=== PATIENT | female | born 1935 | race Caucasian/White ===

== ENCOUNTER 2017-06-19 15:32 | Inpatient (IN) | payer OTHER ==
[~2017-06-19] VITALS: Ht 162.6 cm; Wt 61.5 kg
[~2017-06-19 15:32] MED LIST: ASPEC325 PO; CRANPOW PO; HYDR-1838 PO
--- NOTE | 2017-06-19 15:50 | EMERGENCY ROOM VISIT NOTE ---
History Report prepared by [place]: Bernard Cintron Under the Supervision of: Dr. Ziggy Card D.O. First contact with patient: 15:44 Stated Complaint: AB PAIN, URINARY RETENSION History of Present Illness The patient is an 82 year old female who presents to the Emergency Room with complaints of persistent abdominal pain since this morning. She currently rates her pain a 5/10 in severity. Per friend, the patient has also been complaining of burning with urination. She states the patient was checked on at home and seemed mentally changed. She notes the patient is able to take care of herself 90% of the time without issue. She was seen at [facility] and was advised to come to the ED for further evaluation. They reported her blood pressure was 78/ 51. She has a history of prolapsed uterus. Per friend, the patient seems more improved, though still not as normal. She denies any smoking or drinking. NKDA. Source of History: patient, friend Onset: since this morning Position: abdomen Symptom Intensity: 5/10 Timing: other (persistent) Associated Symptoms: + urinary symptoms (burning with urination) Note: Notes altered mental status. Review of Systems See HPI for pertinent positives & negatives. A total of 10 systems reviewed and were otherwise negative. Past Medical & Surgical Medical Problems: (1) Complicated UTI (urinary tract infection) (2) Prolapsed bladder (3) Prolapsed uterus (4) UTI (urinary tract infection) Family History No pertinent family history Social History Smoking Status: Never Smoker Smokeless Tobacco Use: No Alcohol Use: none Drug Use: none Marital Status: single Housing Status: lives alone Occupation Status: unemployed Current/Historical Medications Scheduled Powders (Vagisil Deodorant), 1 APPLN TOP UD Scheduled PRN Aspirin-Caffeine (Anacin 400-32 mg), 1 TAB PO UD PRN for Pain Benzocaine-Resorcinol Vaginal (Vagisil), 1 APPLN TOP UD PRN for Itching Allergies Coded Allergies: No Known Allergies (Unverified , 06/19/17) Physical Exam Vital Signs Date Time Temp Pulse Resp B/P (MAP) Pulse Ox O2 Delivery O2 Flow Rate FiO2 06/19/17 23:00 36.7 105 18 155/91 96 Room Air 06/19/17 20:35 99 06/19/17 16:30 92 06/19/17 15:48 36.9 95 18 147/106 97 Room Air Physical Exam GENERAL: Patient is awake, alert, and in no acute distress. Patient is resting comfortably and showing no signs of anxiety. EYES: The conjunctivae are clear. The pupils are round and reactive. EARS, NOSE, MOUTH AND THROAT: The nose is without any evidence of any deformity. Mucous membranes are dry tongue is midline NECK: The neck is nontender and supple. RESPIRATORY: Normal respiratory effort is noted there is no evidence of wheezing rhonchi or rales CARDIOVASCULAR: Regular rate and rhythm noted there no murmurs rubs or gallops normal S1 normal S2 GASTROINTESTINAL: The abdomen is soft. Bowel sounds are present in all quadrants. Abdomen is nontender MUSCULOSKELETAL/EXTREMITIES: There is no evidence of gross deformity full range of motion is noted in the hips and shoulders SKIN: There is no obvious evidence of any rash. There are no petechiae, pallor or cyanosis noted. NEUROLOGIC: Patient is awake alert and oriented x3. Appears to be near baseline according to friend, but answers questions appropriately. Medical Decision & Procedures ER Provider Diagnostic Interpretation: Radiology results as stated below per my review and radiologist interpretation: CHEST ONE VIEW PORTABLE CLINICAL HISTORY: ABDOMINAL PAIN/GI pain. Nausea. COMPARISON STUDY: 08/08/2011 FINDINGS: The bones soft tissues and hemidiaphragms are normal. The cardiomediastinal silhouette is normal. The lungs are clear. The pulmonary vasculature is normal. IMPRESSION: Negative chest. The above report was generated using voice recognition software. It may contain grammatical, syntax or spelling errors. Electronically signed by: Glenroy Gamez M.D. 06/19/2017 4:18 PM Dictated Date/Time: 06/19/2017 4:18 PM Laboratory Results Test 06/19/17 16:04 06/19/17 16:07 06/19/17 17:12 Urine Color YELLOW Urine Appearance CLOUDY (CLEAR) Urine pH 5.5 (4.5-7.5) Urine Specific [place] 1.025 (1.000-1.030) Urine Protein 2+ (NEG) Urine Glucose (UA) NEG (NEG) Urine Ketones TRACE (NEG) Urine Occult Blood 3+ (NEG) Urine Nitrite POS (NEG) Urine Bilirubin NEG (NEG) Urine Urobilinogen NEG (NEG) Urine Leukocyte Esterase LARGE (NEG) Urine RBC >30 /hpf (0-4) Urine WBC >30 /hpf (0-5) Urine Epithelial Cells 5-10 /lpf (0-5) Urine Bacteria 4+ (NEG) Prothrombin Time 10.7 SECONDS (9.0-12.0) Prothromb Time International Ratio 1.0 (0.9-1.1) Activated Partial Thromboplast Time 25.9 SECONDS (21.0-31.0) Partial Thromboplastin Ratio 1.0 Magnesium Level 2.1 mg/dl (1.8-2.4) Total Bilirubin 0.4 mg/dl (0.2-1) Direct Bilirubin 0.1 mg/dl (0-0.2) Aspartate Amino Transf (AST/SGOT) 13 U/L (15-37) Alanine Aminotransferase (ALT/SGPT) 11 U/L (12-78) Alkaline Phosphatase 61 U/L (45-117) Total Creatine Kinase 46 U/L (26-192) Creatine Kinase MB 1.4 ng/ml (0.5-3.6) Creatine Kinase MB Ratio 3.0 (0-3.0) Troponin I < 0.015 ng/ml (0-0.045) Total Protein 7.7 gm/dl (6.4-8.2) Albumin 4.0 gm/dl (3.4-5.0) Lipase 187 U/L (73-393) Thyroid Stimulating Hormone (TSH) 1.900 uIu/ml (0.300-4.500) Bedside Lactic Acid Venous 3.08 mmol/L (0.90-1.70) Laboratory results per my review. Medications Administered Medications (Trade) Dose Ordered Sig/Duke Route Start Time Stop Time Status Last Admin Dose Admin Sodium Chloride 1,000 ml @ 999 mls/hr Q1H1M STAT IV 06/19/17 15:51 06/19/17 16:51 DC 06/19/17 15:51 999 MLS/HR Fentanyl Citrate (Fentanyl Inj) 50 mcg Q20M PRN IV 06/19/17 17:00 06/19/17 23:44 DC 06/19/17 17:24 50 MCG Ondansetron HCl (Zofran Inj) 4 mg NOW STAT IV 06/19/17 16:54 06/19/17 16:55 DC 06/19/17 17:11 4 MG Ondansetron HCl (Zofran Inj) 4 mg STK-MED ONCE .ROUTE 06/19/17 17:07 06/19/17 17:11 DC 06/19/17 17:25 4 MG Procedure Radiology results as stated below per my review and radiologist interpretation: CHEST ONE VIEW PORTABLE CLINICAL HISTORY: ABDOMINAL PAIN/GI pain. Nausea. COMPARISON STUDY: 08/08/2011 FINDINGS: The bones soft tissues and hemidiaphragms are normal. The cardiomediastinal silhouette is normal. The lungs are clear. The pulmonary vasculature is normal. IMPRESSION: Negative chest. The above report was generated using voice recognition software. It may contain grammatical, syntax or spelling errors. Electronically signed by: Glenroy Gamez M.D. 06/19/2017 4:18 PM Dictated Date/Time: 06/19/2017 4:18 PM ECG Per My Interpretation Indication: abdominal pain Rate (beats per minute): 102 Rhythm: sinus tachycardia Findings: no acute ischemic change, no ectopy (No PVC) Change: no significant change (rate increased otherwise no change when compared to 08/08/2011) ED Course 1546: The patient was evaluated in room A2. A complete history and physical examination were performed. 1551: Ordered NSS 1,000 ml @ 999 mls/hr IV 1654: Ordered Zofran 4 mg IV 1700: Ordered Fentanyl Citrate 50 mcg IV 1815: I reassessed the patient at this time. She is resting. 1824: I spoke with Yen Shafer PA-C. We discussed the patient's case. The patient will be evaluated by the [facility] Hospitalist Group for further management. Medical Decision Prior records/ancillary studies reviewed. Triage Nursing notes reviewed. Additional history obtained from friend. The patient's history was concerning for abdominal pain. Differential diagnosis: Etiologies such as appendicitis, diverticulitis, PUD, biliary pathology, UTI, pancreatitis, obstruction, mesenteric ischemia, aortic pathology, infections, inflammatory bowel disease, renal colic, as well as others were entertained. The patient is an 82-year-old female who presented to the emergency department with a family friend. The patient normally lives alone. She was complaining of difficulty urinating and dysuria. The patient was felt to have an altered mental status by her family friend. She was complaining of significant urinary symptoms. On physical exam she appears to have very significant erythema and signs of possible fungal infection. She has a bladder prolapse by history and this likely is the reason why the patient's having urinary symptoms as well as these current findings on physical exam. She was treated with IV antibiotics as well as topical antifungals. I am very concerned because this patient does not have any primary care follow-up. For this reason I discussed her condition with the on-call [facility] hospitalist group. They have agreed to evaluate the patient in the emergency department for further management and disposition. Medication Reconcilliation Current Medication List: was personally reviewed by me Blood Pressure Screening Blood pressure disposition: Elevated BP felt to be situational Consults Time Called: 1819 Consulting Physician: Yen Shafer PA-C Returned Call: 1823 I spoke with Yen Shafer PA-C. We discussed the patient's case. The patient will be evaluated by the [facility] Hospitalist Group for further management. Impression Primary Impression: Altered mental status Additional Impressions: UTI (urinary tract infection) Intertrigo Scribe Attestation The scribe's documentation has been prepared under my direction and personally reviewed by me in its entirety. I confirm that the note above accurately reflects all work, treatment, procedures, and medical decision making performed by me. Departure Information Dispostion Being Evaluated By Hospitalist Referrals Herbie Castañeda (PCP) Problem Qualifiers Primary Impression: Altered mental status Altered mental status type: unspecified Qualified Codes: R41.82 - Altered mental status, unspecified Additional Impressions: UTI (urinary tract infection) Urinary tract infection type: acute cystitis Hematuria presence: with hematuria Qualified Codes: N30.01 - Acute cystitis with hematuria
[2017-06-19] MEDS ORDERED: SODIUM CHLORIDE 0.9% 1000ML 1,000 ML IV STA (15:51)
[2017-06-19] MEDS ORDERED: [UNRECOGNIZED DRUG - CODE] TOP (15:55)
[2017-06-19] MEDS ORDERED: [UNRECOGNIZED DRUG - CODE] TOP (15:55)
[2017-06-19] MEDS ORDERED: ASPI400T11 PO (15:55)
--- NOTE | 2017-06-19 16:20 | DIAGNOSTIC IMAGING REPORT ---
CHEST ONE VIEW PORTABLE CLINICAL HISTORY: ABDOMINAL PAIN/GI pain. Nausea. COMPARISON STUDY: 08/08/2011 FINDINGS: The bones soft tissues and hemidiaphragms are normal. The cardiomediastinal silhouette is normal. The lungs are clear. The pulmonary vasculature is normal. IMPRESSION: Negative chest. The above report was generated using voice recognition software. It may contain grammatical, syntax or spelling errors. Electronically signed by: Glenroy Gamez M.D. 06/19/2017 4:18 PM Dictated Date/Time: 06/19/2017 4:18 PM
[2017-06-19 16:27] LABS: BASO % 0.5 %; BASO ABS # 0.04 K/uL (0-0.2); EOS % 3.5 %; EOS ABS # 0.29 K/uL (0-0.5); HEMATOCRIT 40.8 % (37-47); HEMOGLOBIN 13.6 g/dL (12.0-16.0); IG# 0.02 K/uL (0.00-0.02); LYMPH % 16.6 %; LYMPH ABS # 1.36 K/uL (1.2-3.4); MEAN CELL VOLUME 95.8 fL (80-100); MEAN CORPUSCULAR HEMOGLOBIN 31.9 pg (25-34); MEAN CORPUSCULAR HGB CONC 33.3 g/dl (32-36); MEAN PLATELET VOLUME 9.4 fL (7.4-10.4); MONO % 8.5 %; NEUT % 70.7 %; PLATELET COUNT 219 K/uL (130-400); RED CELL DISTRIBUTION WIDTH CV 13.8 % (11.5-14.5); RED CELL DISTRIBUTION WIDTH SD 48.9 fL (36.4-46.3); WHITE BLOOD COUNT 8.21 K/uL (4.8-10.8)
[2017-06-19 16:40] LABS: PTT PATIENT 25.9 SECONDS (21.0-31.0)
[2017-06-19 16:41] LABS: ALT/SGPT 11 U/L (12-78); AST/SGOT 13 U/L (15-37); BLOOD UREA NITROGEN 25 mg/dl (7-18); CALCIUM 9.4 mg/dl (8.5-10.1); CARBON DIOXIDE 21 mmol/L (21-32); CREATININE 1.48 mg/dl (0.60-1.20); GLUCOSE 93 mg/dl (70-99); LIPASE 187 U/L (73-393); POTASSIUM 3.7 mmol/L (3.5-5.1); SODIUM 139 mmol/L (136-145)
[2017-06-19 16:47] LABS: ALKALINE PHOSPHATASE 61 U/L (45-117); CKMB 1.4 ng/ml (0.5-3.6); TOTAL PROTEIN 7.7 gm/dl (6.4-8.2)
[2017-06-19] MEDS ORDERED: ONDANSETRON INJ 2 MG/ML 2 ML VIAL IV STA (16:54)
[2017-06-19] MEDS ORDERED: FENTANYL CITRATE INJ 50 MCG/1 ML 2 ML VIAL IV PRN (17:00)
[2017-06-19] MEDS ORDERED: ONDANSETRON INJ 2 MG/ML 2 ML VIAL ONE (17:07)
[2017-06-19] MEDS ORDERED: FENTANYL CITRATE INJ 50 MCG/1 ML 2 ML VIAL ONE (17:07)
[2017-06-19] MEDS ORDERED: SODIUM CHLORIDE 0.9% 1000ML 1,000 ML IV SCH (18:15)
[2017-06-19] MEDS ORDERED: CEFTRIAXONE SOD INJ 1 GM ADDVIAL ONE (18:46)
[2017-06-19] MEDS ORDERED: KETOCONAZOLE 2% CR 15 GM TUBE EXT ONE (19:15)
[2017-06-19] MEDS ORDERED: PIPERACILLIN/TAZOBACTAM 4.5 GM/100ML D5W ONE (20:46)
--- NOTE | 2017-06-19 22:20 | HISTORY & PHYSICAL EXAMINATION ---
DATE OF ADMISSION: 06/19/2017 PRIMARY CARE PHYSICIAN: She has no primary care doctor. CHIEF COMPLAINT: UTI. HISTORY OF PRESENT ILLNESS: History obtained from patient and urgent care center records. Liimited history obtained secondary to EMR downtime. No significant medical history. As per records, last few days, patient having bladder discomfort, achy back pain, some nausea, no vomiting. Good bowel movement. No chest pain, no shortness of breath, no fever, no chills. Episodic confusion as per family. Seen at [facility]. Initial BP 78/51, pulse rate 122, temperature 98.2. Subsequent SBP later 120s. Patient sent to the ER for possible UTI. Received IV ceftriaxone in the ER. Vaginal prolapse noted at ER during straight catheterization for UA specimen. MEDICAL HISTORY: As above. SURGERIES: Ankle surgery, hysterectomy. HOME MEDICATIONS: Anacin, Vagisil. ALLERGIES: No known drug allergies. FAMILY HISTORY: Hypertension. PERSONAL AND SOCIAL HISTORY: Nonsmoker, no chronic intake of alcoholic beverages. 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 REVIEW OF SYSTEMS: As per HPI. All 10 systems reviewed, all other ROS negative. PHYSICAL EXAMINATION: VITAL SIGNS: Blood pressure was noted to be 100/70, pulse rate 100, RR 18, temperature to be obtained, sats 90 on room air. GENERAL: Noted to be pleasant, no respiratory distress. SKIN: Normal color, warm. HEENT: [place] palpebral conjunctivae. No ptosis. Dry mucosa. NECK: Supple, nontender. CHEST: Decreased effort. No tenderness. HEART: Regular rate and rhythm, no murmur. ABDOMEN: hypogastric tenderness, some distention. EXTREMITIES: LE edema, no tenderness. No other gross deformities. NEUROLOGIC: Coherent. No gross focality. LABORATORY DATA: Hemoglobin was noted to be 13, hematocrit 42, white cell count 8.2, platelets 219. Sodium 139, potassium 3.7, chloride 109, CO2 of 21, BUN 20, creatinine 1.3, glucose 93. UA, nitrite positive, trace ketones. ASSESSMENT: 1. Complicated urinary tract infection, possible sepsis. ro obstructive uropathy 2. Acute renal failure secondary to illness, dehydration. Unknown baseline 3. Bilateral LE swelling ro DVT PLAN: F CS, check lactic acid if not yet done monitor creatinine to IV fluids, Zosyn for now. CT abdomen pelvis RE back pain Lower extremity venous Dopplers rule out DVT PT/OT evaluation. DVT prophylaxis, Heparin subQ. Full code. MTDD
[2017-06-19 23:00] VITALS: BP 155/91; PULSE 105; TEMP 36.7; O2SAT 96; Ht 162.6 cm; Wt 61.5 kg
[2017-06-19] MEDS ORDERED: NSS + 20MEQ KCL 1000ML 1,000 ML IV ONE (23:45)
[2017-06-19] MEDS ORDERED: PROCHLORPERAZINE INJ 5 MG in SYRINGE 4 ML IV PRN (23:45)
[2017-06-20] MEDS: PIPERACILL/TAZOBAC IV 3.375 GM in DEXTROSE 5% 100ML IV SCH ×4 (00:29→23:51)
[2017-06-20] MEDS: HEPARIN SOD 5000 UNIT/0.5 ML CARP SQ SCH ×4 (00:34→23:53)
[2017-06-20] MEDS ORDERED: INFLUENZA VIRUS QUAD VACCINE 0.5 ML SYR IM. ONE (01:15)
[2017-06-20] MEDS ORDERED: INFLUENZA ADMINISTRATION CHARGE ONE (01:15)
--- NOTE | 2017-06-20 06:40 | DIAGNOSTIC IMAGING REPORT ---
ULTRASOUND VENOUS DOPPLER LWR EXT BILA CLINICAL HISTORY: Bilateral leg swelling COMPARISON STUDY: No previous studies for comparison. FINDINGS: Real-time and color flow Doppler imaging were performed. Flow was seen within the femoral, popliteal and calf veins with no intraluminal thrombus demonstrated. The saphenous vein is patent. IMPRESSION: No evidence of lower extremity DVT. Electronically signed by: Master Lopez M.D. 06/20/2017 6:39 AM Dictated Date/Time: 06/20/2017 6:39 AM
[2017-06-20 07:34] VITALS: BP 110/67; PULSE 67; TEMP 36.7; O2SAT 95
[2017-06-20 07:46] LABS: BASO % 0.4 %; BASO ABS # 0.03 K/uL (0-0.2); EOS % 4.3 %; EOS ABS # 0.33 K/uL (0-0.5); HEMATOCRIT 35.1 % (37-47); HEMOGLOBIN 11.6 g/dL (12.0-16.0); IG# 0.02 K/uL (0.00-0.02); LYMPH % 15.9 %; LYMPH ABS # 1.21 K/uL (1.2-3.4); MEAN CELL VOLUME 96.4 fL (80-100); MEAN CORPUSCULAR HEMOGLOBIN 31.9 pg (25-34); MEAN PLATELET VOLUME 9.2 fL (7.4-10.4); MONO % 12.9 %; MONO ABS # 0.98 K/uL (0.11-0.59); NEUT % 66.2 %; NEUT ABS # 5.05 K/uL (1.4-6.5); PLATELET COUNT 181 K/uL (130-400); RED CELL DISTRIBUTION WIDTH SD 49.8 fL (36.4-46.3); WHITE BLOOD COUNT 7.62 K/uL (4.8-10.8)
[2017-06-20] MEDS ORDERED: PIPERACILL/TAZOBAC CONSULT ACTIVE PRN (08:00)
[2017-06-20 08:14] LABS: CALCIUM 8.3 mg/dl (8.5-10.1); CREATININE 1.37 mg/dl (0.60-1.20); POTASSIUM 4.1 mmol/L (3.5-5.1)
[2017-06-20] MEDS: ACETAMINOPHEN 325 MG TAB PO PRN (08:20)
--- NOTE | 2017-06-20 10:17 | DIAGNOSTIC IMAGING REPORT ---
CT SCAN OF THE ABDOMEN AND PELVIS WITHOUT IV CONTRAST CLINICAL HISTORY: Lower abdominal pain. COMPARISON STUDY: No priors. TECHNIQUE: CT scan of the abdomen and pelvis is performed from the lung bases to the proximal femora. Images are reviewed in the axial, sagittal, and coronal planes. IV contrast was not administered for this examination as per the referring clinician. Note that the examination was performed in suboptimal fashion without oral and IV contrast. A dose lowering technique was utilized adhering to the principles of ALARA. FINDINGS: Lung bases: The heart is top normal in size and without pericardial effusion. There is calcification of the mitral annulus. There are fat-containing Bochdalek hernias present at both lung bases, right larger than left. Mild patchy groundglass change is suggested in the left lower lobe. No pleural effusion is identified. Liver: The unenhanced liver is normal in size, contour, and attenuation. There is no intrahepatic biliary ductal dilatation. A 2.8 cm cyst is noted in the right lobe. Additional subcentimeter hepatic densities also likely represent cysts but are too small for definitive characterization. Gallbladder: Unremarkable. Spleen: Normal in size and attenuation. Pancreas: The unenhanced pancreas is moderately atrophic and grossly unremarkable. Adrenal glands: Unremarkable. Kidneys: The unenhanced kidneys are atrophic. There is a large extrarenal pelvis identified on the right. No hydronephrosis is seen. Punctate nonobstructing calculi are present in both kidneys. Scattered subcentimeter cortical hypodensities likely represent cysts but are too small for definitive characterization. Abdominal vasculature: There is advanced atherosclerotic calcification and ectasia of the abdominal aorta. 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 Bowel: There is moderate to advanced sigmoid diverticulosis without CT evidence of acute diverticulitis. No bowel obstruction is seen. The appendix is well-visualized and normal. Peritoneum: There is no intraperitoneal free air or abdominal ascites. Lymphadenopathy: None. Pelvic viscera: There is asymmetric thickening of the bladder wall, greatest posteriorly on the right. There is mild pericystic inflammatory stranding. The uterus is surgically absent. No adnexal lesion is seen. Skeletal structures: The skeletal structures are osteopenic. No lytic or blastic lesions are seen. There is moderate lumbosacral spondylosis. Advanced arthritic change is seen in the hips. IMPRESSION: 1. There is asymmetric bladder wall thickening with associated pericystic inflammatory stranding. This likely represents cystitis. Underlying mass lesion would be impossible to exclude. Correlation with urinalysis will be required and follow-up with urology is suggested. 2. Mild groundglass change is suggested in the left lower lobe. Correlate clinically for evidence of a mild infectious/inflammatory pneumonitis. 3. There is advanced atherosclerotic calcification of the abdominal aorta with a 3 cm infrarenal abdominal aortic aneurysm. 4. Moderate to advanced sigmoid diverticulosis without CT evidence of acute diverticulitis. 5. Punctate nonobstructing renal calculi. 6. Additional findings as above. Electronically signed by: Dillon Perez M.D. 06/20/2017 7:59 AM Dictated Date/Time: 06/20/2017 7:51 AM
[2017-06-20] MEDS: HYDROmorphone INJ 0.5 MG/0.5 ML SYR IV PRN ×2 (10:56→14:01)
[2017-06-20] MEDS: TRAMADOL HCL 50 MG TAB PO PRN (13:15)
[2017-06-20 16:30] VITALS: BP 133/78; PULSE 72; TEMP 36.6; O2SAT 95
--- NOTE | 2017-06-20 19:48 | Progress Note ---
Medicine Progress Note Date & Time of Visit: Jun 20, 2017 at 16:20 . Subjective Presented to ED yesterday with confusion. Found to have urinary tract infection. Feels better today. No fever. Having dysuria. No flank pain. Experienced some bladder discomfort that was relieved by voiding. No chest pain. No cough or shortness of breath. No nausea, vomiting, diarrhea. . Objective Last 8 Hrs Date Time Temp Pulse Resp B/P (MAP) Pulse Ox O2 Delivery O2 Flow Rate FiO2 06/20/17 16:30 36.6 72 16 133/78 (96) 95 Room Air 06/20/17 16:00 Room Air Physical Exam: General-lying in bed, no distress Lungs- clear to auscultation; no respiratory distress Cardiovascular- RRR; no gallop; no JVD; no pretibial edema Abdomen- + bowel sounds, soft, nontender Extremities- no cyanosis; no calf tenderness Neuro- alert, mild confusion (missed exact date by a few days) Skin- warm & dry . Laboratory Results: Last 24 Hours Test 06/20/17 00:50 06/20/17 06:55 Lactic Acid Level 1.1 mmol/L White Blood Count 7.62 K/uL Red Blood Count 3.64 M/uL Hemoglobin 11.6 g/dL Hematocrit 35.1 % Mean Corpuscular Volume 96.4 fL Mean Corpuscular Hemoglobin 31.9 pg Mean Corpuscular Hemoglobin Concent 33.0 g/dl Platelet Count 181 K/uL Mean Platelet Volume 9.2 fL Neutrophils (%) (Auto) 66.2 % Lymphocytes (%) (Auto) 15.9 % Monocytes (%) (Auto) 12.9 % Eosinophils (%) (Auto) 4.3 % Basophils (%) (Auto) 0.4 % Neutrophils # (Auto) 5.05 K/uL Lymphocytes # (Auto) 1.21 K/uL Monocytes # (Auto) 0.98 K/uL Eosinophils # (Auto) 0.33 K/uL Basophils # (Auto) 0.03 K/uL RDW Standard Deviation 49.8 fL RDW Coefficient of Variation 14.0 % Immature Granulocyte % (Auto) 0.3 % Immature Granulocyte # (Auto) 0.02 K/uL Sodium Level 144 mmol/L Potassium Level 4.1 mmol/L Chloride Level 114 mmol/L Carbon Dioxide Level 24 mmol/L Anion Gap 6.0 mmol/L Blood Urea Nitrogen 18 mg/dl Creatinine 1.37 mg/dl Est Creatinine Clear Calc Drug Dose 26.9 ml/min Estimated GFR () 41.2 Estimated GFR (Non- 35.6 BUN/Creatinine Ratio 13.4 Random Glucose 82 mg/dl Calcium Level 8.3 mg/dl Assessment & Plan PROBABLE SEVERE SEPSIS / URINARY TRACT INFECTION Patient presented with confusion and urinary symptoms. Reportedly hypertensive at urgent care center, but hemodynamically stable in ED. Tachycardic. No fever or leukocytosis. Serum lactate 3.08, repeat 1.1. Probable severe sepsis. Does not be sepsis 1 definition criteria, but does meet sepsis 2 definition ( infection, encephalopathy, tachycardia, elevated lactate), and sepsis 3 definition (SOFA = 2). Blood cultures obtained-results pending. Urine culture growing E. coli. Receiving broad-spectrum antibiotic coverage with piperacillin/tazobactam which will be continued pending final sensitivities. ALTERED MENTAL STATUS Probable encephalopathy / delirium secondary to urinary tract infection. Improved. ACUTE KIDNEY INJURY Serum creatinine 1.48 at time of admission. Receiving IV fluids with improvement. Serum creatinine this morning = 1.37. UTI / ABNORMAL CT / [employer]AK[employer] CLERK CONCERNS Patient has been having bladder difficulty for some time with difficulty voiding and urinary incontinence She is status post hysterectomy. Per nursing assessment, patient may have a cystocele; also has superior labial irritation/discomfort. Patient indicates that she has seen either a urologist or window/distribution clerk with [facility] in the past. Will consult urology and gynecology. VTE PROPHYLAXIS SQ heparin. Ambulate. DISPOSITION Patient lives at home by herself. Discharge disposition to be determined. Outpatient follow-up to be determined. Son Umang in [place] and kristian Pickard in [place] given updates by phone. . Current Inpatient Medications: Current Inpatient Medications Medications (Trade) Dose Ordered Sig/Duke Route Start Time Stop Time Status Last Admin Dose Admin Heparin Sodium (Porcine) (Heparin Sq 5000 Unit/0.5ml) 5,000 unit Q8H SQ 06/20/17 00:00 07/20/17 00:00 06/20/17 16:28 5,000 UNIT Acetaminophen (Tylenol Tab) 650 mg Q4H PRN PO 06/19/17 23:45 07/19/17 23:44 06/20/17 08:20 650 MG Miscellaneous Information (Consult) 1 ea UD PRN N/A 06/20/17 08:00 07/20/17 07:59 Hydromorphone HCl (Dilaudid Inj) 0.5 mg Q3H PRN IV 06/19/17 23:45 07/03/17 23:44 06/20/17 14:01 0.5 MG Prochlorperazine Edisylate 5 mg/ Syringe 5 ml @ 5 mls/min Q6H PRN IV 06/19/17 23:45 07/19/17 23:44 Tramadol HCl (Ultram Tab) not relieved by tylenol @ Q6H PRN PO 06/19/17 23:45 07/19/17 23:44 06/20/17 13:15 50 MG Piperacillin Sod/ Tazobactam Sod 3.375 gm/Dextrose 115 ml @ 28.75 mls/ hr Q8H IV 06/20/17 00:00 06/30/17 00:00 06/20/17 16:22 28.75 MLS/HR
[2017-06-20 23:30] VITALS: BP 110/69; PULSE 68; TEMP 36.7; O2SAT 96
[2017-06-21 07:34] VITALS: BP_SYST 153; BP_SYST 167; BP_SYST 174; BP_DIAS 103; BP_DIAS 104; BP_DIAS 90; PULSE 77; PULSE 95; PULSE 97; TEMP 36.8; O2SAT 95
[2017-06-21] MEDS: PIPERACILL/TAZOBAC IV 3.375 GM in DEXTROSE 5% 100ML IV SCH (08:20)
[2017-06-21] MEDS: ACETAMINOPHEN 325 MG TAB PO PRN (08:21)
[2017-06-21] MEDS: HEPARIN SOD 5000 UNIT/0.5 ML CARP SQ SCH ×2 (08:24→21:06)
[2017-06-21 09:08] LABS: CALCIUM 8.8 mg/dl (8.5-10.1); CREATININE 1.49 mg/dl (0.60-1.20); POTASSIUM 3.8 mmol/L (3.5-5.1)
--- NOTE | 2017-06-21 09:47 | Urology Consultation ---
History General Date of Service: Jun 21, 2017. Chief Complaint: UTI, incontinence Primary Care Physician: No Doctor, Assigned History of Present Illness 82 yo female admitted for UTI, possible sepsis. consulted for UTI and incontinence. Appears the pt last saw our practice in 1971 for a cysto and urethral dilation. She does not recall much of these visits. She c/o baseline leaking for which she wears pads during the day. Several days prior to admission she reports worsening of incontinence and dysuria. Denies f/c or gross hematuria at home. CT on admission showing bladder wall thickening or likely cystitis. No evidence for ureteral stone or obstruction. UC&S growing martinez sensitive e coli. 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 for possible cystocele Imaging Imaging: CT Laboratory Last 24 Hours Test 06/21/17 08:09 Sodium Level 141 mmol/L Potassium Level 3.8 mmol/L Chloride Level 111 mmol/L Carbon Dioxide Level 24 mmol/L Anion Gap 7.0 mmol/L Blood Urea Nitrogen 14 mg/dl Creatinine 1.49 mg/dl Est Creatinine Clear Calc Drug Dose 24.7 ml/min Estimated GFR () 37.3 Estimated GFR (Non- 32.1 BUN/Creatinine Ratio 9.3 Random Glucose 88 mg/dl Calcium Level 8.8 mg/dl Problem List Medical Problems: (1) Altered mental status Status: Acute (2) Intertrigo Status: Acute Past History no pertinent history, other (incontinence ) Past Surgical History: hysterectomy, orthopedic surgery (ankle surgery ) Family History hypertension Social History Hx Tobacco Use In Past Year?: No Smoking: non-smoker Alcohol: never Marital status: single Housing status: lives alone 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) Immunizations History of Influenza Vaccine: N/A History of Tetanus Vaccine?: Yes Tetanus Immunization Date: August 12, 2011 History of Pneumococcal: No History of Hepatitis B Vaccine: No Allergies Coded Allergies: No Known Allergies (Unverified , 06/19/17) Medications Home Medications: Home Meds and Scripts Medications Dose Route/Sig Max Daily Dose Days Date Category Dose Instructions Vagisil Deodorant (Powders) 1 Pow Pow 1 Appln TOP UD 06/19/17 Reported APPLY PER PACKAGE DIRECTIONS Vagisil (Benzocaine-Resorcinol Vaginal) 1 Cre Cre 1 Appln TOP UD PRN 06/19/17 Reported APPLY PER PACKAGE DIRECTIONS Anacin 400-32 mg (Aspirin-Caffeine) 1 Tab Tab 1 Tab PO UD PRN 06/19/17 Reported TAKE PER PACKAGE DIRECTIONS Inpatient Medications: Current Inpatient Medications Medications (Trade) Dose Ordered Sig/Duke Route Start Time Stop Time Status Last Admin Dose Admin Heparin Sodium (Porcine) (Heparin Sq 5000 Unit/0.5ml) 5,000 unit Q8H SQ 06/20/17 00:00 07/20/17 00:00 06/21/17 08:24 5,000 UNIT Acetaminophen (Tylenol Tab) 650 mg Q4H PRN PO 06/19/17 23:45 07/19/17 23:44 06/21/17 08:21 650 MG Hydromorphone HCl (Dilaudid Inj) 0.5 mg Q3H PRN IV 06/19/17 23:45 07/03/17 23:44 06/20/17 14:01 0.5 MG Tramadol HCl (Ultram Tab) not relieved by tylenol @ Q6H PRN PO 06/19/17 23:45 07/19/17 23:44 06/20/17 13:15 50 MG Ceftriaxone Sodium 2000 mg/ Dextrose 70 ml @ 100 mls/hr Q24H IV 06/21/17 10:00 06/26/17 09:59 Review of Systems Review of Systems Constitutional: No fever, No chills Eyes: No double vision Neurological: No dizzy Endocrine: No excessive thirst Gastrointestinal: No abdominal pain, No nausea, No vomiting Cardiovascular: No chest pain Respiratory: No shortness of breath Skin: No rash Musculoskeletal: + arthritis Female : + painful urination, + leaking urine, No blood in urine Physical Exam Vital Signs: Vital Signs Past 12 Hours Date Time Temp Pulse Resp B/P (MAP) Pulse Ox O2 Delivery O2 Flow Rate FiO2 06/21/17 07:34 36.8 77 20 153/90 (111) 95 Room Air 95 174/104 (127) 97 167/103 (124) 06/21/17 01:00 Room Air 06/20/17 23:30 36.7 68 16 110/69 (83) 96 Room Air Physical Exam: General Appearance: no apparent distress Eyes: bilateral eyes normal inspection ENT: hearing grossly normal Neck: no JVD Respiratory/Chest: no respiratory distress, no accessory muscle use Cardiovascular: no JVD Genitourinary - Female: External Genitalia: pertinent finding (Swelling and excoriation of the labia noted on exam today) Extremities: normal inspection Neurologic/Psychiatric: alert, normal mood/affect, oriented x 3 Skin: normal color Assessment & Plan Assessment & Plan A/P: UTI, incontinence Recommend transitioning the pt to 10 days of oral abx such as Cipro or Bactrim prior to d/c home. Will plan for outpatient cysto to further evaluate bladder findings on CT. As for her incontinence, her labia appear rather swollen and excoriated on exam today. Suspect from severe incontinence. Also noted that she has Vagisil listed under home medications which is likely not helping. Will allow RET[employer] MANAGER [employer] to evaluate, but would consider applying a barrier cream such a Calmoseptine to help with this discomfort. Will check bladder scans qshift. If acceptable, would consider starting an anticholinergic such as tolterodine to see if this improves her leaking. Thanks for the consult. Will continue to follow along with primary service.
[2017-06-21] MEDS: CEFTRIAXONE SOD INJ 2,000 MG in DEXTROSE 5% 50ML 50 ML IV SCH (11:45)
[2017-06-21 14:54] VITALS: BP 145/91; PULSE 90; TEMP 36.9; O2SAT 96
--- NOTE | 2017-06-21 15:04 | GYNECOLOGICAL CONSULTATION ---
DATE OF CONSULTATION: 06/21/2017 INDICATION: 1. Chronic vulvar irritation. 2. Urinary incontinence. REQUESTING PHYSICIAN: Barrington Castro MD HISTORY OF PRESENT ILLNESS: The patient is an 82-year-old 2, para 2 postmenopausal female status post a vaginal hysterectomy 20-30 years ago, who was admitted on to the hospitalist service 2 days ago for presumed UTI with possible early sepsis. The patient was noted to have some vaginal vault prolapse with marked vulvar irritation and Dr. Castro has asked me to see patient in consultation. The patient states that she had a vaginal hysterectomy, although she cannot remember the indication for this. She said this was done here in [place]. The patient states that she is aware of some pelvic prolapse but complains mostly of exterior vulvar irritation. She feels like it is worse when she is sitting and she is able to up and ambulate. The patient states that she wears constant Krissy-Pad protection for urinary incontinence. She states that she will just leak urine spontaneously and not with activity. The patient states it has been many years since she has seen a claims specialist. The patient states that she is not putting any medication on the vulvar area. She does not have any history of irritation down there that she can remember, but patient appears to be somewhat of a poor historian. PHYSICAL EXAMINATION: GENERAL: Shows a pleasant elderly female in no acute distress. VITAL SIGNS: Show blood pressure of 153/90. ABDOMEN: Soft, nontender, no palpable masses, no rebound, no guarding, no organomegaly. Positive bowel sounds. PELVIC: Shows erythematous excoriated vulva with several ulcerative lesions. Ulcerative lesions are not tender to palpation. With Valsalva, there appears to be some prolapse but suboptimal examination secondary to facilities available to examine patient. IMPRESSION: An 82-year-old 2, para 2 with apparent chronic vulvitis. PLAN: I suspect that patient just has a significant vulvar candidiasis from the chronic incontinence and moisture against her vulva. She states that she wears constant Krissy-Pad protection for this problem. The patient does also admit to it itching. I do not believe these are herpetic lesions as they are not tender. I highly doubt that these are set syphilitic lesions, but an RPR has been ordered. I believe the best thing to do is to try to keep the area as dry as possible. I have discussed this with the nurses and wound care. I have prescribed Mycolog 2 ointment to be applied t.i.d. I have also ordered oral Diflucan 100 mg twice weekly. Hopefully, this will try to get the vulvitis under control. At this point, I do not think Gynecology has anything else to add. The patient can follow up with me as an outpatient for better evaluation of pelvic prolapse and possible pessary placement. However, at this point that cannot be accomplished in the hospital. I have discussed the case with Dr. Castro who can contact me if further gynecological in-point is needed.
[2017-06-21] MEDS: NYSTATIN/TRIAMCINOLONE OINT 15 GM TUBE EXT SCH ×2 (15:47→20:46)
[2017-06-21 16:38] VITALS: O2SAT 96
--- NOTE | 2017-06-21 23:15 | Progress Note ---
Medicine Progress Note Date & Time of Visit: Jun 21, 2017 at 11:10 . Subjective Much better. Confusion improved. No fever. Dysuria improved. No flank pain. No chest pain. No cough or shortness of breath. No nausea or vomiting. . Objective Last 8 Hrs Date Time Temp Pulse Resp B/P (MAP) Pulse Ox O2 Delivery O2 Flow Rate FiO2 06/21/17 16:38 96 Room Air Physical Exam: General- lying in bed, no distress Lungs- clear to auscultation; no respiratory distress Cardiovascular- RRR; no gallop; no JVD; no pretibial edema Abdomen- + bowel sounds, soft, nontender Extremities- no cyanosis; no calf tenderness Neuro- alert, oriented Skin- warm & dry . Laboratory Results: Last 24 Hours Test 06/21/17 08:09 Sodium Level 141 mmol/L Potassium Level 3.8 mmol/L Chloride Level 111 mmol/L Carbon Dioxide Level 24 mmol/L Anion Gap 7.0 mmol/L Blood Urea Nitrogen 14 mg/dl Creatinine 1.49 mg/dl Est Creatinine Clear Calc Drug Dose 24.7 ml/min Estimated GFR () 37.3 Estimated GFR (Non- 32.1 BUN/Creatinine Ratio 9.3 Random Glucose 88 mg/dl Calcium Level 8.8 mg/dl Assessment & Plan PROBABLE SEVERE SEPSIS / URINARY TRACT INFECTION Patient presented with confusion and urinary symptoms. Reportedly hypertensive at urgent care center, but hemodynamically stable in ED. Tachycardic. No fever or leukocytosis. Serum lactate 3.08, repeat 1.1. Probable severe sepsis. Does not be sepsis 1 definition criteria, but does meet sepsis 2 definition ( infection, encephalopathy, tachycardia, elevated lactate), and sepsis 3 definition (SOFA = 2). Blood cultures obtained-results negative so far. Received broad-spectrum antibiotic coverage with piperacillin/tazobactam. Urine culture grew E. coli, pansensitive. Antibiotic therapy changed to ceftriaxone. ALTERED MENTAL STATUS Probable encephalopathy / delirium secondary to urinary tract infection. Improved. ACUTE KIDNEY INJURY Serum creatinine 1.48 at time of admission. Receiving IV fluids. Serum creatinine this morning = 1.49. Follow. 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 Urology and Gynecology consulted. VTE PROPHYLAXIS SQ heparin. Ambulate. DISPOSITION Patient lives at home by herself. Discharge disposition to be determined. Outpatient follow-up to be determined. . Current Inpatient Medications: Current Inpatient Medications Medications (Trade) Dose Ordered Sig/Duke Route Start Time Stop Time Status Last Admin Dose Admin Heparin Sodium (Porcine) (Heparin Sq 5000 Unit/0.5ml) 5,000 unit Q8H SQ 06/20/17 00:00 07/20/17 00:00 06/21/17 21:06 5,000 UNIT Acetaminophen (Tylenol Tab) 650 mg Q4H PRN PO 06/19/17 23:45 07/19/17 23:44 06/21/17 08:21 650 MG Hydromorphone HCl (Dilaudid Inj) 0.5 mg Q3H PRN IV 06/19/17 23:45 07/03/17 23:44 06/20/17 14:01 0.5 MG Tramadol HCl (Ultram Tab) not relieved by tylenol @ Q6H PRN PO 06/19/17 23:45 07/19/17 23:44 06/20/17 13:15 50 MG Ceftriaxone Sodium 2000 mg/ Dextrose 70 ml @ 100 mls/hr Q24H IV 06/21/17 10:00 06/26/17 09:59 06/21/17 11:45 100 MLS/HR Nystatin/ Triamcinolone Acetonide (Mycogen II Oint) 1 appln TID EXT 06/21/17 16:00 07/21/17 15:59 06/21/17 20:46 1 APPLN Fluconazole (Diflucan Tab) 100 mg TuSa@0800 PO 06/22/17 08:00 07/02/17 07:59
[2017-06-21] MEDS ORDERED: NURSING VERBAL MED ORDER ONE (23:45)
[2017-06-22 00:28] VITALS: BP 131/83; PULSE 77; TEMP 36.7; O2SAT 94
[2017-06-22] MEDS: HEPARIN SOD 5000 UNIT/0.5 ML CARP SQ SCH ×3 (04:58→21:36)
[2017-06-22 07:13] LABS: CALCIUM 8.7 mg/dl (8.5-10.1); CREATININE 1.07 mg/dl (0.60-1.20); POTASSIUM 3.5 mmol/L (3.5-5.1)
[2017-06-22 07:20] VITALS: BP_SYST 164; BP_SYST 175; BP_SYST 179; BP_DIAS 101; BP_DIAS 119; BP_DIAS 99; PULSE 77; PULSE 78; TEMP 36.9; O2SAT 97
[2017-06-22] MEDS: FLUCONAZOLE 100 MG TAB PO SCH (07:39)
[2017-06-22] MEDS: NYSTATIN/TRIAMCINOLONE OINT 15 GM TUBE EXT SCH ×3 (07:39→21:35)
[2017-06-22] MEDS: ACETAMINOPHEN 325 MG TAB PO PRN (07:44)
[2017-06-22 08:00] VITALS: O2SAT 97
--- NOTE | 2017-06-22 08:51 | Progress Note ---
Medicine Progress Note Date & Time of Visit: Jun 22, 2017 at 07:50 . Subjective CC: Follow-up visit for urinary tract infection, confusion. HPI: Feels much better. No fever, chills, sweats. Dysuria improved. Ongoing urinary incontinence. No flank pain. No nausea or vomiting. One episode of loose stools this morning. ROS: General- as noted above in HPI Resp- no cough; no shortness of breath Cardiac- no chest pain, no edema GI- as noted above in HPI - as noted above in HPI . Objective Last 8 Hrs Date Time Temp Pulse Resp B/P (MAP) Pulse Ox O2 Delivery O2 Flow Rate FiO2 06/22/17 07:20 36.9 78 18 164/101 (122) 97 Room Air 77 175/99 (124) 77 179/119 (139) Physical Exam: General- lying in bed, no distress Lungs- clear to auscultation; no respiratory distress Cardiovascular- RRR; no gallop; no JVD; no pretibial edema Abdomen- + bowel sounds, soft, nontender Extremities- no cyanosis; no calf tenderness Neuro- alert, oriented Skin- warm & dry . Laboratory Results: Last 24 Hours Test 06/22/17 05:50 Sodium Level 144 mmol/L Potassium Level 3.5 mmol/L Chloride Level 113 mmol/L Carbon Dioxide Level 23 mmol/L Anion Gap 9.0 mmol/L Blood Urea Nitrogen 16 mg/dl Creatinine 1.07 mg/dl Est Creatinine Clear Calc Drug Dose 34.4 ml/min Estimated GFR () 55.6 Estimated GFR (Non- 48.0 BUN/Creatinine Ratio 14.5 Random Glucose 88 mg/dl Calcium Level 8.7 mg/dl Assessment & Plan PROBABLE SEVERE SEPSIS / URINARY TRACT INFECTION Patient presented with confusion and urinary symptoms. Reportedly hypertensive at urgent care center, but hemodynamically stable in ED. Tachycardic. No fever or leukocytosis. Serum lactate 3.08, repeat 1.1. Probable severe sepsis. Does not be sepsis 1 definition criteria, but does meet sepsis 2 definition ( infection, encephalopathy, tachycardia, elevated lactate), and sepsis 3 definition (SOFA = 2). Blood cultures obtained-results negative so far. Received broad-spectrum antibiotic coverage with piperacillin/tazobactam. Urine culture grew E. coli, pansensitive. Antibiotic therapy changed to ceftriaxone. ALTERED MENTAL STATUS Probable encephalopathy / delirium secondary to urinary tract infection. Improved. ACUTE KIDNEY INJURY Serum creatinine 1.48 at time of admission. Received IV fluids. Serum creatinine this morning = 1.07. Follow. 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 Urology and Gynecology consulted. Anticholinergic meds being considered for urinary incontinence; if utilized, will need to monitor closely for delirium. VTE PROPHYLAXIS SQ heparin. Ambulate. DISPOSITION Patient lives at home by herself and plans to be discharged to home. Sons Umang and Baljinder live out of state. Friends (Alyssa Doan and her ) offer support. Outpatient primary care follow-up to be determined. Urology follow-up with [facility]. 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 Walker). . Current Inpatient Medications: Current Inpatient Medications Medications (Trade) Dose Ordered Sig/Duke Route Start Time Stop Time Status Last Admin Dose Admin Heparin Sodium (Porcine) (Heparin Sq 5000 Unit/0.5ml) 5,000 unit Q8H SQ 06/20/17 00:00 07/20/17 00:00 06/22/17 04:58 5,000 UNIT Acetaminophen (Tylenol Tab) 650 mg Q4H PRN PO 06/19/17 23:45 07/19/17 23:44 06/22/17 07:44 650 MG Hydromorphone HCl (Dilaudid Inj) 0.5 mg Q3H PRN IV 06/19/17 23:45 07/03/17 23:44 06/20/17 14:01 0.5 MG Tramadol HCl (Ultram Tab) not relieved by tylenol @ Q6H PRN PO 06/19/17 23:45 07/19/17 23:44 06/20/17 13:15 50 MG Ceftriaxone Sodium 2000 mg/ Dextrose 70 ml @ 100 mls/hr Q24H IV 06/21/17 10:00 06/26/17 09:59 06/21/17 11:45 100 MLS/HR Nystatin/ Triamcinolone Acetonide (Mycogen II Oint) 1 appln TID EXT 06/21/17 16:00 07/21/17 15:59 06/22/17 07:39 1 APPLN Fluconazole (Diflucan Tab) 100 mg TuSa@0800 PO 06/22/17 08:00 07/02/17 07:59 06/22/17 07:39 100 MG
[2017-06-22] MEDS: CEFTRIAXONE SOD INJ 2,000 MG in DEXTROSE 5% 50ML 50 ML IV SCH (10:54)
--- NOTE | 2017-06-22 11:03 | Progress Note ---
Progress Note Date of Service Jun 22, 2017. Progress Note Patient is afebrile vital signs are stable Has some suprapubic tenderness on and off she says Incontinence persists Urine culture grew out an E. coli pansensitive Assessment urinary tract infections/incontinence Would treat patient with 10 days of antibiotic the organism is sensitive to Continue moisture barrier cream as needed
[2017-06-22] MEDS: HYDROmorphone INJ 0.5 MG/0.5 ML SYR IV PRN (13:33)
[2017-06-22 15:17] VITALS: BP_SYST 150; BP_SYST 158; BP_SYST 160; BP_DIAS 105; BP_DIAS 83; BP_DIAS 95; PULSE 84; PULSE 85; PULSE 87; TEMP 36.9; O2SAT 97
[2017-06-22 15:25] VITALS: BP 167/88; PULSE 88; O2SAT 98
[2017-06-22] MEDS: TRAMADOL HCL 50 MG TAB PO PRN (18:36)
[2017-06-23] MEDS: HEPARIN SOD 5000 UNIT/0.5 ML CARP SQ SCH ×3 (05:41→21:39)
[2017-06-23 06:59] LABS: HEMATOCRIT 37.7 % (37-47); HEMOGLOBIN 12.1 g/dL (12.0-16.0); MEAN CELL VOLUME 96.7 fL (80-100); MEAN CORPUSCULAR HGB CONC 32.1 g/dl (32-36); MEAN PLATELET VOLUME 9.4 fL (7.4-10.4); PLATELET COUNT 186 K/uL (130-400); RED CELL DISTRIBUTION WIDTH CV 14.1 % (11.5-14.5); WHITE BLOOD COUNT 6.18 K/uL (4.8-10.8)
[2017-06-23 07:09] VITALS: BP 154/91; PULSE 72; TEMP 36.5; O2SAT 97
[2017-06-23 07:47] LABS: CALCIUM 8.8 mg/dl (8.5-10.1); CREATININE 1.08 mg/dl (0.60-1.20); POTASSIUM 3.6 mmol/L (3.5-5.1)
[2017-06-23] MEDS: NYSTATIN/TRIAMCINOLONE OINT 15 GM TUBE EXT SCH ×3 (10:14→21:29)
[2017-06-23] MEDS: CEFTRIAXONE SOD INJ 2,000 MG in DEXTROSE 5% 50ML 50 ML IV SCH (10:14)
[2017-06-23] MEDS: ACETAMINOPHEN 325 MG TAB PO PRN (10:17)
[2017-06-23] MEDS: HYDROmorphone INJ 0.5 MG/0.5 ML SYR IV PRN (13:49)
[2017-06-23 15:12] VITALS: BP_SYST 129; BP_SYST 157; BP_SYST 160; BP_DIAS 77; BP_DIAS 95; PULSE 79; PULSE 80; TEMP 36.9; O2SAT 92
--- NOTE | 2017-06-23 21:32 | Progress Note ---
Medicine Progress Note Date & Time of Visit: Jun 23, 2017 at 44:20 . Subjective No fever. Dysuria improved. Ongoing incontinence. No chest pain. No cough or shortness of breath. No nausea or vomiting. Had one loose stool this morning. Ambulating without difficulty, but still having trouble with transferring in and out of bed. . Objective Last 8 Hrs Date Time Temp Pulse Resp B/P (MAP) Pulse Ox O2 Delivery O2 Flow Rate FiO2 06/23/17 16:00 Room Air 06/23/17 15:12 36.9 79 18 129/77 (94) 92 Room Air 79 157/95 (115) 80 160/95 (116) Physical Exam: General- lying in bed, no distress Lungs- clear to auscultation; no respiratory distress Cardiovascular- RRR; no gallop; no JVD; no pretibial edema Abdomen- + bowel sounds, soft, nontender Extremities- no cyanosis; no calf tenderness Neuro- alert, oriented x 3 with direction and cues, mild confusion Skin- warm & dry . Laboratory Results: Last 24 Hours Test 06/23/17 06:32 White Blood Count 6.18 K/uL Red Blood Count 3.90 M/uL Hemoglobin 12.1 g/dL Hematocrit 37.7 % Mean Corpuscular Volume 96.7 fL Mean Corpuscular Hemoglobin 31.0 pg Mean Corpuscular Hemoglobin Concent 32.1 g/dl RDW Standard Deviation 50.0 fL RDW Coefficient of Variation 14.1 % Platelet Count 186 K/uL Mean Platelet Volume 9.4 fL Sodium Level 143 mmol/L Potassium Level 3.6 mmol/L Chloride Level 113 mmol/L Carbon Dioxide Level 24 mmol/L Anion Gap 6.0 mmol/L Blood Urea Nitrogen 18 mg/dl Creatinine 1.08 mg/dl Est Creatinine Clear Calc Drug Dose 34.1 ml/min Estimated GFR () 55.0 Estimated GFR (Non- 47.4 BUN/Creatinine Ratio 16.6 Random Glucose 91 mg/dl Calcium Level 8.8 mg/dl Triglycerides Level 132 mg/dl Cholesterol Level 182 mg/dl HDL Cholesterol 52 mg/dl LDL Cholesterol, Calculated 104 mg/dl VLDL Cholesterol, Calculated 26 mg/dl Cholesterol/HDL Ratio 3.5 Chemistry Specimen Hemolysis Assessment & Plan PROBABLE SEVERE SEPSIS / URINARY TRACT INFECTION Patient presented with confusion and urinary symptoms. Reportedly hypertensive at urgent care center, but hemodynamically stable in ED. Tachycardic. No fever or leukocytosis. Serum lactate 3.08, repeat 1.1. Probable severe sepsis. Does not be sepsis 1 definition criteria, but does meet sepsis 2 definition ( infection, encephalopathy, tachycardia, elevated lactate), and sepsis 3 definition (SOFA = 2). Blood cultures obtained-results negative so far. Received broad-spectrum antibiotic coverage with piperacillin/tazobactam. Urine culture grew E. coli, pansensitive. Antibiotic therapy changed to ceftriaxone. ALTERED MENTAL STATUS Probable encephalopathy / delirium secondary to urinary tract infection. Improved. ACUTE KIDNEY INJURY Serum creatinine 1.48 at time of admission. Received IV fluids. Serum creatinine this morning = 1.08. Follow. 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 Urology and Gynecology consulted. Anticholinergic meds being considered for urinary incontinence; if utilized, will need to monitor closely for delirium. VTE PROPHYLAXIS SQ heparin. Ambulate. DISPOSITION Patient lives at home by herself and plans to be discharged to home. Bossman Pappas live out of state. Friends (Alyssa Doan and her ) offer support. Outpatient primary care follow-up discussed; patient would like to establish with [facility] [place]. Urology follow-up with [facility] [place] Urology. 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 Walker). Dov Gale visiting and given update. . Current Inpatient Medications: Current Inpatient Medications Medications (Trade) Dose Ordered Sig/Duke Route Start Time Stop Time Status Last Admin Dose Admin Heparin Sodium (Porcine) (Heparin Sq 5000 Unit/0.5ml) 5,000 unit Q8H SQ 06/20/17 00:00 07/20/17 00:00 06/23/17 13:54 5,000 UNIT Acetaminophen (Tylenol Tab) 650 mg Q4H PRN PO 06/19/17 23:45 07/19/17 23:44 06/23/17 10:17 650 MG Hydromorphone HCl (Dilaudid Inj) 0.5 mg Q3H PRN IV 06/19/17 23:45 07/03/17 23:44 06/23/17 13:49 0.5 MG Tramadol HCl (Ultram Tab) not relieved by tylenol @ Q6H PRN PO 06/19/17 23:45 07/19/17 23:44 06/22/17 18:36 50 MG Ceftriaxone Sodium 2000 mg/ Dextrose 70 ml @ 100 mls/hr Q24H IV 06/21/17 10:00 06/26/17 09:59 06/23/17 10:14 100 MLS/HR Nystatin/ Triamcinolone Acetonide (Mycogen II Oint) 1 appln TID EXT 06/21/17 16:00 07/21/17 15:59 06/23/17 13:49 1 APPLN Fluconazole (Diflucan Tab) 100 mg TuSa@0800 PO 06/22/17 08:00 07/02/17 07:59 06/22/17 07:39 100 MG
[2017-06-23 23:43] VITALS: BP_SYST 148; BP_SYST 150; BP_SYST 156; BP_DIAS 76; BP_DIAS 80; BP_DIAS 84; PULSE 76; PULSE 80; TEMP 36.6; O2SAT 96
[2017-06-23 23:49] VITALS: PULSE 76; PULSE 78
[2017-06-24] MEDS: TRAMADOL HCL 50 MG TAB PO PRN (05:39)
[2017-06-24] MEDS: HEPARIN SOD 5000 UNIT/0.5 ML CARP SQ SCH ×3 (05:45→21:37)
[2017-06-24 07:23] VITALS: BP 156/84; PULSE 68; TEMP 36.6; O2SAT 94
[2017-06-24 07:27] LABS: CALCIUM 8.8 mg/dl (8.5-10.1); CREATININE 1.1 mg/dl (0.60-1.20); POTASSIUM 3.6 mmol/L (3.5-5.1)
--- NOTE | 2017-06-24 08:39 | Progress Note ---
Subjective Date of Service: Jun 24, 2017. Subjective Pt evaluation today including: conversation w/ patient, chart review, lab review Voiding: incontinence 82 yo female with UTI and incontinence. Pt continues to c/o severe leaking. States sometimes she has the urge to void, but often leaks. Denies dysuria or hematuria. Receiving Mycolog cream and Diflucan for suspected yeast infection per [facility]. She is also to f/u as an outpatient for pessary placement. She remains on IV ceftriaxone for UTI. Problem List Medical Problems: (1) Altered mental status Status: Acute (2) Intertrigo Status: Acute Review of Systems Constitutional: No fever, No chills Respiratory: No shortness of breath Cardiac: No chest pain Abdomen: No pain, No nausea, No vomiting Female : + incontinence, No dysuria, No hematuria Heme: No abnormal bleeding/bruising Objective Vital Signs Date Time Temp Pulse Resp B/P (MAP) Pulse Ox O2 Delivery O2 Flow Rate FiO2 06/24/17 07:23 36.6 68 18 156/84 (108) 94 Room Air 06/24/17 00:40 Room Air 06/23/17 23:49 76 78 06/23/17 23:43 36.6 80 16 156/84 (108) 96 Room Air 76 148/80 (102) 150/76 (100) 06/23/17 16:00 Room Air 06/23/17 15:12 36.9 79 18 129/77 (94) 92 Room Air 79 157/95 (115) 80 160/95 (116) Physical Exam General Appearance: no apparent distress Eyes: normal inspection ENT: hearing grossly normal Neck: no JVD Respiratory/Chest: no respiratory distress, no accessory muscle use Cardiovascular: no JVD Extremities: normal inspection Neurologic/Psychiatric: alert, normal mood/affect, oriented x 3 Skin: normal color Laboratory Results Last 24 Hours Test 06/24/17 06:17 Sodium Level 143 mmol/L Potassium Level 3.6 mmol/L Chloride Level 108 mmol/L Carbon Dioxide Level 24 mmol/L Anion Gap 11.0 mmol/L Blood Urea Nitrogen 20 mg/dl Creatinine 1.10 mg/dl Est Creatinine Clear Calc Drug Dose 33.5 ml/min Estimated GFR () 53.8 Estimated GFR (Non- 46.4 BUN/Creatinine Ratio 17.8 Random Glucose 87 mg/dl Calcium Level 8.8 mg/dl Assessment and Plan A/P: UTI, incontinence Pt will need treated with 10 days of abx for UTI. Continue Mycolog and Diflucan per [facility]. Pessary as an outpatient. Will start tolterodine for her incontinence. Monitor for dry mouth, dry eyes, constipation, or confusion. Will continue to follow along with primary service.
--- NOTE | 2017-06-24 08:41 | Medical Student: [facility] ---
Med Student Progress Note Date of Service Jun 24, 2017. Subjective Pt evaluation today including: conversation w/ patient Voiding: incontinence Su is continuing to experience urinary incontinence with severe nocturia, requiring depends and waking up "soaked". States she rarely feels urge to void , often leaks. Has not been getting up to void because she states she doesn't have anything left. Review of Systems Constitutional: No fever, No chills, No sweats Eyes: No worsening of vision Respiratory: No shortness of breath Cardiac: No chest pain Female : + incontinence, No dysuria, No urinary frequency, No hematuria Endo: + excessive thirst (states "I already have dry mouth" ), No excessive urination Objective Vital Signs Date Time Temp Pulse Resp B/P (MAP) Pulse Ox O2 Delivery O2 Flow Rate FiO2 06/24/17 07:23 36.6 68 18 156/84 (108) 94 Room Air 06/24/17 00:40 Room Air 06/23/17 23:49 76 78 06/23/17 23:43 36.6 80 16 156/84 (108) 96 Room Air 76 148/80 (102) 150/76 (100) 06/23/17 16:00 Room Air 06/23/17 15:12 36.9 79 18 129/77 (94) 92 Room Air 79 157/95 (115) 80 160/95 (116) Physical Exam General Appearance: WD/WN, no apparent distress, + thin ENT: normal ENT inspection, hearing grossly normal Neck: no JVD Respiratory/Chest: no respiratory distress Extremities: normal range of motion Neurologic/Psychiatric: alert, normal mood/affect, oriented x 3 Laboratory Results Last 24 Hours Test 06/24/17 06:17 Sodium Level 143 mmol/L Potassium Level 3.6 mmol/L Chloride Level 108 mmol/L Carbon Dioxide Level 24 mmol/L Anion Gap 11.0 mmol/L Blood Urea Nitrogen 20 mg/dl Creatinine 1.10 mg/dl Est Creatinine Clear Calc Drug Dose 33.5 ml/min Estimated GFR () 53.8 Estimated GFR (Non- 46.4 BUN/Creatinine Ratio 17.8 Random Glucose 87 mg/dl Calcium Level 8.8 mg/dl Assessment and Plan Assessment and Plan: UTI, Urinary incontinence. Continue current plan for antibiotic therapy. Begin anticholinergic medicine to help with urinary incontinence. Patient understands may take a few days to notice improvement, communicate to RN if feels worsening dry eyes, mouth, or constipation. Continue mycolog and diflucan per [employer]ILLER service Will monitor for confusion, dry mouth, dry eyes, constipation and other side effects. Will continue to monitor along with primary service. Continued [facility] stay due to: voiding difficulties
[2017-06-24] MEDS: NYSTATIN/TRIAMCINOLONE OINT 15 GM TUBE EXT SCH ×3 (08:57→21:35)
[2017-06-24] MEDS: TOLTERODINE TARTRATE 2 MG TAB PO SCH ×2 (10:59→21:35)
[2017-06-24] MEDS: CEFTRIAXONE SOD INJ 2,000 MG in DEXTROSE 5% 50ML 50 ML IV SCH (10:59)
[2017-06-24 16:12] VITALS: BP 148/91; PULSE 84; TEMP 36.7; O2SAT 96
[2017-06-24 19:15] VITALS: BP_SYST 133; BP_SYST 135; BP_SYST 175; BP_DIAS 102; BP_DIAS 83; BP_DIAS 88; PULSE 72; PULSE 84; PULSE 99; TEMP 36.7; O2SAT 93
[2017-06-24] MEDS ORDERED: TOLTERODINE TARTRATE 2 MG TAB PO SCH (20:00)
[2017-06-25 00:44] VITALS: BP 127/75; PULSE 79; TEMP 36.4; O2SAT 94
--- NOTE | 2017-06-25 04:08 | Progress Note ---
Medicine Progress Note Date & Time of Visit: Jun 24, 2017 . Subjective Overall, doing better. No fever. No flank pain or dysuria. Ongoing problems with urinary incontinence. No nausea or vomiting. Intermittent loose stools, but no more than 2 episodes per day. Ambulating without difficulty, but still needs assistance with transfers in and out of bed. . Objective Vital signs at 07:2 3: temperature 36.6, pulse 68, respirations 18, blood pressure 156/84 . Physical Exam: General- lying in bed, no distress Lungs- clear to auscultation; no respiratory distress Cardiovascular- RRR; no gallop; no JVD; no pretibial edema Abdomen- + bowel sounds, soft, nontender Facility Maintenance Technician- mild to moderate erythema of vulva Extremities- no cyanosis; no calf tenderness Neuro- alert, oriented x 3 with direction and cues, mild confusion Skin- warm & dry . Laboratory Results: Last 24 Hours Test 06/24/17 06:17 Sodium Level 143 mmol/L Potassium Level 3.6 mmol/L Chloride Level 108 mmol/L Carbon Dioxide Level 24 mmol/L Anion Gap 11.0 mmol/L Blood Urea Nitrogen 20 mg/dl Creatinine 1.10 mg/dl Est Creatinine Clear Calc Drug Dose 33.5 ml/min Estimated GFR () 53.8 Estimated GFR (Non- 46.4 BUN/Creatinine Ratio 17.8 Random Glucose 87 mg/dl Calcium Level 8.8 mg/dl Assessment & Plan PROBABLE SEVERE SEPSIS / URINARY TRACT INFECTION Patient presented with confusion and urinary symptoms. Reportedly hypertensive at urgent care center, but hemodynamically stable in ED. Tachycardic. No fever or leukocytosis. Serum lactate 3.08, repeat 1.1. Probable severe sepsis. Does not be sepsis 1 definition criteria, but does meet sepsis 2 definition ( infection, encephalopathy, tachycardia, elevated lactate), and sepsis 3 definition (SOFA = 2). Blood cultures obtained-results negative so far. Received broad-spectrum antibiotic coverage with piperacillin/tazobactam. Urine culture grew E. coli, pansensitive. Antibiotic therapy changed to ceftriaxone. Transition to oral therapy with amoxicillin to complete course of antibiotics. ALTERED MENTAL STATUS Probable encephalopathy / delirium secondary to urinary tract infection. Improved. ACUTE KIDNEY INJURY Serum creatinine 1.48 at time of admission. Received IV fluids. Serum creatinine this morning = 1.10. Follow. UTI / ABNORMAL CT / [employer]NS Patient has been having bladder difficulty for some time with difficulty voiding and urinary incontinence She is status post hysterectomy. Urology and Gynecology consulted. Nystatin / triamcinolone ordered for vulvar rash with improvement. Tolterodine started for urinary incontinence; will need to monitor closely for delirium. Outpt cystoscopy recommended for evaluation of bladder abnormalities noted on CT scan. AORTIC ATHEROSCLEROSIS / AAA Marked atherosclerosis of aorta with 3 cm AAA incidentally noted on CT of abdomen and pelvis. Discussed with patient and her family. Daily aspirin and initiation of statin therapy recommended. Will need follow-up for AAA per guidelines. LOOSE STOOLS Having 1-2 loose stools/day. Check for C. difficile if frequency increases to 3 or more episodes per day. VTE PROPHYLAXIS SQ heparin. Ambulate. DISPOSITION Patient lives at home by herself and plans to be discharged to home. She declines consideration of skilled care or rehab. Still needs assistance with transfers in and out of bed; continue PT/OT. Sons Umang and Baljinder live out of state. Friends (Alyssa Doan and her ) offer support. Outpatient primary care follow-up discussed; patient [place] [facility] [place] [facility]. Urology follow-up with [facility] [place]. Facility Maintenance Technician follow-up with [facility] [place] (Dr. Walker). Please call Umang with any updates and with discharge plans. His phone number is [phone]. . Continued [facility] stay due to: voiding difficulties Current Inpatient Medications: Current Inpatient Medications Medications (Trade) Dose Ordered Sig/Duke Route Start Time Stop Time Status Last Admin Dose Admin Heparin Sodium (Porcine) (Heparin Sq 5000 Unit/0.5ml) 5,000 unit Q8H SQ 06/20/17 00:00 07/20/17 00:00 06/24/17 21:37 5,000 UNIT Acetaminophen (Tylenol Tab) 650 mg Q4H PRN PO 06/19/17 23:45 07/19/17 23:44 06/23/17 10:17 650 MG Hydromorphone HCl (Dilaudid Inj) 0.5 mg Q3H PRN IV 06/19/17 23:45 07/03/17 23:44 06/23/17 13:49 0.5 MG Tramadol HCl (Ultram Tab) not relieved by tylenol @ Q6H PRN PO 06/19/17 23:45 07/19/17 23:44 06/24/17 05:39 50 MG Ceftriaxone Sodium 2000 mg/ Dextrose 70 ml @ 100 mls/hr Q24H IV 06/21/17 10:00 06/26/17 09:59 06/24/17 10:59 100 MLS/HR Nystatin/ Triamcinolone Acetonide (Mycogen II Oint) 1 appln TID EXT 06/21/17 16:00 07/21/17 15:59 06/24/17 21:35 1 APPLN Fluconazole (Diflucan Tab) 100 mg TuSa@0800 PO 06/22/17 08:00 07/02/17 07:59 06/22/17 07:39 100 MG Tolterodine Tartrate (Detrol Tab) 2 mg BID PO 06/24/17 09:00 07/24/17 19:59 06/24/17 21:35 2 MG
[2017-06-25] MEDS: HEPARIN SOD 5000 UNIT/0.5 ML CARP SQ SCH ×3 (06:27→21:09)
[2017-06-25 07:27] VITALS: BP 125/78; PULSE 77; TEMP 36.6; O2SAT 95
--- NOTE | 2017-06-25 07:55 | Progress Note ---
Subjective Date of Service: Jun 25, 2017. Subjective Pt evaluation today including: conversation w/ patient, chart review Voiding: incontinence Pt reports stool and urinary incontinence this morning. Started on tolterodine yesterday. Switched to amoxicillin for UTI. Problem List Medical Problems: (1) Altered mental status Status: Acute (2) Intertrigo Status: Acute Review of Systems Constitutional: No fever, No chills Respiratory: No shortness of breath Cardiac: No chest pain Abdomen: + pain (lower abdominal ), + diarrhea, No nausea, No vomiting Female : + incontinence, No dysuria, No hematuria Heme: No abnormal bleeding/bruising Objective Vital Signs Date Time Temp Pulse Resp B/P (MAP) Pulse Ox O2 Delivery O2 Flow Rate FiO2 06/25/17 07:27 36.6 77 18 125/78 (94) 95 Room Air 06/25/17 00:44 36.4 79 18 127/75 (92) 94 Room Air 06/25/17 00:00 Room Air 06/24/17 19:15 36.7 72 133/83 (100) 93 Room Air 84 135/88 (104) 99 175/102 (126) 06/24/17 16:12 36.7 84 18 148/91 (110) 96 Room Air 06/24/17 16:00 Room Air 06/24/17 10:51 Room Air Physical Exam General Appearance: no apparent distress Eyes: normal inspection ENT: hearing grossly normal Neck: no JVD Respiratory/Chest: no respiratory distress, no accessory muscle use Cardiovascular: no JVD Extremities: normal inspection Neurologic/Psychiatric: alert, normal mood/affect, oriented x 3 Skin: normal color Assessment and Plan A/P: UTI, incontinence Pt will need treated with 10 days of abx for UTI. Continue Mycolog and Diflucan per [employer]. Pessary as an outpatient. Continue tolterodine for her incontinence. No confusion or constipation noted thus far. Expect it may take 2-4 week for the medication to take full effect. Will continue to follow along intermittently with primary service. Continued [facility] stay due to: voiding difficulties
[2017-06-25] MEDS: FLUCONAZOLE 100 MG TAB PO SCH (08:29)
[2017-06-25] MEDS: NYSTATIN/TRIAMCINOLONE OINT 15 GM TUBE EXT SCH ×3 (08:29→21:01)
[2017-06-25] MEDS: TOLTERODINE TARTRATE 2 MG TAB PO SCH ×2 (08:30→21:00)
[2017-06-25] MEDS: ATORVASTATIN 20 MG TAB PO SCH (08:31)
[2017-06-25] MEDS: ASPIRIN 81 MG ECTAB PO SCH (08:31)
[2017-06-25] MEDS: AMOXICILLIN 500 MG CAP PO SCH ×3 (08:31→21:01)
[2017-06-25] MEDS: ACETAMINOPHEN 325 MG TAB PO PRN (09:51)
[2017-06-25 14:47] VITALS: BP 118/82; PULSE 81; TEMP 36.9; O2SAT 95
--- NOTE | 2017-06-25 14:53 | Progress Note ---
Medicine Progress Note Date & Time of Visit: Jun 25, 2017 at 14:45. Subjective 82-year-old female admitted to the hospital for severe sepsis secondary to E. coli UTI. Patient still admits to some abdominal pain after urination and when getting back in bed plan is for outpatient pessary per gynecology, continued Mycolog and Diflucan, as well as Detrol per urology. She is currently on amoxicillin for UTI. Tolerating p.o. Currently ambulating with assistance only. Reports ambulating without assistive device at home at baseline. Objective Last 8 Hrs Date Time Temp Pulse Resp B/P (MAP) Pulse Ox O2 Delivery O2 Flow Rate FiO2 06/25/17 10:42 Room Air 06/25/17 07:27 36.6 77 18 125/78 (94) 95 Room Air Physical Exam: GEN: WNWD, in no acute distress, alert and appropriate HEENT: NC/AT, normal sclerae, MMM CARDIO: reg rate, S1/2 heard without m/g/r LUNGS: CTA bilaterally, no crackles, rales or wheezes, good diaphragmatic excursion ABD: soft, non-tender, non-distended, no rebound or guarding, +BS EXTREMITY: RP and DP palpable 2+ bilat, no LE swelling or edema, extremities are warm and well-perfused NEURO: CN 2-12 grossly intact, no gross focal deficits. MUSC: moves all extremities equally, no gross focal deficits. SKIN: warm and dry Laboratory Results: 06/23/17 06:32 06/24/17 06:17 Test 06/19/17 16:04 06/19/17 16:07 06/19/17 17:12 06/20/17 00:50 Urine Color YELLOW Urine Appearance CLOUDY (CLEAR) Urine pH 5.5 (4.5-7.5) Urine Specific [place] 1.025 (1.000-1.030) Urine Protein 2+ (NEG) Urine Glucose (UA) NEG (NEG) Urine Ketones TRACE (NEG) Urine Occult Blood 3+ (NEG) Urine Nitrite POS (NEG) Urine Bilirubin NEG (NEG) Urine Urobilinogen NEG (NEG) Urine Leukocyte Esterase LARGE (NEG) Urine RBC >30 /hpf (0-4) Urine WBC >30 /hpf (0-5) Urine Epithelial Cells 5-10 /lpf (0-5) Urine Bacteria 4+ (NEG) Prothrombin Time 10.7 SECONDS (9.0-12.0) Prothromb Time International Ratio 1.0 (0.9-1.1) Activated Partial Thromboplast Time 25.9 SECONDS (21.0-31.0) Partial Thromboplastin Ratio 1.0 Magnesium Level 2.1 mg/dl (1.8-2.4) Total Bilirubin 0.4 mg/dl (0.2-1) Direct Bilirubin 0.1 mg/dl (0-0.2) Aspartate Amino Transf (AST/SGOT) 13 U/L (15-37) Alanine Aminotransferase (ALT/SGPT) 11 U/L (12-78) Alkaline Phosphatase 61 U/L (45-117) Total Creatine Kinase 46 U/L (26-192) Creatine Kinase MB 1.4 ng/ml (0.5-3.6) Creatine Kinase MB Ratio 3.0 (0-3.0) Troponin I < 0.015 ng/ml (0-0.045) Total Protein 7.7 gm/dl (6.4-8.2) Albumin 4.0 gm/dl (3.4-5.0) Lipase 187 U/L (73-393) Thyroid Stimulating Hormone (TSH) 1.900 uIu/ml (0.300-4.500) Bedside Lactic Acid Venous 3.08 mmol/L (0.90-1.70) Lactic Acid Level 1.1 mmol/L (0.4-2.0) Test 06/20/17 06:55 06/22/17 05:50 06/23/17 06:32 06/24/17 06:17 Immature Granulocyte % (Auto) 0.3 % White Blood Count 7.62 K/uL (4.8-10.8) Red Blood Count 3.64 M/uL (4.2-5.4) 3.90 M/uL (4.2-5.4) Hemoglobin 11.6 g/dL (12.0-16.0) Hematocrit 35.1 % (37-47) Mean Corpuscular Volume 96.4 fL (80-100) 96.7 fL (80-100) Mean Corpuscular Hemoglobin 31.9 pg (25-34) 31.0 pg (25-34) Mean Corpuscular Hemoglobin Concent 33.0 g/dl (32-36) 32.1 g/dl (32-36) Platelet Count 181 K/uL (130-400) Mean Platelet Volume 9.2 fL (7.4-10.4) 9.4 fL (7.4-10.4) Neutrophils (%) (Auto) 66.2 % Lymphocytes (%) (Auto) 15.9 % Monocytes (%) (Auto) 12.9 % Eosinophils (%) (Auto) 4.3 % Basophils (%) (Auto) 0.4 % Neutrophils # (Auto) 5.05 K/uL (1.4-6.5) Lymphocytes # (Auto) 1.21 K/uL (1.2-3.4) Monocytes # (Auto) 0.98 K/uL (0.11-0.59) Eosinophils # (Auto) 0.33 K/uL (0-0.5) Basophils # (Auto) 0.03 K/uL (0-0.2) Immature Granulocyte # (Auto) 0.02 K/uL (0.00-0.02) Rapid Plasma Reagin NONREACTIVE (NONREACT) RDW Standard Deviation 50.0 fL (36.4-46.3) RDW Coefficient of Variation 14.1 % (11.5-14.5) Triglycerides Level 132 mg/dl (0-150) Cholesterol Level 182 mg/dl (0-200) HDL Cholesterol 52 mg/dl LDL Cholesterol, Calculated 104 mg/dl VLDL Cholesterol, Calculated 26 mg/dl Cholesterol/HDL Ratio 3.5 Chemistry Specimen Hemolysis Anion Gap 11.0 mmol/L (3-11) Est Creatinine Clear Calc Drug Dose 33.5 ml/min Estimated GFR () 53.8 Estimated GFR (Non- 46.4 BUN/Creatinine Ratio 17.8 (10-20) Calcium Level 8.8 mg/dl (8.5-10.1) Date/Time Source Procedure Growth Status 06/19/17 16:04 Urine,Catheterized Urine Culture - Final Escherichia Coli Complete Assessment & Plan 82-year-old female admitted to the hospital for severe sepsis secondary to E. coli UTI. Patient still admits to some abdominal pain after urination and when getting back in bed plan is for outpatient pessary per gynecology, continued Mycolog and Diflucan, as well as Detrol per urology. She is currently on amoxicillin for UTI. 1. E. coli secondary to urinary tract infection-sepsis resuscitated. Continue amoxicillin-patient requires total 10 days antibiotics 2. Metabolic encephalopathy secondary to UTI-resolved 3. Acute kidney injury-resolved 4. Vulvar candidiasis-continue Mycolog and Diflucan per gynecology recommendations. Plan for outpatient pessary 5. Abnormal CT findings-specifically thickened asymmetric bladder. Likely consistent with cystitis. Outpatient urology follow-up for outpatient cystoscopy. Continue tolterodine for urinary incontinence. DVT prophylaxis-heparin Full code Disposition-patient adamantly wants to avoid [facility] facility, rehab or home health. Plans to have friends offer support on discharge. Currently patient cannot ambulate on her own. May be hospitalized another few days for safety. Yola Schneider DO [facility] hospitalist Continued [facility] stay due to: voiding difficulties Consultants: [facility] UrologyMargarita Current Inpatient Medications: Current Inpatient Medications Medications (Trade) Dose Ordered Sig/Duke Route Start Time Stop Time Status Last Admin Dose Admin Heparin Sodium (Porcine) (Heparin Sq 5000 Unit/0.5ml) 5,000 unit Q8H SQ 06/20/17 00:00 07/20/17 00:00 06/25/17 14:00 5,000 UNIT Acetaminophen (Tylenol Tab) 650 mg Q4H PRN PO 06/19/17 23:45 07/19/17 23:44 06/25/17 09:51 650 MG Hydromorphone HCl (Dilaudid Inj) 0.5 mg Q3H PRN IV 06/19/17 23:45 07/03/17 23:44 06/23/17 13:49 0.5 MG Tramadol HCl (Ultram Tab) not relieved by tylenol @ Q6H PRN PO 06/19/17 23:45 07/19/17 23:44 06/24/17 05:39 50 MG Nystatin/ Triamcinolone Acetonide (Mycogen II Oint) 1 appln TID EXT 06/21/17 16:00 07/21/17 15:59 06/25/17 13:59 1 APPLN Fluconazole (Diflucan Tab) 100 mg TuSa@0800 PO 06/22/17 08:00 07/02/17 07:59 06/25/17 08:29 100 MG Tolterodine Tartrate (Detrol Tab) 2 mg BID PO 06/24/17 09:00 07/24/17 19:59 06/25/17 08:30 2 MG Amoxicillin (Amoxil Cap) 500 mg TID PO 06/25/17 08:00 06/30/17 07:59 06/25/17 13:59 500 MG Aspirin (Ecotrin Tab) 81 mg QAM PO 06/25/17 08:00 07/25/17 07:59 06/25/17 08:31 81 MG Atorvastatin Calcium (Lipitor Tab) 20 mg QAM PO 06/25/17 08:00 07/25/17 07:59 06/25/17 08:31 20 MG
[2017-06-25 16:03] VITALS: O2SAT 95
[2017-06-25 23:59] VITALS: O2SAT 95
[2017-06-26 00:01] VITALS: BP 139/84; PULSE 89; TEMP 36.8; O2SAT 95
[2017-06-26] MEDS: HEPARIN SOD 5000 UNIT/0.5 ML CARP SQ SCH ×3 (06:06→21:02)
[2017-06-26 06:56] LABS: BASO % 0.3 %; BASO ABS # 0.02 K/uL (0-0.2); EOS % 6.5 %; HEMATOCRIT 38.4 % (37-47); HEMOGLOBIN 12.7 g/dL (12.0-16.0); IG# 0.01 K/uL (0.00-0.02); LYMPH % 11.3 %; MEAN CELL VOLUME 96.5 fL (80-100); MEAN CORPUSCULAR HEMOGLOBIN 31.9 pg (25-34); MEAN CORPUSCULAR HGB CONC 33.1 g/dl (32-36); MEAN PLATELET VOLUME 9.2 fL (7.4-10.4); MONO ABS # 0.74 K/uL (0.11-0.59); NEUT % 69.7 %; PLATELET COUNT 210 K/uL (130-400); RED CELL DISTRIBUTION WIDTH SD 49.6 fL (36.4-46.3); WHITE BLOOD COUNT 6.17 K/uL (4.8-10.8)
[2017-06-26 07:10] VITALS: BP 142/85; PULSE 87; TEMP 36.6; O2SAT 90
[2017-06-26 07:25] LABS: CREATININE 1.05 mg/dl (0.60-1.20); POTASSIUM 3.9 mmol/L (3.5-5.1)
[2017-06-26] MEDS: TOLTERODINE TARTRATE 2 MG TAB PO SCH ×2 (08:13→20:57)
[2017-06-26] MEDS: AMOXICILLIN 500 MG CAP PO SCH ×3 (08:13→20:57)
[2017-06-26] MEDS: NYSTATIN/TRIAMCINOLONE OINT 15 GM TUBE EXT SCH ×3 (08:13→20:57)
[2017-06-26] MEDS: ASPIRIN 81 MG ECTAB PO SCH (08:13)
[2017-06-26] MEDS: ATORVASTATIN 20 MG TAB PO SCH (08:13)
[2017-06-26] MEDS: ACETAMINOPHEN 325 MG TAB PO PRN (11:31)
[2017-06-26 15:08] VITALS: BP 99/65; PULSE 82; TEMP 36.8; O2SAT 94
[2017-06-26 16:02] VITALS: O2SAT 95
--- NOTE | 2017-06-26 18:22 | Progress Note ---
Medicine Progress Note Date & Time of Visit: Jun 26, 2017 at 18:17. Subjective 82-year-old female admitted to the hospital for severe sepsis secondary to E. coli UTI. Patient still admits to some abdominal pain after urination and when getting back in bed. Current plan is for outpatient pessary per gynecology, continued Mycolog and Diflucan, as well as Detrol per urology. She is currently on amoxicillin for UTI. Patient states that pain was so great she could not sit in a chair to eat lunch today. She is having incontinence as she is not able to get up fast enough to the bathroom and is requiring significant assistance to do so. Patient denies nausea vomiting and is tolerating p.o. without difficulty. She states the vaginal itching has resolved. She reports that prolapsed pain at home prior to this hospitalization was never so bad to require Tylenol or other medication. She reports physically pushing bladder back into the vaginal canal without issue prior to this hospitalization. Objective Last 8 Hrs Date Time Temp Pulse Resp B/P (MAP) Pulse Ox O2 Delivery O2 Flow Rate FiO2 06/26/17 15:08 36.8 82 20 99/65 (76) 94 Room Air Physical Exam: GEN: WNWD, in no acute distress, alert and appropriate HEENT: NC/AT, normal sclerae, MMM CARDIO: reg rate, S1/2 heard without m/g/r LUNGS: CTA bilaterally, no crackles, rales or wheezes, good diaphragmatic excursion ABD: soft, non-tender, non-distended, no rebound or guarding, +BS EXTREMITY: RP and DP palpable 2+ bilat, no LE swelling or edema, extremities are warm and well-perfused NEURO: CN 2-12 grossly intact, no gross focal deficits. MUSC: moves all extremities equally, no gross focal deficits. SKIN: warm and dry Laboratory Results: 06/26/17 06:34 Red Blood Count 3.98, Mean Corpuscular Volume 96.5, Mean Corpuscular Hemoglobin 31.9, Mean Corpuscular Hemoglobin Concent 33.1, Mean Platelet Volume 9.2, Neutrophils (%) (Auto) 69.7, Lymphocytes (%) (Auto) 11.3, Monocytes (%) (Auto) 12.0, Eosinophils (%) (Auto) 6.5, Basophils (%) (Auto) 0.3, Neutrophils # (Auto ) 4.30, Lymphocytes # (Auto) 0.70, Monocytes # (Auto) 0.74, Eosinophils # (Auto ) 0.40, Basophils # (Auto) 0.02 06/26/17 06:34 Test 06/19/17 16:04 06/19/17 16:07 06/19/17 17:12 06/20/17 00:50 Urine Color YELLOW Urine Appearance CLOUDY (CLEAR) Urine pH 5.5 (4.5-7.5) Urine Specific [place] 1.025 (1.000-1.030) Urine Protein 2+ (NEG) Urine Glucose (UA) NEG (NEG) Urine Ketones TRACE (NEG) Urine Occult Blood 3+ (NEG) Urine Nitrite POS (NEG) Urine Bilirubin NEG (NEG) Urine Urobilinogen NEG (NEG) Urine Leukocyte Esterase LARGE (NEG) Urine RBC >30 /hpf (0-4) Urine WBC >30 /hpf (0-5) Urine Epithelial Cells 5-10 /lpf (0-5) Urine Bacteria 4+ (NEG) Prothrombin Time 10.7 SECONDS (9.0-12.0) Prothromb Time International Ratio 1.0 (0.9-1.1) Activated Partial Thromboplast Time 25.9 SECONDS (21.0-31.0) Partial Thromboplastin Ratio 1.0 Magnesium Level 2.1 mg/dl (1.8-2.4) Total Bilirubin 0.4 mg/dl (0.2-1) Direct Bilirubin 0.1 mg/dl (0-0.2) Aspartate Amino Transf (AST/SGOT) 13 U/L (15-37) Alanine Aminotransferase (ALT/SGPT) 11 U/L (12-78) Alkaline Phosphatase 61 U/L (45-117) Total Creatine Kinase 46 U/L (26-192) Creatine Kinase MB 1.4 ng/ml (0.5-3.6) Creatine Kinase MB Ratio 3.0 (0-3.0) Troponin I < 0.015 ng/ml (0-0.045) Total Protein 7.7 gm/dl (6.4-8.2) Albumin 4.0 gm/dl (3.4-5.0) Lipase 187 U/L (73-393) Thyroid Stimulating Hormone (TSH) 1.900 uIu/ml (0.300-4.500) Bedside Lactic Acid Venous 3.08 mmol/L (0.90-1.70) Lactic Acid Level 1.1 mmol/L (0.4-2.0) Test 06/22/17 05:50 06/23/17 06:32 06/26/17 06:34 Rapid Plasma Reagin NONREACTIVE (NONREACT) Triglycerides Level 132 mg/dl (0-150) Cholesterol Level 182 mg/dl (0-200) HDL Cholesterol 52 mg/dl LDL Cholesterol, Calculated 104 mg/dl VLDL Cholesterol, Calculated 26 mg/dl Cholesterol/HDL Ratio 3.5 Chemistry Specimen Hemolysis White Blood Count 6.17 K/uL (4.8-10.8) Red Blood Count 3.98 M/uL (4.2-5.4) Hemoglobin 12.7 g/dL (12.0-16.0) Hematocrit 38.4 % (37-47) Mean Corpuscular Volume 96.5 fL (80-100) Mean Corpuscular Hemoglobin 31.9 pg (25-34) Mean Corpuscular Hemoglobin Concent 33.1 g/dl (32-36) Platelet Count 210 K/uL (130-400) Mean Platelet Volume 9.2 fL (7.4-10.4) Neutrophils (%) (Auto) 69.7 % Lymphocytes (%) (Auto) 11.3 % Monocytes (%) (Auto) 12.0 % Eosinophils (%) (Auto) 6.5 % Basophils (%) (Auto) 0.3 % Neutrophils # (Auto) 4.30 K/uL (1.4-6.5) Lymphocytes # (Auto) 0.70 K/uL (1.2-3.4) Monocytes # (Auto) 0.74 K/uL (0.11-0.59) Eosinophils # (Auto) 0.40 K/uL (0-0.5) Basophils # (Auto) 0.02 K/uL (0-0.2) RDW Standard Deviation 49.6 fL (36.4-46.3) RDW Coefficient of Variation 14.0 % (11.5-14.5) Immature Granulocyte % (Auto) 0.2 % Immature Granulocyte # (Auto) 0.01 K/uL (0.00-0.02) Anion Gap 7.0 mmol/L (3-11) Est Creatinine Clear Calc Drug Dose 35.1 ml/min Estimated GFR () 56.9 Estimated GFR (Non- 49.1 BUN/Creatinine Ratio 18.6 (10-20) Calcium Level 9.0 mg/dl (8.5-10.1) Date/Time Source Procedure Growth Status 06/19/17 16:04 Urine,Catheterized Urine Culture - Final Escherichia Coli Complete Last 24 Hours Test 06/26/17 06:34 White Blood Count 6.17 K/uL Red Blood Count 3.98 M/uL Hemoglobin 12.7 g/dL Hematocrit 38.4 % Mean Corpuscular Volume 96.5 fL Mean Corpuscular Hemoglobin 31.9 pg Mean Corpuscular Hemoglobin Concent 33.1 g/dl Platelet Count 210 K/uL Mean Platelet Volume 9.2 fL Neutrophils (%) (Auto) 69.7 % Lymphocytes (%) (Auto) 11.3 % Monocytes (%) (Auto) 12.0 % Eosinophils (%) (Auto) 6.5 % Basophils (%) (Auto) 0.3 % Neutrophils # (Auto) 4.30 K/uL Lymphocytes # (Auto) 0.70 K/uL Monocytes # (Auto) 0.74 K/uL Eosinophils # (Auto) 0.40 K/uL Basophils # (Auto) 0.02 K/uL RDW Standard Deviation 49.6 fL RDW Coefficient of Variation 14.0 % Immature Granulocyte % (Auto) 0.2 % Immature Granulocyte # (Auto) 0.01 K/uL Sodium Level 140 mmol/L Potassium Level 3.9 mmol/L Chloride Level 109 mmol/L Carbon Dioxide Level 24 mmol/L Anion Gap 7.0 mmol/L Blood Urea Nitrogen 20 mg/dl Creatinine 1.05 mg/dl Est Creatinine Clear Calc Drug Dose 35.1 ml/min Estimated GFR () 56.9 Estimated GFR (Non- 49.1 BUN/Creatinine Ratio 18.6 Random Glucose 90 mg/dl Calcium Level 9.0 mg/dl Assessment & Plan 82-year-old female admitted to the hospital for severe sepsis secondary to E. coli UTI. Patient still admits to some abdominal pain after urination and when getting back in bed. Current plan is for outpatient pessary per gynecology, continued Mycolog and Diflucan, as well as Detrol per urology. She is currently on amoxicillin for UTI. Patient states that pain was so great she could not sit in a chair to eat lunch today. She is having incontinence as she is not able to get up fast enough to the bathroom and is requiring significant assistance to do so. Patient denies nausea vomiting and is tolerating p.o. without difficulty. She states the vaginal itching has resolved. She reports that prolapsed pain at home prior to this hospitalization was never so bad to require Tylenol or other medication. She reports physically pushing bladder back into the vaginal canal without issue prior to this hospitalization. 1. E. coli secondary to urinary tract infection-sepsis resuscitated. Continue amoxicillin-patient requires total 10 days antibiotics 2. Abdominal pain-secondary to bladder prolapse and pressure from this. Will give trial of Pyridium in setting of recent UTI and will schedule acetaminophen 1000 mg every 8 hours. Will try to reengage with gynecology again tomorrow if these efforts fail. 3. Ambulatory dysfunction-multiple people on staff have explained to the patient that she is unsafe to go home however she continues to state that she is fine to do so. She is given me permission to discuss this with her son who is her desired medical power of headlight adjuster. Continue PT OT. 4. Vulvar candidiasis-continue Mycolog and Diflucan per gynecology recommendations. Plan for outpatient pessary 5. Abnormal CT findings-specifically thickened asymmetric bladder. Likely consistent with cystitis. Outpatient urology follow-up for outpatient cystoscopy. Continue tolterodine for urinary incontinence. DVT prophylaxis-heparin Full code Disposition-patient adamantly wants to avoid residential facility, rehab or home health. Plans to have friends offer support on discharge. Currently patient cannot ambulate on her own. [facility] stay due to: voiding difficulties Consultants: [employer] [facility] Current Inpatient Medications: Current Inpatient Medications Medications (Trade) Dose Ordered Sig/Duke Route Start Time Stop Time Status Last Admin Dose Admin Heparin Sodium (Porcine) (Heparin Sq 5000 Unit/0.5ml) 5,000 unit Q8H SQ 06/20/17 00:00 07/20/17 00:00 06/26/17 14:35 5,000 UNIT Acetaminophen (Tylenol Tab) 650 mg Q4H PRN PO 06/19/17 23:45 07/19/17 23:44 06/26/17 11:31 650 MG Hydromorphone HCl (Dilaudid Inj) 0.5 mg Q3H PRN IV 06/19/17 23:45 07/03/17 23:44 06/23/17 13:49 0.5 MG Tramadol HCl (Ultram Tab) not relieved by tylenol @ Q6H PRN PO 06/19/17 23:45 07/19/17 23:44 06/24/17 05:39 50 MG Nystatin/ Triamcinolone Acetonide (Mycogen II Oint) 1 appln TID EXT 06/21/17 16:00 07/21/17 15:59 06/26/17 14:33 1 APPLN Fluconazole (Diflucan Tab) 100 mg TuSa@0800 PO 06/22/17 08:00 07/02/17 07:59 06/25/17 08:29 100 MG Tolterodine Tartrate (Detrol Tab) 2 mg BID PO 06/24/17 09:00 07/24/17 19:59 06/26/17 08:13 2 MG Amoxicillin (Amoxil Cap) 500 mg TID PO 06/25/17 08:00 06/30/17 07:59 06/26/17 14:34 500 MG Aspirin (Ecotrin Tab) 81 mg QAM PO 06/25/17 08:00 07/25/17 07:59 06/26/17 08:13 81 MG Atorvastatin Calcium (Lipitor Tab) 20 mg QAM PO 06/25/17 08:00 07/25/17 07:59 06/26/17 08:13 20 MG
[2017-06-26] MEDS: ACETAMINOPHEN 500 MG TAB PO SCH (20:56)
[2017-06-26] MEDS: PHENAZOPYRIDINE HCL 200 MG TAB PO SCH (20:57)
[2017-06-27 00:22] VITALS: BP 125/77; PULSE 84; TEMP 36.8; O2SAT 95
[2017-06-27] MEDS: ACETAMINOPHEN 500 MG TAB PO SCH ×3 (05:29→21:16)
[2017-06-27] MEDS: HEPARIN SOD 5000 UNIT/0.5 ML CARP SQ SCH ×3 (05:30→21:22)
[2017-06-27 07:13] VITALS: BP 145/79; PULSE 72; TEMP 36.4; O2SAT 95
[2017-06-27] MEDS: NYSTATIN/TRIAMCINOLONE OINT 15 GM TUBE EXT SCH ×3 (07:49→21:17)
[2017-06-27] MEDS: PHENAZOPYRIDINE HCL 200 MG TAB PO SCH ×3 (07:49→21:17)
[2017-06-27] MEDS: ATORVASTATIN 20 MG TAB PO SCH (07:49)
[2017-06-27] MEDS: AMOXICILLIN 500 MG CAP PO SCH ×3 (07:49→21:16)
[2017-06-27] MEDS: ASPIRIN 81 MG ECTAB PO SCH (07:50)
[2017-06-27] MEDS: TOLTERODINE TARTRATE 2 MG TAB PO SCH ×2 (07:50→21:15)
[2017-06-27 15:56] VITALS: BP 144/77; PULSE 83; TEMP 36.7; O2SAT 94
[2017-06-27 16:03] VITALS: O2SAT 95
--- NOTE | 2017-06-27 18:02 | Progress Note ---
Medicine Progress Note Date & Time of Visit: Jun 27, 2017 at 14:10. Subjective 82-year-old female admitted to the hospital for severe sepsis secondary to E. coli UTI. Patient still admits to some abdominal pain after urination and when getting back in bed. Se was able to sit in the chair today and have breakfast. Feeling somewhat better on the pyridium. Patient denies nausea vomiting and is tolerating p.o. without difficulty. She states the vaginal itching has resolved. Discussed options w [employer] operations support representative who will re-evaluate patient. Objective Last 8 Hrs Date Time Temp Pulse Resp B/P (MAP) Pulse Ox O2 Delivery O2 Flow Rate FiO2 06/27/17 12:06 Room Air 06/27/17 07:13 36.4 72 16 145/79 (101) 95 Room Air Physical Exam: GEN: WNWD, in no acute distress, alert and appropriate HEENT: NC/AT, normal sclerae, MMM CARDIO: reg rate, S1/2 heard without m/g/r LUNGS: CTA bilaterally, no crackles, rales or wheezes, good diaphragmatic excursion ABD: soft, non-tender, non-distended, no rebound or guarding, +BS EXTREMITY: RP and DP palpable 2+ bilat, no LE swelling or edema, extremities are warm and well-perfused NEURO: CN 2-12 grossly intact, no gross focal deficits. MUSC: moves all extremities equally, no gross focal deficits. SKIN: warm and dry Laboratory Results: 06/26/17 06:34 Red Blood Count 3.98, Mean Corpuscular Volume 96.5, Mean Corpuscular Hemoglobin 31.9, Mean Corpuscular Hemoglobin Concent 33.1, Mean Platelet Volume 9.2, Neutrophils (%) (Auto) 69.7, Lymphocytes (%) (Auto) 11.3, Monocytes (%) (Auto) 12.0, Eosinophils (%) (Auto) 6.5, Basophils (%) (Auto) 0.3, Neutrophils # (Auto ) 4.30, Lymphocytes # (Auto) 0.70, Monocytes # (Auto) 0.74, Eosinophils # (Auto ) 0.40, Basophils # (Auto) 0.02 06/26/17 06:34 Test 06/19/17 16:04 06/19/17 16:07 06/19/17 17:12 06/20/17 00:50 Urine Color YELLOW Urine Appearance CLOUDY (CLEAR) Urine pH 5.5 (4.5-7.5) Urine Specific [place] 1.025 (1.000-1.030) Urine Protein 2+ (NEG) Urine Glucose (UA) NEG (NEG) Urine Ketones TRACE (NEG) Urine Occult Blood 3+ (NEG) Urine Nitrite POS (NEG) Urine Bilirubin NEG (NEG) Urine Urobilinogen NEG (NEG) Urine Leukocyte Esterase LARGE (NEG) Urine RBC >30 /hpf (0-4) Urine WBC >30 /hpf (0-5) Urine Epithelial Cells 5-10 /lpf (0-5) Urine Bacteria 4+ (NEG) Prothrombin Time 10.7 SECONDS (9.0-12.0) Prothromb Time International Ratio 1.0 (0.9-1.1) Activated Partial Thromboplast Time 25.9 SECONDS (21.0-31.0) Partial Thromboplastin Ratio 1.0 Magnesium Level 2.1 mg/dl (1.8-2.4) Total Bilirubin 0.4 mg/dl (0.2-1) Direct Bilirubin 0.1 mg/dl (0-0.2) Aspartate Amino Transf (AST/SGOT) 13 U/L (15-37) Alanine Aminotransferase (ALT/SGPT) 11 U/L (12-78) Alkaline Phosphatase 61 U/L (45-117) Total Creatine Kinase 46 U/L (26-192) Creatine Kinase MB 1.4 ng/ml (0.5-3.6) Creatine Kinase MB Ratio 3.0 (0-3.0) Troponin I < 0.015 ng/ml (0-0.045) Total Protein 7.7 gm/dl (6.4-8.2) Albumin 4.0 gm/dl (3.4-5.0) Lipase 187 U/L (73-393) Thyroid Stimulating Hormone (TSH) 1.900 uIu/ml (0.300-4.500) Bedside Lactic Acid Venous 3.08 mmol/L (0.90-1.70) Lactic Acid Level 1.1 mmol/L (0.4-2.0) Test 06/22/17 05:50 06/23/17 06:32 06/26/17 06:34 Rapid Plasma Reagin NONREACTIVE (NONREACT) Triglycerides Level 132 mg/dl (0-150) Cholesterol Level 182 mg/dl (0-200) HDL Cholesterol 52 mg/dl LDL Cholesterol, Calculated 104 mg/dl VLDL Cholesterol, Calculated 26 mg/dl Cholesterol/HDL Ratio 3.5 Chemistry Specimen Hemolysis White Blood Count 6.17 K/uL (4.8-10.8) Red Blood Count 3.98 M/uL (4.2-5.4) Hemoglobin 12.7 g/dL (12.0-16.0) Hematocrit 38.4 % (37-47) Mean Corpuscular Volume 96.5 fL (80-100) Mean Corpuscular Hemoglobin 31.9 pg (25-34) Mean Corpuscular Hemoglobin Concent 33.1 g/dl (32-36) Platelet Count 210 K/uL (130-400) Mean Platelet Volume 9.2 fL (7.4-10.4) Neutrophils (%) (Auto) 69.7 % Lymphocytes (%) (Auto) 11.3 % Monocytes (%) (Auto) 12.0 % Eosinophils (%) (Auto) 6.5 % Basophils (%) (Auto) 0.3 % Neutrophils # (Auto) 4.30 K/uL (1.4-6.5) Lymphocytes # (Auto) 0.70 K/uL (1.2-3.4) Monocytes # (Auto) 0.74 K/uL (0.11-0.59) Eosinophils # (Auto) 0.40 K/uL (0-0.5) Basophils # (Auto) 0.02 K/uL (0-0.2) RDW Standard Deviation 49.6 fL (36.4-46.3) RDW Coefficient of Variation 14.0 % (11.5-14.5) Immature Granulocyte % (Auto) 0.2 % Immature Granulocyte # (Auto) 0.01 K/uL (0.00-0.02) Anion Gap 7.0 mmol/L (3-11) Est Creatinine Clear Calc Drug Dose 35.1 ml/min Estimated GFR () 56.9 Estimated GFR (Non- 49.1 BUN/Creatinine Ratio 18.6 (10-20) Calcium Level 9.0 mg/dl (8.5-10.1) Date/Time Source Procedure Growth Status 06/19/17 16:04 Urine,Catheterized Urine Culture - Final Escherichia Coli Complete Assessment & Plan 82-year-old female admitted to the hospital for severe sepsis secondary to E. coli UTI. Patient still admits to some abdominal pain after urination and when getting back in bed. Se was able to sit in the chair today and have breakfast. Feeling somewhat better on the pyridium. Patient denies nausea vomiting and is tolerating p.o. without difficulty. She states the vaginal itching has resolved. Discussed options w [employer] operations support representative who will re-evaluate patient. 1. E. coli secondary to urinary tract infection-sepsis resuscitated. Continue amoxicillin-patient requires total 10 days antibiotics. No evidence of acute urinary retention. 2. Abdominal pain-secondary to bladder prolapse and pressure from this. Cont pyridium and scheduled APAP. field observer plans for pessary fitting tomorrow inpatient. 3. Ambulatory dysfunction-multiple people on staff have explained to the patient that she is unsafe to go home however she continues to state that she is fine to do so. She is given me permission to discuss this with her son who is her desired medical power of attorney lawyer. Continue PT OT. 4. Vulvar candidiasis-continue Mycolog and Diflucan per gynecology recommendations. Symptoms appear to have resolved. 5. Abnormal CT findings-specifically thickened asymmetric bladder. Likely consistent with cystitis. Outpatient urology follow-up for outpatient cystoscopy. Continue tolterodine for urinary incontinence. DVT prophylaxis-heparin Full code Disposition-patient adamantly wants to avoid [facility] facility, rehab or home health. Plans to have friends offer support on discharge. Currently patient cannot ambulate on her own. Yola Schneider DO [facility] hospitalist Continued [facility] stay due to: voiding difficulties Consultants: [employer] L[employer] OUT WORKER-[facility] Current Inpatient Medications: Current Inpatient Medications Medications (Trade) Dose Ordered Sig/Duke Route Start Time Stop Time Status Last Admin Dose Admin Heparin Sodium (Porcine) (Heparin Sq 5000 Unit/0.5ml) 5,000 unit Q8H SQ 06/20/17 00:00 07/20/17 00:00 06/27/17 05:30 5,000 UNIT Hydromorphone HCl (Dilaudid Inj) 0.5 mg Q3H PRN IV 06/19/17 23:45 07/03/17 23:44 06/23/17 13:49 0.5 MG Tramadol HCl (Ultram Tab) not relieved by tylenol @ Q6H PRN PO 06/19/17 23:45 07/19/17 23:44 06/24/17 05:39 50 MG Nystatin/ Triamcinolone Acetonide (Mycogen II Oint) 1 appln TID EXT 06/21/17 16:00 07/21/17 15:59 06/27/17 07:49 1 APPLN Fluconazole (Diflucan Tab) 100 mg TuSa@0800 PO 06/22/17 08:00 07/02/17 07:59 06/25/17 08:29 100 MG Tolterodine Tartrate (Detrol Tab) 2 mg BID PO 06/24/17 09:00 07/24/17 19:59 06/27/17 07:50 2 MG Amoxicillin (Amoxil Cap) 500 mg TID PO 06/25/17 08:00 06/30/17 07:59 06/27/17 07:49 500 MG Aspirin (Ecotrin Tab) 81 mg QAM PO 06/25/17 08:00 07/25/17 07:59 06/27/17 07:50 81 MG Atorvastatin Calcium (Lipitor Tab) 20 mg QAM PO 06/25/17 08:00 07/25/17 07:59 06/27/17 07:49 20 MG Phenazopyridine HCl (Pyridium Tab) 200 mg TID PO 06/26/17 20:00 07/26/17 19:59 06/27/17 07:49 200 MG Acetaminophen (Tylenol Tab) 1,000 mg Q8 PO 06/26/17 19:00 07/26/17 18:59 06/27/17 05:29 1,000 MG
--- NOTE | 2017-06-27 18:04 | GYNECOLOGICAL CONSULTATION ---
DATE OF CONSULTATION: 06/27/2017 REASON FOR CONSULT: Assessment for pessary placement. Dr. Schneider contacted me early this morning to reassess the patient for possible pessary placement as the patient is too uncomfortable to sit for any period of time because of the vaginal prolapse. She feels more comfortable lying in bed, at which time the prolapse resolved somewhat. She has been having difficulty with incontinence. The concern was for urinary retention; however, a bladder scan done after a documented void was only 49 mL. The patient is willing to be fitted for a vaginal pessary. She is noted to have a very atrophic vaginal wall that is protruding from the vagina. 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 A #4 ring pessary with support was placed without difficulty. The patient notes that this is comfortable and is not causing any pain. She is aware that there is something in the vagina, but it is not unpleasant or uncomfortable. She was then ambulated around the room. The patient sat for a period of time and again voiced no complaints that this was uncomfortable or painful. I did have her stoop to touch the floor and she noted that the pessary did not move out of place. After having her ambulate and bend at the waist I then re-examined her in the supine position and the pessary was still in the correct position. We will assess tomorrow morning to see if the pessary is still staying in place. I do have another option for a pessary if this one is not successful after ambulating and voiding . If this pessary is working well , she will need to be seen in our office in 3 months to have the pessary removed, cleaned & replaced. She will continue with pessary checks every 3-4 months .Thank you very much for this consult. NICOLE
[2017-06-27 23:47] VITALS: BP 147/77; PULSE 88; TEMP 36.5; O2SAT 93
[2017-06-28] MEDS: ACETAMINOPHEN 500 MG TAB PO SCH ×3 (04:54→21:12)
[2017-06-28] MEDS: HEPARIN SOD 5000 UNIT/0.5 ML CARP SQ SCH ×3 (05:03→21:11)
[2017-06-28 07:40] VITALS: BP 141/86; PULSE 78; TEMP 36.6; O2SAT 94
--- NOTE | 2017-06-28 08:38 | Medical Consult ---
Consultation Note Date of Service Jun 28, 2017. Consultation Note During the late evening hours the ring pessary with support I placed earlier fell out when she used the bathroom. I have now placed a 2 3/4" SHAATZ pessary. The patient says it is comfortable, and is having no pain with it in. She will try to reproduce her usual activities to see if the pessary will stay in place. If this one falls out, then she will need to be evaluated at the office for additional pessary trials. Dr. Daniela Muñoz is forward air controller/air officer today & can be reached if this pessary falls out. If the pessary seems to be staying in palce & is comfortable, then she will need to be seen in our office for a pessary cleaning in 3 months.
[2017-06-28] MEDS: ATORVASTATIN 20 MG TAB PO SCH (08:52)
[2017-06-28] MEDS: ASPIRIN 81 MG ECTAB PO SCH (08:52)
[2017-06-28] MEDS: PHENAZOPYRIDINE HCL 200 MG TAB PO SCH ×2 (08:52→14:24)
[2017-06-28] MEDS: AMOXICILLIN 500 MG CAP PO SCH ×3 (08:52→21:11)
[2017-06-28] MEDS: TOLTERODINE TARTRATE 2 MG TAB PO SCH ×2 (08:52→21:12)
[2017-06-28] MEDS: NYSTATIN/TRIAMCINOLONE OINT 15 GM TUBE EXT SCH ×3 (08:53→21:11)
--- NOTE | 2017-06-28 09:22 | Progress Note ---
Subjective Date of Service: Jun 28, 2017. Subjective Pt evaluation today including: conversation w/ patient, chart review Voiding: incontinence 82 yo female with incontinence and UTI. Pt had a pessary placed yesterday by [employer]. Pessary fell out, and replaced with a new one by Dr. Taylor this morning. Pt continues to c/o incontinence. Started tolterodine earlier this week. No improvement thus far. Problem List Medical Problems: (1) Altered mental status Status: Acute (2) Intertrigo Status: Acute Review of Systems Constitutional: No fever, No chills Respiratory: No shortness of breath Cardiac: No chest pain Abdomen: No pain, No nausea, No vomiting Female : + dysuria, + incontinence, No hematuria Heme: No abnormal bleeding/bruising Objective Vital Signs Date Time Temp Pulse Resp B/P (MAP) Pulse Ox O2 Delivery O2 Flow Rate FiO2 06/28/17 07:40 36.6 78 16 141/86 (104) 94 Room Air 06/28/17 00:00 Room Air 06/27/17 23:47 36.5 88 18 147/77 (100) 93 Room Air 06/27/17 16:03 95 Room Air 06/27/17 15:56 36.7 83 20 144/77 (99) 94 Room Air 06/27/17 12:06 Room Air Physical Exam General Appearance: no apparent distress Eyes: normal inspection ENT: hearing grossly normal Neck: no JVD Respiratory/Chest: no respiratory distress, no accessory muscle use Cardiovascular: no JVD Extremities: normal inspection Neurologic/Psychiatric: alert, normal mood/affect, oriented x 3 Skin: normal color Assessment and Plan A/P: UTI, incontinence Pt will need treated with 10 days of abx for UTI. Continue Mycolog and Diflucan per [employer]. Pessary per [employer]. Continue tolterodine for her incontinence. No confusion or constipation noted thus far. Expect it may take 2-4 week for the medication to take full effect. Will plan to follow up with the pt for her incontinence as an outpatient. Would not expect full resolution this admission. May need to consider trying other meds if she fails the tolterodine. Other options include cystocele repair, sling placement, PTNS, or Botox if she fails first line therapies. The pt can be evaluated for all of these as an outpatient. Will arrange for outpatient f/u in 3-4 weeks. Continued [facility] stay due to: voiding difficulties
[2017-06-28 16:03] VITALS: O2SAT 95
[2017-06-28 16:44] VITALS: BP 135/86; PULSE 84; TEMP 36.8; O2SAT 94
--- NOTE | 2017-06-28 18:13 | Progress Note ---
Medicine Progress Note Date & Time of Visit: Jun 28, 2017 at 17:15. Subjective 82-year-old female admitted to the hospital for severe sepsis secondary to E. coli UTI. Appreciate BALLOON DESIGN PRINTER involvement, yesterday they placed a pessary which fell out and then replaced a different one overnight. Unfortunately this pessary also fell out this evening. The patient was still having some painful sensations with position changes and was not feeling back to baseline with the second pessary. She still reports incontinence and although feels the sense of urgency to go to the bathroom cannot make it to the bathroom and ends up having urinary incontinence. She is tolerating p.o. she is trying to ambulate but reports the staff will not let her do things on her own. Objective Last 8 Hrs Date Time Temp Pulse Resp B/P (MAP) Pulse Ox O2 Delivery O2 Flow Rate FiO2 06/28/17 16:44 36.8 84 20 135/86 (102) 94 Physical Exam: GEN: WNWD, in no acute distress, alert and appropriate HEENT: NC/AT, normal sclerae, MMM CARDIO: reg rate, S1/2 heard without m/g/r LUNGS: CTA bilaterally, no crackles, rales or wheezes, good diaphragmatic excursion ABD: soft, non-tender, non-distended, no rebound or guarding, +BS EXTREMITY: RP and DP palpable 2+ bilat, no LE swelling or edema, extremities are warm and well-perfused NEURO: CN 2-12 grossly intact, no gross focal deficits. MUSC: moves all extremities equally, no gross focal deficits. SKIN: warm and dry Laboratory Results: 06/26/17 06:34 Red Blood Count 3.98, Mean Corpuscular Volume 96.5, Mean Corpuscular Hemoglobin 31.9, Mean Corpuscular Hemoglobin Concent 33.1, Mean Platelet Volume 9.2, Neutrophils (%) (Auto) 69.7, Lymphocytes (%) (Auto) 11.3, Monocytes (%) (Auto) 12.0, Eosinophils (%) (Auto) 6.5, Basophils (%) (Auto) 0.3, Neutrophils # (Auto ) 4.30, Lymphocytes # (Auto) 0.70, Monocytes # (Auto) 0.74, Eosinophils # (Auto ) 0.40, Basophils # (Auto) 0.02 06/26/17 06:34 Test 06/19/17 16:04 06/19/17 16:07 06/19/17 17:12 06/20/17 00:50 Urine Color YELLOW Urine Appearance CLOUDY (CLEAR) Urine pH 5.5 (4.5-7.5) Urine Specific [place] 1.025 (1.000-1.030) Urine Protein 2+ (NEG) Urine Glucose (UA) NEG (NEG) Urine Ketones TRACE (NEG) Urine Occult Blood 3+ (NEG) Urine Nitrite POS (NEG) Urine Bilirubin NEG (NEG) Urine Urobilinogen NEG (NEG) Urine Leukocyte Esterase LARGE (NEG) Urine RBC >30 /hpf (0-4) Urine WBC >30 /hpf (0-5) Urine Epithelial Cells 5-10 /lpf (0-5) Urine Bacteria 4+ (NEG) Prothrombin Time 10.7 SECONDS (9.0-12.0) Prothromb Time International Ratio 1.0 (0.9-1.1) Activated Partial Thromboplast Time 25.9 SECONDS (21.0-31.0) Partial Thromboplastin Ratio 1.0 Magnesium Level 2.1 mg/dl (1.8-2.4) Total Bilirubin 0.4 mg/dl (0.2-1) Direct Bilirubin 0.1 mg/dl (0-0.2) Aspartate Amino Transf (AST/SGOT) 13 U/L (15-37) Alanine Aminotransferase (ALT/SGPT) 11 U/L (12-78) Alkaline Phosphatase 61 U/L (45-117) Total Creatine Kinase 46 U/L (26-192) Creatine Kinase MB 1.4 ng/ml (0.5-3.6) Creatine Kinase MB Ratio 3.0 (0-3.0) Troponin I < 0.015 ng/ml (0-0.045) Total Protein 7.7 gm/dl (6.4-8.2) Albumin 4.0 gm/dl (3.4-5.0) Lipase 187 U/L (73-393) Thyroid Stimulating Hormone (TSH) 1.900 uIu/ml (0.300-4.500) Bedside Lactic Acid Venous 3.08 mmol/L (0.90-1.70) Lactic Acid Level 1.1 mmol/L (0.4-2.0) Test 06/22/17 05:50 06/23/17 06:32 4/4/18 06:34 Rapid Plasma Reagin NONREACTIVE (NONREACT) Triglycerides Level 132 mg/dl (0-150) Cholesterol Level 182 mg/dl (0-200) HDL Cholesterol 52 mg/dl LDL Cholesterol, Calculated 104 mg/dl VLDL Cholesterol, Calculated 26 mg/dl Cholesterol/HDL Ratio 3.5 Chemistry Specimen Hemolysis White Blood Count 6.17 K/uL (4.8-10.8) Red Blood Count 3.98 M/uL (4.2-5.4) Hemoglobin 12.7 g/dL (12.0-16.0) Hematocrit 38.4 % (37-47) Mean Corpuscular Volume 96.5 fL (80-100) Mean Corpuscular Hemoglobin 31.9 pg (25-34) Mean Corpuscular Hemoglobin Concent 33.1 g/dl (32-36) Platelet Count 210 K/uL (130-400) Mean Platelet Volume 9.2 fL (7.4-10.4) Neutrophils (%) (Auto) 69.7 % Lymphocytes (%) (Auto) 11.3 % Monocytes (%) (Auto) 12.0 % Eosinophils (%) (Auto) 6.5 % Basophils (%) (Auto) 0.3 % Neutrophils # (Auto) 4.30 K/uL (1.4-6.5) Lymphocytes # (Auto) 0.70 K/uL (1.2-3.4) Monocytes # (Auto) 0.74 K/uL (0.11-0.59) Eosinophils # (Auto) 0.40 K/uL (0-0.5) Basophils # (Auto) 0.02 K/uL (0-0.2) RDW Standard Deviation 49.6 fL (36.4-46.3) RDW Coefficient of Variation 14.0 % (11.5-14.5) Immature Granulocyte % (Auto) 0.2 % Immature Granulocyte # (Auto) 0.01 K/uL (0.00-0.02) Anion Gap 7.0 mmol/L (3-11) Est Creatinine Clear Calc Drug Dose 35.1 ml/min Estimated GFR () 56.9 Estimated GFR (Non- 49.1 BUN/Creatinine Ratio 18.6 (10-20) Calcium Level 9.0 mg/dl (8.5-10.1) Date/Time Source Procedure Growth Status 06/19/17 16:04 Urine,Catheterized Urine Culture - Final Escherichia Coli Complete Assessment & Plan 82-year-old female admitted to the hospital for severe sepsis secondary to E. coli UTI. Appreciate BALLOON DESIGN PRINTER involvement, yesterday they placed a pessary which fell out and then replaced a different one overnight. Unfortunately this pessary also fell out this evening. The patient was still having some painful sensations with position changes and was not feeling back to baseline with the second pessary. She still reports incontinence and although feels the sense of urgency to go to the bathroom cannot make it to the bathroom and ends up having urinary incontinence. She is tolerating p.o. she is trying to ambulate but reports the staff will not let her do things on her own. 1. E. coli secondary to urinary tract infection-sepsis resuscitated. Continue amoxicillin-patient requires total 10 days antibiotics. No evidence of acute urinary retention. 2. Abdominal pain-secondary to bladder prolapse and pressure from this. Stopping Pyridium but continued scheduled APAP. Will plan to recontact BALLOON DESIGN PRINTER about pessary issue. 3. Ambulatory dysfunction-multiple people on staff have explained to the patient that she is unsafe to go home however she continues to state that she is fine to do so. Her neighbors are present with her at the bedside and report they are employed by her to stay with her during the day. They also report to me that her son will be there for the next few days starting tomorrow. He is in from [place]. The patient is adamant that she is going home when she leaves here. 4. Vulvar candidiasis-continue Mycolog and Diflucan per gynecology recommendations. Symptoms appear to have resolved. 5. Abnormal CT findings-specifically thickened asymmetric bladder. Likely consistent with cystitis. Outpatient urology follow-up for outpatient cystoscopy. Continue tolterodine for urinary incontinence. DVT prophylaxis-heparin Full code Disposition-patient adamantly wants to avoid penitentiary facility, rehab or home health. Plans to have friends offer support on discharge. Currently patient cannot ambulate on her own. Yola Schneider DO [facility] hospitalist Continued [facility] stay due to: voiding difficulties Consultants: BALLOON DESIGN PRINTER-[facility] Current Inpatient Medications: Current Inpatient Medications Medications (Trade) Dose Ordered Sig/Duke Route Start Time Stop Time Status Last Admin Dose Admin Heparin Sodium (Porcine) (Heparin Sq 5000 Unit/0.5ml) 5,000 unit Q8H SQ 06/20/17 00:00 07/20/17 00:00 06/28/17 14:28 5,000 UNIT Hydromorphone HCl (Dilaudid Inj) 0.5 mg Q3H PRN IV 06/19/17 23:45 07/03/17 23:44 06/23/17 13:49 0.5 MG Tramadol HCl (Ultram Tab) not relieved by tylenol @ Q6H PRN PO 06/19/17 23:45 07/19/17 23:44 06/24/17 05:39 50 MG Nystatin/ Triamcinolone Acetonide (Mycogen II Oint) 1 appln TID EXT 06/21/17 16:00 07/21/17 15:59 06/28/17 14:24 1 APPLN Fluconazole (Diflucan Tab) 100 mg TuSa@0800 PO 06/22/17 08:00 07/02/17 07:59 06/25/17 08:29 100 MG Tolterodine Tartrate (Detrol Tab) 2 mg BID PO 06/24/17 09:00 07/24/17 19:59 06/28/17 08:52 2 MG Amoxicillin (Amoxil Cap) 500 mg TID PO 06/25/17 08:00 06/30/17 07:59 06/28/17 14:24 500 MG Aspirin (Ecotrin Tab) 81 mg QAM PO 06/25/17 08:00 07/25/17 07:59 06/28/17 08:52 81 MG Atorvastatin Calcium (Lipitor Tab) 20 mg QAM PO 06/25/17 08:00 07/25/17 07:59 06/28/17 08:52 20 MG Phenazopyridine HCl (Pyridium Tab) 200 mg TID PO 06/26/17 20:00 07/26/17 19:59 06/28/17 14:24 200 MG Acetaminophen (Tylenol Tab) 1,000 mg Q8 PO 06/26/17 19:00 07/26/17 18:59 06/28/17 14:24 1,000 MG
[2017-06-29] VITALS: O2SAT 95
[2017-06-29 00:02] VITALS: BP 121/76; PULSE 89; TEMP 36.7; O2SAT 95
[2017-06-29] MEDS: ACETAMINOPHEN 500 MG TAB PO SCH ×3 (05:22→21:41)
[2017-06-29] MEDS: HEPARIN SOD 5000 UNIT/0.5 ML CARP SQ SCH ×3 (05:23→21:43)
[2017-06-29 06:29] LABS: BASO % 0.7 %; BASO ABS # 0.04 K/uL (0-0.2); EOS % 7.2 %; EOS ABS # 0.41 K/uL (0-0.5); HEMATOCRIT 38.5 % (37-47); HEMOGLOBIN 12.4 g/dL (12.0-16.0); IG# 0.01 K/uL (0.00-0.02); LYMPH % 22.8 %; LYMPH ABS # 1.29 K/uL (1.2-3.4); MEAN CELL VOLUME 97.7 fL (80-100); MEAN CORPUSCULAR HEMOGLOBIN 31.5 pg (25-34); MEAN CORPUSCULAR HGB CONC 32.2 g/dl (32-36); MEAN PLATELET VOLUME 9.3 fL (7.4-10.4); MONO % 11.1 %; MONO ABS # 0.63 K/uL (0.11-0.59); NEUT ABS # 3.28 K/uL (1.4-6.5); PLATELET COUNT 233 K/uL (130-400); RED CELL DISTRIBUTION WIDTH CV 14.3 % (11.5-14.5); RED CELL DISTRIBUTION WIDTH SD 51.5 fL (36.4-46.3); WHITE BLOOD COUNT 5.66 K/uL (4.8-10.8)
[2017-06-29 07:06] VITALS: BP 138/92; PULSE 68; TEMP 36.6; O2SAT 94
[2017-06-29] MEDS: AMOXICILLIN 500 MG CAP PO SCH ×3 (08:04→19:37)
[2017-06-29] MEDS: NYSTATIN/TRIAMCINOLONE OINT 15 GM TUBE EXT SCH ×3 (08:04→19:38)
[2017-06-29] MEDS: TOLTERODINE TARTRATE 2 MG TAB PO SCH ×2 (08:04→19:38)
[2017-06-29] MEDS: TRAMADOL HCL 50 MG TAB PO PRN (08:04)
[2017-06-29] MEDS: ASPIRIN 81 MG ECTAB PO SCH (08:05)
[2017-06-29] MEDS: ATORVASTATIN 20 MG TAB PO SCH (08:05)
[2017-06-29] MEDS: FLUCONAZOLE 100 MG TAB PO SCH (08:06)
--- NOTE | 2017-06-29 09:40 | OB/GYN Progress Note ---
RU[employer] Progress Note Date of Service Jun 29, 2017. Subjective conversation w/ patient, physical exam Ambulation: limited ambulation Objective Vital Signs Date Time Temp Pulse Resp B/P (MAP) Pulse Ox O2 Delivery O2 Flow Rate FiO2 06/29/17 07:06 36.6 68 18 138/92 (107) 94 06/29/17 00:02 36.7 89 18 121/76 (91) 95 Room Air 06/29/17 00:00 95 Room Air 06/28/17 16:44 36.8 84 20 135/86 (102) 94 06/28/17 16:03 95 Room Air Physical Exam General Appearance: WELL-APPEARING, NO APPARENT DISTRESS : Complete vaginal vault prolapse, atrophy, erythema of the vulva much improved. Procedure Note: Pt placed in dorsal lithotomy position, pt fit with a 3" flex Gellhorn pessary, pt tolerated procedure well Laboratory Results Last 24 Hours Test 06/29/17 06:00 White Blood Count 5.66 K/uL Red Blood Count 3.94 M/uL Hemoglobin 12.4 g/dL Hematocrit 38.5 % Mean Corpuscular Volume 97.7 fL Mean Corpuscular Hemoglobin 31.5 pg Mean Corpuscular Hemoglobin Concent 32.2 g/dl Platelet Count 233 K/uL Mean Platelet Volume 9.3 fL Neutrophils (%) (Auto) 58.0 % Lymphocytes (%) (Auto) 22.8 % Monocytes (%) (Auto) 11.1 % Eosinophils (%) (Auto) 7.2 % Basophils (%) (Auto) 0.7 % Neutrophils # (Auto) 3.28 K/uL Lymphocytes # (Auto) 1.29 K/uL Monocytes # (Auto) 0.63 K/uL Eosinophils # (Auto) 0.41 K/uL Basophils # (Auto) 0.04 K/uL RDW Standard Deviation 51.5 fL RDW Coefficient of Variation 14.3 % Immature Granulocyte % (Auto) 0.2 % Immature Granulocyte # (Auto) 0.01 K/uL Assessment and Plan Continue Routine Care: - previous pessaries have dislodged - the Flex Gellhorn will stay in, but requires consistent outpatient clinical follow-up. - the patient needs to be seen in the office 4-6 weeks after discharge for pessary maintenance
--- NOTE | 2017-06-29 11:21 | Progress Note ---
Subjective Date of Service: Jun 29, 2017. Subjective Pt evaluation today including: conversation w/ patient, physical exam, chart review, lab review, review of inpatient medication list Voiding: incontinence 82 yo female with a history of UTI, incontinence, POP managed by Follow Up Specialist with pessary. Past notes reviewed. The initiation of therapy with Detrol as noted. She denies fevers and reports her new pessary is comfortable. She does know she continues to have leakage when ambulating in her room with little sense of pressure. Problem List Medical Problems: (1) Altered mental status Status: Acute (2) Intertrigo Status: Acute Review of Systems Constitutional: No fever, No chills Eyes: No worsening of vision ENT: No hearing loss Respiratory: No wheezing, No shortness of breath Cardiac: No chest pain Abdomen: No nausea, No vomiting Female : + see HPI, + incontinence Neurologic: No memory loss, No paralysis Endo: No excessive urination Skin: No new/changing skin lesions Objective Vital Signs Date Time Temp Pulse Resp B/P (MAP) Pulse Ox O2 Delivery O2 Flow Rate FiO2 06/29/17 08:00 Room Air 06/29/17 07:06 36.6 68 18 138/92 (107) 94 06/29/17 00:02 36.7 89 18 121/76 (91) 95 Room Air 06/29/17 00:00 95 Room Air 06/28/17 16:44 36.8 84 20 135/86 (102) 94 06/28/17 16:03 95 Room Air Physical Exam General Appearance: WD/WN, no apparent distress ENT: normal ENT inspection Neck: supple, no adenopathy Respiratory/Chest: no respiratory distress, no accessory muscle use Cardiovascular: no JVD Abdomen: non tender, soft Extremities: non-tender Neurologic/Psychiatric: alert Skin: normal color Laboratory Results Last 24 Hours Test 06/29/17 06:00 White Blood Count 5.66 K/uL Red Blood Count 3.94 M/uL Hemoglobin 12.4 g/dL Hematocrit 38.5 % Mean Corpuscular Volume 97.7 fL Mean Corpuscular Hemoglobin 31.5 pg Mean Corpuscular Hemoglobin Concent 32.2 g/dl Platelet Count 233 K/uL Mean Platelet Volume 9.3 fL Neutrophils (%) (Auto) 58.0 % Lymphocytes (%) (Auto) 22.8 % Monocytes (%) (Auto) 11.1 % Eosinophils (%) (Auto) 7.2 % Basophils (%) (Auto) 0.7 % Neutrophils # (Auto) 3.28 K/uL Lymphocytes # (Auto) 1.29 K/uL Monocytes # (Auto) 0.63 K/uL Eosinophils # (Auto) 0.41 K/uL Basophils # (Auto) 0.04 K/uL RDW Standard Deviation 51.5 fL RDW Coefficient of Variation 14.3 % Immature Granulocyte % (Auto) 0.2 % Immature Granulocyte # (Auto) 0.01 K/uL Assessment and Plan A/P 82-year-old female with resolving pansensitive E. coli urinary tract action and persistent urinary incontinence. As discussed with the patient it may take some weeks for her anticholinergic medication to have its full effect. In addition alterations of her pessary may influence her voiding as well. Would complete a 7-10 day course of antibiotics for her current urinary tract infection. Continue Detrol on discharge from the hospital. Patient will be pending outpatient cystoscopy in our office which we will arrange. She can contact us on discharge with any acute decompensation of her care. Thank you for allowing us to participate in this patient's acute inpatient care. Please contact our service with any new questions or concerns. Will sign off. Continued [facility] stay due to: voiding difficulties
[2017-06-29 16:13] VITALS: BP 149/97; PULSE 75; TEMP 36.6; O2SAT 98
--- NOTE | 2017-06-29 18:25 | Progress Note ---
Medicine Progress Note Date & Time of Visit: Jun 29, 2017 at 12:43. Subjective 82-year-old female admitted to the hospital for severe sepsis secondary to E. coli UTI. Appreciate BUSINESS SEGMENT MANAGER involvement, who repeated pessary placement this morning after second pessary fell out overnight. The patient reports feeling improved already. Still reports urinary incontinence. Improvement in pain. She is tolerating p.o. Objective Last 8 Hrs Date Time Temp Pulse Resp B/P (MAP) Pulse Ox O2 Delivery O2 Flow Rate FiO2 06/29/17 08:00 Room Air 06/29/17 07:06 36.6 68 18 138/92 (107) 94 Physical Exam: GEN: WNWD, in no acute distress, alert and appropriate HEENT: NC/AT, normal sclerae, MMM CARDIO: reg rate, S1/2 heard without m/g/r LUNGS: CTA bilaterally, no crackles, rales or wheezes, good diaphragmatic excursion ABD: soft, non-tender, non-distended, no rebound or guarding, +BS EXTREMITY: RP and DP palpable 2+ bilat, no LE swelling or edema, extremities are warm and well-perfused NEURO: CN 2-12 grossly intact, no gross focal deficits. MUSC: moves all extremities equally, no gross focal deficits. SKIN: warm and dry Laboratory Results: 06/29/17 06:00 Red Blood Count 3.94, Mean Corpuscular Volume 97.7, Mean Corpuscular Hemoglobin 31.5, Mean Corpuscular Hemoglobin Concent 32.2, Mean Platelet Volume 9.3, Neutrophils (%) (Auto) 58.0, Lymphocytes (%) (Auto) 22.8, Monocytes (%) (Auto) 11.1, Eosinophils (%) (Auto) 7.2, Basophils (%) (Auto) 0.7, Neutrophils # (Auto ) 3.28, Lymphocytes # (Auto) 1.29, Monocytes # (Auto) 0.63, Eosinophils # (Auto ) 0.41, Basophils # (Auto) 0.04 06/26/17 06:34 Test 06/19/17 16:04 06/19/17 16:07 06/19/17 17:12 06/20/17 00:50 Urine Color YELLOW Urine Appearance CLOUDY (CLEAR) Urine pH 5.5 (4.5-7.5) Urine Specific [place] 1.025 (1.000-1.030) Urine Protein 2+ (NEG) Urine Glucose (UA) NEG (NEG) Urine Ketones TRACE (NEG) Urine Occult Blood 3+ (NEG) Urine Nitrite POS (NEG) Urine Bilirubin NEG (NEG) Urine Urobilinogen NEG (NEG) Urine Leukocyte Esterase LARGE (NEG) Urine RBC >30 /hpf (0-4) Urine WBC >30 /hpf (0-5) Urine Epithelial Cells 5-10 /lpf (0-5) Urine Bacteria 4+ (NEG) Prothrombin Time 10.7 SECONDS (9.0-12.0) Prothromb Time International Ratio 1.0 (0.9-1.1) Activated Partial Thromboplast Time 25.9 SECONDS (21.0-31.0) Partial Thromboplastin Ratio 1.0 Magnesium Level 2.1 mg/dl (1.8-2.4) Total Bilirubin 0.4 mg/dl (0.2-1) Direct Bilirubin 0.1 mg/dl (0-0.2) Aspartate Amino Transf (AST/SGOT) 13 U/L (15-37) Alanine Aminotransferase (ALT/SGPT) 11 U/L (12-78) Alkaline Phosphatase 61 U/L (45-117) Total Creatine Kinase 46 U/L (26-192) Creatine Kinase MB 1.4 ng/ml (0.5-3.6) Creatine Kinase MB Ratio 3.0 (0-3.0) Troponin I < 0.015 ng/ml (0-0.045) Total Protein 7.7 gm/dl (6.4-8.2) Albumin 4.0 gm/dl (3.4-5.0) Lipase 187 U/L (73-393) Thyroid Stimulating Hormone (TSH) 1.900 uIu/ml (0.300-4.500) Bedside Lactic Acid Venous 3.08 mmol/L (0.90-1.70) Lactic Acid Level 1.1 mmol/L (0.4-2.0) Test 06/22/17 05:50 06/23/17 06:32 06/26/17 06:34 06/29/17 06:00 Rapid Plasma Reagin NONREACTIVE (NONREACT) Triglycerides Level 132 mg/dl (0-150) Cholesterol Level 182 mg/dl (0-200) HDL Cholesterol 52 mg/dl LDL Cholesterol, Calculated 104 mg/dl VLDL Cholesterol, Calculated 26 mg/dl Cholesterol/HDL Ratio 3.5 Chemistry Specimen Hemolysis Anion Gap 7.0 mmol/L (3-11) Est Creatinine Clear Calc Drug Dose 35.1 ml/min Estimated GFR () 56.9 Estimated GFR (Non- 49.1 BUN/Creatinine Ratio 18.6 (10-20) Calcium Level 9.0 mg/dl (8.5-10.1) White Blood Count 5.66 K/uL (4.8-10.8) Red Blood Count 3.94 M/uL (4.2-5.4) Hemoglobin 12.4 g/dL (12.0-16.0) Hematocrit 38.5 % (37-47) Mean Corpuscular Volume 97.7 fL (80-100) Mean Corpuscular Hemoglobin 31.5 pg (25-34) Mean Corpuscular Hemoglobin Concent 32.2 g/dl (32-36) Platelet Count 233 K/uL (130-400) Mean Platelet Volume 9.3 fL (7.4-10.4) Neutrophils (%) (Auto) 58.0 % Lymphocytes (%) (Auto) 22.8 % Monocytes (%) (Auto) 11.1 % Eosinophils (%) (Auto) 7.2 % Basophils (%) (Auto) 0.7 % Neutrophils # (Auto) 3.28 K/uL (1.4-6.5) Lymphocytes # (Auto) 1.29 K/uL (1.2-3.4) Monocytes # (Auto) 0.63 K/uL (0.11-0.59) Eosinophils # (Auto) 0.41 K/uL (0-0.5) Basophils # (Auto) 0.04 K/uL (0-0.2) RDW Standard Deviation 51.5 fL (36.4-46.3) RDW Coefficient of Variation 14.3 % (11.5-14.5) Immature Granulocyte % (Auto) 0.2 % Immature Granulocyte # (Auto) 0.01 K/uL (0.00-0.02) Date/Time Source Procedure Growth Status 06/19/17 16:04 Urine,Catheterized Urine Culture - Final Escherichia Coli Complete Last 24 Hours Test 06/29/17 06:00 White Blood Count 5.66 K/uL Red Blood Count 3.94 M/uL Hemoglobin 12.4 g/dL Hematocrit 38.5 % Mean Corpuscular Volume 97.7 fL Mean Corpuscular Hemoglobin 31.5 pg Mean Corpuscular Hemoglobin Concent 32.2 g/dl Platelet Count 233 K/uL Mean Platelet Volume 9.3 fL Neutrophils (%) (Auto) 58.0 % Lymphocytes (%) (Auto) 22.8 % Monocytes (%) (Auto) 11.1 % Eosinophils (%) (Auto) 7.2 % Basophils (%) (Auto) 0.7 % Neutrophils # (Auto) 3.28 K/uL Lymphocytes # (Auto) 1.29 K/uL Monocytes # (Auto) 0.63 K/uL Eosinophils # (Auto) 0.41 K/uL Basophils # (Auto) 0.04 K/uL RDW Standard Deviation 51.5 fL RDW Coefficient of Variation 14.3 % Immature Granulocyte % (Auto) 0.2 % Immature Granulocyte # (Auto) 0.01 K/uL Assessment & Plan 82-year-old female admitted to the hospital for severe sepsis secondary to E. coli UTI. Appreciate BUSINESS SEGMENT MANAGER involvement, who repeated pessary placement this morning after second pessary fell out overnight. The patient reports feeling improved already. Still reports urinary incontinence. Improvement in pain. She is tolerating p.o. 1. E. coli secondary to urinary tract infection-sepsis resuscitated. Continue amoxicillin-patient requires total 10 days antibiotics. No evidence of acute urinary retention. 2. Abdominal pain-secondary to bladder prolapse and pressure from this. Pyridium stopped, continue scheduled APAP. Pessary placed third time this morning. 3. Ambulatory dysfunction-will request repeat PT evaluation as patient's pain and ambulatory capabilities have improved with third pessary placement. Patient wishes to go home in lieu of rehab. 4. Vulvar candidiasis-continue Mycolog and Diflucan per gynecology recommendations. Symptoms appear to have resolved. 5. Abnormal CT findings-specifically thickened asymmetric bladder. Likely consistent with cystitis. Outpatient urology follow-up for outpatient cystoscopy. Continue tolterodine for urinary incontinence. DVT prophylaxis-heparin Full code Disposition-patient adamantly wants to avoid intermediate facility, rehab or home health. Plans to have friends offer support on discharge. Currently patient cannot ambulate on her own. I did have a conversation with son and son' s from [place] today. A complete update was given and all questions were answered. Son and will be here through the next week and have offered to care for her at home. The patient also has neighbors who are employed to be elder care providers for her. The patient continues to decline home health. DO Yen Martinez hospitalist Continued [facility] stay due to: voiding difficulties Consultants: BUSINESS SEGMENT MANAGER-[facility] Current Inpatient Medications: Current Inpatient Medications Medications (Trade) Dose Ordered Sig/Duke Route Start Time Stop Time Status Last Admin Dose Admin Heparin Sodium (Porcine) (Heparin Sq 5000 Unit/0.5ml) 5,000 unit Q8H SQ 06/20/17 00:00 07/20/17 00:00 06/29/17 05:23 5,000 UNIT Hydromorphone HCl (Dilaudid Inj) 0.5 mg Q3H PRN IV 06/19/17 23:45 07/03/17 23:44 06/23/17 13:49 0.5 MG Tramadol HCl (Ultram Tab) not relieved by tylenol @ Q6H PRN PO 06/19/17 23:45 07/19/17 23:44 06/29/17 08:04 50 MG Nystatin/ Triamcinolone Acetonide (Mycogen II Oint) 1 appln TID EXT 06/21/17 16:00 07/21/17 15:59 06/29/17 08:04 1 APPLN Fluconazole (Diflucan Tab) 100 mg TuSa@0800 PO 06/22/17 08:00 07/02/17 07:59 06/29/17 08:06 100 MG Tolterodine Tartrate (Detrol Tab) 2 mg BID PO 06/24/17 09:00 07/24/17 19:59 06/29/17 08:04 2 MG Amoxicillin (Amoxil Cap) 500 mg TID PO 06/25/17 08:00 06/30/17 07:59 06/29/17 08:04 500 MG Aspirin (Ecotrin Tab) 81 mg QAM PO 06/25/17 08:00 07/25/17 07:59 06/29/17 08:05 81 MG Atorvastatin Calcium (Lipitor Tab) 20 mg QAM PO 06/25/17 08:00 07/25/17 07:59 06/29/17 08:05 20 MG Acetaminophen (Tylenol Tab) 1,000 mg Q8 PO 06/26/17 19:00 07/26/17 18:59 06/29/17 05:22 1,000 MG
[2017-06-29 23:38] VITALS: BP 135/83; PULSE 78; TEMP 36.7; O2SAT 96
[2017-06-30] MEDS: ACETAMINOPHEN 500 MG TAB PO SCH (05:40)
[2017-06-30] MEDS: HEPARIN SOD 5000 UNIT/0.5 ML CARP SQ SCH (05:42)
[2017-06-30 07:26] VITALS: BP 122/83; PULSE 97; TEMP 36.9; O2SAT 96
[2017-06-30] MEDS: ATORVASTATIN 20 MG TAB PO SCH (07:28)
[2017-06-30] MEDS: TOLTERODINE TARTRATE 2 MG TAB PO SCH ×2 (07:28→20:13)
[2017-06-30] MEDS: ASPIRIN 81 MG ECTAB PO SCH (07:29)
[2017-06-30] MEDS: NYSTATIN/TRIAMCINOLONE OINT 15 GM TUBE EXT SCH ×3 (09:53→20:13)
--- NOTE | 2017-06-30 10:49 | Progress Note ---
Medicine Progress Note Date & Time of Visit: Jun 30, 2017 at 10:45. Subjective 82-year-old female admitted to the hospital for severe sepsis secondary to E. coli UTI. Appreciate SOUND ENGINEERING TECHNICIAN involvement, who repeated third pessary placement yesterday morning after second pessary fell out overnight. The patient reports feeling improved including an improvement in urinary incontinence. She denies pelvic pressure at this time and is ambulating independently. She is tolerating p.o. New development this morning is the evolution of some diarrhea. She reports 2 episodes just this morning. Patient has finished 10 day antibiotic course at this time. She is afebrile without abdominal distention. Objective Last 8 Hrs Date Time Temp Pulse Resp B/P (MAP) Pulse Ox O2 Delivery O2 Flow Rate FiO2 06/30/17 08:00 Room Air 06/30/17 07:26 36.9 97 16 122/83 (96) 96 Room Air Physical Exam: GEN: WNWD, in no acute distress, alert and appropriate HEENT: NC/AT, normal sclerae, MMM CARDIO: reg rate, S1/2 heard without m/g/r LUNGS: CTA bilaterally, no crackles, rales or wheezes, good diaphragmatic excursion ABD: soft, non-tender, non-distended, no rebound or guarding, +BS EXTREMITY: RP and DP palpable 2+ bilat, no LE swelling or edema, extremities are warm and well-perfused NEURO: CN 2-12 grossly intact, no gross focal deficits. MUSC: moves all extremities equally, no gross focal deficits. SKIN: warm and dry Laboratory Results: 06/29/17 06:00 Red Blood Count 3.94, Mean Corpuscular Volume 97.7, Mean Corpuscular Hemoglobin 31.5, Mean Corpuscular Hemoglobin Concent 32.2, Mean Platelet Volume 9.3, Neutrophils (%) (Auto) 58.0, Lymphocytes (%) (Auto) 22.8, Monocytes (%) (Auto) 11.1, Eosinophils (%) (Auto) 7.2, Basophils (%) (Auto) 0.7, Neutrophils # (Auto ) 3.28, Lymphocytes # (Auto) 1.29, Monocytes # (Auto) 0.63, Eosinophils # (Auto ) 0.41, Basophils # (Auto) 0.04 06/26/17 06:34 Test 3/28/18 16:04 06/19/17 16:07 06/19/17 17:12 06/20/17 00:50 Urine Color YELLOW Urine Appearance CLOUDY (CLEAR) Urine pH 5.5 (4.5-7.5) Urine Specific [place] 1.025 (1.000-1.030) Urine Protein 2+ (NEG) Urine Glucose (UA) NEG (NEG) Urine Ketones TRACE (NEG) Urine Occult Blood 3+ (NEG) Urine Nitrite POS (NEG) Urine Bilirubin NEG (NEG) Urine Urobilinogen NEG (NEG) Urine Leukocyte Esterase LARGE (NEG) Urine RBC >30 /hpf (0-4) Urine WBC >30 /hpf (0-5) Urine Epithelial Cells 5-10 /lpf (0-5) Urine Bacteria 4+ (NEG) Prothrombin Time 10.7 SECONDS (9.0-12.0) Prothromb Time International Ratio 1.0 (0.9-1.1) Activated Partial Thromboplast Time 25.9 SECONDS (21.0-31.0) Partial Thromboplastin Ratio 1.0 Magnesium Level 2.1 mg/dl (1.8-2.4) Total Bilirubin 0.4 mg/dl (0.2-1) Direct Bilirubin 0.1 mg/dl (0-0.2) Aspartate Amino Transf (AST/SGOT) 13 U/L (15-37) Alanine Aminotransferase (ALT/SGPT) 11 U/L (12-78) Alkaline Phosphatase 61 U/L (45-117) Total Creatine Kinase 46 U/L (26-192) Creatine Kinase MB 1.4 ng/ml (0.5-3.6) Creatine Kinase MB Ratio 3.0 (0-3.0) Troponin I < 0.015 ng/ml (0-0.045) Total Protein 7.7 gm/dl (6.4-8.2) Albumin 4.0 gm/dl (3.4-5.0) Lipase 187 U/L (73-393) Thyroid Stimulating Hormone (TSH) 1.900 uIu/ml (0.300-4.500) Bedside Lactic Acid Venous 3.08 mmol/L (0.90-1.70) Lactic Acid Level 1.1 mmol/L (0.4-2.0) Test 06/22/17 05:50 06/23/17 06:32 06/26/17 06:34 06/29/17 06:00 Rapid Plasma Reagin NONREACTIVE (NONREACT) Triglycerides Level 132 mg/dl (0-150) Cholesterol Level 182 mg/dl (0-200) HDL Cholesterol 52 mg/dl LDL Cholesterol, Calculated 104 mg/dl VLDL Cholesterol, Calculated 26 mg/dl Cholesterol/HDL Ratio 3.5 Chemistry Specimen Hemolysis Anion Gap 7.0 mmol/L (3-11) Est Creatinine Clear Calc Drug Dose 35.1 ml/min Estimated GFR () 56.9 Estimated GFR (Non- 49.1 BUN/Creatinine Ratio 18.6 (10-20) Calcium Level 9.0 mg/dl (8.5-10.1) White Blood Count 5.66 K/uL (4.8-10.8) Red Blood Count 3.94 M/uL (4.2-5.4) Hemoglobin 12.4 g/dL (12.0-16.0) Hematocrit 38.5 % (37-47) Mean Corpuscular Volume 97.7 fL (80-100) Mean Corpuscular Hemoglobin 31.5 pg (25-34) Mean Corpuscular Hemoglobin Concent 32.2 g/dl (32-36) Platelet Count 233 K/uL (130-400) Mean Platelet Volume 9.3 fL (7.4-10.4) Neutrophils (%) (Auto) 58.0 % Lymphocytes (%) (Auto) 22.8 % Monocytes (%) (Auto) 11.1 % Eosinophils (%) (Auto) 7.2 % Basophils (%) (Auto) 0.7 % Neutrophils # (Auto) 3.28 K/uL (1.4-6.5) Lymphocytes # (Auto) 1.29 K/uL (1.2-3.4) Monocytes # (Auto) 0.63 K/uL (0.11-0.59) Eosinophils # (Auto) 0.41 K/uL (0-0.5) Basophils # (Auto) 0.04 K/uL (0-0.2) RDW Standard Deviation 51.5 fL (36.4-46.3) RDW Coefficient of Variation 14.3 % (11.5-14.5) Immature Granulocyte % (Auto) 0.2 % Immature Granulocyte # (Auto) 0.01 K/uL (0.00-0.02) Date/Time Source Procedure Growth Status 06/19/17 16:04 Urine,Catheterized Urine Culture - Final Escherichia Coli Complete Assessment & Plan 82-year-old female admitted to the hospital for severe sepsis secondary to E. coli UTI. Appreciate SOUND ENGINEERING TECHNICIAN involvement, who repeated third pessary placement yesterday morning after second pessary fell out overnight. The patient reports feeling improved including an improvement in urinary incontinence. She denies pelvic pressure at this time and is ambulating independently. She is tolerating p.o. New development this morning is the evolution of some diarrhea. She reports 2 episodes just this morning. Patient has finished 10 day antibiotic course at this time. She is afebrile without abdominal distention. 1. Diarrhea-likely secondary to recent antibiotic use versus diet. C. difficile needs to be ruled out. Stool studies ordered. Supportive care as needed. 2. E. coli secondary to urinary tract infection-sepsis resuscitated. She has completed antibiotic course at this time. 3. Abdominal pain-secondary to bladder prolapse and pressure from this. Pyridium stopped, scheduled Tylenol was stopped and replaced with as needed. Third pessary was placed over the weekend and she is feeling much improved as a result. 4. Ambulatory dysfunction-will request repeat PT evaluation as patient's pain and ambulatory capabilities have improved with third pessary placement. Patient wishes to go home in lieu of rehab. She is ambulate independently per her report. 5. Vulvar candidiasis-continue Mycolog and Diflucan per gynecology recommendations. Symptoms appear to have resolved. 6. Abnormal CT findings-specifically thickened asymmetric bladder. Likely consistent with cystitis. Outpatient urology follow-up for outpatient cystoscopy. Continue tolterodine for urinary incontinence. DVT prophylaxis Lovenox Full code Disposition-patient adamantly wants to avoid custodial facility, rehab or home health. Currently patient cannot ambulate on her own. I contacted the son by phone and left a message on the updated disposition and discharge plans. Yola Schneider DO [facility] hospitalist Continued [facility] stay due to: voiding difficulties Consultants: SOUND ENGINEERING TECHNICIAN-[facility] Urology[facility] Current Inpatient Medications: Current Inpatient Medications Medications (Trade) Dose Ordered Sig/Duke Route Start Time Stop Time Status Last Admin Dose Admin Hydromorphone HCl (Dilaudid Inj) 0.5 mg Q3H PRN IV 06/19/17 23:45 07/03/17 23:44 06/23/17 13:49 0.5 MG Tramadol HCl (Ultram Tab) not relieved by tylenol @ Q6H PRN PO 06/19/17 23:45 07/19/17 23:44 06/29/17 08:04 50 MG Nystatin/ Triamcinolone Acetonide (Mycogen II Oint) 1 appln TID EXT 06/21/17 16:00 07/21/17 15:59 06/30/17 09:53 1 APPLN Fluconazole (Diflucan Tab) 100 mg TuSa@0800 PO 06/22/17 08:00 07/02/17 07:59 06/29/17 08:06 100 MG Tolterodine Tartrate (Detrol Tab) 2 mg BID PO 06/24/17 09:00 07/24/17 19:59 06/30/17 07:28 2 MG Aspirin (Ecotrin Tab) 81 mg QAM PO 06/25/17 08:00 07/25/17 07:59 06/30/17 07:29 81 MG Atorvastatin Calcium (Lipitor Tab) 20 mg QAM PO 06/25/17 08:00 07/25/17 07:59 06/30/17 07:28 20 MG Enoxaparin Sodium (Lovenox Inj) 40 mg QAM SQ 07/01/17 08:00 07/31/17 07:59 Acetaminophen (Tylenol Tab) 650 mg Q6H PRN PO 06/30/17 10:45 07/30/17 10:44 UNV
[2017-06-30 15:06] VITALS: BP 116/75; PULSE 85; TEMP 36.5; O2SAT 95
[2017-06-30] MEDS: ACETAMINOPHEN 325 MG TAB PO PRN (19:07)
[2017-06-30 22:40] VITALS: BP 124/80; PULSE 74; TEMP 36.6; O2SAT 95
[2017-07-01 07:01] VITALS: BP 131/72; PULSE 89; TEMP 36.9; O2SAT 94
[2017-07-01] MEDS: NYSTATIN/TRIAMCINOLONE OINT 15 GM TUBE EXT SCH ×3 (07:21→21:10)
[2017-07-01] MEDS: TOLTERODINE TARTRATE 2 MG TAB PO SCH ×2 (07:22→21:08)
[2017-07-01] MEDS: ATORVASTATIN 20 MG TAB PO SCH (07:22)
[2017-07-01] MEDS: ASPIRIN 81 MG ECTAB PO SCH (07:23)
[2017-07-01] MEDS: ENOXAPARIN 40 MG/0.4 ML SYR SQ SCH (08:52)
[2017-07-01] MEDS: ACETAMINOPHEN 325 MG TAB PO PRN (13:42)
[2017-07-01 15:18] VITALS: BP 126/76; PULSE 107; TEMP 36.7; O2SAT 93
[2017-07-01] MEDS ORDERED: ACETAMINOPHEN/CODEINE 300/30MG TAB PO ONE (16:45)
[2017-07-01] MEDS: TRAMADOL HCL 50 MG TAB PO PRN (21:09)
--- NOTE | 2017-07-01 23:16 | Progress Note ---
Medicine Progress Note Date & Time of Visit: Jul 01, 2017 at 16:35. Subjective 82-year-old female admitted to the hospital for severe sepsis secondary to E. coli UTI. Appreciate TECHNOLOGY ADMINISTRATOR involvement, who repeated third pessary after second pessary fell out overnight. She was improved but now has developed some pelvic irritation. She did have some diarrhea yesterday but reports this is. She has been ambulating to and from the bathroom with minimal assistance. Of note I spoke at length to her son and [id number] from [place] who are interested in options regarding taking her home to [place] versus getting more help in the home. They would like to discuss these options with case management in the morning Objective Last 8 Hrs Date Time Temp Pulse Resp B/P (MAP) Pulse Ox O2 Delivery O2 Flow Rate FiO2 07/01/17 15:18 36.7 107 18 126/76 (93) 93 Room Air Physical Exam: GEN: WNWD, in no acute distress, alert and appropriate HEENT: NC/AT, normal sclerae, MMM CARDIO: reg rate, S1/2 heard without m/g/r LUNGS: CTA bilaterally, no crackles, rales or wheezes, good diaphragmatic excursion ABD: soft, minimal tenderness to palpation in suprapubic area, non-distended, no rebound or guarding, +BS EXTREMITY: RP and DP palpable 2+ bilat, no LE swelling or edema, extremities are warm and well-perfused NEURO: CN 2-12 grossly intact, no gross focal deficits. MUSC: moves all extremities equally, no gross focal deficits. SKIN: warm and dry Laboratory Results: 06/29/17 06:00 Red Blood Count 3.94, Mean Corpuscular Volume 97.7, Mean Corpuscular Hemoglobin 31.5, Mean Corpuscular Hemoglobin Concent 32.2, Mean Platelet Volume 9.3, Neutrophils (%) (Auto) 58.0, Lymphocytes (%) (Auto) 22.8, Monocytes (%) (Auto) 11.1, Eosinophils (%) (Auto) 7.2, Basophils (%) (Auto) 0.7, Neutrophils # (Auto ) 3.28, Lymphocytes # (Auto) 1.29, Monocytes # (Auto) 0.63, Eosinophils # (Auto ) 0.41, Basophils # (Auto) 0.04 06/26/17 06:34 Test 06/19/17 16:04 3/28/18 16:07 06/19/17 17:12 06/20/17 00:50 Urine Color YELLOW Urine Appearance CLOUDY (CLEAR) Urine pH 5.5 (4.5-7.5) Urine Specific [place] 1.025 (1.000-1.030) Urine Protein 2+ (NEG) Urine Glucose (UA) NEG (NEG) Urine Ketones TRACE (NEG) Urine Occult Blood 3+ (NEG) Urine Nitrite POS (NEG) Urine Bilirubin NEG (NEG) Urine Urobilinogen NEG (NEG) Urine Leukocyte Esterase LARGE (NEG) Urine RBC >30 /hpf (0-4) Urine WBC >30 /hpf (0-5) Urine Epithelial Cells 5-10 /lpf (0-5) Urine Bacteria 4+ (NEG) Prothrombin Time 10.7 SECONDS (9.0-12.0) Prothromb Time International Ratio 1.0 (0.9-1.1) Activated Partial Thromboplast Time 25.9 SECONDS (21.0-31.0) Partial Thromboplastin Ratio 1.0 Magnesium Level 2.1 mg/dl (1.8-2.4) Total Bilirubin 0.4 mg/dl (0.2-1) Direct Bilirubin 0.1 mg/dl (0-0.2) Aspartate Amino Transf (AST/SGOT) 13 U/L (15-37) Alanine Aminotransferase (ALT/SGPT) 11 U/L (12-78) Alkaline Phosphatase 61 U/L (45-117) Total Creatine Kinase 46 U/L (26-192) Creatine Kinase MB 1.4 ng/ml (0.5-3.6) Creatine Kinase MB Ratio 3.0 (0-3.0) Troponin I < 0.015 ng/ml (0-0.045) Total Protein 7.7 gm/dl (6.4-8.2) Albumin 4.0 gm/dl (3.4-5.0) Lipase 187 U/L (73-393) Thyroid Stimulating Hormone (TSH) 1.900 uIu/ml (0.300-4.500) Bedside Lactic Acid Venous 3.08 mmol/L (0.90-1.70) Lactic Acid Level 1.1 mmol/L (0.4-2.0) Test 06/22/17 05:50 06/23/17 06:32 06/26/17 06:34 06/29/17 06:00 Rapid Plasma Reagin NONREACTIVE (NONREACT) Triglycerides Level 132 mg/dl (0-150) Cholesterol Level 182 mg/dl (0-200) HDL Cholesterol 52 mg/dl LDL Cholesterol, Calculated 104 mg/dl VLDL Cholesterol, Calculated 26 mg/dl Cholesterol/HDL Ratio 3.5 Chemistry Specimen Hemolysis Anion Gap 7.0 mmol/L (3-11) Est Creatinine Clear Calc Drug Dose 35.1 ml/min Estimated GFR () 56.9 Estimated GFR (Non- 49.1 BUN/Creatinine Ratio 18.6 (10-20) Calcium Level 9.0 mg/dl (8.5-10.1) White Blood Count 5.66 K/uL (4.8-10.8) Red Blood Count 3.94 M/uL (4.2-5.4) Hemoglobin 12.4 g/dL (12.0-16.0) Hematocrit 38.5 % (37-47) Mean Corpuscular Volume 97.7 fL (80-100) Mean Corpuscular Hemoglobin 31.5 pg (25-34) Mean Corpuscular Hemoglobin Concent 32.2 g/dl (32-36) Platelet Count 233 K/uL (130-400) Mean Platelet Volume 9.3 fL (7.4-10.4) Neutrophils (%) (Auto) 58.0 % Lymphocytes (%) (Auto) 22.8 % Monocytes (%) (Auto) 11.1 % Eosinophils (%) (Auto) 7.2 % Basophils (%) (Auto) 0.7 % Neutrophils # (Auto) 3.28 K/uL (1.4-6.5) Lymphocytes # (Auto) 1.29 K/uL (1.2-3.4) Monocytes # (Auto) 0.63 K/uL (0.11-0.59) Eosinophils # (Auto) 0.41 K/uL (0-0.5) Basophils # (Auto) 0.04 K/uL (0-0.2) RDW Standard Deviation 51.5 fL (36.4-46.3) RDW Coefficient of Variation 14.3 % (11.5-14.5) Immature Granulocyte % (Auto) 0.2 % Immature Granulocyte # (Auto) 0.01 K/uL (0.00-0.02) Date/Time Source Procedure Growth Status 07/01/17 07:17 Stool C.difficile Toxin B Gene (PCR) - Final No C. difficile toxin B gene detected Complete 06/19/17 16:04 Urine,Catheterized Urine Culture - Final Escherichia Coli Complete Date/Time Source Procedure Growth Status 07/01/17 07:17 Stool C.difficile Toxin B Gene (PCR) - Final No C. difficile toxin B gene detected Complete 07/01/17 07:17 Stool WBC Smear Pending Received 07/01/17 07:17 Stool Shiga Toxin Test Pending Received 07/01/17 07:17 Stool Stool Culture Pending Received Assessment & Plan 82-year-old female admitted to the hospital for severe sepsis secondary to E. coli UTI. Appreciate TECHNOLOGY ADMINISTRATOR involvement, who repeated third pessary after second pessary fell out overnight. She was improved but now has developed some pelvic irritation. She did have some diarrhea yesterday but reports this is. She has been ambulating to and from the bathroom with minimal assistance. Of note I spoke at length to her son and [id number] from [place] who are interested in options regarding taking her home to [place] versus getting more help in the home. They would like to discuss these options with case management in the morning 1. Diarrhea-resolved, C. difficile ruled out. Supportive care as needed 2. E. coli secondary to urinary tract infection-sepsis resuscitated. She has completed antibiotic course at this time. 3. Abdominal pain-secondary to bladder prolapse and pressure from this. Pyridium stopped, scheduled Tylenol was stopped and replaced with as needed. Third pessary was placed over the weekend. Tylenol with codeine for pain tonight 4. Ambulatory dysfunction-repeat PT/OT recommends rehab continuously, and patient declines this. 5. Vulvar candidiasis-continue Mycolog and Diflucan per gynecology recommendations. Symptoms appear to have resolved. 6. Abnormal CT findings-specifically thickened asymmetric bladder. Likely consistent with cystitis. Outpatient urology follow-up for outpatient cystoscopy. Continue tolterodine for urinary incontinence. DVT prophylaxis Lovenox Full code Disposition-patient adamantly wants to avoid longterm facility, rehab or home health. Currently patient cannot ambulate on her own. I contacted the son by phone and left a message on the updated disposition and discharge plans. Yola Schneider DO [facility] hospitalist Continued [facility] stay due to: voiding difficulties Consultants: TECHNOLOGY ADMINISTRATOR-[facility] Current Inpatient Medications: Current Inpatient Medications Medications (Trade) Dose Ordered Sig/Duke Route Start Time Stop Time Status Last Admin Dose Admin Hydromorphone HCl (Dilaudid Inj) 0.5 mg Q3H PRN IV 06/19/17 23:45 07/03/17 23:44 06/23/17 13:49 0.5 MG Tramadol HCl (Ultram Tab) not relieved by tylenol @ Q6H PRN PO 06/19/17 23:45 07/19/17 23:44 06/29/17 08:04 50 MG Nystatin/ Triamcinolone Acetonide (Mycogen II Oint) 1 appln TID EXT 06/21/17 16:00 07/21/17 15:59 07/01/17 13:42 1 APPLN Fluconazole (Diflucan Tab) 100 mg TuSa@0800 PO 06/22/17 08:00 07/02/17 07:59 06/29/17 08:06 100 MG Tolterodine Tartrate (Detrol Tab) 2 mg BID PO 06/24/17 09:00 07/24/17 19:59 07/01/17 07:22 2 MG Aspirin (Ecotrin Tab) 81 mg QAM PO 06/25/17 08:00 07/25/17 07:59 07/01/17 07:23 81 MG Atorvastatin Calcium (Lipitor Tab) 20 mg QAM PO 06/25/17 08:00 07/25/17 07:59 07/01/17 07:22 20 MG Enoxaparin Sodium (Lovenox Inj) 40 mg QAM SQ 07/01/17 08:00 07/31/17 07:59 07/01/17 08:52 40 MG Acetaminophen (Tylenol Tab) 650 mg Q6H PRN PO 06/30/17 10:45 07/30/17 10:44 07/01/17 13:42 650 MG
[2017-07-01 23:32] VITALS: BP 124/78; PULSE 85; TEMP 37; O2SAT 95
[2017-07-02 07:49] VITALS: BP 114/72; PULSE 68; TEMP 36.6; O2SAT 94
[2017-07-02] MEDS: TOLTERODINE TARTRATE 2 MG TAB PO SCH ×2 (09:22→20:08)
[2017-07-02] MEDS: TRAMADOL HCL 50 MG TAB PO PRN (09:22)
[2017-07-02] MEDS: ENOXAPARIN 40 MG/0.4 ML SYR SQ SCH (09:22)
[2017-07-02] MEDS: ASPIRIN 81 MG ECTAB PO SCH (09:22)
[2017-07-02] MEDS: ATORVASTATIN 20 MG TAB PO SCH (09:22)
[2017-07-02] MEDS: NYSTATIN/TRIAMCINOLONE OINT 15 GM TUBE EXT SCH ×3 (09:23→20:08)
[2017-07-02] MEDS: OXYCODONE/ACETAMINOPHEN 5-325 TAB PO PRN ×2 (15:46→22:17)
[2017-07-02 15:54] VITALS: BP 140/85; PULSE 78; TEMP 36.6; O2SAT 90
[2017-07-02 16:19] LABS: BASO % 0.6 %; BASO ABS # 0.05 K/uL (0-0.2); EOS % 4.8 %; EOS ABS # 0.38 K/uL (0-0.5); HEMATOCRIT 41.2 % (37-47); HEMOGLOBIN 13.7 g/dL (12.0-16.0); IG# 0.01 K/uL (0.00-0.02); LYMPH % 27.6 %; LYMPH ABS # 2.19 K/uL (1.2-3.4); MEAN CELL VOLUME 97.6 fL (80-100); MEAN CORPUSCULAR HEMOGLOBIN 32.5 pg (25-34); MEAN CORPUSCULAR HGB CONC 33.3 g/dl (32-36); MONO % 8.2 %; MONO ABS # 0.65 K/uL (0.11-0.59); NEUT % 58.7 %; NEUT ABS # 4.65 K/uL (1.4-6.5); PLATELET COUNT 266 K/uL (130-400); RED CELL DISTRIBUTION WIDTH CV 14.1 % (11.5-14.5); RED CELL DISTRIBUTION WIDTH SD 50.3 fL (36.4-46.3); WHITE BLOOD COUNT 7.93 K/uL (4.8-10.8)
[2017-07-02 16:58] LABS: ALBUMIN 3.7 gm/dl (3.4-5.0); CALCIUM 9.2 mg/dl (8.5-10.1); CREATININE 1.28 mg/dl (0.60-1.20); POTASSIUM 4.2 mmol/L (3.5-5.1)
[2017-07-02 17:00] LABS: TOTAL PROTEIN 7.4 gm/dl (6.4-8.2)
[2017-07-02] MEDS: SODIUM CHLORIDE 0.9% 1000ML 1,000 ML IV SCH (18:09)
--- NOTE | 2017-07-02 18:12 | Progress Note ---
Internal Med Progress Note Date of Service: Jul 02, 2017. Provider Documentation: SUBJECTIVE: says her lower abdominal pain is was better yesterday but again getting worse today thinks her pessary might have fallen again denies chest pain or sob no headaches eating ok afebrile family worried about thickening of arteries in her abdomen. OBJECTIVE: Vital Signs-as noted below Exam: General-alert and oriented. Not in distress ENT-normal hearing. Neck-No neck masses Lungs-CTA b/l no wheezing or crackles Heart-S1 and S2 heard regular rate and rhythm no murmurs Abdomen-soft Bowels sounds present tender in hypogastric region no distension Extremities-no edema no erythema Neuro-alert and oriented moves extremities Lab data as noted below. ASSESSMENT & PLAN: 82-year-old female admitted to the hospital for severe sepsis secondary to E. coli UTI.Completed abx course. s/p third pessary after second pessary fell out overnight by [employer]. Seen by urology for urinary incontinence for ct scan findings and was started on Tolterodine and plan for out patient cystoscopy. Son and daughter in law in room and had d/w with [facility] management regarding disposition. Currently plan for [facility] and close out patient followup. 1. Diarrhea-resolved, C. difficile ruled out. will monitor. 2. E. coli secondary to urinary tract infection-sepsis resuscitated. completed abx course. 3. Abdominal pain-secondary to bladder prolapse and pressure from this. currently Tylenol prn, Percocet prn. s/p 3rd pessary as previous fell down. patient thinks third might have also fallen down as she is having more pain today. Will d/w [employer]. Family also considered about artery blockages. will plan cta abd/pelvis in am. 4. Ambulatory dysfunction-repeat PT/OT recommends rehab continuously, and patient declined this but now agreeable for [facility] 5. Vulvar candidiasis-continue Mycolog and Diflucan per gynecology recommendations. Symptoms appear to have resolved. 6. Abnormal CT findings-specifically thickened asymmetric bladder. Likely consistent with cystitis. Outpatient urology follow-up for outpatient cystoscopy. Continue tolterodine for urinary incontinence. Family likes to have cystoscopy in hospital if possible as patient has hx of poor followups. 7. 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 gentle fluids f/u labs DVT PROPHYLAXIS Lovenox DISPOSITION possible d/c in 1-2 days Vital Signs: Date Time Temp Pulse Resp B/P (MAP) Pulse Ox O2 Delivery O2 Flow Rate FiO2 07/02/17 15:54 36.6 78 18 140/85 (103) 90 Room Air 07/02/17 08:00 Room Air 07/02/17 07:49 36.6 68 94 114/72 (86) 94 Room Air 07/02/17 00:32 Room Air 07/01/17 23:32 37.0 85 20 124/78 (93) 95 Room Air 07/01/17 19:15 Room Air Lab Results: Results Past 24 Hours Test 07/02/17 16:05 Range/Units White Blood Count 7.93 4.8-10.8 K/uL Red Blood Count 4.22 4.2-5.4 M/uL Hemoglobin 13.7 12.0-16.0 g/dL Hematocrit 41.2 37-47 % Mean Corpuscular Volume 97.6 80-100 fL Mean Corpuscular Hemoglobin 32.5 25-34 pg Mean Corpuscular Hemoglobin Concent 33.3 32-36 g/dl Platelet Count 266 130-400 K/uL Mean Platelet Volume 9.0 7.4-10.4 fL Neutrophils (%) (Auto) 58.7 % Lymphocytes (%) (Auto) 27.6 % Monocytes (%) (Auto) 8.2 % Eosinophils (%) (Auto) 4.8 % Basophils (%) (Auto) 0.6 % Neutrophils # (Auto) 4.65 1.4-6.5 K/uL Lymphocytes # (Auto) 2.19 1.2-3.4 K/uL Monocytes # (Auto) 0.65 0.11-0.59 K/uL Eosinophils # (Auto) 0.38 0-0.5 K/uL Basophils # (Auto) 0.05 0-0.2 K/uL RDW Standard Deviation 50.3 36.4-46.3 fL RDW Coefficient of Variation 14.1 11.5-14.5 % Immature Granulocyte % (Auto) 0.1 % Immature Granulocyte # (Auto) 0.01 0.00-0.02 K/uL Sodium Level 140 136-145 mmol/L Potassium Level 4.2 3.5-5.1 mmol/L Chloride Level 108 98-107 mmol/L Carbon Dioxide Level 25 21-32 mmol/L Anion Gap 7.0 3-11 mmol/L Blood Urea Nitrogen 28 7-18 mg/dl Creatinine 1.28 0.60-1.20 mg/dl Est Creatinine Clear Calc Drug Dose 28.8 ml/min Estimated GFR () 44.8 Estimated GFR (Non- 38.6 BUN/Creatinine Ratio 21.5 10-20 Random Glucose 100 70-99 mg/dl Calcium Level 9.2 8.5-10.1 mg/dl Total Bilirubin 0.3 0.2-1 mg/dl Aspartate Amino Transf (AST/SGOT) 82 15-37 U/L Alanine Aminotransferase (ALT/SGPT) 114 12-78 U/L Alkaline Phosphatase 78 45-117 U/L Total Protein 7.4 6.4-8.2 gm/dl Albumin 3.7 3.4-5.0 gm/dl Globulin 3.7 2.5-4.0 gm/dl Albumin/Globulin Ratio 1.0 0.9-2
[2017-07-02 23:22] VITALS: BP 105/65; PULSE 69; TEMP 36.7; O2SAT 91
[2017-07-03 07:24] VITALS: BP 125/73; PULSE 73; TEMP 36.7; O2SAT 93
[2017-07-03] MEDS: TOLTERODINE TARTRATE 2 MG TAB PO SCH ×2 (08:06→21:47)
[2017-07-03] MEDS: ACETAMINOPHEN 325 MG TAB PO PRN (08:06)
[2017-07-03] MEDS: ASPIRIN 81 MG ECTAB PO SCH (08:06)
[2017-07-03] MEDS: ATORVASTATIN 20 MG TAB PO SCH (08:06)
[2017-07-03] MEDS: ENOXAPARIN 40 MG/0.4 ML SYR SQ SCH (08:06)
[2017-07-03] MEDS: NYSTATIN/TRIAMCINOLONE OINT 15 GM TUBE EXT SCH ×3 (08:07→20:16)
[2017-07-03 08:28] LABS: CALCIUM 8.8 mg/dl (8.5-10.1); CREATININE 1.22 mg/dl (0.60-1.20); POTASSIUM 4.4 mmol/L (3.5-5.1)
[2017-07-03] MEDS ORDERED: OPTIRAY 320 IV PRN (09:45)
[2017-07-03] MEDS ORDERED: POLYETHYLENE (MIRALAX) 17 GM PACK PO PRN (10:00)
[2017-07-03] MEDS ORDERED: BISACODYL 5 MG TABEC PO ONE (10:00)
[2017-07-03] MEDS: SODIUM CHLORIDE 0.9% 1000ML 1,000 ML IV SCH (12:29)
[2017-07-03] MEDS: OXYCODONE/ACETAMINOPHEN 5-325 TAB PO PRN (12:29)
--- NOTE | 2017-07-03 14:40 | Psychiatric Consultation ---
Consultation Date of Consultation Jul 03, 2017. Identifying Data 82-year-old white female with no psychiatric history who is admitted for sepsis. Psychiatry is consulted for depression. Chief Complaint "Kind of scared about the kidney thing ". History of Present Illness Records reviewed; patient admitted 06/19/2017 for UTI, since diagnosed with sepsis secondary to E. coli UTI. 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 Psychiatry was consulted for depression. On my assessment, the patient states that she was upset to hear that there may be something wrong with her kidneys, and that she was worried what this might mean for her overall health. She understands that the details are not yet known, and that she will need further testing. She adamantly denies all symptoms of depression, stating that she has "always been an up person," appetite and sleep are good, denies anxiety, and says that she was simply disappointed to get this news about her health. She states she does not fully understand all of the testing that needs to be done, but trusts her physician to do the workup and then let her know the findings. She reports good support from family, who have been involved in her treatment. Past Psychiatric History Current OP Treatment: no current treatment Prior OP Treatment: no prior treatment Prior Psych Hospitalizations: none Suicide Attempts: No Past Medication Trials None. Past Medical/Surgical History (1) Complicated UTI (urinary tract infection) (2) Prolapsed uterus Allergies Allergies: Coded Allergies: No Known Allergies (Unverified , 06/19/17) Home Medications Scheduled Powders (Vagisil Deodorant), 1 APPLN TOP UD Scheduled PRN Aspirin-Caffeine (Anacin 400-32 mg), 1 TAB PO UD PRN for Pain Benzocaine-Resorcinol Vaginal (Vagisil), 1 APPLN TOP UD PRN for Itching Family History No pertinent family history Smoking Use Smoking Status: Never Smoker Personal History Lives in: [place] Childhood: From [place], [place]. Came to [place] many years ago with her ex- , and likes it here. 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 Relationship History: Children: 2 sons and "lots of grand kids." Review of Systems Denies SI, HI, hallucinations, paranoia, fatigue, pain Examination Vital Signs Vital Signs Past 12 Hours Date Time Temp Pulse Resp B/P (MAP) Pulse Ox O2 Delivery O2 Flow Rate FiO2 07/03/17 08:00 Room Air 07/03/17 07:24 36.7 73 18 125/73 (90) 93 Room Air Laboratory Results Last 24 Hours Test 07/02/17 16:05 07/03/17 07:51 White Blood Count 7.93 K/uL Red Blood Count 4.22 M/uL Hemoglobin 13.7 g/dL Hematocrit 41.2 % Mean Corpuscular Volume 97.6 fL Mean Corpuscular Hemoglobin 32.5 pg Mean Corpuscular Hemoglobin Concent 33.3 g/dl Platelet Count 266 K/uL Mean Platelet Volume 9.0 fL Neutrophils (%) (Auto) 58.7 % Lymphocytes (%) (Auto) 27.6 % Monocytes (%) (Auto) 8.2 % Eosinophils (%) (Auto) 4.8 % Basophils (%) (Auto) 0.6 % Neutrophils # (Auto) 4.65 K/uL Lymphocytes # (Auto) 2.19 K/uL Monocytes # (Auto) 0.65 K/uL Eosinophils # (Auto) 0.38 K/uL Basophils # (Auto) 0.05 K/uL RDW Standard Deviation 50.3 fL RDW Coefficient of Variation 14.1 % Immature Granulocyte % (Auto) 0.1 % Immature Granulocyte # (Auto) 0.01 K/uL Sodium Level 140 mmol/L 140 mmol/L Potassium Level 4.2 mmol/L 4.4 mmol/L Chloride Level 108 mmol/L 108 mmol/L Carbon Dioxide Level 25 mmol/L 25 mmol/L Anion Gap 7.0 mmol/L 7.0 mmol/L Blood Urea Nitrogen 28 mg/dl 25 mg/dl Creatinine 1.28 mg/dl 1.22 mg/dl Est Creatinine Clear Calc Drug Dose 28.8 ml/min 30.2 ml/min Estimated GFR () 44.8 47.4 Estimated GFR (Non- 38.6 40.9 BUN/Creatinine Ratio 21.5 20.6 Random Glucose 100 mg/dl 92 mg/dl Calcium Level 9.2 mg/dl 8.8 mg/dl Total Bilirubin 0.3 mg/dl Aspartate Amino Transf (AST/SGOT) 82 U/L Alanine Aminotransferase (ALT/SGPT) 114 U/L Alkaline Phosphatase 78 U/L Total Protein 7.4 gm/dl Albumin 3.7 gm/dl Globulin 3.7 gm/dl Albumin/Globulin Ratio 1.0 Mental Examination During interview pt is: alert and oriented, cooperative Appearance: appropriately dressed (Hospital gown) Eye contact is: fair Motor behavior is: no abnormal motor movements Speech: normal in rate, rhythm & volume Affect: mood congruent, euthymic Mood is: other ("Pretty good") Thought content: reality based without delusions Suicidal thought are: denied Homicidal thoughts are: denied Hallucinations: denies auditory, denies visual Cognition: attention grossly intact, language grossly intact Intelligence estimated to be: average Insight: good Judgement: good Impression / Recommendations Impression 82-year-old white female who lives alone in [place], has no psychiatric history, and has had an extended medical admission for complicated UTI. She was upset upon receiving some bad news about her health today, stating she was worried that she might , and psychiatry was consulted for depression. She denies all symptoms consistent with depression, and has no outward signs of mood, anxiety, or thought disorders. Her reaction appears to be a normal one, and she may benefit from repeated explanations of her medical diagnoses and the proposed treatment, which may need to be explained multiple times if she is overwhelmed by the information. May help to employee teach back method to ensure that she understands, and to involve family members. She declines the need for any further assistance from the psychiatric service, so we will sign off. Please contact us if we can be of further assistance.
[2017-07-03 15:21] VITALS: BP 110/75; PULSE 82; TEMP 36.7; O2SAT 94
--- NOTE | 2017-07-03 16:15 | Progress Note ---
Internal Med Progress Note Date of Service: Jul 03, 2017. Provider Documentation: SUBJECTIVE: denies abdomen pain today Eating ok constipated when said she has CKD patient got scared and thought she might and felt depressed and may not want CTA abd/pelvis for now unless she develops severe pain again but later feeling ok no chest pain or sob OBJECTIVE: Vital Signs-as noted below Exam: General-alert and oriented. Not in distress ENT-normal hearing. Neck-No neck masses Lungs-CTA b/l no wheezing or crackles Heart-S1 and S2 heard regular rate and rhythm no murmurs Abdomen-soft Bowels sounds present mild tender in hypogastric region no distension Extremities-no edema no erythema Neuro-alert and oriented moves extremities Lab data as noted below. ASSESSMENT & PLAN: 82-year-old female admitted to the hospital for severe sepsis secondary to E. coli UTI.Completed abx course. s/p third pessary after second pessary fell out overnight by GOLD BEATER. Seen by urology for urinary incontinence for ct scan findings and was started on Tolterodine and plan for out patient cystoscopy. Son and daughter in law in room and had d/w with case management regarding disposition. Currently plan for [facility] and close out patient followup. 1. Diarrhea-resolved, C. difficile ruled out. will monitor. 2. E. coli secondary to urinary tract infection-sepsis resuscitated. completed abx course. 3. Abdominal pain-secondary to bladder prolapse and pressure from this. currently Tylenol prn, Percocet prn. s/p 3rd pessary as previous fell down. patient thinks third might have also fallen down as she is having more pain yesterday. Patient says it was checked last night and its in place.. Family also considered about artery blockages.planned for cta abd/pelvis but patinet currently not having abd pain and also patient got scared that contrast can effect her kidney function. 4. Ambulatory dysfunction-repeat PT/OT recommends rehab continuously, and patient declined this but now agreeable for [facility] 5. Vulvar candidiasis-continue Mycolog and Diflucan per gynecology recommendations. Symptoms appear to have resolved. 6. Abnormal CT findings-specifically thickened asymmetric bladder. Likely consistent with cystitis. Outpatient urology follow-up for outpatient cystoscopy. Continue tolterodine for urinary incontinence. Family likes to have cystoscopy in hospital if possible as patient has hx of poor followups.D/W Urology and recommends out patient cystoscopy as patinet still has incontinence 7. 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 gentle fluids f/u labs DVT PROPHYLAXIS Lovenox DISPOSITION possible d/c in 1-2 days social service for d/c planning Vital Signs: Date Time Temp Pulse Resp B/P (MAP) Pulse Ox O2 Delivery O2 Flow Rate FiO2 07/03/17 15:21 36.7 82 18 110/75 (87) 94 Room Air 07/03/17 08:00 Room Air 07/03/17 07:24 36.7 73 18 125/73 (90) 93 Room Air 07/03/17 01:17 Room Air 07/02/17 23:22 36.7 69 16 105/65 (78) 91 Room Air Lab Results: Results Past 24 Hours Test 07/03/17 07:51 Range/Units Sodium Level 140 136-145 mmol/L Potassium Level 4.4 3.5-5.1 mmol/L Chloride Level 108 98-107 mmol/L Carbon Dioxide Level 25 21-32 mmol/L Anion Gap 7.0 3-11 mmol/L Blood Urea Nitrogen 25 7-18 mg/dl Creatinine 1.22 0.60-1.20 mg/dl Est Creatinine Clear Calc Drug Dose 30.2 ml/min Estimated GFR () 47.4 Estimated GFR (Non- 40.9 BUN/Creatinine Ratio 20.6 10-20 Random Glucose 92 70-99 mg/dl Calcium Level 8.8 8.5-10.1 mg/dl
[2017-07-03 23:09] VITALS: BP 137/86; PULSE 78; TEMP 36.6; O2SAT 96
[2017-07-04] MEDS: OXYCODONE/ACETAMINOPHEN 5-325 TAB PO PRN ×2 (02:01→16:01)
[2017-07-04 07:02] VITALS: BP 134/73; PULSE 66; TEMP 36.7; O2SAT 96
[2017-07-04] MEDS: ASPIRIN 81 MG ECTAB PO SCH (07:43)
[2017-07-04] MEDS: ENOXAPARIN 40 MG/0.4 ML SYR SQ SCH (07:43)
[2017-07-04] MEDS: NYSTATIN/TRIAMCINOLONE OINT 15 GM TUBE EXT SCH ×3 (07:43→20:32)
[2017-07-04] MEDS: TOLTERODINE TARTRATE 2 MG TAB PO SCH ×2 (08:16→20:32)
[2017-07-04] MEDS: ATORVASTATIN 20 MG TAB PO SCH (08:16)
[2017-07-04 08:36] LABS: CALCIUM 8.8 mg/dl (8.5-10.1); CREATININE 1.26 mg/dl (0.60-1.20); POTASSIUM 4.2 mmol/L (3.5-5.1)
[2017-07-04 15:25] VITALS: BP 115/73; PULSE 89; TEMP 36.9; O2SAT 95
--- NOTE | 2017-07-04 15:28 | Progress Note ---
Internal Med Progress Note Date of Service: Jul 04, 2017. Provider Documentation: SUBJECTIVE: had several episodes of bowel movements last night. Had stool softner in the morning feeling drain out after several bowel movements eating ok denies any abdominal pain no nausea afebrile no chest pain or sob OBJECTIVE: Vital Signs-as noted below Exam: General-alert and oriented. Not in distress ENT-normal hearing. Neck-No neck masses Lungs-CTA b/l no wheezing or crackles Heart-S1 and S2 heard regular rate and rhythm no murmurs Abdomen-soft Bowels sounds present non tender no distension Extremities-no edema no erythema Neuro-alert and oriented moves extremities Lab data as noted below. ASSESSMENT & PLAN: 82-year-old female admitted to the hospital for severe sepsis secondary to E. coli UTI.Completed abx course. 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 Seen by urology for urinary incontinence for ct scan findings and was started on Tolterodine and plan for out patient cystoscopy. Son and daughter in law in room the other day and had d/w with case management regarding disposition. Currently plan for [facility] and close out patient followup. 1. Diarrhea-resolved, C. difficile ruled out. will monitor. 2. E. coli secondary to urinary tract infection-sepsis resuscitated. completed abx course. 3. Abdominal pain-secondary to bladder prolapse and pressure from this. currently Tylenol prn, Percocet prn. s/p 3rd pessary as previous fell down. patient thinks third might have also fallen down as she is having more pain but was checked and its in place.. Family also concerned about artery blockages.planned for cta abd/pelvis but patient currently not having abd pain and also patient got scared that contrast can effect her kidney function. 4. Ambulatory dysfunction-repeat PT/OT recommends rehab continuously, and patient declined this but now agreeable for [facility] 5. Vulvar candidiasis-continue Mycolog and Diflucan per gynecology recommendations. Symptoms appear to have resolved. 6. Abnormal CT findings-specifically thickened asymmetric bladder. Likely consistent with cystitis. Outpatient urology follow-up for outpatient cystoscopy. Continue tolterodine for urinary incontinence. Family likes to have cystoscopy in hospital if possible as patient has hx of poor followups.D/W Urology and recommends out patient cystoscopy as patient still has incontinence 7. 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 gentle fluids f/u labs DVT PROPHYLAXIS Lovenox DISPOSITION possible d/c in am for [facility] for d/c planning Vital Signs: Date Time Temp Pulse Resp B/P (MAP) Pulse Ox O2 Delivery O2 Flow Rate FiO2 07/04/17 08:15 Room Air 07/04/17 07:02 36.7 66 20 134/73 (93) 96 Room Air 07/04/17 00:39 Room Air 07/03/17 23:09 36.6 78 18 137/86 (103) 96 Room Air 07/03/17 16:47 Room Air Lab Results: Results Past 24 Hours Test 07/04/17 07:31 Range/Units Sodium Level 140 136-145 mmol/L Potassium Level 4.2 3.5-5.1 mmol/L Chloride Level 108 98-107 mmol/L Carbon Dioxide Level 25 21-32 mmol/L Anion Gap 6.0 3-11 mmol/L Blood Urea Nitrogen 25 7-18 mg/dl Creatinine 1.26 0.60-1.20 mg/dl Est Creatinine Clear Calc Drug Dose 29.2 ml/min Estimated GFR () 45.6 Estimated GFR (Non- 39.4 BUN/Creatinine Ratio 19.4 10-20 Random Glucose 91 70-99 mg/dl Calcium Level 8.8 8.5-10.1 mg/dl Magnesium Level 2.3 1.8-2.4 mg/dl
[2017-07-04 23:20] VITALS: BP 137/83; PULSE 78; TEMP 36.9; O2SAT 92
[2017-07-05] MEDS: NYSTATIN/TRIAMCINOLONE OINT 15 GM TUBE EXT SCH (07:12)
[2017-07-05] MEDS: ATORVASTATIN 20 MG TAB PO SCH (07:12)
[2017-07-05] MEDS: TOLTERODINE TARTRATE 2 MG TAB PO SCH (07:12)
[2017-07-05] MEDS: ASPIRIN 81 MG ECTAB PO SCH (07:13)
[2017-07-05 07:27] VITALS: BP 141/82; PULSE 79; TEMP 36.5; O2SAT 94
[2017-07-05] MEDS ORDERED: ENOXAPARIN 30 MG/0.3 ML SYR SQ SCH ×2 (08:00)
[2017-07-05 08:27] LABS: BASO % 0.7 %; BASO ABS # 0.04 K/uL (0-0.2); EOS % 6.2 %; EOS ABS # 0.37 K/uL (0-0.5); HEMATOCRIT 38.8 % (37-47); HEMOGLOBIN 12.6 g/dL (12.0-16.0); IG# 0.02 K/uL (0.00-0.02); LYMPH % 23.1 %; LYMPH ABS # 1.37 K/uL (1.2-3.4); MEAN CELL VOLUME 97.2 fL (80-100); MEAN CORPUSCULAR HEMOGLOBIN 31.6 pg (25-34); MEAN CORPUSCULAR HGB CONC 32.5 g/dl (32-36); MEAN PLATELET VOLUME 9.1 fL (7.4-10.4); MONO % 9.1 %; MONO ABS # 0.54 K/uL (0.11-0.59); NEUT % 60.6 %; NEUT ABS # 3.59 K/uL (1.4-6.5); PLATELET COUNT 267 K/uL (130-400); RED CELL DISTRIBUTION WIDTH CV 13.7 % (11.5-14.5); RED CELL DISTRIBUTION WIDTH SD 48.7 fL (36.4-46.3); WHITE BLOOD COUNT 5.93 K/uL (4.8-10.8)
[2017-07-05 08:55] LABS: CALCIUM 8.9 mg/dl (8.5-10.1); CREATININE 1.08 mg/dl (0.60-1.20); POTASSIUM 4.1 mmol/L (3.5-5.1)
--- NOTE | 2017-07-05 09:34 | Progress Note ---
Internal Med Progress Note Date of Service: Jul 05, 2017. Provider Documentation: SUBJECTIVE: had a big bowel movement today complains of pain in rectal/anal area and request for pain med afebrile abdominal pain minimal no chest pain or sob appetite ok ok for [facility] today OBJECTIVE: Vital Signs-as noted below Exam: General-alert and oriented. Not in distress ENT-normal hearing. Neck-No neck masses Lungs-CTA b/l no wheezing or crackles Heart-S1 and S2 heard regular rate and rhythm no murmurs Abdomen-soft Bowels sounds present non tender no distension rectal/anal area - normal on inspection and no swelling seen Extremities-no edema no erythema Neuro-alert and oriented moves extremities Lab data as noted below. ASSESSMENT & PLAN: 82-year-old female admitted to the hospital for severe sepsis secondary to E. coli UTI.Completed abx course. 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 Seen by urology for urinary incontinence for ct scan findings and was started on Tolterodine and plan for out patient cystoscopy. Son and daughter in law in room the other day and had d/w with case management regarding disposition. Currently plan for [facility] today and close out patient followup. 1. Diarrhea-resolved, C. difficile ruled out. will monitor. 2. E. coli secondary to urinary tract infection-sepsis resuscitated. completed abx course. 3. Abdominal pain-secondary to bladder prolapse and pressure from this. currently Tylenol prn, Percocet prn. s/p 3rd pessary as previous fell down. patient thinks third might have also fallen down as she is having more pain but was checked and its in place.. Family also concerned about artery blockages.planned for cta abd/pelvis but patient currently not having abd pain and also patient got scared that contrast can effect her kidney function.Lower Abdominal pain is minimal now. But complains of pain in rectal area.Had several bowel movements yesterday.Needs close followup with CYLINDER DIE MACHINE OPERATOR for pessary check and Urology . 4. ABDOMINAL ANEURYSM 3CM INFRA RENAL. NEEDS FOLLOWUP 5. Ambulatory dysfunction-repeat PT/OT recommends rehab continuously, and patient declined this but now agreeable for [facility] 6. Vulvar candidiasis-continue Mycolog and Diflucan per gynecology recommendations. Symptoms appear to have resolved. 7. Abnormal CT findings-specifically thickened asymmetric bladder. Likely consistent with cystitis. Outpatient urology follow-up for outpatient cystoscopy. Continue tolterodine for urinary incontinence. Family likes to have cystoscopy in hospital if possible as patient has hx of poor followups.D/W Urology and recommends out patient cystoscopy as patient still has incontinence 8. 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 gentle fluids f/u labs cr 1.08 on discharge Discharge to [facility] today. Vital Signs: Date Time Temp Pulse Resp B/P (MAP) Pulse Ox O2 Delivery O2 Flow Rate FiO2 07/05/17 07:27 36.5 79 17 141/82 (101) 94 Room Air 07/05/17 07:17 Room Air 07/04/17 23:30 Room Air 07/04/17 23:20 36.9 78 18 137/83 (101) 92 Room Air 07/04/17 16:00 Room Air 07/04/17 15:25 36.9 89 16 115/73 (87) 95 Room Air Lab Results: Results Past 24 Hours Test 07/05/17 07:59 Range/Units White Blood Count 5.93 4.8-10.8 K/uL Red Blood Count 3.99 4.2-5.4 M/uL Hemoglobin 12.6 12.0-16.0 g/dL Hematocrit 38.8 37-47 % Mean Corpuscular Volume 97.2 80-100 fL Mean Corpuscular Hemoglobin 31.6 25-34 pg Mean Corpuscular Hemoglobin Concent 32.5 32-36 g/dl Platelet Count 267 130-400 K/uL Mean Platelet Volume 9.1 7.4-10.4 fL Neutrophils (%) (Auto) 60.6 % Lymphocytes (%) (Auto) 23.1 % Monocytes (%) (Auto) 9.1 % Eosinophils (%) (Auto) 6.2 % Basophils (%) (Auto) 0.7 % Neutrophils # (Auto) 3.59 1.4-6.5 K/uL Lymphocytes # (Auto) 1.37 1.2-3.4 K/uL Monocytes # (Auto) 0.54 0.11-0.59 K/uL Eosinophils # (Auto) 0.37 0-0.5 K/uL Basophils # (Auto) 0.04 0-0.2 K/uL RDW Standard Deviation 48.7 36.4-46.3 fL RDW Coefficient of Variation 13.7 11.5-14.5 % Immature Granulocyte % (Auto) 0.3 % Immature Granulocyte # (Auto) 0.02 0.00-0.02 K/uL Sodium Level 140 136-145 mmol/L Potassium Level 4.1 3.5-5.1 mmol/L Chloride Level 112 98-107 mmol/L Carbon Dioxide Level 23 21-32 mmol/L Anion Gap 6.0 3-11 mmol/L Blood Urea Nitrogen 24 7-18 mg/dl Creatinine 1.08 0.60-1.20 mg/dl Est Creatinine Clear Calc Drug Dose 34.1 ml/min Estimated GFR () 55.0 Estimated GFR (Non- 47.4 BUN/Creatinine Ratio 22.2 10-20 Random Glucose 96 70-99 mg/dl Calcium Level 8.9 8.5-10.1 mg/dl Magnesium Level 2.3 1.8-2.4 mg/dl
[2017-07-05] MEDS: TRAMADOL HCL 50 MG TAB PO PRN (09:36)
[2017-07-05] MEDS ORDERED: LPT20 PO (09:39)
[2017-07-05] MEDS ORDERED: MYCO15 EXT (09:39)
[2017-07-05] MEDS ORDERED: DTR2 PO (09:39)
[2017-07-05] MEDS ORDERED: ASPI-320 PO (09:39)
[2017-07-05] MEDS ORDERED: ULT50X PO (09:39)
--- NOTE | 2017-07-05 09:44 | Discharge Instructions ---
Discharge Instructions Date of Service Jul 05, 2017. Admission Reason for Admission: Ab Pain, Urinary Retension Discharge Discharge Diagnosis / Problem: abdominal pain, urinary incontinence, bladder prolapse Discharge Goals Goal(s): Decrease discomfort, Improve function Activity Recommendations Activity Level: Up Ad Cira Therapies: Physical Therapy, Occupational Therapy . Additional Information Patient informed of condition: Yes Advance Directives: Yes DNR: No Level of Care: Skilled Communicable Disease: No Prognosis: Stable Sierra Catheter: No Instructions / Follow-Up Instructions / Follow-Up FOLLOWUP WITH FAMILY DOCTOR IN ONE WEEK. FOLLOWUP WITH UROLOGY DR.HOWARD BERNABE OR LILY SOTO IN 1-2 WEEKS.( FOR URINARY INCONTINENCE AND FOR PLANNED CYSTOSCOPY) FOLLOWUP WITH CONTACT LENS INSPECTOR DR.Theodore Emilie Walker M.D.IN 1-2 WEEKS. Current Hospital Diet Patient's current hospital diet: Regular Diet Discharge Diet Recommended Diet: Regular Diet Pending Studies Studies pending at discharge: no Physician Orders On Transfer Special Precautions: FALL AND ASPIRATION PRECAUTIONS Vital Signs: EVERY 8HRS Laboratory Results Lipid Panel Test 06/23/17 06:32 Range/Units Triglycerides Level 132 0-150 mg/dl Cholesterol Level 182 0-200 mg/dl HDL Cholesterol 52 mg/dl Cholesterol/HDL Ratio 3.5 LDL Cholesterol, Calculated 104 mg/dl Medical Emergencies . Who to Call and When: Medical Emergencies: If at any time you feel your situation is an emergency, please call 911 immediately. . Non-Emergent Contact Non-Emergency issues call your: Primary Care Provider . . "Provider Documentation" section prepared by Carlos Nguyen. . Core Measure Problem Core Measures: None
--- NOTE | 2017-07-05 09:51 | Discharge Summary ---
Discharge Summary Date of Service Jul 05, 2017. Discharge Summary Admission Date: Jun 19, 2017 at 23:00 Discharge Date: Jul 05, 2017 Discharge Disposition: nursing home facility Principal Diagnosis: ABDOMINAL PAIN URINARY INCONTINENCE UTI BLADDER PROLAPSE Procedures: CT ABD/PELVIS: 1. There is asymmetric bladder wall thickening with associated pericystic inflammatory stranding. This likely represents cystitis. Underlying mass lesion would be impossible to exclude. Correlation with urinalysis will be required and follow-up with urology is suggested. 2. Mild groundglass change is suggested in the left lower lobe. Correlate clinically for evidence of a mild infectious/inflammatory pneumonitis. 3. There is advanced atherosclerotic calcification of the abdominal aorta with a 3 cm infrarenal abdominal aortic aneurysm. 4. Moderate to advanced sigmoid diverticulosis without CT evidence of acute diverticulitis. 5. Punctate nonobstructing renal calculi. VENOUS DOPPLER: No evidence of lower extremity DVT. CXR: Negative chest. CTA ABD/PELVIS; 1. Extensive atherosclerotic plaquing of the abdominal aorta with aneurysmal dilation of the distal descending thoracic aorta, suprarenal and infrarenal abdominal aorta as above. Dilation of the left common iliac artery is also noted. No evidence of dissection or aneurysm rupture. 2. No definite high-grade stenosis or proximal branch occlusion identified. 3. Persistent marked asymmetric wall thickening of the bladder suggesting cystitis. Findings could be correlated with cystoscopy to exclude underlying mucosal mass. 4. Colonic diverticulosis without diverticulitis. 5. Nonobstructing bilateral nephrolithiasis. Consultations: HARD [employer] ENGRAVER [facility] Medication Reconciliation New Medications: Aspirin (Aspirin EC Low Dose) 81 Mg Ectab 81 MG PO QAM, #30 1 Refill Atorvastatin (Lipitor) 20 Mg Tab 20 MG PO QAM, #30 TAB 1 Refill Nystatin/Triamcinolone (Nystatin/Triamcinolone 710394-6.1 Unit/gm-%) 45 Appln/ 15 Gm Oint 1 APPLN EXT TID, #14 Tolterodine Tartrate (Detrol) 2 Mg Tab 2 MG PO BID, #60 TAB 1 Refill Tramadol HCl (Tramadol HCl) 50 Mg Tab 25-50 MG PO Q6H PRN for Pain, #14 TAB Continued Medications: Benzocaine-Resorcinol Vaginal (Vagisil) 1 Cre Cre 1 APPLN TOP UD PRN for Itching APPLY PER PACKAGE DIRECTIONS Powders (Vagisil Deodorant) 1 Pow Pow 1 APPLN TOP UD APPLY PER PACKAGE DIRECTIONS Discontinued Medications: Aspirin-Caffeine (Anacin 400-32 mg) 1 Tab Tab 1 TAB PO UD PRN for Pain TAKE PER PACKAGE DIRECTIONS Admission Information HPI (per Admitting provider): History obtained from patient and urgent care center records. Liimited history obtained secondary to EMR downtime. No significant medical history. As per records, last few days, patient having bladder discomfort, achy back pain, some nausea, no vomiting. Good bowel movement. No chest pain, no shortness of breath, no fever, no chills. Episodic confusion as per family. Seen at [facility]. Initial BP 78/51, pulse rate 122, temperature 98.2. Subsequent SBP later 120s. Patient sent to the ER for possible UTI. Received IV ceftriaxone in the ER. Vaginal prolapse noted at ER during straight catheterization for UA specimen. Physical Exam (per Admitting): VITAL SIGNS: Blood pressure was noted to be 100/70, pulse rate 100, RR 18, temperature to be obtained, sats 90 on room air. GENERAL: Noted to be pleasant, no respiratory distress. SKIN: Normal color, warm. HEENT: [place] palpebral conjunctivae. No ptosis. Dry mucosa. NECK: Supple, nontender. CHEST: Decreased effort. No tenderness. HEART: Regular rate and rhythm, no murmur. ABDOMEN: hypogastric tenderness, some distention. EXTREMITIES: LE edema, no tenderness. No other gross deformities. NEUROLOGIC: Coherent. No gross focality Hospital Course 82-year-old female admitted to the hospital for severe sepsis secondary to E. coli UTI.Completed abx course. s/p third pessary after second pessary fell out overnight by FACILITY MAINTENANCE WORKER. Seen by urology for urinary incontinence for ct scan findings and was started on Tolterodine and plan for out patient cystoscopy. Son and daughter in law in room the other day and had d/w with case management regarding disposition. Currently plan for [facility] today and close out patient followup. 1. Diarrhea-resolved, C. difficile ruled out. will monitor. 2. E. coli secondary to urinary tract infection-sepsis resuscitated. completed abx course. 3. Abdominal pain-secondary to bladder prolapse and pressure from this. currently Tylenol prn, Percocet prn. s/p 3rd pessary as previous fell down. patient thinks third might have also fallen down as she is having more pain but was checked and its in place.. Family also concerned about artery blockages..Lower Abdominal pain is minimal now. But complains of pain in rectal area.Had several bowel movements yesterday.Needs close followup with FACILITY MAINTENANCE WORKER for pessary check and Urology . 4. ABDOMINAL ANEURYSM 3CM INFRA RENAL. NEEDS FOLLOWUP . CTA abd/pelvis done today shows 3.3 x 3 cm abdominal aneurysm. No high grade stenosis seen 5. Ambulatory dysfunction-repeat PT/OT recommends rehab continuously, and patient declined this but now agreeable for [facility] 6. Vulvar candidiasis-continue Mycolog and Diflucan per gynecology recommendations. Symptoms appear to have resolved. 7. Abnormal CT findings-specifically thickened asymmetric bladder. Likely consistent with cystitis. Outpatient urology follow-up for outpatient cystoscopy. Continue tolterodine for urinary incontinence. Family likes to have cystoscopy in hospital if possible as patient has hx of poor followups.D/W Urology and recommends out patient cystoscopy as patient still has incontinence 8. 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 gentle fluids f/u labs cr 1.08 on discharge Discharge to [facility] today. Total time spent on discharge = 40MINUTES This includes examination of the patient, discharge planning, medication reconciliation, and communication with other providers. Discharge Instructions Discharge Instructions Date of Service Jul 05, 2017. Admission Reason for Admission: Ab Pain, Urinary Retension Discharge Discharge Diagnosis / Problem: abdominal pain, urinary incontinence, bladder prolapse Discharge Goals Goal(s): Decrease discomfort, Improve function Activity Recommendations Activity Level: Up Ad Cira Therapies: Physical Therapy, Occupational Therapy . Additional Information Patient informed of condition: Yes Advance Directives: Yes DNR: No Level of Care: Skilled Communicable Disease: No Prognosis: Stable Sierra Catheter: No Instructions / Follow-Up Instructions / Follow-Up FOLLOWUP WITH FAMILY DOCTOR IN ONE WEEK. FOLLOWUP WITH UROLOGY DR.HOWARD BERNABE OR LILY SOTO IN 1-2 WEEKS.( FOR URINARY INCONTINENCE AND FOR PLANNED CYSTOSCOPY) FOLLOWUP WITH FACILITY MAINTENANCE WORKER DR.Theodore Emilie Walker M.D.IN 1-2 WEEKS. Current Hospital Diet Patient's current hospital diet: Regular Diet Discharge Diet Recommended Diet: Regular Diet Pending Studies Studies pending at discharge: no Physician Orders On Transfer Special Precautions: FALL AND ASPIRATION PRECAUTIONS Vital Signs: EVERY 8HRS Laboratory Results Lipid Panel Test 06/23/17 06:32 Range/Units Triglycerides Level 132 0-150 mg/dl Cholesterol Level 182 0-200 mg/dl HDL Cholesterol 52 mg/dl Cholesterol/HDL Ratio 3.5 LDL Cholesterol, Calculated 104 mg/dl Medical Emergencies . Who to Call and When: Medical Emergencies: If at any time you feel your situation is an emergency, please call 911 immediately. . Non-Emergent Contact Non-Emergency issues call your: Primary Care Provider . . "Provider Documentation" section prepared by Carlos Nguyen. . Core Measure Problem Core Measures: None <Electronically signed by Carlos Nguyen MD>
[2017-07-05] MEDS ORDERED: OPTIRAY 300 IV PRN (10:00)
[2017-07-05 10:08] VITALS: BP 141/82; PULSE 79; TEMP 36.5; O2SAT 94
--- NOTE | 2017-07-05 11:00 | DIAGNOSTIC IMAGING REPORT ---
ANGIO ABD/PELVIS WITH CONTRAST CLINICAL HISTORY: 82 years-old Female presents with chronic generalized abdominal pain with history of vascular disease. COMPARISON STUDY: CT abdomen and pelvis 06/19/2017 TECHNIQUE: Following the IV administration of 100 cc of Optiray 320, CT angiogram of the abdomen and pelvis was performed from the lung bases the proximal femora. Images are reviewed in the axial, sagittal, and coronal planes. 3-D MIPS images are created and assessed. IV contrast was administered without complication. Additional 3-D rendering images were generated from a separate workstation A dose lowering technique was utilized adhering to the principles of ALARA. CT DOSE: 369.13 mGy.cm FINDINGS: CTA: Multichamber cardiac enlargement is partially imaged. No pericardial effusion. Mitral annular calcifications. Extensive mixed plaquing of the thoracic aorta. Saccular aneurysmal dilation of the distal descending thoracic aorta is noted anteriorly nicely seen on image 42 series 300 and image 47 series 301 measuring up to 3.7 x 3.8 x 3.3 cm in transverse, AP and craniocaudal dimensions respectively. There is fusiform dilation of the proximal abdominal aorta at the level of the diaphragmatic hiatus measures 3.6 x 3.2 cm. Additional area of fusiform aneurysm dilation of all of the infrarenal abdominal aorta measuring 3.3 x 3.0 cm. There is fusiform dilation of the left common iliac artery, 1.9 cm. The bilateral common, internal and external iliac arteries are widely patent. The bilateral common femoral and visualized superficial and profunda femoris arteries are also patent. Mostly calcified plaque at the origins of the celiac trunk and superior mesenteric artery causes less than 50% luminal narrowing. The inferior mesenteric artery also appears widely patent. Mixed plaquing at the origin of the bilateral renal arteries also causes less than 50% luminal narrowing. No dissection, proximal branch occlusion or high-grade narrowing identified. Decreased luminal caliber of the IVC may be related to hydration status. CT ABDOMEN/PELVIS: Mild bibasilar atelectasis. Small right Bochdalek hernia. Mildly motion degraded exam. All attenuating lesion of the posterior right hepatic lobe measuring 2.4 cm suggests hepatic cyst. Mild shunt vascularity is noted within the right hepatic lobe. Enhancing wall thickening of the mid gallbladder lumen suggests adenomyomatosis. No CT evidence of acute cholecystitis. Spleen, pancreas and right adrenal gland are unremarkable. Mild thickening of the left adrenal gland. 2 mm nonobstructing calculus of the inferior pole left kidney. Punctate nonobstructing calculus of the interpolar right kidney. Renal thinning and cortical scarring is noted within the kidneys bilaterally. No hydronephrosis. Asymmetric moderate to extensive wall thickening of the right with perivesicular inflammatory stranding. Findings appear unchanged from comparison. Pelvic floor stabilizing device noted within the vagina. No adnexal mass lesions. No bowel obstruction or focal bowel wall thickening. Extensive colonic diverticulosis without CT evidence of acute diverticulitis. Small fat filled table cardiac, 8 mm. Degenerative changes are seen about the hips and spine. IMPRESSION: 1. Extensive atherosclerotic plaquing of the abdominal aorta with aneurysmal dilation of the distal descending thoracic aorta, suprarenal and infrarenal abdominal aorta as above. Dilation of the left common iliac artery is also noted. No evidence of dissection or aneurysm rupture. 2. No definite high-grade stenosis or proximal branch occlusion identified. 3. Persistent marked asymmetric wall thickening of the bladder suggesting cystitis. Findings could be correlated with cystoscopy to exclude underlying mucosal mass. 4. Colonic diverticulosis without diverticulitis. 5. Nonobstructing bilateral nephrolithiasis. The above report was generated using voice recognition software. It may contain grammatical, syntax or spelling errors. Electronically signed by: Jun Carmichael M.D. 07/05/2017 10:58 AM Dictated Date/Time: 07/05/2017 10:39 AM
== END 2017-07-05 13:35 | DRG 871 ==
LOC: EDBD 15:32 → C.EDA 15:37 → C.MS4W 23:00
PROVIDERS: ADMIT Hospitalist; ATTEND Internal Medicine
DX: A41.51 Sepsis due to Escherichia coli [E. coli] (principal); G93.41 Metabolic encephalopathy; N17.9 Acute kidney failure, unspecified; N39.0 Urinary tract infection, site not specified; N18.4 Chronic kidney disease, stage 4 (severe); Z87.440 Personal history of urinary (tract) infections; L30.4 Erythema intertrigo; R65.20 Severe sepsis without septic shock; T36.95XA Adverse effect of unspecified systemic antibiotic, initial encounter; E86.0 Dehydration; B37.3 Candidiasis of vulva and vagina; N39.41 Urge incontinence; N81.10 Cystocele, unspecified; R19.7 Diarrhea, unspecified; I71.4 Abdominal aortic aneurysm, without rupture; Y92.019 Unspecified place in single-family (private) house as the place of occurrence of the external cause

== ENCOUNTER 2019-02-10 09:04 | Inpatient (IN) ==
[2019-02-10] MEDS ORDERED: SODIUM CHLORIDE 0.9% 500 ML IV ONE (09:51)
[2019-02-10] MEDS ORDERED: ACETAMINOPHEN 1,000 MG/100 ML VIAL IV STA (09:53)
[2019-02-10 10:24] LABS: Basophils # (auto) 0.03 K/uL (0-0.2); Basophils % (auto) 0.3 %; Eosinophils # (auto) 0.12 K/uL (0-0.5); Hematocrit (blood only) 46.8 % (37-47); Hemoglobin 15.5 g/dL (12.0-16.0); Immature Granulocytes # (auto) 0.03 K/uL (0.00-0.02); Immature Granulocytes % (auto) 0.3 %; Lymphocytes # (auto) 0.85 K/uL (1.2-3.4); Lymphocytes % (auto) 7.2 %; Mean Corpuscular Hemoglobin 32.3 pg (25-34); Mean Corpuscular Hgb Conc 33.1 g/dL (32-36); Mean Corpuscular Volume 97.5 fL (80-100); Mean Platelet Volume 9.5 fL (7.4-10.4); Monocytes # (auto) 0.94 K/uL (0.11-0.59); Monocytes % (auto) 7.9 %; Neutrophils # (auto) 9.89 K/uL (1.4-6.5); Neutrophils % (auto) 83.3 %; Platelet Count 262 K/uL (130-400); RDW Coefficient of Variation 13.5 % (11.5-14.5); RDW Standard Deviation 48.2 fL (36.4-46.3); White Blood Count 11.86 K/uL (4.8-10.8)
[2019-02-10 10:29] LABS: iSTAT Creatinine 1.3 mg/dl (0.6-1.3); iSTAT Hemoglobin 15.3 g/dl (12.0-16.0); iSTAT Ionized Calcium 1.16 mmol/l (1.12-1.32)
--- NOTE | 2019-02-10 10:31 | XRay Report ---
XR chest 1V portable CLINICAL HISTORY: Chest Pain pain COMPARISON STUDY: 06/19/2017 FINDINGS: Mild cardiomegaly. Minimal left basilar atelectasis. Lungs otherwise appear clear. Mild sta ble tortuosity of the thoracic aorta. IMPRESSION: Chronic change. No acute process. The above report was generated using voice recognition software. It may contain grammatical, syntax or spelling errors. Electronically signed by: Glenroy Gamez M.D. 02/10/2019 10:30 AM
[2019-02-10 10:46] LABS: Alanine Aminotransferase 25 U/L (12-78); Albumin Level 3.5 gm/dl (3.4-5.0); Aspartate Aminotransferase 48 U/L (15-37); BUN Creatinine Ratio 19.3 (10-20); Blood Urea Nitrogen 24 mg/dl (7-18); Calcium 9.6 mg/dl (8.5-10.1); Carbon Dioxide 22 mmol/L (21-32); Chloride 108 mmol/L (98-107); Creatinine Clr Calc Pharmacy 33.4 ml/min; Est GFR (African American) 45.3; Est GFR (Non-African American) 39.1; Glucose 90 mg/dl (70-99); Lipase 62 U/L (73-393); Magnesium 2.3 mg/dl (1.8-2.4); Potassium 3.9 mmol/L (3.5-5.1); Sodium 141 mmol/L (136-145)
--- NOTE | 2019-02-10 10:54 | CT Scan Report ---
CT head/brain wo con CLINICAL HISTORY: 83 years-old Female with pain fall. Acute head and neck injury status post fall TECHNIQUE: Multiple axial CT images of the head were obtained without contrast. A dose lowering tech nique was utilized adhering to the principles of ALARA. COMPARISON: CT cervical spine of same day. FINDINGS: No acute intracranial hemorrhage, midline shift, intracranial mass, hydrocephalus, territorial ischem ia or abnormal extra-axial collection. Age-related involutional changes. Patchy white matter hypodens ities suggest chronic microvascular ischemic disease. Cerebral vascular calcifications are noted. The calvarium is intact. The paranasal sinuses, mastoid air cells, and middle ear cavities are clear . IMPRESSION: No acute intracranial abnormality or calvarial fracture. The above report was generated using voice recognition software. It may contain grammatical, syntax o r spelling errors. Electronically signed by: Jun Carmichael M.D. 02/10/2019 10:53 AM
--- NOTE | 2019-02-10 10:59 | CT Scan Report ---
CT cervical spine wo con CT DOSE: 2382.94 mGy.cm HISTORY: Trauma pain fall TECHNIQUE: Multiaxial CT images of the cervical spine were performed and reformatted in the sagittal and coronal plane without the use of contrast. A dose lowering technique was utilized adhering to th e principles of ALARA. COMPARISON: None. FINDINGS: No fractures. No subluxation. Prevertebral soft tissues and the C1-C2 interval are intact. No pneumothorax. Considerable degenerative change C4-T1. IMPRESSION: No fractures within the cervical spine. Considerable degenerative change. The above report was generated using voice recognition software. It may contain grammatical, syntax or spelling errors. Electronically signed by: Glenroy Gamez M.D. 02/10/2019 10:58 AM
[2019-02-10 11:00] LABS: Albumin Globulin Ratio 0.8 (0.9-2); Alkaline Phosphatase 79 U/L (45-117); Bilirubin,Total 0.7 mg/dl (0.2-1); Creatine Kinase 1124 U/L (26-192); Globulin 4.2 gm/dl (2.5-4.0); Phosphorus 3.8 mg/dl (2.5-4.9); Total Protein 7.7 gm/dl (6.4-8.2); Troponin I < 0.015 ng/ml (0-0.045)
--- NOTE | 2019-02-10 11:12 | CT Scan Report ---
CT SCAN OF THE ABDOMEN AND PELVIS WITH IV CONTRAST CLINICAL HISTORY: Trauma. Fall. COMPARISON STUDY: Abdominal CT dated 07/05/2017. TECHNIQUE: Following the IV administration of 93 cc of Optiray 320, CT scan of the abdomen and pelvi s is performed from the lung bases to the proximal femora. Images are reviewed in the axial, sagittal , and coronal planes. IV contrast was administered without complication. A dose lowering technique wa s utilized adhering to the principles of ALARA. The examination is degraded by streak artifact from t he right arm which could not be elevated above the abdomen. FINDINGS: Lung bases: The heart is mildly enlarged and without pericardial effusion. The mitral annulus is dens jazmín calcified. There are also coronary artery calcifications. There is a fat-containing Bochdalek her erin at the right lung base. No airspace consolidation, pleural effusion, or pneumothorax is seen at e ither lung base. There is bibasilar scarring/atelectasis. There is mild aneurysmal dilatation of the distal descending thoracic aorta. This measures up to 4.2 cm in diameter. A small hiatal hernia is no bella. Liver: The contrast-enhanced liver is normal in size, contour, and attenuation. There is no intrahepa tic biliary ductal dilatation. The hepatic veins and portal veins are patent. There are 2 cysts in th e right lobe which measure up to 3 cm. Gallbladder: Unremarkable. Spleen: Normal in size and attenuation. Pancreas: Unremarkable. Adrenal glands: Unremarkable. Kidneys: The contrast enhanced kidneys demonstrate cortical atrophy and are without hydronephrosis. T he kidneys enhance symmetrically. There are small bilateral nonobstructing renal calculi which measur e up to 4 mm. Abdominal vasculature: There is advanced atherosclerotic calcification of the abdominal aorta and stephani ac arteries. An infrarenal abdominal aneurysm measures up to 3.1 cm. There is mild aneurysmal dilatat ion of the left common iliac artery which measures up to 2.2 cm.1 Bowel: There is moderate colonic diverticulosis. There is wall thickening with pericolonic inflammati on involving the proximal sigmoid colon consistent with acute diverticulitis. There is no evidence of abscess. No bowel obstruction is seen. The appendix is well-visualized and normal. Peritoneum: There is no intraperitoneal free air or abdominal ascites. There is a fat-containing umbi lical hernia. Lymphadenopathy: None. Pelvic viscera: The bladder wall appears thickened and hyperemic. There is pericystic inflammation. T he uterus is surgically absent. No adnexal lesion is seen. Skeletal structures: The skeletal structures are osteopenic. No acute fracture is identified. No lyti c or blastic lesions are seen. There is moderate to advanced lumbosacral spondylosis. Sclerotic degen erative change is noted in the sacroiliac joints. Advanced arthritic change is seen in the hips. IMPRESSION: 1. There is no evidence of solid organ injury in the abdomen or pelvis. 2. There is moderate colonic diverticulosis with evidence of mild acute sigmoid diverticulitis. No in traperitoneal free air or abscess is seen. 3. Findings suggest cystitis. Correlation with clinical findings and urinalysis would be required. 4. There is aneurysmal dilatation of the descending thoracic aorta, the infrarenal abdominal aortic, and the left common iliac artery. This is similar to previous. 5. Bilateral nephrolithiasis. 6. Additional findings as above. Electronically signed by: Dillon Perez M.D. 02/10/2019 11:11 AM
--- NOTE | 2019-02-10 11:13 | CT Scan Report ---
CHEST CT WITH CONTRAST HISTORY: Acute chest and abdominal trauma status post fall pain fall TECHNIQUE: Multiaxial CT images of the chest were performed following the IV administration of 93 cc of Optiray 320. A dose lowering technique was utilized adhering to the principles of ALARA. COMPARISON: CT abdomen and pelvis of same day, CTA 07/05/2017 FINDINGS: Mildly heterogeneous thyroid. Cardiomegaly with coronary arterial calcifications. Mixed plaque of the thoracic aorta and proximal great vessels. Saccular aneurysmal dilation of the descending thoracic a najma redemonstrated measuring up to 3.8 cm in AP dimension as measured on the sagittal images. This a ppears unchanged from comparison. The opacified pulmonary arteries unremarkable. No mediastinal adeno alicia or hematoma. No pneumothorax, pleural effusion or overt pulmonary edema. There is minimal bibas ilar subsegmental atelectasis. There are no suspicious pulmonary nodules or masses identified. Small right Bochdalek hernia. No pulmonary contusion. Central airways appear patent. Mild wall thickening of the distal esophagus with small hiatal hernia. There are a few cystic foci of the right hepatic lobe redemonstrated measuring up to 3.2 cm. Mild right hemidiaphragmatic elevation . Soft tissues are within normal limits. Degenerative changes of the shoulders and spine. No acute fr acture identified. IMPRESSION: 1. No acute intrathoracic abnormality. 2. No acute fracture or pneumothorax. 3. 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 4. Additional findings as above. Electronically signed by: Jun Carmichael M.D. 02/10/2019 11:12 AM
[2019-02-10] MEDS ORDERED: AMPICILLIN/SULBACTAM SOD 3,000 MG in 0.9 % SODIUM CHLORIDE 100 ML IV STA (11:32)
--- NOTE | 2019-02-10 13:05 | History & Physical Report ---
Date of Service February 10, 2019 Assessment & Plan (1) Ambulatory dysfunction: Has been complaining of problem with the moving around secondary to weak legs complicated by back pain No acute arthritis noted on examination and no significant radiculopathy noted as well Has had for fall last week and also last night We will get PT and OT evaluation for discharge (2) Fall: She was found on the floor this morning Country member falling Denies any loss of consciousness No significant injury from the fall Relevant scans remain unremarkable (3) Rhabdomyolysis: Was on the floor for a long time CK was more than 1000 Will give intravenous fluid and repeat CK level in the evening and tomorrow (4) Acute diverticulitis: Complaints to have some lower abdominal discomfort or any diarrhea and/or constipation Examination was benign with minimal tenderness CT of the abdomen and pelvis did show mild acute sigmoid diverticulitis and cystitis Has been started 1 intravenous Unasyn and will continue for now (5) JOSE ALEJANDRO (acute kidney injury): Creatinine has been up likely secondary to dehydration Not sure how much she has been eating or drinking Again intravenous fluid and monitor PRP (6) UTI (urinary tract infection): Complains of frequency but no dysuria No fever and/or chills UA suggestive of infection We will send urine for culture Has been started with intravenous Unasyn for acute diverticulitis and will continue with that for now DVT prophylaxis Subcu heparin CODE STATUS Full History of Present Illness Chief Complaint: Status post fallfound on the floor this morning Primary Care Provider: Ria Jaimes MD, FACOG She is an 83-year-old female with significant past medical history as mentioned in the chart of prolapsed uterus and history of urinary incontinence has not been taking any medications and has not been seen by a physician for a long time apparently was found on the floor this morning. She complains to have problem with walking, she feels she has back pain and bilateral leg weakness she has had a fall last week and she cannot remember falling this time. She denies any loss of consciousness though and she denies any significant injury from the fall. She denies any fever and/or chills, any chest pain and/or shortness of breath or palpitation, does have some abdominal discomfort in the lower abdomen but does not have any diarrhea and constipation. She has been passing urine more frequently but denies any dysuria. Denies any weakness involving any side in particular and no loss of consciousness following the fall. Allergies Allergy/AdvReac Type Severity Reaction Status Date / Time No Known Allergies Allergy Unverified 02/10/19 11:38 Home Medications Home Medications Medication Instructions Recorded Confirmed Type No Known Home Medications 02/10/19 02/10/19 History Past Med/Surg History Medical History Hx of renal calculi Prolapsed uterus (Chronic) UTI (urinary tract infection) (Resolved) Family History Other Family history non-contributory Social History marital status: Current Living Situation: Alone current occupational status: retired Feels Safe at Home: Yes Smoking Status: Never smoker Review of Systems Review of Systems: All systems reviewed & are unremarkable except as noted in HPI & below Physical Exam Physical Exam: Lying in bed comfortably Constitutional: well developed and well nourished; no acute distress and not ill appearing Eyes: PERRL, conjunctivae normal, anicteric sclerae ENMT: external ear and nose normal, oropharynx normal Neck: trachea midline, no thyromegaly Respiratory: normal respiratory effort; no respiratory distress Auscultation: lungs clear to auscultation bilaterally Cardiovascular: Rate/Rhythm: regular rate and regular rhythm Heart Sounds: no murmur Gastrointestinal (Abdomen): Inspection/Auscultation: abdomen normal to inspection and normal bowel sounds Percussion/Palpation: + abdomen tender (Minimally tender lower quadrants but no guarding and/or rigidity) Musculoskeletal: No acute arthritis in any joints Neurologic: moves all extremities; no focal motor deficits Alert, awake and oriented x3, Psychiatric: A+Ox3, euthymic affect Lymphatic: no cervical or axillary lymphadenopathy Results & Data Vital Signs (Past 12 Hours) Vital Signs Temp Pulse Pulse Resp BP BP Pulse Ox 02/10/19 12:01 98 H 22 135/120 H 02/10/19 11:30 91 H 15 143/92 H 02/10/19 11:01 92 H 20 149/81 H 02/10/19 11:00 100 H 23 02/10/19 10:31 137/88 02/10/19 10:30 96 H 19 88 L 02/10/19 10:18 108 H 24 126/86 77 L 02/10/19 10:17 113 H 22 126/86 95 02/10/19 10:00 107 H 17 141/107 H 02/10/19 09:30 105 H 13 141/93 H 94 02/10/19 09:18 95 02/10/19 09:14 36.4 C L 108 H 20 136/98 96 02/10/19 09:10 132 H 22 146/105 H 90 Laboratory Results Short CBC 02/10/19 Range/Units 10:05 WBC 11.86 H (4.8-10.8) K/uL Hgb 15.5 (12.0-16.0) g/dL Hct 46.8 (37-47) % Plt Count 262 (130-400) K/uL BMP 02/10/19 10:05 Sodium 141 Potassium 3.9 Chloride 108 H Carbon Dioxide 22 BUN 24 H Creatinine 1.26 H Glucose 90 Calcium 9.6 Cardiac Enzymes 02/10/19 Range/Units 10:05 Total Creatine Kinase 1124 H (26-192) U/L Troponin I < 0.015 (0-0.045) ng/ml Liver Function 02/10/19 Range/Units 10:05 Total Bilirubin 0.7 (0.2-1) mg/dl AST 48 H (15-37) U/L ALT 25 (12-78) U/L Alkaline Phosphatase 79 (45-117) U/L Albumin 3.5 (3.4-5.0) gm/dl Diagnostic Findings CT of the abdomen and pelvis-cystitis and suspected acute sigmoid diverticulitis Medications Administered Current Inpatient Medications Heparin Sodium (Porcine) (Heparin Sodium (Porcine)) 5,000 units SQ Q12 DAYRON Stop: 03/12/19 20:59 Sodium Chloride (Nss 1000ml) 1,000 mls @ 125 mls/hr IV .Q8H DAYRON Stop: 02/11/19 12:59 Code Status & VTE Plan VTE Prophylaxis Plan VTE Prophylaxis will be ordered: Yes
[2019-02-10] MEDS: SODIUM CHLORIDE 0.9% 1000ML 1,000 ML IV SCH ×2 (15:33→21:04)
[2019-02-10] MEDS: ACETAMINOPHEN SOLN 500 MG/15.62 ML UDP PO PRN (18:03)
--- NOTE | 2019-02-10 18:59 | Emergency Department Note ---
Entered by Radha Pinto acting as a scribe for History of Present Illness General Chief complaint: Fall Stated complaint: fall/ eval Time Seen by Provider: 02/10/19 09:41 Source: patient History of Present Illness Onset (ago): day(s) (a few days ago) Location: abdomen and lower extremity Pain Consistency: + other (episode) Quality: + other (fall) Associated symptoms: + denies other symptoms (congestion, neck pain, feeling like she has to urinate) and + other (abdominal pain, leg pain, trouble with legs collapsing, diarrhea); no cough and no fever/chills The patient is an 83 year old female who presents to the Emergency Room with complaints of an episode of a fall occurring at an unknown time. Per nursing staff, the patients neighbors became concerned as she had not gotten her mail in a few days and that was unlike her. She states that the patients neighbors called 911 and they found her on the floor with a broken coffee table. The patient states that she has no idea she even fell. She states that she thought she was just lying on the carpeted floor watching TV and fell asleep. She states that she then woke up and was just watching TV again until someone came pounding on her doors and windows. The patient complains of lower abdominal pain that started 30 minutes ago, new leg pain, and having trouble with her legs collapsing frequently. She notes that she has diarrhea chronically. The patient denies fever, chills, cough, congestion, neck pain, feeling like she has to urinate, and drinking alcohol. Home Medications Home Medications Medication Instructions Recorded Confirmed Type No Known Home Medications 02/10/19 02/10/19 History Allergies Allergy/AdvReac Type Severity Reaction Status Date / Time No Known Allergies Allergy Unverified 02/10/19 11:38 Past Med/Surg History Medical History Ambulatory dysfunction Fall Hx of renal calculi Prolapsed uterus (Chronic) UTI (urinary tract infection) (Resolved) Family History Other Family history non-contributory Social History Preferred Language: [place] Communication Ability: Effective Manual Plate Filler Required: No Beliefs That Will Affect Care: None marital status: Current Living Situation: Alone current occupational status: retired Other Information That Helps Us Care for You: No Feels Safe at Home: Yes Safety Concerns: Feels Safe At This Time Smoking Status: Never smoker Hx Alcohol Use: No Hx Substance Use: No Review of Systems See HPI for pertinent positives & negatives. and A total of 10 systems reviewed and were otherwise negative Physical Exam Vital Signs Vital Signs - 24 hr 02/10/19 09:10 02/10/19 09:14 02/10/19 09:18 Temperature 36.4 C L Temperature Source Rectal Pulse Rate 132 H 108 H Pulse Rate [Apical] Pulse Rate from SpO2 Sensor 116 H 111 H Respiratory Rate 22 20 Respiratory Effort / Characteristics Non-Labored Spontaneous Respiratory Depth Normal Blood Pressure 146/105 H 136/98 Blood Pressure [Right Arm] Blood Pressure Mean 118 111 Blood Pressure Mean [Right Arm] Pulse Oximetry 90 96 95 Oxygen Delivery Method Room Air Room Air Sepsis Recent Fever Within 48 Hours No Sepsis New/Unexplained Change in Mental Status No Sepsis Action Taken by Nursing No Action Required 02/10/19 09:30 02/10/19 10:00 02/10/19 10:17 Temperature Temperature Source Pulse Rate 105 H 107 H Pulse Rate [Apical] 113 H Pulse Rate from SpO2 Sensor 99 H Respiratory Rate 13 17 22 Respiratory Effort / Characteristics Non-Labored Spontaneous Respiratory Depth Normal Blood Pressure 141/93 H 141/107 H Blood Pressure [Right Arm] 126/86 Blood Pressure Mean 111 113 Blood Pressure Mean [Right Arm] 99 Pulse Oximetry 94 95 Oxygen Delivery Method Room Air Sepsis Recent Fever Within 48 Hours Sepsis New/Unexplained Change in Mental Status Sepsis Action Taken by Nursing 02/10/19 10:18 02/10/19 10:30 02/10/19 10:31 Temperature Temperature Source Pulse Rate 108 H 96 H Pulse Rate [Apical] Pulse Rate from SpO2 Sensor 113 H 97 H Respiratory Rate 24 19 Respiratory Effort / Characteristics Respiratory Depth Blood Pressure 126/86 137/88 Blood Pressure [Right Arm] Blood Pressure Mean 108 115 Blood Pressure Mean [Right Arm] Pulse Oximetry 77 L 88 L Oxygen Delivery Method Sepsis Recent Fever Within 48 Hours Sepsis New/Unexplained Change in Mental Status Sepsis Action Taken by Nursing 02/10/19 11:00 02/10/19 11:01 02/10/19 11:30 Temperature Temperature Source Pulse Rate 100 H 92 H 91 H Pulse Rate [Apical] Pulse Rate from SpO2 Sensor Respiratory Rate 23 20 15 Respiratory Effort / Characteristics Respiratory Depth Blood Pressure 149/81 H 143/92 H Blood Pressure [Right Arm] Blood Pressure Mean 100 105 Blood Pressure Mean [Right Arm] Pulse Oximetry Oxygen Delivery Method Sepsis Recent Fever Within 48 Hours Sepsis New/Unexplained Change in Mental Status Sepsis Action Taken by Nursing 02/10/19 12:01 02/10/19 12:32 Temperature Temperature Source Pulse Rate 98 H 92 H Pulse Rate [Apical] Pulse Rate from SpO2 Sensor Respiratory Rate 22 23 Respiratory Effort / Characteristics Respiratory Depth Blood Pressure 135/120 H 117/59 L Blood Pressure [Right Arm] Blood Pressure Mean 125 73 Blood Pressure Mean [Right Arm] Pulse Oximetry Oxygen Delivery Method Sepsis Recent Fever Within 48 Hours Sepsis New/Unexplained Change in Mental Status Sepsis Action Taken by Nursing GENERAL: Awake, mildly confused, alert to self and place, in no distress HENT: Normocephalic, atraumatic. Oropharynx with dry mucous membranes and otherwise unremarkable. EYES: Normal conjunctiva. Sclera non-icteric. NECK: Supple. No nuchal rigidity. FROM. No JVD. RESPIRATORY: Clear to auscultation bilaterally. CARDIAC: Regular rate, normal rhythm. Extremities warm and well perfused. Pulses equal. ABDOMEN: Soft, non-distended. Mild tenderness of the left lower quadrant. No rebound or guarding. No masses. RECTAL: Deferred. MUSCULOSKELETAL: Chest examination reveals no tenderness. The back is symmetrical on inspection without obvious abnormality. There is no CVA tenderness to palpation. No joint edema. Scant erythema of the left lower leg, hip and arm, with compartments soft. LOWER EXTREMITIES: Calves are equal size bilaterally and non-tender. No edema. NEURO: Mildly confused. Alert to self and place. No sensory or motor deficits noted. Moving all extremities equally. 5/5 strength and SILT x 4 extremities. SKIN: No rash or jaundice noted. Course Course 0948: The patient was evaluated in room A12B. A complete history and physical exam was performed. 1146: I discussed the patient's case with Dr. Montes- [facility] Hospitalist. He will evaluate the patient for further management. 1214: I reevaluated the patient and Dr. Montes is at bedside. Administered Medications Acetaminophen (Tylenol) 1,000 mg PO Q8H PRN PRN Reason: Headache Stop: 03/12/19 16:59 Last Admin: 02/10/19 18:03 Dose: 1,000 mg Documented by: [id number] Heparin Sodium (Porcine) (Heparin Sodium (Porcine)) 5,000 units SQ Q12 DAYRON Stop: 03/12/19 20:59 Last Admin: 02/10/19 21:06 Dose: 5,000 units Documented by: [id number] Cosigned by: [id number] Sodium Chloride (Nss 1000ml) 1,000 mls @ 125 mls/hr IV .Q8H DAYRON Stop: 02/11/19 12:59 Last Admin: 02/10/19 21:04 Dose: 125 mls/hr Documented by: [id number] Admin: 02/10/19 15:33 Dose: Not Given Documented by: [id number] Discontinued Medications Sodium Chloride (Nss) 500 mls @ 999 mls/hr IV .Q31M ONE Stop: 02/10/19 10:21 Last Infusion: 02/10/19 11:01 Dose: 0 mls/hr Documented by: [id number] Admin: 02/10/19 10:17 Dose: 999 mls/hr Documented by: [id number] Acetaminophen (Ofirmev) 1,000 mg in 100 mls @ 400 mls/hr IV NOW STA Stop: 02/10/19 10:07 Last Infusion: 02/10/19 10:34 Dose: 0 mls/hr Documented by: [id number] Admin: 02/10/19 10:17 Dose: 400 mls/hr Documented by: [id number] Ampicillin Sodium/Sulbactam Sodium 3,000 mg/ Sodium Chloride 108 mls @ 200 mls/hr IV NOW STA; Protocol Stop: 02/10/19 12:04 Last Infusion: 02/10/19 13:04 Dose: 0 mls/hr Documented by: [id number] Admin: 02/10/19 12:05 Dose: 200 mls/hr Documented by: [id number] Medical Decision Making Differential Diagnosis Differential Diagnosis includes but is not limited to dehydration, stroke, anemia, hypoglycemia, hyponatremia, hypernatremia, urinary tract infection, pneumonia, bronchitis, sepsis, gastroenteritis, additional abdominal pathology, metabolic abnormalities and infections. Medical Records Attestation: I reviewed the patient's medical records. Home Medications Current Medication List: was personally reviewed by me Laboratory Data Attestation: I reviewed the patient's lab results. Result diagrams: 02/10/19 10:05 02/10/19 10:05 Lab Results 02/10/19 02/10/19 02/10/19 Range/Units 10:05 10:05 10:16 WBC 11.86 H (4.8-10.8) K/uL RBC 4.80 (4.2-5.4) M/uL Hgb 15.5 (12.0-16.0) g/dL POC Hgb 15.3 (12.0-16.0) g/dl Hct 46.8 (37-47) % POC Hct 45 (37-47) % MCV 97.5 (80-100) fL MCH 32.3 (25-34) pg MCHC 33.1 (32-36) g/dL RDW Std Deviation 48.2 H (36.4-46.3) fL RDW Coeff of Jessica 13.5 (11.5-14.5) % Plt Count 262 (130-400) K/uL MPV 9.5 (7.4-10.4) fL Immature Gran % (Auto) 0.3 % Neut % (Auto) 83.3 % Lymph % (Auto) 7.2 % [place] % (Auto) 7.9 % Eos % (Auto) 1.0 % Baso % (Auto) 0.3 % Immature Gran # (Auto) 0.03 H (0.00-0.02) K/uL Neut # (Auto) 9.89 H (1.4-6.5) K/uL Lymph # (Auto) 0.85 L (1.2-3.4) K/uL [place] # (Auto) 0.94 H (0.11-0.59) K/uL Eos # (Auto) 0.12 (0-0.5) K/uL Baso # (Auto) 0.03 (0-0.2) K/uL POC Sodium 143 (135-144) mEq/L Sodium 141 (136-145) mmol/L POC Potassium 4.0 (3.3-5.0) mEq/L Potassium 3.9 (3.5-5.1) mmol/L POC Chloride 108 (101-112) mEq/L Chloride 108 H (98-107) mmol/L Carbon Dioxide 22 (21-32) mmol/L POC Total CO2 25 (24-31) mEq/l Anion Gap 11.0 (3-11) POC Anion Gap 15.0 L (16-25) mmol/L POC BUN 25 H (7-18) mg/dl BUN 24 H (7-18) mg/dl Creatinine 1.26 H (0.6-1.2) mg/dl POC Creatinine 1.3 (0.6-1.3) mg/dl Est Cr Clr Drug Dosing 33.4 ml/min Est GFR ( Amer) 45.3 Est GFR (Non-Af Amer) 39.1 BUN/Creatinine Ratio 19.3 (10-20) Glucose 90 (70-99) mg/dl POC Glucose (other) 92 (70-99) mg/dl Calcium 9.6 (8.5-10.1) mg/dl POC Ioniz Calcium Law 1.16 (1.12-1.32) mmol/l Phosphorus 3.8 (2.5-4.9) mg/dl Magnesium 2.3 (1.8-2.4) mg/dl Total Bilirubin 0.7 (0.2-1) mg/dl AST 48 H (15-37) U/L ALT 25 (12-78) U/L Alkaline Phosphatase 79 (45-117) U/L Total Creatine Kinase 1124 H (26-192) U/L Troponin I < 0.015 (0-0.045) ng/ml Total Protein 7.7 (6.4-8.2) gm/dl Albumin 3.5 (3.4-5.0) gm/dl Globulin 4.2 H (2.5-4.0) gm/dl Albumin/Globulin Ratio 0.8 L (0.9-2) Lipase 62 L (73-393) U/L TSH 2.070 (0.300-4.500) uIu/ml Imaging Data Radiologist's Impression: Radiology results as stated below per my review and the radiologist's interpretation: XR chest 1V portable CLINICAL HISTORY: Chest Pain pain COMPARISON STUDY: 06/19/2017 FINDINGS: Mild cardiomegaly. Minimal left basilar atelectasis. Lungs otherwise appear clear. Mild stable tortuosity of the thoracic aorta. IMPRESSION: Chronic change. No acute process. The above report was generated using voice recognition software. It may contain grammatical, syntax or spelling errors. Electronically signed by: Glenroy Gamez M.D. 02/10/2019 10:[address] head/brain wo con CLINICAL HISTORY: 83 years-old Female with pain fall. Acute head and neck injury status post fall TECHNIQUE: Multiple axial CT images of the head were obtained without contrast. A dose lowering technique was utilized adhering to the principles of ALARA. COMPARISON: CT cervical spine of same day. FINDINGS: No acute intracranial hemorrhage, midline shift, intracranial mass, hydrocephalus, territorial ischemia or abnormal extra-axial collection. Age- related involutional changes. Patchy white matter hypodensities suggest chronic microvascular ischemic disease. Cerebral vascular calcifications are noted. The calvarium is intact. The paranasal sinuses, mastoid air cells, and middle ear cavities are clear. IMPRESSION: No acute intracranial abnormality or calvarial fracture. The above report was generated using voice recognition software. It may contain grammatical, syntax or spelling errors. Electronically signed by: Jun Carmichael M.D. 02/10/2019 10:[address] cervical spine wo con CT DOSE: 2382.94 mGy.cm HISTORY: Trauma pain fall TECHNIQUE: Multiaxial CT images of the cervical spine were performed and reformatted in the sagittal and coronal plane without the use of contrast. A dose lowering technique was utilized adhering to the principles of ALARA. COMPARISON: None. FINDINGS: No fractures. No subluxation. Prevertebral soft tissues and the C1-C2 interval are intact. No pneumothorax. Considerable degenerative change C4-T1. IMPRESSION: No fractures within the cervical spine. Considerable degenerative change. The above report was generated using voice recognition software. It may contain grammatical, syntax or spelling errors. Electronically signed by: Glenroy Gamez M.D. 02/10/2019 10:[address] WITH CONTRAST HISTORY: Acute chest and abdominal trauma status post fall pain fall TECHNIQUE: Multiaxial CT images of the chest were performed following the IV administration of 93 cc of Optiray 320. A dose lowering technique was utilized adhering to the principles of ALARA. COMPARISON: CT abdomen and pelvis of same day, CTA 07/05/2017 FINDINGS: Mildly heterogeneous thyroid. Cardiomegaly with coronary arterial calcifications. Mixed plaque of the thoracic aorta and proximal great vessels. 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 This appears unchanged from comparison. The opacified pulmonary arteries unremarkable. No mediastinal adenopathy or hematoma. No pneumothorax, pleural effusion or overt pulmonary edema. There is minimal bibasilar subsegmental atelectasis. There are no suspicious pulmonary nodules or masses identified. Small right Bochdalek hernia. No pulmonary contusion. Central airways appear patent. Mild wall thickening of the distal esophagus with small hiatal hernia. There are a few cystic foci of the right hepatic lobe redemonstrated measuring up to 3.2 cm. Mild right hemidiaphragmatic elevation. Soft tissues are within normal limits. Degenerative changes of the shoulders and spine. No acute fracture identified. IMPRESSION: 1. No acute intrathoracic abnormality. 2. No acute fracture or pneumothorax. 3. 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 4. Additional findings as above. Electronically signed by: Jun Carmichael M.D. 02/10/2019 11:[address] SCAN OF THE ABDOMEN AND PELVIS WITH IV CONTRAST CLINICAL HISTORY: Trauma. Fall. COMPARISON STUDY: Abdominal CT dated 07/05/2017. TECHNIQUE: Following the IV administration of 93 cc of Optiray 320, CT scan of the abdomen and pelvis is performed from the lung bases to the proximal femora. Images are reviewed in the axial, sagittal, and coronal planes. IV contrast was administered without complication. A dose lowering technique was utilized adhering to the principles of ALARA. The examination is degraded by streak artifact from the right arm which could not be elevated above the abdomen. FINDINGS: Lung bases: The heart is mildly enlarged and without pericardial effusion. The mitral annulus is densely calcified. There are also coronary artery calcifications. There is a fat-containing Bochdalek hernia at the right lung base. No airspace consolidation, pleural effusion, or pneumothorax is seen at either lung base. There is bibasilar scarring/atelectasis. There is mild aneurysmal dilatation of the distal descending thoracic aorta. This measures up to 4.2 cm in diameter. A small hiatal hernia is noted. Liver: The contrast-enhanced liver is normal in size, contour, and attenuation. There is no intrahepatic biliary ductal dilatation. The hepatic veins and portal veins are patent. There are 2 cysts in the right lobe which measure up to 3 cm. Gallbladder: Unremarkable. Spleen: Normal in size and attenuation. Pancreas: Unremarkable. Adrenal glands: Unremarkable. Kidneys: The contrast enhanced kidneys demonstrate cortical atrophy and are without hydronephrosis. The kidneys enhance symmetrically. There are small bilateral nonobstructing renal calculi which measure up to 4 mm. Abdominal vasculature: There is advanced atherosclerotic calcification of the abdominal aorta and iliac arteries. An infrarenal abdominal aneurysm measures up to 3.1 cm. There is mild aneurysmal dilatation of the left common iliac artery which measures up to 2.2 cm.1 Bowel: There is moderate colonic diverticulosis. There is wall thickening with pericolonic inflammation involving the proximal sigmoid colon consistent with acute diverticulitis. There is no evidence of abscess. No bowel obstruction is seen. The appendix is well-visualized and normal. Peritoneum: There is no intraperitoneal free air or abdominal ascites. There is a fat-containing umbilical hernia. Lymphadenopathy: None. Pelvic viscera: The bladder wall appears thickened and hyperemic. There is peric ystic inflammation. The uterus is surgically absent. No adnexal lesion is seen. Skeletal structures: The skeletal structures are osteopenic. No acute fracture is identified. No lytic or blastic lesions are seen. There is moderate to advanced lumbosacral spondylosis. Sclerotic degenerative change is noted in the sacroiliac joints. Advanced arthritic change is seen in the hips. IMPRESSION: 1. There is no evidence of solid organ injury in the abdomen or pelvis. 2. There is moderate colonic diverticulosis with evidence of mild acute sigmoid diverticulitis. No intraperitoneal free air or abscess is seen. 3. Findings suggest cystitis. Correlation with clinical findings and urinalysis would be required. 4. There is aneurysmal dilatation of the descending thoracic aorta, the infrarenal abdominal aortic, and the left common iliac artery. This is similar to previous. 5. Bilateral nephrolithiasis. 6. Additional findings as above. Electronically signed by: Dillon Perez M.D. 02/10/2019 11:11 AM ECG Data Attestation: I personally reviewed and interpreted this ECG as follows: Indication: + altered mental status and + weakness Rate (beats per minute): 106 Rhythm: + sinus tachycardia ECG ST segments: no ST depression and no ST elevation ECG Findings: + PVCs and + Other (QT-c 488, QRS 80) Blood Pressure Blood Pressure Findings: Elevated blood pressure Blood Pressure Disposition: further management by hospitalist CHELLE Narrative The patient is a pleasant 83-year-old woman who presents emergency department after having a fall of unknown downtime and unknown cause after she was noticed by her neighbors to not have gotten her mail for the past several days and was found on the ground with a broken coffee table sent to emergency department for evaluation per hpi. On arrival the patient is pleasantly confused but no acute distress, afebrile stable vital signs. The patient is moving all extremities equally. She does exhibit some mild lower abdominal discomfort without discrete tenderness. Pelvis is stable. She has mild erythema to the left lower leg thigh and hip but compartments are soft. EKG without overt acute ischemia. Chest x-ray negative for acute process. CT the head, C-spine, chest, abdomen pelvis were negative for traumatic findings. There was evidence of diverticulitis. WBC 11.8, nonspecific. H/H and platelets wnl. Creatinine 1.26 similar to prior values. Chemistry without acidosis. CPK of 1100. Troponin negative. UA pending. Patient was ordered for IV Unasyn for her diverticulitis. Given the patient's generalized weakness with mild rhabdomyolysis reasonable to admit this elderly patient for further management. Case was discussed with Dr. Montes, [facility] hospitalist, who evaluate the patient for admission. Impression & Plan Diverticulitis, Rhabdomyolysis, Syncope, CKD (chronic kidney disease) Discharge Plan Visit Data *Final* Discharge Date/Time: 02/10/19 14:30 Chief Complaint: Fall Stated Complaint: fall/ eval ED Provider: Basim Talbert Discharge Problem: Diverticulitis, Rhabdomyolysis, Syncope, CKD (chronic kidney disease) Patient Disposition: Admitted As Inpatient Discharge Instructions Interventions: ED Discharge Assessment Last Done: 02/10/19 14:30 Discharge Problem: Rhabdomyolysis Qualifiers: Rhabdomyolysis type: traumatic Encounter type: initial encounter Qualified Cod e(s): T79.6XXA - Traumatic ischemia of muscle, initial encounter Syncope Qualifiers: Syncope type: unspecified Qualified Code(s): R55 - Syncope and collapse The scribe's documentation has been prepared under my direction and personally reviewed by me in its entirety. I confirm that the note above accurately reflects all work, treatment, procedures, and medical decision making performed by me.
[2019-02-10] MEDS: HEPARIN SOD 5,000 UNIT/0.5 ML VIAL SQ SCH (21:06)
[2019-02-10] MEDS: NYSTATIN POWDER 15GM BTL EXT SCH (23:37)
[2019-02-11] MEDS: SODIUM CHLORIDE 0.9% 1000ML 1,000 ML IV SCH ×2 (05:01→12:21)
[2019-02-11 05:50] LABS: Basophils # (auto) 0.04 K/uL (0-0.2); Basophils % (auto) 0.5 %; Eosinophils # (auto) 0.37 K/uL (0-0.5); Eosinophils % (auto) 4.3 %; Hematocrit (blood only) 38.1 % (37-47); Hemoglobin 12.1 g/dL (12.0-16.0); Immature Granulocytes # (auto) 0.02 K/uL (0.00-0.02); Immature Granulocytes % (auto) 0.2 %; Lymphocytes # (auto) 1.26 K/uL (1.2-3.4); Lymphocytes % (auto) 14.7 %; Mean Corpuscular Hemoglobin 31.2 pg (25-34); Mean Corpuscular Hgb Conc 31.8 g/dL (32-36); Mean Corpuscular Volume 98.2 fL (80-100); Mean Platelet Volume 9.3 fL (7.4-10.4); Monocytes # (auto) 0.79 K/uL (0.11-0.59); Monocytes % (auto) 9.2 %; Neutrophils # (auto) 6.11 K/uL (1.4-6.5); Neutrophils % (auto) 71.1 %; Platelet Count 214 K/uL (130-400); RDW Coefficient of Variation 13.7 % (11.5-14.5); RDW Standard Deviation 49.1 fL (36.4-46.3); Red Blood Count 3.88 M/uL (4.2-5.4); White Blood Count 8.59 K/uL (4.8-10.8)
[2019-02-11 06:20] LABS: Calcium 8.1 mg/dl (8.5-10.1); Creatinine Clr Calc Pharmacy 37.4 ml/min; Est GFR (African American) 50.6; Est GFR (Non-African American) 43.7; Potassium 3.5 mmol/L (3.5-5.1)
[2019-02-11] MEDS: ACETAMINOPHEN SOLN 500 MG/15.62 ML UDP PO PRN ×2 (07:58→17:09)
[2019-02-11] MEDS: HEPARIN SOD 5,000 UNIT/0.5 ML VIAL SQ SCH ×2 (07:58→21:16)
[2019-02-11] MEDS: NYSTATIN POWDER 15GM BTL EXT SCH ×2 (07:59→21:16)
[2019-02-11] MEDS ORDERED: INFLUENZA ADMINISTRATION CHARGE ONE (08:00)
[2019-02-11] MEDS ORDERED: INFLUENZA VACCINE HIGH DOSE 65+ 0.5 ML SYR IM ONE (08:00)
[2019-02-11] MEDS ORDERED: AMPICILLIN/SULBACTAM CONSULT ACTIVE PRN (08:31)
[2019-02-11] MEDS: AMPICILLIN/SULBACTAM SOD 3,000 MG in 0.9 % SODIUM CHLORIDE 100 ML IV SCH ×3 (09:23→21:16)
--- NOTE | 2019-02-11 16:48 | Hospitalist Progress Note ---
Date of Service February 11, 2019 Assessment & Plan (1) Ambulatory dysfunction: Reports difficulty with ambulation secondary to leg weakness, back pain History of falls PT/OT (2) Fall: Denies any loss of consciousness No significant injury from the fall Imaging studies:No acute fractures Descending thoracic aortic aneurysm Infrarenal abdominal aortic aneurysm Left common iliac artery aneurysm No change when compared to prior imaging studies (3) Rhabdomyolysis: Traumatic rhabdomyolysis Secondary to fall and also due to prolonged immobilization CK: 1124>>[id number] Continue IV fluids Recheck CK levels in a.m. Hold Statin for now (4) Acute diverticulitis: CT of the abdomen and pelvis did show mild acute sigmoid diverticulitis and cystitis Continue Unasyn Day #2 Continue IV fluids Denies abdominal pain today Tolerating diet (5) JOSE ALEJANDRO (acute kidney injury): Creatinine has been up likely secondary to dehydration/Rhando Cr: 1.15 Continue IV fluids Monitor renal function (6) UTI (urinary tract infection): Possible urinary tract infection CT suggestive of possible cystitis Urine analysis/culture: Pending On Unasyn for acute diverticulitis Continue antibiotics for now H/O Overactive bladder On Tolterodine DVT Px: SQ Heparin CODE STATUS Full Code Disposition PT/OT prior to discharge Subjective Patient is seen and examined at bedside Reports chronic sinus pressure Admits to having increased urinary frequency No diarrhea today Denies any chest pain, shortness of breath, dizziness, nausea, abdominal pain, dysuria Offers no other complaints Review of Systems Review of Systems: All systems reviewed & are unremarkable except as noted in HPI & below Physical Exam Physical Exam: Physical Exam: Vitals signs as noted above General Appearance:Moderately built and nourished, no apparent distress Head: normocephalic, Atraumatic Eyes: normal inspection, EOMI Neck: supple, Trachea midline Respiratory/Chest: Normal breath sounds, CTA Cardiovascular: S1, S2, No murmur Abdomen/GI:Soft, Non tender, Bowel sounds present Extremities/Musculoskelatal:normal inspection, no edema Neurologic/Psych:AAOX3, grossly no focal neurological deficits Skin: normal color, warm Results & Data Vital Signs (Past 12 Hours) Vital Signs Temp Pulse Pulse Resp BP BP Pulse Ox 02/11/19 16:39 91 H 02/11/19 15:00 36.5 C 98 H 18 142/84 H 96 02/11/19 11:20 37.1 C 94 H 20 120/62 95 02/11/19 10:00 88 02/11/19 07:52 37.1 C 83 20 141/91 H 93 Laboratory Results Short CBC 02/11/19 Range/Units 05:37 WBC 8.59 (4.8-10.8) K/uL Hgb 12.1 D (12.0-16.0) g/dL Hct 38.1 (37-47) % Plt Count 214 (130-400) K/uL BMP 02/11/19 05:37 Sodium 142 Potassium 3.5 Chloride 114 H Carbon Dioxide 21 BUN 22 H Creatinine 1.15 Glucose 85 Calcium 8.1 L D Cardiac Enzymes 02/10/19 02/11/19 Range/Units 18:27 05:37 Total Creatine Kinase 854 H 565 H (26-192) U/L
[2019-02-11] MEDS: TRAMADOL HCL 50 MG TABLET PO PRN ×2 (18:43→23:48)
[2019-02-11] MEDS: TOLTERODINE TARTRATE 2 MG TAB PO SCH (21:21)
[2019-02-12] MEDS: AMPICILLIN/SULBACTAM SOD 3,000 MG in 0.9 % SODIUM CHLORIDE 100 ML IV SCH ×2 (03:31→08:22)
[2019-02-12 06:46] LABS: Hematocrit (blood only) 37.7 % (37-47); Mean Corpuscular Hemoglobin 31.4 pg (25-34); Mean Corpuscular Hgb Conc 31.8 g/dL (32-36); Mean Corpuscular Volume 98.7 fL (80-100); Mean Platelet Volume 9.3 fL (7.4-10.4); Platelet Count 205 K/uL (130-400); RDW Coefficient of Variation 13.8 % (11.5-14.5); RDW Standard Deviation 49.8 fL (36.4-46.3); Red Blood Count 3.82 M/uL (4.2-5.4); White Blood Count 6.01 K/uL (4.8-10.8)
[2019-02-12 07:17] LABS: BUN Creatinine Ratio 15.5 (10-20); Calcium 8.6 mg/dl (8.5-10.1); Creatinine Clr Calc Pharmacy 35.5 ml/min; Est GFR (African American) 47.6; Est GFR (Non-African American) 41.1; Magnesium 2.2 mg/dl (1.8-2.4); Potassium 3.7 mmol/L (3.5-5.1)
[2019-02-12] MEDS: TOLTERODINE TARTRATE 2 MG TAB PO SCH ×2 (08:11→20:25)
[2019-02-12] MEDS: ASPIRIN 81 MG CHEW PO SCH (08:11)
[2019-02-12] MEDS: HEPARIN SOD 5,000 UNIT/0.5 ML VIAL SQ SCH ×2 (08:11→20:25)
[2019-02-12] MEDS: NYSTATIN POWDER 15GM BTL EXT SCH ×2 (08:11→20:25)
[2019-02-12 10:22] LABS: Appearance Urine Clear (Clear); Bilirubin Urine Negative (Negative); Blood Urine Negative (Negative); Color Urine Yellow; Glucose Urine UA Negative (Negative); Ketones Urine Negative (Negative); Leukocyte Esterase Urine Negative (Negative); Nitrite Urine Negative (Negative); Protein Urine Negative (Negative); Urobilinogen Urine Negative (Negative)
[2019-02-12] MEDS: AMOXICILLIN/CLAVULANATE 875 MG TAB PO SCH (16:51)
--- NOTE | 2019-02-12 17:24 | Hospitalist Progress Note ---
Date of Service February 12, 2019 Assessment & Plan (1) Ambulatory dysfunction: Reports difficulty with ambulation secondary to leg weakness, back pain History of falls PT/OT Patient refuses rehab placement (2) Fall: Denies any loss of consciousness No significant injury from the fall Imaging studies:No acute fractures Descending thoracic aortic aneurysm Infrarenal abdominal aortic aneurysm Left common iliac artery aneurysm No change when compared to prior imaging studies (3) Rhabdomyolysis: Traumatic rhabdomyolysis Secondary to fall and also due to prolonged immobilization CK: 1124>>[id number]>>[id number] Received IV fluids Hold Statin for now (4) Acute diverticulitis: CT of the abdomen and pelvis did show mild acute sigmoid diverticulitis and cystitis Continue Unasyn Day #2>> transition to Augmentin Day #1 IV fluids discontinued Tolerating diet (5) JOSE ALEJANDRO (acute kidney injury): Creatinine has been up likely secondary to dehydration/Rhando Cr levels improved with IV fluids Monitor renal function (6) UTI (urinary tract infection): Urinary tract infection ruled out CT suggestive of possible cystitis Urine analysis: Not suggestive of UTI On Unasyn for acute diverticulitis H/O Overactive bladder On Tolterodine DVT Px: SQ Heparin CODE STATUS Full Code Disposition PT/OT: Patient refuses Rehab placement Case management on board Subjective Patient is seen and examined at bedside States feeling better today Continues to refuse rehab placement CK levels improved Denies any chest pain, shortness of breath, dizziness, nausea, abdominal pain, dysuria New new complaints Review of Systems Review of Systems: All systems reviewed & are unremarkable except as noted in HPI & below Physical Exam Physical Exam: Physical Exam: Vitals signs as noted above General Appearance:Moderately built and nourished, no apparent distress Head: normocephalic, Atraumatic Eyes: normal inspection, EOMI Neck: supple, Trachea midline Respiratory/Chest: Normal breath sounds, CTA Cardiovascular: S1, S2, No murmur Abdomen/GI:Soft, Non tender, Bowel sounds present Extremities/Musculoskelatal:normal inspection, no edema Neurologic/Psych:AAOX3, grossly no focal neurological deficits Skin: normal color, warm Results & Data Vital Signs (Past 12 Hours) Vital Signs Temp Pulse Pulse Resp BP BP Pulse Ox 02/12/19 15:54 37.0 C 100 H 18 147/93 H 97 02/12/19 15:37 95 H 02/12/19 15:08 37.1 C 96 H 18 147/88 H 94 02/12/19 11:58 37.2 C 89 18 147/94 H 96 02/12/19 08:20 89 02/12/19 07:51 37.0 C 72 18 149/90 H 95 Laboratory Results Short CBC 02/12/19 Range/Units 06:19 WBC 6.01 (4.8-10.8) K/uL Hgb 12.0 (12.0-16.0) g/dL Hct 37.7 (37-47) % Plt Count 205 (130-400) K/uL BMP 02/12/19 06:19 Sodium 145 Potassium 3.7 Chloride 116 H Carbon Dioxide 23 BUN 19 H Creatinine 1.21 H Glucose 85 Calcium 8.6 Cardiac Enzymes 02/12/19 Range/Units 06:19 Total Creatine Kinase 286 H (26-192) U/L Urine 02/12/19 Range/Units 09:00 Urine Color Yellow Urine Appearance Clear (Clear) Urine pH 5.0 (4.5-7.5) Ur Specific [place] 1.020 (1.000-1.030) Urine Protein Negative (Negative) Urine Glucose (UA) Negative (Negative)
[2019-02-12] MEDS: TRAMADOL HCL 50 MG TABLET PO PRN (19:23)
[2019-02-13 07:15] LABS: BUN Creatinine Ratio 14.3 (10-20); Calcium 8.8 mg/dl (8.5-10.1); Creatinine Clr Calc Pharmacy 42.6 ml/min; Est GFR (African American) 59.2; Est GFR (Non-African American) 51.1; Potassium 3.9 mmol/L (3.5-5.1)
[2019-02-13] MEDS: TOLTERODINE TARTRATE 2 MG TAB PO SCH ×2 (07:53→20:34)
[2019-02-13] MEDS: ASPIRIN 81 MG CHEW PO SCH (07:53)
[2019-02-13] MEDS: AMOXICILLIN/CLAVULANATE 875 MG TAB PO SCH ×2 (07:54→17:12)
[2019-02-13] MEDS: HEPARIN SOD 5,000 UNIT/0.5 ML VIAL SQ SCH ×2 (07:54→20:34)
[2019-02-13] MEDS: NYSTATIN POWDER 15GM BTL EXT SCH ×2 (07:54→20:35)
--- NOTE | 2019-02-13 16:44 | Hospitalist Progress Note ---
Date of Service February 13, 2019 Assessment & Plan (1) Ambulatory dysfunction: Reports difficulty with ambulation secondary to leg weakness, back pain History of falls Continue PT/OT Patient continues to refuse rehab placement (2) Fall: Denies any loss of consciousness No significant injury from the fall Imaging studies:No acute fractures Descending thoracic aortic aneurysm Infrarenal abdominal aortic aneurysm Left common iliac artery aneurysm No change when compared to prior imaging studies (3) Rhabdomyolysis: Traumatic rhabdomyolysis Secondary to fall and also due to prolonged immobilization CK: 1124>>[id number]>>[id number] Received IV fluids Hold Statin for now (4) Acute diverticulitis: CT of the abdomen and pelvis did show mild acute sigmoid diverticulitis and cystitis Continue Unasyn Day #2>> transition to Augmentin Day #2 IV fluids discontinued Tolerating diet (5) JOSE ALEJANDRO (acute kidney injury): Creatinine has been up likely secondary to dehydration/Rhando Cr levels improved with IV fluids Monitor renal function (6) UTI (urinary tract infection): Urinary tract infection ruled out CT suggestive of possible cystitis Urine analysis: Not suggestive of UTI On Unasyn for acute diverticulitis H/O Overactive bladder On Tolterodine DVT Px: SQ Heparin CODE STATUS Full Code Disposition PT/OT: Patient refuses Rehab placement Case management on board Subjective Patient is seen and examined at bedside No new complaints Continues to refuse rehab placement adamantly Denies any chest pain, shortness of breath, dizziness, nausea, abdominal pain, dysuria Tolerates diet Review of Systems Review of Systems: All systems reviewed & are unremarkable except as noted in HPI & below Physical Exam Physical Exam: Physical Exam: Vitals signs as noted above General Appearance:Moderately built and nourished, no apparent distress Head: normocephalic, Atraumatic Eyes: normal inspection, EOMI Neck: supple, Trachea midline Respiratory/Chest: Normal breath sounds, CTA Cardiovascular: S1, S2, No murmur Abdomen/GI:Soft, Non tender, Bowel sounds present Extremities/Musculoskelatal:normal inspection, no edema Neurologic/Psych:AAOX3, grossly no focal neurological deficits Skin: normal color, warm Results & Data Vital Signs (Past 12 Hours) Vital Signs Temp Pulse Pulse Resp BP BP Pulse Ox 02/13/19 15:17 36.8 C 88 18 144/89 H 96 02/13/19 13:54 106 H 02/13/19 11:29 36.8 C 101 H 16 120/73 94 02/13/19 07:25 37.0 C 88 16 138/85 94 Laboratory Results [facility] 02/13/19 06:18 Sodium 141 Potassium 3.9 Chloride 112 H Carbon Dioxide 24 BUN 14 Creatinine 1.01 Glucose 90 Calcium 8.8
[2019-02-14] MEDS: TRAMADOL HCL 50 MG TABLET PO PRN ×3 (01:16→17:11)
[2019-02-14] MEDS: HEPARIN SOD 5,000 UNIT/0.5 ML VIAL SQ SCH ×2 (07:45→20:21)
[2019-02-14] MEDS: TOLTERODINE TARTRATE 2 MG TAB PO SCH ×2 (07:45→20:21)
[2019-02-14] MEDS: AMOXICILLIN/CLAVULANATE 875 MG TAB PO SCH ×2 (07:45→17:11)
[2019-02-14] MEDS: NYSTATIN POWDER 15GM BTL EXT SCH ×2 (07:46→20:21)
[2019-02-14] MEDS: ASPIRIN 81 MG CHEW PO SCH (07:47)
--- NOTE | 2019-02-14 17:16 | Hospitalist Progress Note ---
Date of Service February 14, 2019 Assessment & Plan (1) Ambulatory dysfunction: Reports difficulty with ambulation secondary to leg weakness, back pain History of falls Continue PT/OT: Patient is not safe to return home at this time. Needs acute rehab placement Patient continues to refuse rehab placement (2) Fall: Denies any loss of consciousness No significant injury from the fall Imaging studies:No acute fractures Descending thoracic aortic aneurysm Infrarenal abdominal aortic aneurysm Left common iliac artery aneurysm No change when compared to prior imaging studies (3) Rhabdomyolysis: Traumatic rhabdomyolysis Secondary to fall and also due to prolonged immobilization CK: 1124>>[id number]>>[id number] Received IV fluids Hold Statin for now (4) Acute diverticulitis: CT of the abdomen and pelvis did show mild acute sigmoid diverticulitis and cystitis Continue Unasyn Day #2>> transition to Augmentin Day #3 IV fluids discontinued Tolerating regular diet (5) JOSE ALEJANDRO (acute kidney injury): Creatinine has been up likely secondary to dehydration/Rhando Cr levels improved with IV fluids Monitor renal function (6) UTI (urinary tract infection): Urinary tract infection ruled out CT suggestive of possible cystitis Urine analysis: Not suggestive of UTI H/O Overactive bladder On Tolterodine DVT Px: SQ Heparin CODE STATUS Full Code Disposition PT/OT: Patient refuses Rehab placement and is unsafe to be discharged home Continue inpatient rehab Case management on board Subjective Patient is seen and examined at bedside Clinically no significant change from yesterday Unsafe to be discharged home, needs rehab placement Patient continues to refuse rehab placement Denies any chest pain, shortness of breath, dizziness, nausea, abdominal pain, dysuria Review of Systems Review of Systems: All systems reviewed & are unremarkable except as noted in HPI & below Physical Exam 2 Physical Exam: Physical Exam: Vitals signs as noted above General Appearance:Moderately built and nourished, no apparent distress Head: normocephalic, Atraumatic Eyes: normal inspection, EOMI Neck: supple, Trachea midline Respiratory/Chest: Normal breath sounds, CTA Cardiovascular: S1, S2, No murmur Abdomen/GI:Soft, Non tender, Bowel sounds present Extremities/Musculoskelatal:normal inspection, no edema Neurologic/Psych:AAOX3, grossly no focal neurological deficits Skin: normal color, warm Results & Data Vital Signs (Past 12 Hours) Vital Signs Temp Pulse Pulse Resp BP BP Pulse Ox 11/23/19 16:17 37.2 C 88 18 118/71 93 02/14/19 15:00 93 H 02/14/19 11:32 37.0 C 93 H 18 137/76 92 02/14/19 08:29 37.4 C 77 18 134/77 93 02/14/19 08:00 77 02/14/19 07:44 86 148/93 H
[2019-02-15] MEDS: TOLTERODINE TARTRATE 2 MG TAB PO SCH ×2 (07:49→20:19)
[2019-02-15] MEDS: TRAMADOL HCL 50 MG TABLET PO PRN ×2 (07:49→17:04)
[2019-02-15] MEDS: NYSTATIN POWDER 15GM BTL EXT SCH ×2 (07:49→20:20)
[2019-02-15] MEDS: HEPARIN SOD 5,000 UNIT/0.5 ML VIAL SQ SCH ×2 (07:49→20:20)
[2019-02-15] MEDS: AMOXICILLIN/CLAVULANATE 875 MG TAB PO SCH ×2 (07:49→16:56)
[2019-02-15] MEDS: ASPIRIN 81 MG CHEW PO SCH (07:50)
--- NOTE | 2019-02-15 18:15 | Hospitalist Progress Note ---
Date of Service February 15, 2019 Assessment & Plan (1) Ambulatory dysfunction: Reports difficulty with ambulation secondary to leg weakness, back pain History of falls Continue PT/OT while inpatient Not safe to be discharged home--lives alone Continues to refuse rehab placement (2) Fall: Denies any loss of consciousness No significant injury from the fall Imaging studies:No acute fractures Descending thoracic aortic aneurysm Infrarenal abdominal aortic aneurysm Left common iliac artery aneurysm No change when compared to prior imaging studies (3) Rhabdomyolysis: Traumatic rhabdomyolysis Secondary to fall and also due to prolonged immobilization CK: 1124>>[id number]>>[id number] Received IV fluids Resume Statin (4) Acute diverticulitis: CT of the abdomen and pelvis did show mild acute sigmoid diverticulitis and cystitis Continue Unasyn Day #2>> transition to Augmentin Day #4/5 IV fluids discontinued Tolerating regular diet (5) JOSE ALEJANDRO (acute kidney injury): Creatinine has been up likely secondary to dehydration/Rhando Resolved Monitor renal function (6) UTI (urinary tract infection): Urinary tract infection ruled out CT suggestive of possible cystitis Urine analysis: Not suggestive of UTI H/O Overactive bladder On Tolterodine DVT Px: SQ Heparin CODE STATUS Full Code Disposition PT/OT: Patient refuses Rehab placement and is unsafe to be discharged home Continue inpatient rehab Case management on board Subjective Patient is seen and examined at bedside States having mild back discomfort secondary to fall Subjectively feels getting stronger each day Continues to refuse rehab placement Denies any chest pain, shortness of breath, dizziness, nausea, abdominal pain, dysuria Offers no other complaints Review of Systems Review of Systems: All systems reviewed & are unremarkable except as noted in HPI & below Physical Exam Physical Exam: Physical Exam: Vitals signs as noted above General Appearance:Moderately built and nourished, no apparent distress Head: normocephalic, Atraumatic Eyes: normal inspection, EOMI Neck: supple, Trachea midline Respiratory/Chest: Normal breath sounds, CTA Cardiovascular: S1, S2, No murmur Abdomen/GI:Soft, Non tender, Bowel sounds present Extremities/Musculoskelatal:normal inspection, no edema Neurologic/Psych:AAOX3, grossly no focal neurological deficits Skin: normal color, warm Results & Data Vital Signs (Past 12 Hours) Vital Signs Temp Pulse Pulse Resp BP BP Pulse Ox 02/15/19 15:33 37.1 C 92 H 18 124/84 94 02/15/19 11:34 36.8 C 94 H 18 109/72 93 02/15/19 08:00 84 02/15/19 07:35 36.9 C 71 20 138/84 93
[2019-02-16] MEDS: ATORVASTATIN 20 MG TAB PO SCH (07:57)
[2019-02-16] MEDS: TOLTERODINE TARTRATE 2 MG TAB PO SCH ×2 (07:57→20:03)
[2019-02-16] MEDS: AMOXICILLIN/CLAVULANATE 875 MG TAB PO SCH ×2 (07:57→16:30)
[2019-02-16] MEDS: ASPIRIN 81 MG CHEW PO SCH (09:18)
[2019-02-16] MEDS: HEPARIN SOD 5,000 UNIT/0.5 ML VIAL SQ SCH ×2 (09:18→20:03)
[2019-02-16] MEDS: NYSTATIN POWDER 15GM BTL EXT SCH ×2 (09:18→20:09)
--- NOTE | 2019-02-16 17:31 | Hospitalist Progress Note ---
Date of Service February 16, 2019 Assessment & Plan (1) Ambulatory dysfunction: Reports difficulty with ambulation secondary to leg weakness, back pain History of falls Not safe to be discharged home--lives alone Continues to refuse rehab placement Continue PT/OT (2) Fall: Denies any loss of consciousness No significant injury from the fall Imaging studies:No acute fractures Descending thoracic aortic aneurysm Infrarenal abdominal aortic aneurysm Left common iliac artery aneurysm No change when compared to prior imaging studies (3) Rhabdomyolysis: Traumatic rhabdomyolysis Secondary to fall and also due to prolonged immobilization CK: 1124>>[id number]>>286 Received IV fluids Resumed Statin (4) Acute diverticulitis: CT of the abdomen and pelvis did show mild acute sigmoid diverticulitis and cystitis Continue Unasyn Day #2>> transition to Augmentin Day #5/5 IV fluids discontinued Tolerating regular diet (5) JOSE ALEJANDRO (acute kidney injury): Creatinine has been up likely secondary to dehydration/Rhando Resolved Monitor renal function (6) UTI (urinary tract infection): Urinary tract infection ruled out CT suggestive of possible cystitis Urine analysis: Not suggestive of UTI H/O Overactive bladder On Tolterodine DVT Px: SQ Heparin CODE STATUS Full Code Disposition Refuses Rehab placement and is unsafe to be discharged home Case management following Subjective Patient is seen and examined at bedside Had PT earlier today No new complaints Subjectively feels that she is getting stronger Continues to refuse rehab placement Denies any chest pain, SOB, dizziness, nausea, abdominal pain, dysuria Review of Systems Review of Systems: All systems reviewed & are unremarkable except as noted in HPI & below Physical Exam Physical Exam: Physical Exam: Vitals signs as noted above General Appearance:Moderately built and nourished, no apparent distress Head: normocephalic, Atraumatic Eyes: normal inspection, EOMI Neck: supple, Trachea midline Respiratory/Chest: Normal breath sounds, CTA Cardiovascular: S1, S2, No murmur Abdomen/GI:Soft, Non tender, Bowel sounds present Extremities/Musculoskelatal:normal inspection, no edema Neurologic/Psych:AAOX3, grossly no focal neurological deficits Skin: normal color, warm Results & Data Vital Signs (Past 12 Hours) Vital Signs Temp Pulse Pulse Resp BP Pulse Ox 02/16/19 15:54 87 02/16/19 15:31 36.8 C 107 H 20 138/82 96 02/16/19 11:46 37.2 C 88 18 120/77 94 02/16/19 08:00 91 H 02/16/19 07:13 36.9 C 87 20 123/75 91
[2019-02-17] MEDS: HEPARIN SOD 5,000 UNIT/0.5 ML VIAL SQ SCH ×2 (07:47→20:14)
[2019-02-17] MEDS: TOLTERODINE TARTRATE 2 MG TAB PO SCH ×2 (07:47→20:14)
[2019-02-17] MEDS: NYSTATIN POWDER 15GM BTL EXT SCH ×2 (07:47→20:14)
[2019-02-17] MEDS: ASPIRIN 81 MG CHEW PO SCH (07:47)
[2019-02-17] MEDS: ATORVASTATIN 20 MG TAB PO SCH (07:47)
[2019-02-17] MEDS: ACETAMINOPHEN 500 MG TAB PO PRN (07:52)
[2019-02-17] MEDS: TRAMADOL HCL 50 MG TABLET PO PRN (10:50)
--- NOTE | 2019-02-17 18:24 | Hospitalist Progress Note ---
Date of Service February 17, 2019 Assessment & Plan (1) Ambulatory dysfunction: Reports difficulty with ambulation secondary to leg weakness, back pain History of falls Not safe to be discharged home--lives alone Continues to refuse rehab placement adamantly Continue PT/OT while hospitalized (2) Fall: Denies any loss of consciousness No significant injury from the fall Imaging studies:No acute fractures Descending thoracic aortic aneurysm Infrarenal abdominal aortic aneurysm Left common iliac artery aneurysm No change when compared to prior imaging studies (3) Rhabdomyolysis: Traumatic rhabdomyolysis Secondary to fall and also due to prolonged immobilization CK: 1124>>[id number]>>[id number] Received IV fluids Resumed Statin (4) Acute diverticulitis: CT of the abdomen and pelvis did show mild acute sigmoid diverticulitis and cystitis Continue Unasyn Day #2>> transition to Augmentin Day #5/5 IV fluids discontinued Tolerating regular diet No acute issues (5) JOSE ALEJANDRO (acute kidney injury): Creatinine has been up likely secondary to dehydration/Rhando Resolved Monitor renal function (6) UTI (urinary tract infection): Urinary tract infection ruled out CT suggestive of possible cystitis Urine analysis: Not suggestive of UTI H/O Overactive bladder On Tolterodine DVT Px: SQ Heparin CODE STATUS Full Code Disposition Refuses Rehab placement and is unsafe to be discharged home Case management following Subjective Patient is seen and examined at bedside Had mild headache earlier today Offers no other complaints Refuses to be sent to rehab facility adamantly Unsafe to be discharged home Denies any chest pain, SOB, dizziness, nausea, abdominal pain, dysuria Review of Systems Review of Systems: All systems reviewed & are unremarkable except as noted in HPI & below Physical Exam Physical Exam: Physical Exam: Vitals signs as noted above General Appearance:Moderately built and nourished, no apparent distress Head: normocephalic, Atraumatic Eyes: normal inspection, EOMI Neck: supple, Trachea midline Respiratory/Chest: Normal breath sounds, CTA Cardiovascular: S1, S2, No murmur Abdomen/GI:Soft, Non tender, Bowel sounds present Extremities/Musculoskelatal:normal inspection, no edema Neurologic/Psych:AAOX3, grossly no focal neurological deficits Skin: normal color, warm Results & Data Vital Signs (Past 12 Hours) Vital Signs Temp Pulse Pulse Resp BP BP Pulse Ox 02/17/19 18:18 88 02/17/19 15:00 36.9 C 85 18 133/78 96 02/17/19 07:38 36.9 C 86 18 151/89 H 94 02/17/19 07:17 83
[2019-02-18] MEDS: ATORVASTATIN 20 MG TAB PO SCH (07:28)
[2019-02-18] MEDS: ACETAMINOPHEN 500 MG TAB PO PRN (07:28)
[2019-02-18] MEDS: ASPIRIN 81 MG CHEW PO SCH (07:28)
[2019-02-18] MEDS: NYSTATIN POWDER 15GM BTL EXT SCH ×2 (07:28→20:57)
[2019-02-18] MEDS: TOLTERODINE TARTRATE 2 MG TAB PO SCH ×2 (07:29→20:57)
[2019-02-18] MEDS: HEPARIN SOD 5,000 UNIT/0.5 ML VIAL SQ SCH ×2 (07:29→20:57)
[2019-02-18 08:32] LABS: Basophils # (auto) 0.04 K/uL (0-0.2); Basophils % (auto) 0.5 %; Eosinophils # (auto) 0.43 K/uL (0-0.5); Eosinophils % (auto) 5.2 %; Hematocrit (blood only) 41.3 % (37-47); Hemoglobin 13.4 g/dL (12.0-16.0); Immature Granulocytes # (auto) 0.03 K/uL (0.00-0.02); Immature Granulocytes % (auto) 0.4 %; Lymphocytes # (auto) 1.61 K/uL (1.2-3.4); Lymphocytes % (auto) 19.5 %; Mean Corpuscular Hemoglobin 32.1 pg (25-34); Mean Platelet Volume 9.1 fL (7.4-10.4); Monocytes # (auto) 0.74 K/uL (0.11-0.59); Monocytes % (auto) 8.9 %; Neutrophils # (auto) 5.42 K/uL (1.4-6.5); Neutrophils % (auto) 65.5 %; Platelet Count 264 K/uL (130-400); RDW Coefficient of Variation 13.7 % (11.5-14.5); RDW Standard Deviation 48.9 fL (36.4-46.3); Red Blood Count 4.17 M/uL (4.2-5.4); White Blood Count 8.27 K/uL (4.8-10.8)
[2019-02-18 08:48] LABS: Albumin Level 3.1 gm/dl (3.4-5.0); BUN Creatinine Ratio 14.5 (10-20); Calcium 9.5 mg/dl (8.5-10.1); Creatinine Clr Calc Pharmacy 37.9 ml/min; Est GFR (African American) 52.8; Est GFR (Non-African American) 45.6; Magnesium 2.2 mg/dl (1.8-2.4); Potassium 4.1 mmol/L (3.5-5.1)
[2019-02-18 08:51] LABS: Albumin Globulin Ratio 0.7 (0.9-2); Bilirubin,Total 0.4 mg/dl (0.2-1); Globulin 4.2 gm/dl (2.5-4.0); Total Protein 7.3 gm/dl (6.4-8.2)
[2019-02-18 08:55] LABS: Mean Corpuscular Hgb Conc 32.4 g/dL (32-36)
--- NOTE | 2019-02-18 17:14 | Hospitalist Progress Note ---
Date of Service February 18, 2019 Assessment & Plan (1) Ambulatory dysfunction: (2) Fall: -patient was admitted on 02/10/19 after being found to have fallen on the floor in her home -patient does not have any acute fractures and her main medical problems have rhabdomyolysis and acute kidney injury and acute diverticulitis has been treated -However with on going physical and occupational therapists, patient is deemed to be a high fall risk and would benefit from shelter facility -[facility] has been working with her out of state adult children and patient to try to coordinate a disposition for patient to go to a physical therapy center or SNF after hospital stay -however patient has repeated declined to go anywhere else after hospital stay except to her home -as of 02/18/19, patient appears to have medical decision making capacity -patient may be transferred from telemetry [facility] on 02/18/19 to medical al[facility] -will re-engage with [facility] [employer] [facility] and patient on 02/19/19 about hospital disposition (3) Rhabdomyolysis: -Traumatic rhabdomyolysis -Secondary to fall and also due to prolonged immobilization -CK: 1124>>[id number]>>[id number] on this admission -Statin can be continued as creatinine kinase normalized on this admission (4) Acute diverticulitis: -admission CT of the abdomen and pelvis did show mild acute sigmoid diverticulitis and cystitis -patient completed 2 days of Unasyn and then 5 more days of antibiotics as Augmentin -is off antibiotics at this time (5) JOSE ALEJANDRO (acute kidney injury): -pre-renal cause of acute kidney injury from dehydration and rhabdomyolysis -renal function has returned to baseline -patient continues to have diarrhea -give low dose Iv fluids (6) UTI (urinary tract infection): -Urinary tract infection ruled out CT suggestive of possible cystitis Urine analysis: Not suggestive of UTI History of Overactive bladder -continue Tolterodine Descending thoracic aortic aneurysm Infrarenal abdominal aortic aneurysm Left common iliac artery aneurysm -No change when compared to prior imaging studies DVT Px: SQ Heparin CODE STATUS Full Code Subjective Patient seen and examined at bedside. Patient's friend also at bedside. Patient give medical doctor permission to discuss her health with the friend in the room. Patient is adamant against going to a physical therapy center after hospital stay. She appears to have medical decision making capacity. Patient reports some diarrhea still. No fever off antibiotics. No acute telemetry events. Patient agrees to low volume IV fluids to prevent dehydration. Patient understands the medical doctor explaining previous discussions about physical rehabilitation options. Medical doctor understands patient's wish to return home after hospital stay Review of Systems Review of Systems: All systems reviewed & are unremarkable except as noted in HPI & below Physical Exam Constitutional: comfortable Eyes: PERRL, conjunctivae normal, anicteric sclerae EOM intact bilaterally ENMT: external ear and nose normal, oropharynx normal Neck: normal visual inspection Respiratory: normal respiratory effort, lungs clear to auscultation Cardiovascular: RRR, no murmur, no edema Gastrointestinal (Abdomen): normal bowel sounds, soft, nontender, no hepatosplenomegaly Musculoskeletal: Head/Neck/Chest: normocephalic and head atraumatic right hand IV had infiltrated Neurologic: PERRL, EOMI, accommodation nl, no face palsy, no dysarthria CN's II-XI intact bilaterally Psychiatric: Orientation: alert Results & Data Vital Signs (Past 12 Hours) Vital Signs Temp Pulse Pulse Resp BP BP Pulse Ox 02/18/19 15:13 36.7 C 77 20 132/73 94 02/18/19 11:04 36.7 C 96 H 20 119/84 92 02/18/19 09:27 83 02/18/19 07:17 36.9 C 80 20 144/85 H 93
[2019-02-18] MEDS ORDERED: SODIUM CHLORIDE 0.9% 1000ML 1,000 ML IV SCH (17:30)
[2019-02-19] MEDS: TRAMADOL HCL 50 MG TABLET PO PRN ×2 (02:38→14:12)
[2019-02-19] MEDS: HEPARIN SOD 5,000 UNIT/0.5 ML VIAL SQ SCH ×2 (08:05→21:06)
[2019-02-19] MEDS: NYSTATIN POWDER 15GM BTL EXT SCH ×2 (08:05→21:07)
[2019-02-19] MEDS: ATORVASTATIN 20 MG TAB PO SCH (08:06)
[2019-02-19] MEDS: TOLTERODINE TARTRATE 2 MG TAB PO SCH ×2 (08:06→21:08)
[2019-02-19] MEDS: ASPIRIN 81 MG CHEW PO SCH (08:06)
[2019-02-19 08:07] LABS: BUN Creatinine Ratio 16.7 (10-20); Calcium 8.9 mg/dl (8.5-10.1); Creatinine Clr Calc Pharmacy 41.7 ml/min; Est GFR (African American) 59.2; Est GFR (Non-African American) 51.1; Potassium 3.8 mmol/L (3.5-5.1)
[2019-02-19] MEDS ORDERED: KETOROLAC TROMETHAMINE 15 MG/ML VIAL IV PRN (10:09)
[2019-02-19] MEDS ORDERED: ACETAMINOPHEN 325 MG TAB PO PRN (10:09)
--- NOTE | 2019-02-19 11:32 | XRay Report ---
XR hand RT min 3V routine CLINICAL HISTORY: 83 years-old Female presenting with right hand swelling. rule out fracture or gout. TECHNIQUE: Frontal, oblique, and lateral views of the right hand were obtained. COMPARISON: None. FINDINGS: Osteopenia. Erosion of the radial aspect of the second metacarpal head suspected. An overhanging oste ophyte at this site may be present. Degenerative changes at several proximal and distal interphalange al joints most severely affecting the second and fifth fingers. Degenerative changes at the trapezium -first metacarpal articulation with osteophytosis, subchondral sclerosis, and subchondral cystic hardy ge. No acute fracture or malalignment. Diffuse soft tissue swelling predominantly along the dorsum of the hand. IMPRESSION: 1. Osseous erosion suspected at the second metacarpal. The deformity is not characteristic of a frac ture. Findings could suggest involvement of gout versus calcium pyrophosphate hydrate deposition dise ase. The appearance is not characteristic for osteoarthrosis. 2. 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 3. Osteopenia. 4. Allowing for osteopenia, no acute osseous injury. Electronically signed by: Aubrey Berger M.D. 02/19/2019 11:30 AM
--- NOTE | 2019-02-19 14:06 | Hospitalist Progress Note ---
Date of Service February 19, 2019 Assessment & Plan (1) Ambulatory dysfunction: Reports difficulty with ambulation secondary to leg weakness, back pain History of falls Not safe to be discharged home--lives alone Continues to refuse rehab placement adamantly Continue PT/OT while hospitalized (2) Fall: -patient was admitted on 02/10/19 after being found to have fallen on the floor in her home -patient does not have any acute fractures and her main medical problems have rhabdomyolysis and acute kidney injury and acute diverticulitis has been treated -However with on going physical and occupational therapists, patient is deemed to be a high fall risk and would benefit from senior care facility -human services case manager has been working with her out of state adult children and patient to try to coordinate a disposition for patient to go to a physical therapy center or SNF after hospital stay -however patient has repeated declined to go anywhere else after hospital stay except to her home -as of 02/18/19, patient appears to have medical decision making capacity -patient may be transferred from telemetry [facility] on 02/18/19 to medical [facility] -will re-engage with human services case manager and patient on 02/19/19 about hospital disposition (3) Rhabdomyolysis: -Traumatic rhabdomyolysis -Secondary to fall and also due to prolonged immobilization -CK: 1124>>854>>565>>286 on this admission -Statin can be continued as creatinine kinase normalized on this admission (4) Acute diverticulitis: -admission CT of the abdomen and pelvis did show mild acute sigmoid diverticulitis and cystitis -patient completed 2 days of Unasyn and then 5 more days of antibiotics as Augmentin -is off antibiotics at this time (5) JOSE ALEJANDRO (acute kidney injury): -pre-renal cause of acute kidney injury from dehydration and rhabdomyolysis -renal function has returned to baseline -patient continues to have diarrhea -give low dose Iv fluids (6) UTI (urinary tract infection): -Urinary tract infection ruled out CT suggestive of possible cystitis Urine analysis: Not suggestive of UTI History of Overactive bladder -continue Tolterodine Descending thoracic aortic aneurysm Infrarenal abdominal aortic aneurysm Left common iliac artery aneurysm -No change when compared to prior imaging studies DVT Px: SQ Heparin CODE STATUS Full Code Subjective Patient is seen and examined at bedside Had mild headache earlier today Offers no other complaints Refuses to be sent to rehab facility adamantly Unsafe to be discharged home Denies any chest pain, SOB, dizziness, nausea, abdominal pain, dysuria Physical Exam Constitutional: comfortable Eyes: PERRL, conjunctivae normal, anicteric sclerae EOM intact bilaterally ENMT: external ear and nose normal, oropharynx normal Neck: normal visual inspection Respiratory: normal respiratory effort, lungs clear to auscultation Cardiovascular: RRR, no murmur, no edema Gastrointestinal (Abdomen): normal bowel sounds, soft, nontender, no hepatosplenomegaly Musculoskeletal: Head/Neck/Chest: normocephalic and head atraumatic right hand swelling Neurologic: PERRL, EOMI, accommodation nl, no face palsy, no dysarthria CN's II-XI intact bilaterally Psychiatric: Orientation: alert Results & Data Vital Signs (Past 12 Hours) Vital Signs Temp Pulse Resp BP BP Pulse Ox 02/19/19 08:07 36.8 C 82 20 129/80 93 02/19/19 07:00 36.8 C 82 20 129/80 93
--- NOTE | 2019-02-19 14:11 | Hospitalist Progress Note ---
Date of Service February 19, 2019 Assessment & Plan (1) Ambulatory dysfunction: Reports difficulty with ambulation secondary to leg weakness, back pain History of falls Not safe to be discharged home--lives alone Continues to refuse rehab placement adamantly Continue PT/OT while hospitalized (2) Fall: -patient was admitted on 02/10/19 after being found to have fallen on the floor in her home -patient does not have any acute fractures and her main medical problems have rhabdomyolysis and acute kidney injury and acute diverticulitis has been treated -However with on going physical and occupational therapists, patient is deemed to be a high fall risk and would benefit from snf facility -case reviewer has been working with her out of state adult children and patient to try to coordinate a disposition for patient to go to a physical therapy center or SNF after hospital stay -however patient has repeated declined to go anywhere else after hospital stay except to her home -as of 02/18/19 and ongoing, patient appears to have medical decision making capacity -telemetry discontinued on 02/18/19 -02/19/19: Patient was instructed to call people such as her friends or caregivers as she is medically stable but she has insisted in the past against hospital discharge to physical rehabilitation or snf facility. However patient reports that she cannot find anyone available today. (3) Rhabdomyolysis: -Traumatic rhabdomyolysis -Secondary to fall and also due to prolonged immobilization -CK: 1124>>854>>565>>286>>29 on this admission (4) Acute diverticulitis: -admission CT of the abdomen and pelvis did show mild acute sigmoid diverticulitis and cystitis -patient completed 2 days of Unasyn and then 5 more days of antibiotics as Augmentin -is off antibiotics at this time (5) JOSE ALEJANDRO (acute kidney injury): -pre-renal cause of acute kidney injury from dehydration and rhabdomyolysis -renal function has returned to baseline and diarrhea appears improved (6) UTI (urinary tract infection): -Urinary tract infection ruled out CT suggestive of possible cystitis Urine analysis: Not suggestive of UTI History of Overactive bladder -continue Tolterodine Right hand swelling -right hand X ray 02/19/19 1. Osseous erosion suspected at the second metacarpal. The deformity is not characteristic of a fracture. Findings could suggest involvement of gout versus calcium pyrophosphate hydrate deposition disease. The appearance is not characteristic for osteoarthrosis. 2. Degenerative changes characteristic of osteoarthrosis at the first CMC joint and several interphalangeal joints most prominently involving the second and fifth fingers. 3. Osteopenia. 4. Allowing for osteopenia, no acute osseous injury. -normal uric acid -unclear whether the hand swelling is from gout versus right hand IV infiltration -treat with prn pain medications of acetaminophen, prn Toradaol for moderate pain, prn tramadol for severe pain Descending thoracic aortic aneurysm Infrarenal abdominal aortic aneurysm Left common iliac artery aneurysm -No change when compared to prior imaging studies DVT Px: SQ Heparin CODE STATUS Full Code Subjective Patient has complaints of right hand pain. There is Diffuse soft tissue swelling predominantly along the dorsum of the hand which appears to be somewhat increased in swelling from 02/18/19. Patient had right hand X ray without evidence fo fracture. Patient instructed on how to ask for pain medication if needed. Patient breathing on room air. No chest pain. No abdominal pain. no vomiting Patient was instructed to call people such as her friends or caregivers as she is medically stable but she has insisted in the past against hospital discharge to physical rehabilitation or snf facility. However patient reports that she cannot find anyone available today. Review of Systems Review of Systems: All systems reviewed & are unremarkable except as noted in HPI & below Physical Exam Constitutional: cooperative Eyes: PERRL, conjunctivae normal, anicteric sclerae EOM intact bilaterally ENMT: external ear and nose normal, oropharynx normal Neck: normal visual inspection Respiratory: normal respiratory effort, lungs clear to auscultation Cardiovascular: Rate/Rhythm: regular rate and regular rhythm Gastrointestinal (Abdomen): normal bowel sounds, soft, nontender, no hepatosplenomegaly Musculoskeletal: Diffuse soft tissue swelling predominantly along the dorsum of the hand Neurologic: PERRL, EOMI, accommodation nl, no face palsy, no dysarthria Psychiatric: Orientation: alert and oriented x 3 Results & Data Vital Signs (Past 12 Hours) Vital Signs Temp Pulse Resp BP BP Pulse Ox 02/19/19 08:07 36.8 C 82 20 129/80 93 02/19/19 07:00 36.8 C 82 20 129/80 93
[2019-02-19] MEDS: ACETAMINOPHEN 325 MG TAB PO SCH (18:54)
[2019-02-20] MEDS: ACETAMINOPHEN 325 MG TAB PO SCH ×3 (05:46→20:56)
[2019-02-20] MEDS: NYSTATIN POWDER 15GM BTL EXT SCH ×2 (07:27→21:53)
[2019-02-20] MEDS: ATORVASTATIN 20 MG TAB PO SCH (07:27)
[2019-02-20] MEDS: TOLTERODINE TARTRATE 2 MG TAB PO SCH ×2 (07:27→20:53)
[2019-02-20] MEDS: ASPIRIN 81 MG CHEW PO SCH (07:27)
[2019-02-20] MEDS: HEPARIN SOD 5,000 UNIT/0.5 ML VIAL SQ SCH ×2 (09:26→20:54)
--- NOTE | 2019-02-20 15:59 | Hospitalist Progress Note ---
Date of Service February 20, 2019 Assessment & Plan (1) Ambulatory dysfunction: Reports difficulty with ambulation secondary to leg weakness, back pain History of falls Not safe to be discharged home--lives alone Continues to refuse rehab placement adamantly Continue PT/OT while hospitalized (2) Fall: -patient was admitted on 02/10/19 after being found to have fallen on the floor in her home -patient does not have any acute fractures and her main medical problems have rhabdomyolysis and acute kidney injury and acute diverticulitis has been treated -However with on going physical and occupational therapists, patient is deemed to be a high fall risk and would benefit from nursing home facility -immigration case worker has been working with her out of state adult children and patient to try to coordinate a disposition for patient to go to a physical therapy center or SNF after hospital stay -however patient has repeated declined to go anywhere else after hospital stay except to her home -as of 02/18/19 and ongoing, patient appears to have medical decision making capacity -telemetry discontinued on 02/18/19 -02/19/19: Patient was instructed to call people such as her friends or caregivers as she is medically stable but she has insisted in the past against hospital discharge to physical rehabilitation or nursing home facility. However patient reports that she cannot find anyone available today. -02/20/19: Patient continues to expect that someone will pick her up from hospital but immigration case worker reports that there is no one to transport her to her home at least until Saturday. (3) Rhabdomyolysis: -Traumatic rhabdomyolysis -Secondary to fall and also due to prolonged immobilization -CK: 1124>>854>>565>>286>>29 on this admission (4) Acute diverticulitis: -admission CT of the abdomen and pelvis did show mild acute sigmoid diverticulitis and cystitis -patient completed 2 days of Unasyn and then 5 more days of antibiotics as Augmentin -is off antibiotics at this time (5) JOSE ALEJANDRO (acute kidney injury): -pre-renal cause of acute kidney injury from dehydration and rhabdomyolysis -renal function has returned to baseline and diarrhea appears improved (6) UTI (urinary tract infection): -Urinary tract infection ruled out CT suggestive of possible cystitis Urine analysis: Not suggestive of UTI History of Overactive bladder -continue Tolterodine Right hand swelling possible gout flare versus calcium versus pyrophosphate hydrate deposition disease -right hand X ray 02/19/19 1. Osseous erosion suspected at the second metacarpal. The deformity is not characteristic of a fracture. Findings could suggest involvement of gout versus calcium pyrophosphate hydrate deposition disease. The appearance is not characteristic for osteoarthrosis. 2. Degenerative changes characteristic of osteoarthrosis at the first CMC joint and several interphalangeal joints most prominently involving the second and fifth fingers. 3. Osteopenia. 4. Allowing for osteopenia, no acute osseous injury. -normal uric acid -initially thought to be right hand IV infiltration -most likely gout or calcium pyrophosphate hydrate deposition disease -start allopurinol, start scheduled indomethacin, continue scheduled acetaminophen, prn tramadol for severe pain Descending thoracic aortic aneurysm Infrarenal abdominal aortic aneurysm Left common iliac artery aneurysm -No change when compared to prior imaging studies DVT Px: SQ Heparin CODE STATUS Full Code Subjective Patient seen and examined at bedside. Patient continues to expect that someone will pick her up from hospital but immigration case worker reports that there is no one to transport her to her home at least until Saturday. Patient also having pain of the right hand. She was recently on scheduled acetaminophen but no acute improvement of pain and she does not seem to realize that some pain medications are on a as needed basis. Patient denies other pain. But she is upset that she is being transported to different medical [facility] room today Review of Systems Review of Systems: All systems reviewed & are unremarkable except as noted in HPI & below Physical Exam Constitutional: cooperative Eyes: PERRL, conjunctivae normal, anicteric sclerae EOM intact bilaterally ENMT: external ear and nose normal, oropharynx normal Neck: normal visual inspection Respiratory: normal respiratory effort, lungs clear to auscultation Cardiovascular: Rate/Rhythm: regular rate and regular rhythm Gastrointestinal (Abdomen): normal bowel sounds, soft, nontender, no hepatosplenomegaly Neurologic: PERRL, EOMI, accommodation nl, no face palsy, no dysarthria Psychiatric: Orientation: alert and oriented x 3 Results & Data Vital Signs (Past 12 Hours) Vital Signs Temp Pulse Resp BP Pulse Ox 02/20/19 14:03 97 H 139/85 02/20/19 07:41 36.8 C 86 19 158/90 H 94
[2019-02-20] MEDS ORDERED: INDOMETHACIN 25 MG CAP PO ONE (16:15)
[2019-02-20] MEDS: allopurinoL 100 MG TAB PO SCH (17:45)
[2019-02-20] MEDS: INDOMETHACIN 25 MG CAP PO SCH (20:54)
[2019-02-21] MEDS: ACETAMINOPHEN 325 MG TAB PO SCH ×3 (05:22→21:00)
[2019-02-21] MEDS: TRAMADOL HCL 50 MG TABLET PO PRN ×2 (09:49→19:32)
[2019-02-21] MEDS: NYSTATIN POWDER 15GM BTL EXT SCH ×2 (09:51→20:57)
[2019-02-21] MEDS: allopurinoL 100 MG TAB PO SCH (09:51)
[2019-02-21] MEDS: INDOMETHACIN 25 MG CAP PO SCH ×2 (09:51→20:56)
[2019-02-21] MEDS: TOLTERODINE TARTRATE 2 MG TAB PO SCH ×2 (09:51→20:57)
[2019-02-21] MEDS: HEPARIN SOD 5,000 UNIT/0.5 ML VIAL SQ SCH ×2 (09:52→21:03)
[2019-02-21] MEDS: ATORVASTATIN 20 MG TAB PO SCH (09:52)
[2019-02-21] MEDS: ASPIRIN 81 MG CHEW PO SCH (09:54)
--- NOTE | 2019-02-21 12:20 | Hospitalist Progress Note ---
Date of Service February 21, 2019 Assessment & Plan (1) Ambulatory dysfunction: Reports difficulty with ambulation secondary to leg weakness, back pain History of falls Not safe to be discharged home--lives alone Continues to refuse rehab placement adamantly Continue PT/OT while hospitalized (2) Fall: -patient was admitted on 02/10/19 after being found to have fallen on the floor in her home -patient does not have any acute fractures and her main medical problems have rhabdomyolysis and acute kidney injury and acute diverticulitis has been treated -However with on going physical and occupational therapists, patient is deemed to be a high fall risk and would benefit from correction facility -correctional case manager has been working with her out of state adult children and patient to try to coordinate a disposition for patient to go to a physical therapy center or SNF after hospital stay -however patient has repeated declined to go anywhere else after hospital stay except to her home -as of 02/18/19 and ongoing, patient appears to have medical decision making capacity -telemetry discontinued on 02/18/19 -02/19/19: Patient was instructed to call people such as her friends or caregivers as she is medically stable but she has insisted in the past against hospital discharge to physical rehabilitation or correction facility. However patient reports that she cannot find anyone available today. -02/20/19: Patient continues to expect that someone will pick her up from hospital but correctional case manager reports that there is no one to transport her to her home at least until Saturday. -02/21/19: patient does not have transport to home today and she now expects here healthcare consultant to come in on Saturday for hospital discharge (3) Rhabdomyolysis: -Traumatic rhabdomyolysis -Secondary to fall and also due to prolonged immobilization -CK: 1124> 854> 565> 286> 29 on this admission (4) Acute diverticulitis: -admission CT of the abdomen and pelvis did show mild acute sigmoid diverticulitis and cystitis -patient completed 2 days of Unasyn and then 5 more days of antibiotics as Augmentin -is off antibiotics at this time (5) JOSE ALEJANDRO (acute kidney injury): -pre-renal cause of acute kidney injury from dehydration and rhabdomyolysis -renal function has returned to baseline and diarrhea appears improved (6) UTI (urinary tract infection): -Urinary tract infection ruled out CT suggestive of possible cystitis Urine analysis: Not suggestive of UTI History of Overactive bladder -continue Tolterodine Right hand swelling possible gout flare versus calcium versus pyrophosphate hydrate deposition disease -right hand X ray 02/19/19 1. Osseous erosion suspected at the second metacarpal. The deformity is not characteristic of a fracture. Findings could suggest involvement of gout versus calcium pyrophosphate hydrate deposition disease. The appearance is not characteristic for osteoarthrosis. 2. Degenerative changes characteristic of osteoarthrosis at the first CMC joint and several interphalangeal joints most prominently involving the second and fifth fingers. 3. Osteopenia. 4. Allowing for osteopenia, no acute osseous injury. -normal uric acid -initially thought to be right hand IV infiltration -most likely gout or calcium pyrophosphate hydrate deposition disease -continue allopurinol, continue scheduled indomethacin, continue scheduled acetaminophen, prn tramadol for severe pain Descending thoracic aortic aneurysm Infrarenal abdominal aortic aneurysm Left common iliac artery aneurysm -No change when compared to prior imaging studies DVT Px: SQ Heparin CODE STATUS Full Code Subjective Patient seen and examined this AM. Her right hand swelling is improved. Pain is better controlled today. She is pleasant. No shortness of breath. no chest pain. no abdomen pain. reports better formed bowel movement Review of Systems Review of Systems: All systems reviewed & are unremarkable except as noted in HPI & below Physical Exam Constitutional: cooperative Eyes: PERRL, conjunctivae normal, anicteric sclerae EOM intact bilaterally ENMT: external ear and nose normal, oropharynx normal Neck: normal visual inspection Respiratory: normal respiratory effort, lungs clear to auscultation Cardiovascular: Rate/Rhythm: regular rate and regular rhythm Gastrointestinal (Abdomen): normal bowel sounds, soft, nontender, no hepatosplenomegaly Musculoskeletal: right hand swelling reduced in size Neurologic: PERRL, EOMI, accommodation nl, no face palsy, no dysarthria Psychiatric: Orientation: alert and oriented x 3 Results & Data Vital Signs (Past 12 Hours) Vital Signs Temp Pulse Resp BP Pulse Ox 02/21/19 07:40 37.0 C 73 16 160/83 H 94
[2019-02-22] MEDS: ACETAMINOPHEN 325 MG TAB PO SCH ×3 (05:33→21:23)
[2019-02-22] MEDS: NYSTATIN POWDER 15GM BTL EXT SCH ×2 (08:10→21:22)
[2019-02-22] MEDS: TRAMADOL HCL 50 MG TABLET PO PRN (08:10)
[2019-02-22] MEDS: HEPARIN SOD 5,000 UNIT/0.5 ML VIAL SQ SCH ×2 (08:11→21:24)
[2019-02-22] MEDS: INDOMETHACIN 25 MG CAP PO SCH ×2 (08:11→21:22)
[2019-02-22] MEDS: ATORVASTATIN 20 MG TAB PO SCH (08:11)
[2019-02-22] MEDS: TOLTERODINE TARTRATE 2 MG TAB PO SCH ×2 (08:11→21:21)
[2019-02-22] MEDS: allopurinoL 100 MG TAB PO SCH (08:11)
[2019-02-22] MEDS: ASPIRIN 81 MG CHEW PO SCH (08:12)
--- NOTE | 2019-02-22 13:05 | Hospitalist Progress Note ---
Date of Service February 22, 2019 Assessment & Plan (1) Fall: (2) Ambulatory dysfunction: -patient was admitted on 02/10/19 after being found to have fallen on the floor in her home -patient does not have any acute fractures and her main medical problems have rhabdomyolysis and acute kidney injury and acute diverticulitis has been treated -However with on going physical and occupational therapists, patient is deemed to be a high fall risk and would benefit from group home facility -case therapist has been working with her out of state adult children and patient to try to coordinate a disposition for patient to go to a physical therapy center or SNF after hospital stay -however patient has repeated declined to go anywhere else after hospital stay except to her home -as of 02/18/19 and ongoing, patient appears to have medical decision making capacity -telemetry discontinued on 02/18/19 -02/19/19: Patient was instructed to call people such as her friends or caregivers as she is medically stable but she has insisted in the past against hospital discharge to physical rehabilitation or group home facility. However patient reports that she cannot find anyone available today. -02/20/19: Patient continues to expect that someone will pick her up from hospital but case therapist reports that there is no one to transport her to her home at least until Saturday. Physical therapy notes progress in ambulation but maintains that SNF or physical rehabilitation placement as ideal choice to lower fall risks -02/21/19 to 02/22/19: have discussed with her that her caregiver (house keeper) had discussed with case therapist that she would not be available 02/24/19Saturday (3) Rhabdomyolysis: -Traumatic rhabdomyolysis -Secondary to fall and also due to prolonged immobilization -CK: 1124> 854> 565> 286> 29 on this admission (4) Acute diverticulitis: -admission CT of the abdomen and pelvis did show mild acute sigmoid diverticulitis and cystitis -patient completed 2 days of Unasyn and then 5 more days of antibiotics as Augmentin -is off antibiotics at this time (5) JOSE ALEJANDRO (acute kidney injury): -pre-renal cause of acute kidney injury from dehydration and rhabdomyolysis -renal function has returned to baseline and diarrhea appears improved (6) UTI (urinary tract infection): -Urinary tract infection ruled out CT suggestive of possible cystitis Urine analysis: Not suggestive of UTI History of Overactive bladder -continue Tolterodine Right hand swelling possible gout flare versus calcium versus pyrophosphate hydrate deposition disease -right hand X ray 02/19/19 1. Osseous erosion suspected at the second metacarpal. The deformity is not characteristic of a fracture. Findings could suggest involvement of gout versus calcium pyrophosphate hydrate deposition disease. The appearance is not characteristic for osteoarthrosis. 2. Degenerative changes characteristic of osteoarthrosis at the first CMC joint and several interphalangeal joints most prominently involving the second and fifth fingers. 3. Osteopenia. 4. Allowing for osteopenia, no acute osseous injury. -initially thought to be right hand IV infiltration; however, gout or calcium pyrophosphate hydrate deposition disease also considered -normal serum uric acid does not rule out gout -as of 02/22/19 patient's right hand swelling appears much improved, will continue for now the allopurinol, scheduled indomethacin, continue scheduled acetaminophen, prn tramadol for severe pain Descending thoracic aortic aneurysm Infrarenal abdominal aortic aneurysm Left common iliac artery aneurysm -No change when compared to prior imaging studies DVT Px: SQ Heparin CODE STATUS Full Code Subjective Patient seen and examined at bedside. Patient appears to be moving well when on the bed. Patient's right hand swelling is resolving. Pain appears to have improved significantly with current pain medications and allopurinol. Patient breathing on room air. denies shortness of breath. no vomiting. no abdominal pain Patient has voiced her complaints about being transferred to multiple medical [facility] beds during hospital stay. Patient has a difficult time to understand that a limitation for hospital to discharge her to home is that her caregiver is not picking her up from hospital at least until Saturday02/24/19 after patient had repeatedly declined going SNF and physical rehabilitation centers. Review of Systems Review of Systems: All systems reviewed & are unremarkable except as noted in HPI & below Physical Exam Constitutional: cooperative Eyes: PERRL, conjunctivae normal, anicteric sclerae EOM intact bilaterally ENMT: external ear and nose normal, oropharynx normal Neck: normal visual inspection Respiratory: normal respiratory effort, lungs clear to auscultation Cardiovascular: Rate/Rhythm: regular rate and regular rhythm Gastrointestinal (Abdomen): normal bowel sounds, soft, nontender, no hepatosplenomegaly Musculoskeletal: Head/Neck/Chest: normocephalic and head atraumatic Neurologic: PERRL, EOMI, accommodation nl, no face palsy, no dysarthria Psychiatric: Orientation: alert and oriented x 3 Results & Data Vital Signs (Past 12 Hours) Vital Signs Temp Pulse Resp BP Pulse Ox 02/22/19 07:26 36.8 C 77 16 134/54 L 90
[2019-02-23] MEDS: ACETAMINOPHEN 325 MG TAB PO SCH ×2 (06:05→13:29)
[2019-02-23 06:10] LABS: Basophils # (auto) 0.04 K/uL (0-0.2); Basophils % (auto) 0.7 %; Eosinophils # (auto) 0.47 K/uL (0-0.5); Eosinophils % (auto) 7.8 %; Hematocrit (blood only) 39.7 % (37-47); Hemoglobin 12.6 g/dL (12.0-16.0); Immature Granulocytes # (auto) 0.02 K/uL (0.00-0.02); Immature Granulocytes % (auto) 0.3 %; Lymphocytes % (auto) 21.6 %; Mean Corpuscular Hemoglobin 31.2 pg (25-34); Mean Corpuscular Hgb Conc 31.7 g/dL (32-36); Mean Corpuscular Volume 98.3 fL (80-100); Mean Platelet Volume 9.2 fL (7.4-10.4); Monocytes # (auto) 0.46 K/uL (0.11-0.59); Monocytes % (auto) 7.7 %; Neutrophils # (auto) 3.72 K/uL (1.4-6.5); Neutrophils % (auto) 61.9 %; Platelet Count 261 K/uL (130-400); RDW Coefficient of Variation 13.6 % (11.5-14.5); RDW Standard Deviation 48.4 fL (36.4-46.3); Red Blood Count 4.04 M/uL (4.2-5.4); White Blood Count 6.01 K/uL (4.8-10.8)
[2019-02-23 06:46] LABS: BUN Creatinine Ratio 18.4 (10-20); Calcium 9.4 mg/dl (8.5-10.1); Est GFR (African American) 54.6; Est GFR (Non-African American) 47.1; Potassium 4.1 mmol/L (3.5-5.1)
[2019-02-23] MEDS: ASPIRIN 81 MG CHEW PO SCH (08:22)
[2019-02-23] MEDS: TOLTERODINE TARTRATE 2 MG TAB PO SCH ×2 (08:22→21:10)
[2019-02-23] MEDS: INDOMETHACIN 25 MG CAP PO SCH (08:22)
[2019-02-23] MEDS: HEPARIN SOD 5,000 UNIT/0.5 ML VIAL SQ SCH ×2 (08:22→21:09)
[2019-02-23] MEDS: ATORVASTATIN 20 MG TAB PO SCH (08:23)
[2019-02-23] MEDS: NYSTATIN POWDER 15GM BTL EXT SCH ×2 (08:23→21:10)
[2019-02-23] MEDS: allopurinoL 100 MG TAB PO SCH (08:24)
[2019-02-23] MEDS ORDERED: POLYETHYLENE (MIRALAX) 17 GM PACK PO PRN (11:07)
[2019-02-23] MEDS: DOCUSATE SODIUM 100 MG CAP PO SCH ×2 (11:26→21:44)
[2019-02-23] MEDS: SENNA 8.6 MG TAB PO SCH (13:29)
--- NOTE | 2019-02-23 15:37 | Hospitalist Progress Note ---
Date of Service February 23, 2019 Assessment & Plan (1) Fall: -patient was admitted on 02/10/19 after being found to have fallen on the floor in her home (2) Ambulatory dysfunction: -patient does not have any acute fractures and her main medical problems have rhabdomyolysis and acute kidney injury and acute diverticulitis has been treated -However with on going physical and occupational therapists, patient is deemed to be a high fall risk and would benefit from retirement facility -telephonic nurse case manager has been working with her out of state adult children and patient to try to coordinate a disposition for patient to go to a physical therapy cent er or SNF after hospital stay -however patient has repeated declined to go anywhere else after hospital stay except to her home -as of 02/18/19 and ongoing, patient appears to have medical decision making capacity -patient appears to be making therapy progress based on review of recent physical therapy notes -02/20/19: Patient continues to expect that someone will pick her up from hospital but telephonic nurse case manager reports that there is no one to transport her to her home at least until Saturday. -02/23/19: updates from telephonic nurse case manager is that the patient's house keeper will not be able to transport the patient until Saturday02/25/19 (3) Rhabdomyolysis: -Traumatic rhabdomyolysis -Secondary to fall and also due to prolonged immobilization -CK: 1124> 854> 565> 286> 29 on this admission (4) Acute diverticulitis: -admission CT of the abdomen and pelvis did show mild acute sigmoid diverticulitis and cystitis -patient completed 2 days of Unasyn and then 5 more days of antibiotics as Augmentin -is off antibiotics at this time (5) JOSE ALEJANDRO (acute kidney injury): -pre-renal cause of acute kidney injury from dehydration and rhabdomyolysis -renal function has returned to baseline and diarrhea appears improved (6) UTI (urinary tract infection): -Urinary tract infection ruled out CT suggestive of possible cystitis Urine analysis: Not suggestive of UTI History of Overactive bladder -continue Tolterodine Right hand swelling possible gout flare versus calcium versus pyrophosphate hydrate deposition disease -right hand X ray 02/19/19 1. Osseous erosion suspected at the second metacarpal. The deformity is not characteristic of a fracture. Findings could suggest involvement of gout versus calcium pyrophosphate hydrate deposition disease. The appearance is not characteristic for osteoarthrosis. 2. Degenerative changes characteristic of osteoarthrosis at the first CMC joint and several interphalangeal joints most prominently involving the second and fifth fingers. 3. Osteopenia. 4. Allowing for osteopenia, no acute osseous injury. -initially thought to be right hand IV infiltration; however, gout or calcium pyrophosphate hydrate deposition disease also considered -normal serum uric acid does not rule out gout -as of 02/22/19 patient's right hand swelling appears much improved, will continue for now the allopurinol, scheduled indomethacin, continue scheduled acetaminophen, prn tramadol for severe pain -02/23/19: stop indomethacin and stop scheduled acetaminophen, continue allopurinol for now Descending thoracic aortic aneurysm Infrarenal abdominal aortic aneurysm Left common iliac artery aneurysm -No change when compared to prior imaging studies DVT Px: SQ Heparin CODE STATUS Full Code Subjective Patient made bowel movement today. right hand swelling appears generally resolved. Patient denies acute physical complaints. no shortness of breath. no chest pain. no abdomen pain. no vomiting. Patient has no one to pick her up from hospital Review of Systems Review of Systems: All systems reviewed & are unremarkable except as noted in HPI & below Physical Exam Constitutional: cooperative Eyes: PERRL, conjunctivae normal, anicteric sclerae EOM intact bilaterally ENMT: external ear and nose normal, oropharynx normal Neck: normal visual inspection Respiratory: normal respiratory effort, lungs clear to auscultation Cardiovascular: Rate/Rhythm: regular rate and regular rhythm Gastrointestinal (Abdomen): normal bowel sounds, soft, nontender, no hepatosplenomegaly Musculoskeletal: Head/Neck/Chest: normocephalic and head atraumatic Neurologic: PERRL, EOMI, accommodation nl, no face palsy, no dysarthria Psychiatric: Orientation: alert and oriented x 3 Results & Data Vital Signs (Past 12 Hours) Vital Signs Temp Pulse Resp BP BP Pulse Ox 02/23/19 15:01 36.6 C 79 19 156/86 H 99 02/23/19 07:01 36.4 C L 81 18 150/90 H 92
[2019-02-24] MEDS: ACETAMINOPHEN 325 MG TAB PO PRN (07:47)
[2019-02-24] MEDS: DOCUSATE SODIUM 100 MG CAP PO SCH ×2 (08:42→20:51)
[2019-02-24] MEDS: SENNA 8.6 MG TAB PO SCH (08:43)
[2019-02-24] MEDS: ASPIRIN 81 MG CHEW PO SCH (08:43)
[2019-02-24] MEDS: NYSTATIN POWDER 15GM BTL EXT SCH ×2 (08:43→20:47)
[2019-02-24] MEDS: HEPARIN SOD 5,000 UNIT/0.5 ML VIAL SQ SCH ×2 (08:44→20:48)
[2019-02-24] MEDS: TOLTERODINE TARTRATE 2 MG TAB PO SCH ×2 (08:44→20:47)
[2019-02-24] MEDS: allopurinoL 100 MG TAB PO SCH (08:46)
[2019-02-24] MEDS: ATORVASTATIN 20 MG TAB PO SCH (08:46)
--- NOTE | 2019-02-24 11:26 | Hospitalist Progress Note ---
Date of Service February 24, 2019 Assessment & Plan (1) Fall: -patient was admitted on 02/10/19 after being found to have fallen on the floor in her home (2) Ambulatory dysfunction: -patient does not have any acute fractures and her main medical problems have rhabdomyolysis and acute kidney injury and acute diverticulitis has been treated -However with on going physical and occupational therapists, patient is deemed to be a high fall risk and would benefit from [facility] facility -director case has been working with her out of state adult children and patient to try to coordinate a disposition for patient to go to a physical therapy cent er or SNF after hospital stay -however patient has repeated declined to go anywhere else after hospital stay except to her home -as of 02/18/19 and ongoing, patient appears to have medical decision making capacity -patient appears to be making therapy progress based on review of recent physical therapy notes -02/20/19: Patient continues to expect that someone will pick her up from hospital but director case reports that there is no one to transport her to her home at least until Saturday. -02/23/19: updates from director case is that the patient's house keeper will not be able to transport the patient until Saturday02/25/19 (3) Rhabdomyolysis: -Traumatic rhabdomyolysis -Secondary to fall and also due to prolonged immobilization -CK: 1124> 854> 565> 286> 29 on this admission (4) Acute diverticulitis: -admission CT of the abdomen and pelvis did show mild acute sigmoid diverticulitis and cystitis -patient completed 2 days of Unasyn and then 5 more days of antibiotics as Augmentin -is off antibiotics at this time (5) JOSE ALEJANDRO (acute kidney injury): -pre-renal cause of acute kidney injury from dehydration and rhabdomyolysis -renal function has returned to baseline and diarrhea appears improved (6) UTI (urinary tract infection): -Urinary tract infection ruled out CT suggestive of possible cystitis Urine analysis: Not suggestive of UTI History of Overactive bladder -continue Tolterodine Right hand swelling possible gout flare versus calcium versus pyrophosphate hydrate deposition disease -right hand X ray 02/19/19 1. Osseous erosion suspected at the second metacarpal. The deformity is not characteristic of a fracture. Findings could suggest involvement of gout versus calcium pyrophosphate hydrate deposition disease. The appearance is not characteristic for osteoarthrosis. 2. Degenerative changes characteristic of osteoarthrosis at the first CMC joint and several interphalangeal joints most prominently involving the second and fifth fingers. 3. Osteopenia. 4. Allowing for osteopenia, no acute osseous injury. -initially thought to be right hand IV infiltration; however, gout or calcium pyrophosphate hydrate deposition disease also considered -normal serum uric acid does not rule out gout -as of 02/22/19 patient's right hand swelling appears much improved, will continue for now the allopurinol, scheduled indomethacin, continue scheduled acetaminophen, prn tramadol for severe pain -02/23/19: stop indomethacin and stop scheduled acetaminophen, continue allopurinol for now Descending thoracic aortic aneurysm Infrarenal abdominal aortic aneurysm Left common iliac artery aneurysm -No change when compared to prior imaging studies DVT Px: SQ Heparin CODE STATUS Full Code Subjective Patient reports that she is aware her caregiver/house keeper will come in to the hospital to transport her home on Saturday. She is pleasant. no acute symptoms. right hand swelling is resolved. no abdominal pain. no chest pain. no shortness of breath. Review of Systems Review of Systems: All systems reviewed & are unremarkable except as noted in HPI & below Physical Exam Constitutional: cooperative Eyes: PERRL, conjunctivae normal, anicteric sclerae EOM intact bilaterally ENMT: external ear and nose normal, oropharynx normal Neck: normal visual inspection Respiratory: normal respiratory effort, lungs clear to auscultation Cardiovascular: Rate/Rhythm: regular rate and regular rhythm Gastrointestinal (Abdomen): normal bowel sounds, soft, nontender, no hepatosplenomegaly Musculoskeletal: Head/Neck/Chest: normocephalic and head atraumatic Neurologic: PERRL, EOMI, accommodation nl, no face palsy, no dysarthria Psychiatric: Orientation: alert and oriented x 3 Results & Data Vital Signs (Past 12 Hours) Vital Signs Temp Pulse Resp BP Pulse Ox 02/24/19 06:27 36.9 C 78 18 135/86 94
[2019-02-25] MEDS: allopurinoL 100 MG TAB PO SCH (07:52)
[2019-02-25] MEDS: DOCUSATE SODIUM 100 MG CAP PO SCH (07:52)
[2019-02-25] MEDS: ASPIRIN 81 MG CHEW PO SCH (07:52)
[2019-02-25] MEDS: TOLTERODINE TARTRATE 2 MG TAB PO SCH (07:52)
[2019-02-25] MEDS: SENNA 8.6 MG TAB PO SCH (07:52)
[2019-02-25] MEDS: ATORVASTATIN 20 MG TAB PO SCH (07:52)
[2019-02-25] MEDS: HEPARIN SOD 5,000 UNIT/0.5 ML VIAL SQ SCH (07:53)
[2019-02-25] MEDS: NYSTATIN POWDER 15GM BTL EXT SCH (07:53)
[2019-02-25] MEDS: ACETAMINOPHEN 325 MG TAB PO PRN (07:55)
--- NOTE | 2019-02-25 11:58 | Discharge Summary ---
Date of Service February 25, 2019 Admission HPI Per Admitting Provider She is an 83-year-old female with significant past medical history as mentioned in the chart of prolapsed uterus and history of urinary incontinence has not been taking any medications and has not been seen by a physician for a long time apparently was found on the floor this morning. She complains to have problem with walking, she feels she has back pain and bilateral leg weakness she has had a fall last week and she cannot remember falling this time. She denies any loss of consciousness though and she denies any significant injury from the fall. She denies any fever and/or chills, any chest pain and/or shortness of breath or palpitation, does have some abdominal discomfort in the lower abdomen but does not have any diarrhea and constipation. She has been passing urine more frequently but denies any dysuria. Denies any weakness involving any side in particular and no loss of consciousness following the fall. Admission Exam Per Admitting Provider Physical Exam: Lying in bed comfortably Constitutional: well developed and well nourished; no acute distress and not ill appearing Eyes: PERRL, conjunctivae normal, anicteric sclerae ENMT: external ear and nose normal, oropharynx normal Neck: trachea midline, no thyromegaly Respiratory: normal respiratory effort; no respiratory distress Auscultation: lungs clear to auscultation bilaterally Cardiovascular: regular rate and regular rhythm Heart Sounds: no murmur Gastrointestinal:Inspection/Auscultation: abdomen normal to inspection and normal bowel sounds Percussion/Palpation: + abdomen tender (Minimally tender lower quadrants but no guarding and/or rigidity) Musculoskeletal: No acute arthritis in any joints Neurologic: moves all extremities; no focal motor deficits Alert, awake and oriented x3, Psychiatric: A+Ox3, euthymic affect Lymphatic: no cervical or axillary lymphadenopathy Principal Diagnosis S/P Fall Ambulatory Dysfunction UTI (urinary tract infection) Traumatic rhabdomyolysis Acute diverticulitis Acute kidney injury Right hand swelling (Possible gout or calcium pyrophosphate hydrate deposition disease) Discharge Exam General- No acute distress Head- atraumatic Eyes- PERRL, EOMI, ENT- oropharynx clear Neck- supple, no JVD Lungs- clear to auscultation Heart- regular rhythm; no murmur Abdomen- normal bowel sounds, soft, nontender Extremities- no calf tenderness Neuro- alert, oriented x 3; PERRL, EOMI; no facial palsy; no dysarthria Skin- warm & dry Discharge Data Allergies Allergy/AdvReac Type Severity Reaction Status Date / Time No Known Allergies Allergy Unverified 02/10/19 11:38 Consultations 02/10/19 11:48 ED Decision to Admit Stat Ordered Studies 02/10/19 09:51 CT abd pelvis IV con only Stat CT cervical spine wo con Stat CT chest w con Stat CT head/brain wo con Stat CT SCAN OF THE ABDOMEN AND PELVIS WITH IV CONTRAST CLINICAL HISTORY: Trauma. Fall. COMPARISON STUDY: Abdominal CT dated 07/05/2017. TECHNIQUE: Following the IV administration of 93 cc of Optiray 320, CT scan of the abdomen and pelvis is performed from the lung bases to the proximal femora. Images are reviewed in the axial, sagittal, and coronal planes. IV contrast was administered without complication. A dose lowering technique was utilized adhering to the principles of ALARA. The examination is degraded by streak artifact from the right arm which could not be elevated above the abdomen. FINDINGS: Lung bases: The heart is mildly enlarged and without pericardial effusion. The mitral annulus is densely calcified. There are also coronary artery calcifications. There is a fat-containing Bochdalek hernia at the right lung base. No airspace consolidation, pleural effusion, or pneumothorax is seen at either lung base. There is bibasilar scarring/atelectasis. There is mild aneurysmal dilatation of the distal descending thoracic aorta. This measures up to 4.2 cm in diameter. A small hiatal hernia is noted. Liver: The contrast-enhanced liver is normal in size, contour, and attenuation. There is no intrahepatic biliary ductal dilatation. The hepatic veins and portal veins are patent. There are 2 cysts in the right lobe which measure up to 3 cm. Gallbladder: Unremarkable. Spleen: Normal in size and attenuation. Pancreas: Unremarkable. Adrenal glands: Unremarkable. Kidneys: The contrast enhanced kidneys demonstrate cortical atrophy and are without hydronephrosis. The kidneys enhance symmetrically. There are small bilateral nonobstructing renal calculi which measure up to 4 mm. Abdominal vasculature: There is advanced atherosclerotic calcification of the abdominal aorta and iliac arteries. An infrarenal abdominal aneurysm measures up to 3.1 cm. There is mild aneurysmal dilatation of the left common iliac artery which measures up to 2.2 cm.1 Bowel: There is moderate colonic diverticulosis. There is wall thickening with pericolonic inflammation involving the proximal sigmoid colon consistent with acute diverticulitis. There is no evidence of abscess. No bowel obstruction is seen. The appendix is well-visualized and normal. Peritoneum: There is no intraperitoneal free air or abdominal ascites. There is a fat-containing umbilical hernia. Lymphadenopathy: None. Pelvic viscera: The bladder wall appears thickened and hyperemic. There is pericystic inflammation. The uterus is surgically absent. No adnexal lesion is seen. Skeletal structures: The skeletal structures are osteopenic. No acute fracture is identified. No lytic or blastic lesions are seen. There is moderate to advanced lumbosacral spondylosis. Sclerotic degenerative change is noted in the sacroiliac joints. Advanced arthritic change is seen in the hips. IMPRESSION: 1. There is no evidence of solid organ injury in the abdomen or pelvis. 2. There is moderate colonic diverticulosis with evidence of mild acute sigmoid diverticulitis. No intraperitoneal free air or abscess is seen. 3. Findings suggest cystitis. Correlation with clinical findings and urinalysis would be required. 4. There is aneurysmal dilatation of the descending thoracic aorta, the infrarenal abdominal aortic, and the left common iliac artery. This is similar to previous. 5. Bilateral nephrolithiasis. 6. Additional findings as above. Electronically signed by: Dillon Perez M.D. 02/10/2019 11:11 AM Dictated: 02/10/19 1101 Transcribed: 02/10/[address] cervical spine wo con CT DOSE: 2382.94 mGy.cm HISTORY: Trauma pain fall TECHNIQUE: Multiaxial CT images of the cervical spine were performed and reformatted in the sagittal and coronal plane without the use of contrast. A dose lowering technique was utilized adhering to the principles of ALARA. COMPARISON: None. FINDINGS: No fractures. No subluxation. Prevertebral soft tissues and the C1-C2 interval are intact. No pneumothorax. Considerable degenerative change C4-T1. IMPRESSION: No fractures within the cervical spine. Considerable degenerative change. The above report was generated using voice recognition software. It may contain grammatical, syntax or spelling errors. Electronically signed by: Glenroy Gamez M.D. 02/10/2019 10:58 AM Dictated: 02/10/19 1052 Transcribed: 02/10/[address] WITH CONTRAST HISTORY: Acute chest and abdominal trauma status post fall pain fall TECHNIQUE: Multiaxial CT images of the chest were performed following the IV administration of 93 cc of Optiray 320. A dose lowering technique was utilized adhering to the principles of ALARA. COMPARISON: CT abdomen and pelvis of same day, CTA 07/05/2017 FINDINGS: Mildly heterogeneous thyroid. Cardiomegaly with coronary arterial calcificati ons. Mixed plaque of the thoracic aorta and proximal great vessels. 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 This appears unchanged from comparison. The opacified pulmonary arteries unremarkable. No mediastinal adenopathy or hematoma. No pneumothorax, pleural effusion or overt pulmonary edema. There is minimal bibasilar subsegmental atelectasis. There are no suspicious pulmonary nodules or masses identified. Small right Bochdalek hernia. No pulmonary contusion. Central airways appear patent. Mild wall thickening of the distal esophagus with small hiatal hernia. There are a few cystic foci of the right hepatic lobe redemonstrated measuring up to 3.2 cm. Mild right hemidiaphragmatic elevation. Soft tissues are within normal limits. Degenerative changes of the shoulders and spine. No acute fracture identified. IMPRESSION: 1. No acute intrathoracic abnormality. 2. No acute fracture or pneumothorax. 3. 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 4. Additional findings as above. Electronically signed by: Jun Carmichael M.D. 02/10/2019 11:12 AM Dictated: 02/10/19 1105 Transcribed: 02/10/[address] head/brain wo con CLINICAL HISTORY: 83 years-old Female with pain fall. Acute head and neck injury status post fall TECHNIQUE: Multiple axial CT images of the head were obtained without contrast. A dose lowering technique was utilized adhering to the principles of ALARA. COMPARISON: CT cervical spine of same day. FINDINGS: No acute intracranial hemorrhage, midline shift, intracranial mass, hydrocephalus, territorial ischemia or abnormal extra-axial collection. Age- related involutional changes. Patchy white matter hypodensities suggest chronic microvascular ischemic disease. Cerebral vascular calcifications are noted. The calvarium is intact. The paranasal sinuses, mastoid air cells, and middle ear cavities are clear. IMPRESSION: No acute intracranial abnormality or calvarial fracture. The above report was generated using voice recognition software. It may contain grammatical, syntax or spelling errors. Electronically signed by: Jun Carmichael M.D. 02/10/2019 10:53 AM Dictated: 02/10/19 1051 Transcribed: 02/10/19 1051 XR chest 1V portable CLINICAL HISTORY: Chest Pain pain COMPARISON STUDY: 06/19/2017 FINDINGS: Mild cardiomegaly. Minimal left basilar atelectasis. Lungs otherwise appear clear. Mild stable tortuosity of the thoracic aorta. IMPRESSION: Chronic change. No acute process. The above report was generated using voice recognition software. It may contain grammatical, syntax or spelling errors. XR hand RT min 3V routine CLINICAL HISTORY: 83 years-old Female presenting with right hand swelling. rule out fracture or gout. TECHNIQUE: Frontal, oblique, and lateral views of the right hand were obtained. COMPARISON: None. FINDINGS: Osteopenia. Erosion of the radial aspect of the second metacarpal head suspected. An overhanging osteophyte at this site may be present. Degenerative changes at several proximal and distal interphalangeal joints most severely affecting the second and fifth fingers. Degenerative changes at the trapezium- first metacarpal articulation with osteophytosis, subchondral sclerosis, and subchondral cystic change. No acute fracture or malalignment. Diffuse soft tissue swelling predominantly along the dorsum of the hand. IMPRESSION: 1. Osseous erosion suspected at the second metacarpal. The deformity is not characteristic of a fracture. Findings could suggest involvement of gout versus calcium pyrophosphate hydrate deposition disease. The appearance is not characteristic for osteoarthrosis. 2. Degenerative changes characteristic of osteoarthrosis at the first CMC joint and several interphalangeal joints most prominently involving the second and fifth fingers. 3. Osteopenia. 4. Allowing for osteopenia, no acute osseous injury. Electronically signed by: Aubrey Berger M.D. 02/19/2019 11:30 AM Dictated: 02/19/19 1126 Transcribed: 02/19/19 1126 Hospital Course (1) Fall: -patient was admitted on 02/10/19 after being found to have fallen on the floor in her home (2) Ambulatory dysfunction: -patient does not have any acute fractures and her main medical problems have rhabdomyolysis and acute kidney injury and acute diverticulitis has been treated -However with on going physical and occupational therapists, patient is deemed to be a high fall risk and would benefit from nursing home facility -clinical nurse manager has been working with her out of state adult children and patient to try to coordinate a disposition for patient to go to a physical therapy center or SNF after hospital stay -however patient has repeated declined to go anywhere else after hospital stay except to her home -as of 02/18/19 and ongoing, patient appears to have medical decision making capacity -patient appears to be making therapy progress based on review of recent physical therapy notes -02/20/19: Patient continues to expect that someone will pick her up from hospital but clinical nurse manager reports that there is no one to transport her to her home at least until Saturday. -02/23/19: updates from clinical nurse manager is that the patient's house keeper will not be able to transport the patient until Saturday02/25/19 (3) Rhabdomyolysis: -Traumatic rhabdomyolysis -Secondary to fall and also due to prolonged immobilization -CK: 1124> 854> 565> 286> 29 on this admission (4) Acute diverticulitis: -admission CT of the abdomen and pelvis did show mild acute sigmoid diverticulitis and cystitis -patient completed 2 days of Unasyn and then 5 more days of antibiotics as Augmentin -is off antibiotics at this time (5) JOSE ALEJANDRO (acute kidney injury): -pre-renal cause of acute kidney injury from dehydration and rhabdomyolysis -renal function has returned to baseline and diarrhea appears improved (6) UTI (urinary tract infection): -Urinary tract infection ruled out CT suggestive of possible cystitis Urine analysis: Not suggestive of UTI History of Overactive bladder -continue Tolterodine Right hand swelling possible gout flare versus calcium versus pyrophosphate hydrate deposition disease -right hand X ray 02/19/19 1. Osseous erosion suspected at the second metacarpal. The deformity is not characteristic of a fracture. Findings could suggest involvement of gout versus calcium pyrophosphate hydrate deposition disease. The appearance is not characteristic for osteoarthrosis. 2. Degenerative changes characteristic of osteoarthrosis at the first CMC joint and several interphalangeal joints most prominently involving the second and fifth fingers. 3. Osteopenia. 4. Allowing for osteopenia, no acute osseous injury. -initially thought to be right hand IV infiltration; however, gout or calcium pyrophosphate hydrate deposition disease also considered -normal serum uric acid does not rule out gout -as of 02/22/19 patient's right hand swelling appears much improved, will continue for now the allopurinol, scheduled indomethacin, continue scheduled acetaminophen, prn tramadol for severe pain -02/23/19: stop indomethacin and stop scheduled acetaminophen, continue allopurinol for now Descending thoracic aortic aneurysm Infrarenal abdominal aortic aneurysm Left common iliac artery aneurysm -No change when compared to prior imaging studies DVT Px: SQ Heparin CODE STATUS Full Code Total Time Total Time Spent Total Time Spent (In Minutes): 35 minutes Total Time Includes: Examination of the Patient, Discharge Planning, Medication Reconciliation, Communication With Other Providers and Other Discharge Plan Discharge Items Reason For Visit: AMBULATORY DYSFUNCTION WITH FALLS, RHABDOMYOLYSIS Discharge Diagnosis: Fall, Ambulatory Dysfunction, Traumatic rhabdomyolysis, Acute diverticulitis, acute kidney injury (resolved), Right hand swelling (gout or calcium pyrophosphate hydrate deposition disease) Follow-up/Referrals: Ria Jaimes MD, FACOG [Primary Care Provider] - Stand[facility]Alone [facility] Medications and DC Order Prescriptions: No Action atorvastatin [Lipitor] 20 mg Tablet 20 mg PO DAILY RF: 0 tolterodine [Detrol] 2 mg Tablet 2 mg PO BID RF: 0 aspirin 81 mg Tablet,Chewable 81 mg PO DAILY RF: 0 tramadol [Ultram] 50 mg Tablet 50 mg PO Q8H PRN (Reason: Pain) RF: 0 Admission Data Admit Date/Time: 02/10/19 12:46 Attending Provider: Deborah Santana Admit Provider: Esther Montes Primary Care Provider: Ria Jaimes Other Providers: Esther Montes ; Damien Daigle
== END 2019-02-25 14:39 | disposition home or self-care (01) | DRG 565 ==
LOC: ED 09:04 → 2N 12:46 → SUATTDRO 12:46 → 2N 14:30 → 2W 02-13 07:22 → 4W 02-20 15:48

== ENCOUNTER 2019-05-24 15:07 | Inpatient (IN) ==
[2019-05-24] MEDS ORDERED: SODIUM CHLORIDE 0.9% 1000ML 1,000 ML IV SCH (16:15)
[2019-05-24 16:28] LABS: Basophils # (auto) 0.03 K/uL (0-0.2); Basophils % (auto) 0.4 %; Eosinophils # (auto) 0.29 K/uL (0-0.5); Eosinophils % (auto) 3.6 %; Hematocrit (blood only) 39.6 % (37-47); Hemoglobin 12.7 g/dL (12.0-16.0); Immature Granulocytes # (auto) 0.01 K/uL (0.00-0.02); Immature Granulocytes % (auto) 0.1 %; Lymphocytes # (auto) 0.74 K/uL (1.2-3.4); Lymphocytes % (auto) 9.3 %; Mean Corpuscular Hemoglobin 31.9 pg (25-34); Mean Corpuscular Hgb Conc 32.1 g/dL (32-36); Mean Corpuscular Volume 99.5 fL (80-100); Mean Platelet Volume 9.2 fL (7.4-10.4); Monocytes # (auto) 0.81 K/uL (0.11-0.59); Monocytes % (auto) 10.2 %; Neutrophils # (auto) 6.07 K/uL (1.4-6.5); Neutrophils % (auto) 76.4 %; Platelet Count 255 K/uL (130-400); RDW Coefficient of Variation 14.2 % (11.5-14.5); RDW Standard Deviation 51.9 fL (36.4-46.3); Red Blood Count 3.98 M/uL (4.2-5.4); White Blood Count 7.95 K/uL (4.8-10.8)
[2019-05-24 16:39] LABS: INR 1.1 (0.9-1.1); Partial Thromboplastin Ratio 1.1; Partial Thromboplastin Time 29.1 Seconds (21.0-31.0); Prothrombin Time 10.9 Seconds (9.0-12.0)
[2019-05-24 16:46] LABS: BUN Creatinine Ratio 13.4 (10-20); Blood Urea Nitrogen 19 mg/dl (7-18); Calcium 9.3 mg/dl (8.5-10.1); Carbon Dioxide 24 mmol/L (21-32); Chloride 111 mmol/L (98-107); Creatinine Clr Calc Pharmacy 29.6 ml/min; Est GFR (African American) 38.2; Glucose 127 mg/dl (70-99); Magnesium 2.2 mg/dl (1.8-2.4); Potassium 3.4 mmol/L (3.5-5.1); Sodium 143 mmol/L (136-145)
[2019-05-24 16:51] LABS: Creatine Kinase 38 U/L (26-192); Troponin I < 0.015 ng/ml (0-0.045)
--- NOTE | 2019-05-24 16:53 | XRay Report ---
XR pelvis 1-2V routine CLINICAL HISTORY: fall found down in yard in mud COMPARISON STUDY: Abdomen and pelvis CT 02/10/2019. FINDINGS: Severe osteoarthritis within the bilateral hips with [id number] articulation. The bones a re osteopenic. No fracture or dislocation within the pelvis or hips. The sacrum is intact. Soft tissu es are unremarkable. IMPRESSION: No fracture or dislocation within the pelvis or hips. ACT 112: Negative or not required by law. Electronically signed by: Mariusz Brambila M.D. 05/24/2019 4:52 PM
--- NOTE | 2019-05-24 16:54 | XRay Report ---
XR chest 1V portable HISTORY: fall found down in yard in mud COMPARISON: Chest 02/10/2019. FINDINGS: No pneumothorax. No pleural effusions. The lungs are clear. The heart remains mildly enlarg ed. There is a tortuous thoracic aorta. Mild elevation of the right hemidiaphragm, unchanged. Stable linear scarlike density within the left lower lobe. IMPRESSION: No significant change compared to the prior study. No acute process. ACT 112: Negative or not required by law. Electronically signed by: Mariusz Brambila M.D. 05/24/2019 4:53 PM
--- NOTE | 2019-05-24 16:56 | XRay Report ---
RIGHT ANKLE 3 VIEWS, LEFT ANKLE 3 VIEWS HISTORY: fall found down in yard in mud COMPARISON: None. FINDINGS: There is no fracture or dislocation. Soft tissue swelling within the bilateral ankles. The bones are osteopenic. Prior internal fixation of a bimalleolar left ankle fracture. The hardware appe ars intact. IMPRESSION: No acute fractures within the right or left ankle. ACT 112: Negative or not required by law. Electronically signed by: Mariusz Brambila M.D. 05/24/2019 4:55 PM
--- NOTE | 2019-05-24 17:12 | CT Scan Report ---
HEAD CT NONCONTRAST CT DOSE: 905.31 mGy.cm HISTORY: fall found down in yard in mud TECHNIQUE: Multiaxial CT images of the head were performed without the use of intravenous contrast. A utomated exposure control was utilized for this study. A dose lowering technique was utilized adheri ng to the principles of ALARA. Comparison: Head CT 02/10/2019. Findings: The paranasal sinuses and mastoid air cells are clear. The calvarium and skull base are int act. There is no mass, hematoma, midline shift, acute infarct. White matter hypodensity is nonspecifi c but suggestive of microvascular ischemic change. The ventricles and sulci demonstrate mild age-rela bella involutional changes. 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 Impression: No significant change compared to the prior study. No acute intracranial abnormality. ACT 112: Negative or not required by law. Electronically signed by: Mariusz Brambila M.D. 05/24/2019 5:10 PM
--- NOTE | 2019-05-24 17:15 | CT Scan Report ---
CERVICAL SPINE CT CT DOSE: HISTORY: fall found down in yard in mud TECHNIQUE: Multiaxial CT images of the cervical spine were performed and reformatted in the sagittal and coronal plane without the use of contrast. A dose lowering technique was utilized adhering to th e principles of ALARA. COMPARISON: Cervical spine CT 02/10/2019. FINDINGS: No fractures. No subluxation. Prevertebral soft tissues and the C1-C2 interval are intact. No pneumothorax. Advanced degenerative changes and mild reversal of the normal lordotic curvature wit hin the mid to lower cervical spine is again noted. IMPRESSION: No fractures within the cervical spine. ACT 112: Negative or not required by law. Electronically signed by: Mariusz Brambila M.D. 05/24/2019 5:14 PM
[2019-05-24] MEDS ORDERED: fentaNYL citrate 100 MCG/2 ML VIAL IV STA (17:41)
[2019-05-24] MEDS ORDERED: cefTRIAXone SODIUM 1,000 MG/50 ML BAG IV STA (18:17)
[2019-05-24 19:30] LABS: Appearance Urine Turbid (Clear); Bilirubin Urine Negative (Negative); Blood Urine 3+ (Negative); Color Urine Yellow; Glucose Urine UA Negative (Negative); Ketones Urine Negative (Negative); Leukocyte Esterase Urine 2+ (Negative); Nitrite Urine Negative (Negative); Protein Urine 1+ (Negative); Urobilinogen Urine Negative (Negative)
[2019-05-24 19:35] LABS: WBC Urine >30 /hpf (0-5)
[2019-05-24 19:36] LABS: Epithelial Cell Urine 0-5 /lpf (0-5)
[2019-05-24 19:37] LABS: Bacteria Urine 3+ (Negative)
[2019-05-24] MEDS ORDERED: AMLODIPINE BESYLATE 5 MG TAB PO STA (19:42)
[2019-05-24] MEDS ORDERED: AZTREONAM 1,000 MG in DEXTROSE 5% 100 ML IV STA (19:46)
--- NOTE | 2019-05-24 19:54 | Emergency Department Note ---
Entered by Maria L Granados acting as a scribe for Rubio Nava History of Present Illness General Chief complaint: Ankle Pain Stated complaint: ANKLE PAIN Time Seen by Provider: 05/24/19 15:40 Source: patient and RN notes reviewed History of Present Illness Provider complaint: ankle pain Onset (ago): hour(s) (prior to arrival) Location: lower extremity Quality: + other (ankle pain) Associated symptoms: + other (Positive fall; ) Treatments prior to arrival: none The patient, who is a 83 year old female with a medical history of syncope, CKD and UTI, presents to the Emergency Room with complaints of ankle pain that occurred from a fall earlier today. The patient's records state that the patient was working in her garden outside when she fell into mud. The patient expresses that she fell really hard but is not sure how long she was outside in the mud. The patient denies the use of blood thinners. HPI is limited secondary to altered mental status. Home Medications Home Medications Medication Instructions Recorded Confirmed Type aspirin 81 mg PO DAILY 02/11/19 05/24/19 History atorvastatin [Lipitor] 20 mg PO DAILY 02/11/19 05/24/19 History tolterodine [Detrol] 2 mg PO BID 02/11/19 05/24/19 History tramadol [Ultram] 50 mg PO Q8H PRN 02/11/19 05/24/19 History sennosides [Senokot] 8.6 mg PO QAM #30 tab 02/25/19 05/24/19 Rx estradiol 2 gm PV .use 2gms vaginally 05/19/19 05/24/19 Rx nightly for 6 weeks #42.5 gm nystatin 100,000 unit/gram topical 1 appln TOP BID #30 gm 05/19/19 05/24/19 Rx cream Allergies Allergy/AdvReac Type Severity Reaction Status Date / Time No Known Allergies Allergy Verified 05/24/19 15:41 Past Med/Surg History Medical History Ambulatory dysfunction Fall Hx of renal calculi Prolapsed uterus (Chronic) UTI (urinary tract infection) (Resolved) Family History Other Family history non-contributory Social History Preferred Language: Bruneian Communication Ability: Effective Policy Change Clerks Supervisor Required: No Beliefs That Will Affect Care: None marital status: Current Living Situation: Alone current occupational status: retired Feels Safe at Home: Yes Smoking Status: Never smoker Hx Alcohol Use: No Hx Substance Use: No Review of Systems See HPI for pertinent positives & negatives. and A total of 10 systems reviewed and were otherwise negative Physical Exam Vital Signs Vital Signs - 24 hr 05/24/19 15:11 05/24/19 16:41 05/24/19 18:00 Temperature 36.9 C 37 C Temperature Source Oral Oral Pulse Rate 106 H 99 H Pulse Rate [Apical] 99 H 96 H Pulse Rhythm Regular Regular Pulse Rhythm [Apical] Regular Regular Pulse Strength Normal Pulse Strength [Apical] Normal Normal Respiratory Rate 18 20 20 Respiratory Effort / Characteristics Non-Labored Spontaneous Non-Labored Spontaneous Non-Labored Spontaneous Respiratory Depth Normal Normal Normal Respiratory Pattern Regular Regular Regular Blood Pressure 190/88 H Blood Pressure [Right Arm] 150/104 H 153/87 H Blood Pressure Mean 122 Blood Pressure Mean [Right Arm] 119 109 Blood Pressure Position Lying Blood Pressure Position [Right Arm] Sitting Lying Pulse Oximetry 94 97 96 Oxygen Delivery Method Room Air Room Air Room Air Sepsis Recent Fever Within 48 Hours No Sepsis Action Taken by Nursing No Action Required 05/24/19 19:13 Temperature Temperature Source Pulse Rate Pulse Rate [Apical] 93 H Pulse Rhythm Pulse Rhythm [Apical] Pulse Strength Pulse Strength [Apical] Respiratory Rate 20 Respiratory Effort / Characteristics Respiratory Depth Respiratory Pattern Blood Pressure Blood Pressure [Right Arm] 153/87 H Blood Pressure Mean Blood Pressure Mean [Right Arm] 109 Blood Pressure Position Blood Pressure Position [Right Arm] Pulse Oximetry 94 Oxygen Delivery Method Room Air Sepsis Recent Fever Within 48 Hours Sepsis Action Taken by Nursing GENERAL: She is alert and oriented x2. She is disheveled and covered in mud. HENT: Exam performed. Head: Normocephalic and atraumatic. Right Ear: External ear normal. No mastoid tenderness. Left Ear: External ear normal. No mastoid tenderness. Mouth/Throat: The oropharynx is clear and moist. No trismus in the jaw. No dental abscesses or uvula swelling. No oropharyngeal exudate or tonsillar abscesses. EYES: Conjunctivae and EOM are normal. Pupils are equal, round, and reactive to light. Right eye exhibits no discharge. Left eye exhibits no discharge. No scleral icterus. NECK: Normal range of motion. Neck supple. No JVD present. No spinous process tenderness present. No carotid bruit present. No rigidity. No tracheal deviation and normal range of motion present. No Brudzinski's sign and no Kernig's sign noted. CV: Normal rate, regular rhythm, normal heart sounds and intact distal pulses. There is no peripheral edema. Palpable radial pulses bue. PULM/CHEST: Effort normal and breath sounds normal. No respiratory distress. No stridor. She has no wheezes. She has no rales. Chest Wall: She exhibits no tenderness. ABD: The abdomen is soft. Bowel sounds are normal. She has no distension. No mass is present. There is no tenderness. There is no rebound, no guarding, no M urphy's sign and no tenderness at McBurney's point. Rovsig negative MUSC/SKEL: Normal range of motion. There is no peripheral edema, tenderness or deformity. No C, T or L spine tenderness. Pelis is stable. LYMPH: No cervical adenopathy. NEURO: She is alert and oriented x2.. She has normal strength. No cranial nerve deficit or sensory deficit. Coordination and gait normal. GCS eye subscore is 4. GCS verbal subscore is 5. GCS motor subscore is 6. cerbellar tests wnl. Motor and sensation are grossly intact. SKIN: Skin is warm and dry. She is not diaphoretic. PSYCH: She has a normal mood and affect. Her behavior is normal. Judgment and thought content normal. Course Course 1547: Past medical records reviewed. The patient was evaluated in room B5. A complete history and physical exam was performed. Continuous Cardiac Monitoring: An order was placed for continuous cardiac monitoring. The monitor shows a rate of 105 with sinus tachycardia with frequent PVCs. 1729: I reassessed the patient whose vital signs are stable. Labs and imaging are within normal limits. There are no family members at bedside. Tania, jig worker, consulted to see if she can get in touch with family members to see if she can get patient home. 1742: I was called to bedside by the nursing team and found a mass protruding from the patient's vaginal introitus. I examined the mass with nursing aeronautical engineering professor at bedside and it appeared to be a large uterine prolapse. I attempted to reduce manually with female aeronautical engineering professor at bedside. Will try again after giving the patient IV pain medication 1745: I reviewed the patient's case with Dr. Montaño. He will evaluate the patient and assist with uterine prolapse. 1800: Dr. Montaño came to bedside. Initially we thought uterine prolapse but after further exam it was felt that the patient might be having a cystocele prolapse. It was suggested a Sierra catheter, be placed in order to decompress the bladder, which will then allow for subsequent reduction. Sierra catheter was placed by nursing, significant amount of purulent of milky white urine was drained from the bladder. This significantly decreased the size of the cystocele and was able to manually reduced the cystocele. Urine appears grossly infected. The patient will be treated with Rocephin. UTI could be causing the patients altered mental status. She will be admitted to [facility] team and they have been notified. 192: I reviewed the patient's case with Dr. July Barlow Hospitalist. He will evaluate the patient for further management. Consultations Consultation #1: I reviewed the patient's case with Dr. Montaño. He will evaluate the patient and assist with uterine prolapse. Time: 17:45 Consultation #2: I reviewed the patient's case with Dr. July Barlow Hospitalist. He will evaluate the patient for further management. Time: 19:23 Administered Medications Sodium Chloride (Nss 1000ml) 1,000 mls @ 125 mls/hr IV .Q8H DAYRON Stop: 06/23/19 16:14 Last Admin: 05/24/19 17:05 Dose: 125 mls/hr Documented by: [id number] Discontinued Medications Fentanyl Citrate (Fentanyl Citrate) 50 mcg IV NOW STA Stop: 05/24/19 17:42 Last Admin: 05/24/19 17:47 Dose: 50 mcg Documented by: [id number] Ceftriaxone Sodium (Rocephin) 1,000 mg in 50 mls @ 100 mls/hr IV NOW STA Stop: 05/24/19 18:46 Last Admin: 05/24/19 19:16 Dose: 100 mls/hr Documented by: [id number] Medical Decision Making Medical Records Attestation: I reviewed the patient's medical records. Home Medications Current Medication List: was personally reviewed by me Laboratory Data Attestation: I reviewed the patient's lab results. Result diagrams: 05/24/19 16:21 05/24/19 16:21 Lab Results 05/24/19 05/24/19 05/24/19 Range/Units 16:21 16:21 16:21 WBC 7.95 (4.8-10.8) K/uL RBC 3.98 L (4.2-5.4) M/uL Hgb 12.7 (12.0-16.0) g/dL Hct 39.6 (37-47) % MCV 99.5 (80-100) fL MCH 31.9 (25-34) pg MCHC 32.1 (32-36) g/dL RDW Std Deviation 51.9 H (36.4-46.3) fL RDW Coeff of Jessica 14.2 (11.5-14.5) % Plt Count 255 (130-400) K/uL MPV 9.2 (7.4-10.4) fL Immature Gran % (Auto) 0.1 % Neut % (Auto) 76.4 % Lymph % (Auto) 9.3 % Garfield % (Auto) 10.2 % Eos % (Auto) 3.6 % Baso % (Auto) 0.4 % Immature Gran # (Auto) 0.01 (0.00-0.02) K/uL Neut # (Auto) 6.07 (1.4-6.5) K/uL Lymph # (Auto) 0.74 L (1.2-3.4) K/uL Garfield # (Auto) 0.81 H (0.11-0.59) K/uL Eos # (Auto) 0.29 (0-0.5) K/uL Baso # (Auto) 0.03 (0-0.2) K/uL PT 10.9 (9.0-12.0) Seconds INR 1.1 (0.9-1.1) APTT 29.1 (21.0-31.0) Seconds PTT Ratio 1.1 Sodium 143 (136-145) mmol/L Potassium 3.4 L (3.5-5.1) mmol/L Chloride 111 H (98-107) mmol/L Carbon Dioxide 24 (21-32) mmol/L Anion Gap 8.0 (3-11) BUN 19 H (7-18) mg/dl Creatinine 1.45 H (0.6-1.2) mg/dl Est Cr Clr Drug Dosing 29.6 ml/min Est GFR ( Amer) 38.2 Est GFR (Non-Af Amer) 33.0 BUN/Creatinine Ratio 13.4 (10-20) Glucose 127 H (70-99) mg/dl Calcium 9.3 (8.5-10.1) mg/dl Magnesium 2.2 (1.8-2.4) mg/dl Total Creatine Kinase 38 (26-192) U/L Troponin I < 0.015 (0-0.045) ng/ml Urine Color Urine Appearance (Clear) Urine pH (4.5-7.5) Ur Specific [place] (1.000-1.030) Urine Protein (Negative) Urine Glucose (UA) (Negative) Urine Ketones (Negative) Urine Blood (Negative) Urine Nitrite (Negative) Urine Bilirubin (Negative) Urine Urobilinogen (Negative) Ur Leukocyte Esterase (Negative) Urine RBC (0-4) /hpf Urine WBC (0-5) /hpf Ur Epithelial Cells (0-5) /lpf Urine Bacteria (Negative) Urine Yeast (None Prsent) 05/24/19 Range/Units 18:13 WBC (4.8-10.8) K/uL RBC (4.2-5.4) M/uL Hgb (12.0-16.0) g/dL Hct (37-47) % MCV (80-100) fL MCH (25-34) pg MCHC (32-36) g/dL RDW Std Deviation (36.4-46.3) fL RDW Coeff of Jessica (11.5-14.5) % Plt Count (130-400) K/uL MPV (7.4-10.4) fL Immature Gran % (Auto) % Neut % (Auto) % Lymph % (Auto) % Garfield % (Auto) % Eos % (Auto) % Baso % (Auto) % Immature Gran # (Auto) (0.00-0.02) K/uL Neut # (Auto) (1.4-6.5) K/uL Lymph # (Auto) (1.2-3.4) K/uL Garfield # (Auto) (0.11-0.59) K/uL Eos # (Auto) (0-0.5) K/uL Baso # (Auto) (0-0.2) K/uL PT (9.0-12.0) Seconds INR (0.9-1.1) APTT (21.0-31.0) Seconds PTT Ratio Sodium (136-145) mmol/L Potassium (3.5-5.1) mmol/L Chloride (98-107) mmol/L Carbon Dioxide (21-32) mmol/L Anion Gap (3-11) BUN (7-18) mg/dl Creatinine (0.6-1.2) mg/dl Est Cr Clr Drug Dosing ml/min Est GFR ( Amer) Est GFR (Non-Af Amer) BUN/Creatinine Ratio (10-20) Glucose (70-99) mg/dl Calcium (8.5-10.1) mg/dl Magnesium (1.8-2.4) mg/dl Total Creatine Kinase (26-192) U/L Troponin I (0-0.045) ng/ml Urine Color Yellow Urine Appearance Turbid A (Clear) Urine pH 5.0 (4.5-7.5) Ur Specific [place] 1.020 (1.000-1.030) Urine Protein 1+ H (Negative) Urine Glucose (UA) Negative (Negative) Urine Ketones Negative (Negative) Urine Blood 3+ H (Negative) Urine Nitrite Negative (Negative) Urine Bilirubin Negative (Negative) Urine Urobilinogen Negative (Negative) Ur Leukocyte Esterase 2+ H (Negative) Urine RBC 10-30 H (0-4) /hpf Urine WBC >30 H (0-5) /hpf Ur Epithelial Cells 0-5 (0-5) /lpf Urine Bacteria 3+ H (Negative) Urine Yeast Budding A (None Prsent) Imaging Data Radiologist's Impression: Radiology results as stated below per my review and the radiologist's interpretation: RIGHT ANKLE 3 VIEWS, LEFT ANKLE 3 VIEWS HISTORY: fall found down in yard in mud COMPARISON: None. FINDINGS: There is no fracture or dislocation. Soft tissue swelling within the bilateral ankles. The bones are osteopenic. Prior internal fixation of a bimalleolar left ankle fracture. The hardware appears intact. IMPRESSION: No acute fractures within the right or left ankle. ACT 112: Negative or not required by law. Electronically signed by: Mariusz Brambila M.D. 05/24/2019 4:55 PM RIGHT ANKLE 3 VIEWS, LEFT ANKLE 3 VIEWS HISTORY: fall found down in yard in mud COMPARISON: None. FINDINGS: There is no fracture or dislocation. Soft tissue swelling within the bilateral ankles. The bones are osteopenic. Prior internal fixation of a bimalleolar left ankle fracture. The hardware appears intact. IMPRESSION: No acute fractures within the right or left ankle. ACT 112: Negative or not required by law. Electronically signed by: Mariusz Brambila M.D. 05/24/2019 4:55 PM [place], [place] [phone] CT Scan Report Patient: KATRINA RICKETTS Date: 05/24/19 MR#: [id number]: [address] Acct ID:[id number]: Date: 5City Zip: [place] [address] Age: 83Location: ED Sex: F Room/Bed: Att Phy:Diagnosis: ANKLE PAIN Terri Phy: Ria Jaimes MDService Date: 05/24/19 Fam Phy:Interpreting Phy: Mariusz Brambila MD Admit Phy: Ordering Phy: Rubio Nava MD cc: ~ CERVICAL SPINE CT CT DOSE: HISTORY: [place] [facility] [place]: Multiaxial CT images of the cervical spine were performed and reformatted in the sagittal and coronal plane without the use of contrast. A dose lowering technique was utilized adhering to the principles of ALARA. COMPARISON: Cervical spine CT 02/10/2019. FINDINGS: No fractures. No subluxation. Prevertebral soft tissues and the C1-C2 interval are intact. No pneumothorax. Advanced degenerative changes and mild reversal of the normal lordotic curvature within the mid to lower cervical spine is again noted. IMPRESSION: No fractures within the cervical spine. ACT 112: Negative or not required by law. Electronically signed by: Mariusz Brambila M.D. 05/24/2019 5:14 PM XR chest 1V portable HISTORY: [place] [facility] [place]ISON: Chest 02/10/2019. FINDINGS: No pneumothorax. No pleural effusions. The lungs are clear. The heart remains mildly enlarged. There is a tortuous thoracic aorta. Mild elevation of the right hemidiaphragm, unchanged. Stable linear scarlike density within the left lower lobe. IMPRESSION: No significant change compared to the prior study. No acute process. ACT 112: Negative or not required by law. Electronically signed by: Mariusz Brambila M.D. 05/24/2019 4:[address]AST CT DOSE: 905.31 mGy.cm HISTORY: [place] [facility] [place]: Multiaxial CT images of the head were performed without the use of intravenous contrast. Automated exposure control was utilized for this study. A dose lowering technique was utilized adhering to the principles of ALARA. Comparison: Head CT 02/10/2019. Findings: The paranasal sinuses and mastoid air cells are clear. The calvarium and skull base are intact. There is no mass, hematoma, midline shift, acute infarct. White matter hypodensity is nonspecific but suggestive of microvascular ischemic change. The ventricles and sulci demonstrate mild age-related involutional changes. 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 Impression: No significant change compared to the prior study. No acute intracranial abnormality. ACT 112: Negative or not required by law. Electronically signed by: Mariusz Brambila M.D. 05/24/2019 5:10 PM XR pelvis 1-2V routine CLINICAL HISTORY: fall found down in yard in mud COMPARISON STUDY: Abdomen and pelvis CT 02/10/2019. FINDINGS: Severe osteoarthritis within the bilateral hips with [id number] articulation. The bones are osteopenic. No fracture or dislocation within the pelvis or hips. The sacrum is intact. Soft tissues are unremarkable. IMPRESSION: No fracture or dislocation within the pelvis or hips. ACT 112: Negative or not required by law. Electronically signed by: Mariusz Brambila M.D. 05/24/2019 4:52 PM ECG Data Attestation: I personally reviewed and interpreted this ECG as follows: Indication: + altered mental status Rate (beats per minute): 100 Rhythm: + sinus tachycardia ECG Intervals/blocks: + Normal QRS, + Normal OR and + Normal QT-c ECG ST segments: no ST depression and no ST elevation ECG Findings: + PVCs (Multiple present) Blood Pressure Blood Pressure Findings: Elevated blood pressure Blood Pressure Disposition: further management by hospitalist CHELLE Lauren 1547: Past medical records reviewed. The patient was evaluated in room B5. A co mplete history and physical exam was performed. Continuous Cardiac Monitoring: An order was placed for continuous cardiac monitoring. The monitor shows a rate of 105 with sinus tachycardia with frequent PVCs. 1729: I reassessed the patient whose vital signs are stable. Labs and imaging are within normal limits. There are no family members at bedside. Tania, jig worker, consulted to see if she can get in touch with family members to see if she can get patient home. 1742: I was called to bedside by the nursing team and found a mass protruding from the patient's vaginal introitus. I examined the mass with nursing aeronautical engineering professor at bedside and it appeared to be a large uterine prolapse. I attempted to reduce manually with female aeronautical engineering professor at bedside. Will try again after giving the patient IV pain medication 1745: I reviewed the patient's case with Dr. Montaño. He will evaluate the patient and assist with uterine prolapse. 1800: Dr. Monatño came to bedside. Initially we thought uterine prolapse but after further exam it was felt that the patient might be having a cystocele prolapse. It was suggested a Sierra catheter, be placed in order to decompress the bladder, which will then allow for subsequent reduction. Sierra catheter was placed by nursing, significant amount of purulent of milky white urine was drained from the bladder. This significantly decreased the size of the cystocele and was able to manually reduced the cystocele. Urine appears grossly infected. The patient will be treated with Rocephin. UTI could be causing the patients altered mental status. She will be admitted to [facility] team and they have been notified. 1923: I reviewed the patient's case with Dr. July Barlow Hospitalist. He will evaluate the patient for further management. Impression & Plan Acute kidney injury, Cystocele with prolapse, Infectious encephalopathy, UTI (urinary tract infection), Urinary retention Discharge Plan Visit Data Chief Complaint: Ankle Pain Stated Complaint: ANKLE PAIN ED Provider: Rubio Nava Discharge Problem: Acute kidney injury, Cystocele with prolapse, Infectious encephalopathy, UTI (urinary tract infection), Urinary retention Patient Disposition: Being Evaluated by Hospitalist Forms Stand Alone Forms: My [facility] Prescriptions Prescriptions: No Action estradiol 0.01 % (0.1 mg/gram) cream 2 gm PV .use 2gms vaginally nightly for 6 weeks Qty: 42.5 RF: 4 nystatin 100,000 unit/gram cream 1 appln TOP BID Qty: 30 RF: 3 atorvastatin [Lipitor] 20 mg Tablet 20 mg PO DAILY RF: 0 tolterodine [Detrol] 2 mg Tablet 2 mg PO BID RF: 0 aspirin 81 mg Tablet,Chewable 81 mg PO DAILY RF: 0 tramadol [Ultram] 50 mg Tablet 50 mg PO Q8H PRN (Reason: Pain) RF: 0 sennosides [Senokot] 8.6 mg Tablet 8.6 mg PO QAM Qty: 30 RF: 0 Referrals Referrals: Ria Jaimes MD, FACOG [Primary Care Provider] - Discharge Problem: UTI (urinary tract infection) Qualifiers: Urinary tract infection type: site unspecified Hematuria presence: without hematuria Qualified Code(s): N39.0 - Urinary tract infection, site not specified The scribe's documentation has been prepared under my direction and personally reviewed by me in its entirety. I confirm that the note above accurately reflects all work, treatment, procedures, and medical decision making performed by me.
[2019-05-24] MEDS ORDERED: METOPROLOL TARTRATE 25 MG TAB PO STA (20:14)
--- NOTE | 2019-05-24 20:16 | History & Physical Report ---
Date of Service May 24, 2019 Assessment & Plan (1) Asymptomatic hypertensive urgency: Secondary to fall/discomfort Likely chronic hypertension not on maintenance medications given cardiomegaly on CXR Complicated UTI, no sepsis for now 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 status post Sierra catheter insertion at the ER ARF secondary to above AAA, stable measurement Hyperglycemia rule out DM Hypokalemia possibly from poor p.o. intake Irregular dysfunction, recurrent falls Medical telemetry Beta-brynn appropriate agent for BP control given AAA comorbidity and PVCs on EKG Follow urine cultures, IV Azactam Monitor creatinine response to IVF Urology consult Re: Obstructive uropathy Outpatient vascular surgery referral/follow-up study for AAA Check hemoglobin A1c Replace potassium PT OT eval DVT prophylaxis. Heparin subcu Full code Text document was generated using [employer] voice recognition software. It may contain grammatical or spelling errors. Kindly contact undersigned for clarification of any documentation item in question. History of Present Illness Primary Care Provider: None History obtained from patient and records. 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 Recent confinement January 2019 for traumatic rhabdomyolysis secondary to fall at home and diverticulitis. Patient fell outside her yard this morning after slipping on the mud. Had trouble getting up. No chest pain, S OB, LOC. Dysuria symptoms the last few days without fever without chills. Patient complaining of some upper achy abdominal discomfort SBP 190s upon arrival at the ER. At the ER, patient noted to have a mass protruding from her vaginal introitus thought to be uterine prolapse/cystocele. Sierra catheter placed to decompress bladder yielding cloudy/milky urine. Patient received IV Ceftriaxone at the ER for UTI. MEDICAL HISTORY: As above. SURGERIES: Ankle surgery, hysterectomy. FAMILY HISTORY: Hypertension. PERSONAL AND SOCIAL HISTORY: Nonsmoker, no chronic intake of alcoholic beverages. 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 Allergies Allergy/AdvReac Type Severity Reaction Status Date / Time No Known Allergies Allergy Verified 05/24/19 15:41 Home Medications Home Medications Medication Instructions Recorded Confirmed Type aspirin 81 mg PO DAILY 02/11/19 05/24/19 History atorvastatin [Lipitor] 20 mg PO DAILY 02/11/19 05/24/19 History tolterodine [Detrol] 2 mg PO BID 02/11/19 05/24/19 History tramadol [Ultram] 50 mg PO Q8H PRN 02/11/19 05/24/19 History sennosides [Senokot] 8.6 mg PO QAM #30 tab 02/25/19 05/24/19 Rx estradiol 2 gm PV .use 2gms vaginally 05/19/19 05/24/19 Rx nightly for 6 weeks #42.5 gm nystatin 100,000 unit/gram topical 1 appln TOP BID #30 gm 05/19/19 05/24/19 Rx cream Past Med/Surg History Medical History Ambulatory dysfunction Fall Hx of renal calculi Prolapsed uterus (Chronic) UTI (urinary tract infection) (Resolved) Family History Other Family history non-contributory Social History Preferred Language: Persian Communication Ability: Effective Pharmacist Required: No Beliefs That Will Affect Care: None marital status: Current Living Situation: Alone current occupational status: retired Feels Safe at Home: Yes Safety Concerns: Feels Safe At This Time Smoking Status: Never smoker Hx Alcohol Use: No Hx Substance Use: No Review of Systems Review of Systems: As per HPI, all 10 systems reviewed, all other ROS negative Physical Exam Physical Exam: GENERAL: Slightly uncomfortable, slightly anxious, looks younger than stated age, no respiratory distress SKIN: Normal color, warm HEENT: [place] palpebral conjunctivae, no ptosis, dry buccal mucosa NECK : Supple, no tenderness CHEST : CTA, no tenderness HEART : RRR, no obvious murmurs ABDOMEN: Some distention, minimal epigastric tenderness EXTREMITIES : Chronic bilateral LE swelling, no LE tenderness, no other conspicuous deformities noted NEUROLOGIC : Coherent, no facial asymmetry, no other gross focality Results & Data Vital Signs (Past 12 Hours) Vital Signs Temp Pulse Pulse Resp BP BP Pulse Ox 05/24/19 19:13 93 H 20 153/87 H 94 05/24/19 18:00 37 C 96 H 20 153/87 H 96 05/24/19 16:41 99 H 99 H 20 150/104 H 97 05/24/19 15:11 36.9 C 106 H 18 190/88 H 94 Laboratory Results Laboratory Results WBC 7.95 K/uL (4.8-10.8) 05/24/19 16:21 RBC 3.98 M/uL (4.2-5.4) L 05/24/19 16:21 Hgb 12.7 g/dL (12.0-16.0) 05/24/19 16:21 Hct 39.6 % (37-47) 05/24/19 16:21 MCV 99.5 fL (80-100) 05/24/19 16:21 MCH 31.9 pg (25-34) 05/24/19 16:21 MCHC 32.1 g/dL (32-36) 05/24/19 16:21 RDW Std Deviation 51.9 fL (36.4-46.3) H 05/24/19 16: RDW Coeff of Jessica 14.2 % (11.5-14.5) 05/24/19 16:21 Plt Count 255 K/uL (130-400) 05/24/19 16:21 MPV 9.2 fL (7.4-10.4) 05/24/19 16:21 Immature Gran % (Auto) 0.1 % 05/24/19 16:21 Neut % (Auto) 76.4 % 05/24/19 16:21 Lymph % (Auto) 9.3 % 05/24/19 16:21 Hayes % (Auto) 10.2 % 05/24/19 16:21 Eos % (Auto) 3.6 % 05/24/19 16:21 Baso % (Auto) 0.4 % 05/24/19 16:21 Immature Gran # (Auto) 0.01 K/uL (0.00-0.02) 05/24/19 16:21 Neut # (Auto) 6.07 K/uL (1.4-6.5) 05/24/19 16:21 Lymph # (Auto) 0.74 K/uL (1.2-3.4) L 05/24/19 16:21 Hayes # (Auto) 0.81 K/uL (0.11-0.59) H 05/24/19 16:21 Eos # (Auto) 0.29 K/uL (0-0.5) 05/24/19 16:21 Baso # (Auto) 0.03 K/uL (0-0.2) 05/24/19 16:21 PT 10.9 Seconds (9.0-12.0) 05/24/19 16:21 INR 1.1 (0.9-1.1) 05/24/19 16:21 APTT 29.1 Seconds (21.0-31.0) 05/24/19 16:21 PTT Ratio 1.1 05/24/19 16:21 Sodium 143 mmol/L (136-145) 05/24/19 16:21 Potassium 3.4 mmol/L (3.5-5.1) L 05/24/19 16:21 Chloride 111 mmol/L (98-107) H 05/24/19 16:21 Carbon Dioxide 24 mmol/L (21-32) 05/24/19 16:21 Anion Gap 8.0 (3-11) 05/24/19 16:21 BUN 19 mg/dl (7-18) H 05/24/19 16:21 Creatinine 1.45 mg/dl (0.6-1.2) H 05/24/19 16:21 Est Cr Clr Drug Dosing 29.6 ml/min 05/24/19 16:21 Est GFR ( Amer) 38.2 05/24/19 16:21 Est GFR (Non-Af Amer) 33.0 05/24/19 16:21 BUN/Creatinine Ratio 13.4 (10-20) 05/24/19 16:21 Glucose 127 mg/dl (70-99) H 05/24/19 16:21 Calcium 9.3 mg/dl (8.5-10.1) 05/24/19 16:21 Magnesium 2.2 mg/dl (1.8-2.4) 05/24/19 16:21 Total Creatine Kinase 38 U/L (26-192) 05/24/19 16:21 Troponin I < 0.015 ng/ml (0-0.045) 05/24/19 16:21 TSH Cancelled 05/24/19 16:21 Urine Color Yellow 05/24/19 18:13 Urine Appearance Turbid (Clear) A 05/24/19 18:13 Urine pH 5.0 (4.5-7.5) 05/24/19 18:13 Ur Specific [place] 1.020 (1.000-1.030) 05/24/19 18:13 Urine Protein 1+ (Negative) H 05/24/19 18:13 Urine Glucose (UA) Negative (Negative) 05/24/19 18:13 Urine Ketones Negative (Negative) 05/24/19 18:13 Urine Blood 3+ (Negative) H 05/24/19 18:13 Urine Nitrite Negative (Negative) 05/24/19 18:13 Urine Bilirubin Negative (Negative) 05/24/19 18:13 Urine Urobilinogen Negative (Negative) 05/24/19 18:13 Ur Leukocyte Esterase 2+ (Negative) H 05/24/19 18:13 Urine RBC 10-30 /hpf (0-4) H 05/24/19 18:13 Urine WBC >30 /hpf (0-5) H 05/24/19 18:13 Ur Epithelial Cells 0-5 /lpf (0-5) 05/24/19 18:13 Urine Bacteria 3+ (Negative) H 05/24/19 18:13 Urine Yeast Budding (None Prsent) A 05/24/19 18:[address] head: No acute intracranial abnormality CT cervical spine: No fractures within the cervical spine. CT abdomen pelvis: 1. Bladder wall is thickened. The bladder is decompressed by Sierra catheter. Therefore, the bladder wall thickening could be due to underdistention or a cystitis given the adjacent inflammatory change. Recommend correlation with urinalysis. 2. Interval development of moderate right and mild left hydroureteronephrosis to the level of the ureterovesical junctions. No ureteral calculi identified. 3. Normal appendix. 4. There is aneurysmal dilatation of the descending thoracic aorta, the infrarenal abdominal aortic, and the left common iliac artery. This is similar to previous. 5. Bilateral nephrolithiasis. Left and right ankle x-rays: No acute fractures within the right or left ankle. Chest x-ray: No pneumothorax. No pleural effusions. The lungs are clear. The heart remains mildly enlarged. There is a tortuous thoracic aorta. Mild elevation of the right hemidiaphragm, unchanged. Stable linear scarlike density within the left lower lobe. EKG as per my interpretation rate 100, NSR, LAD, LAFB, PVCs
[2019-05-24] MEDS: POTASSIUM CHLORIDE 20 MEQ TABCR PO STA ×2 (20:17→20:29)
[2019-05-24] MEDS ORDERED: POTASSIUM CHLORIDE 20 MEQ TABCR PO STA (20:19)
[2019-05-24] MEDS ORDERED: PROMETHAZINE HCL 12.5 MG in SODIUM CHLORIDE 0.9% 50 ML IV PRN (21:32)
[2019-05-24] MEDS ORDERED: POTASSIUM CHLORIDE 40 MEQ in SODIUM CHLORIDE 0.45 % 1,000 ML IV SCH (21:32)
[2019-05-24] MEDS ORDERED: ACETAMINOPHEN 325 MG TAB PO PRN (21:32)
[2019-05-24] MEDS ORDERED: HYDROmorphone INJ 0.5 MG/0.5 ML SYR IV PRN (21:32)
--- NOTE | 2019-05-24 21:56 | CT Scan Report ---
ABDOMEN AND PELVIS CT WITHOUT CONTRAST CT DOSE: 565.61 mGy.cm HISTORY: Generalized abdominal pain. TECHNIQUE: Multiaxial CT images of the abdomen and pelvis were performed without contrast. A dose lo wering technique was utilized adhering to the principles of ALARA. COMPARISON STUDY: Abdomen and pelvis CT 02/10/2019. FINDINGS: Lung bases: The heart is mildly enlarged and without pericardial effusion. The mitral annul us is densely calcified. There are also coronary artery calcifications. There is a fat-containing Boc hdalek hernia at the right lung base. No airspace consolidation, pleural effusion, or pneumothorax is seen at either lung base. There is bibasilar scarring/atelectasis. There is mild aneurysmal dilatati on of the distal descending thoracic aorta. This measures up to 4.2 cm in diameter. A small hiatal he rnia is noted. Liver: The contrast-enhanced liver is normal in size, contour, and attenuation. There is no intrahepa tic biliary ductal dilatation. The hepatic veins and portal veins are patent. There are 2 cysts in th e right lobe which measure up to 3 cm. Gallbladder: Unremarkable. Spleen: Normal in size and attenuation. Pancreas: Unremarkable. Adrenal glands: Unremarkable. Kidneys: Interval development of moderate right and mild left hydroureteronephrosis to the level of t he ureterovesical junctions. No ureteral calculi identified. There are small bilateral nonobstructing renal calculi which measure up to 4 mm. Abdominal vasculature: There is advanced atherosclerotic calcification of the abdominal aorta and stephani ac arteries. An infrarenal abdominal aneurysm measures up to 3.1 cm. There is mild aneurysmal dilatat ion of the left common iliac artery which measures up to 2.2 cm. Bowel: There is moderate colonic diverticulosis. There is no bowel thickening or obstruction. The toñito endix is well-visualized and normal. Peritoneum: There is no intraperitoneal free air or abdominal ascites. There is a fat-containing umbi lical hernia. Lymphadenopathy: None. Pelvic viscera: The bladder wall appears thickened. There is pericystic inflammation. The uterus is s urgically absent. No adnexal lesion is seen. The bladder is decompressed by a Sierra catheter. Skeletal structures: The skeletal structures are osteopenic. No acute fracture is identified. No lyti c or blastic lesions are seen. There is moderate to advanced lumbosacral spondylosis. Sclerotic degen erative change is noted in the sacroiliac joints. Advanced arthritic change is seen in the hips. IMPRESSION: 1. Bladder wall is thickened. The bladder is decompressed by Sierra catheter. Therefore, the bladder w all thickening could be due to underdistention or a cystitis given the adjacent inflammatory change. Recommend correlation with urinalysis. 2. Interval development of moderate right and mild left hydroureteronephrosis to the level of the ure terovesical junctions. No ureteral calculi identified. 3. Normal appendix. 4. There is aneurysmal dilatation of the descending thoracic aorta, the infrarenal abdominal aortic, and the left common iliac artery. This is similar to previous. 5. Bilateral nephrolithiasis. 6. Additional findings as above. ACT 112: Negative or not required by law. Electronically signed by: Mariusz Brambila M.D. 05/24/2019 9:54 PM
[2019-05-24] MEDS ORDERED: AZTREONAM CONSULT ACTIVE PRN (21:58)
[2019-05-24] MEDS ORDERED: POTASSIUM CHLORIDE 20 MEQ TABCR PO ONE (22:00)
[2019-05-24 22:36] LABS: Alanine Aminotransferase 9 U/L (12-78); Albumin Level 3.4 gm/dl (3.4-5.0); Alkaline Phosphatase 70 U/L (45-117); Aspartate Aminotransferase 9 U/L (15-37); Bilirubin Direct < 0.1 mg/dl (0-0.2); Bilirubin,Total 0.3 mg/dl (0.2-1); Creatine Kinase 51 U/L (26-192); Lipase 80 U/L (73-393); Total Protein 7.5 gm/dl (6.4-8.2)
[2019-05-24] MEDS: DOCUSATE SODIUM/SENNA 50/8.6MG TAB PO SCH (22:53)
[2019-05-24] MEDS: HEPARIN SOD 5,000 UNIT/0.5 ML VIAL SQ SCH (22:56)
[2019-05-25] MEDS: TRAMADOL HCL 50 MG TABLET PO PRN ×2 (02:10→21:18)
[2019-05-25] MEDS: AZTREONAM 1,000 MG in DEXTROSE 5% 100 ML IV SCH ×3 (04:24→20:10)
[2019-05-25] MEDS ORDERED: MICONAZOLE NITRATE POWDER 43 GM EXT PRN (05:24)
[2019-05-25 05:54] LABS: Estimated Average Glucose 120 mg/dl; Hemoglobin A1C 5.8 % (4.5-5.6)
[2019-05-25] MEDS: HEPARIN SOD 5,000 UNIT/0.5 ML VIAL SQ SCH ×2 (06:31→17:11)
[2019-05-25 06:45] LABS: Basophils # (auto) 0.05 K/uL (0-0.2); Basophils % (auto) 0.7 %; Eosinophils # (auto) 0.38 K/uL (0-0.5); Eosinophils % (auto) 5.3 %; Hematocrit (blood only) 39.2 % (37-47); Hemoglobin 12.6 g/dL (12.0-16.0); Immature Granulocytes # (auto) 0.01 K/uL (0.00-0.02); Immature Granulocytes % (auto) 0.1 %; Lymphocytes % (auto) 16.8 %; Mean Corpuscular Hemoglobin 31.8 pg (25-34); Mean Corpuscular Hgb Conc 32.1 g/dL (32-36); Mean Platelet Volume 9.2 fL (7.4-10.4); Monocytes # (auto) 0.79 K/uL (0.11-0.59); Monocytes % (auto) 11.1 %; Platelet Count 244 K/uL (130-400); RDW Coefficient of Variation 14.2 % (11.5-14.5); RDW Standard Deviation 51.2 fL (36.4-46.3); Red Blood Count 3.96 M/uL (4.2-5.4); White Blood Count 7.13 K/uL (4.8-10.8)
[2019-05-25 07:28] LABS: BUN Creatinine Ratio 10.6 (10-20); Calcium 8.8 mg/dl (8.5-10.1); Est GFR (African American) 50.8; Est GFR (Non-African American) 43.8; Potassium 4.5 mmol/L (3.5-5.1)
[2019-05-25] MEDS: METOPROLOL TARTRATE 25 MG TAB PO SCH ×2 (07:54→20:11)
[2019-05-25] MEDS: ASPIRIN 81 MG ECTAB PO SCH (07:55)
[2019-05-25] MEDS: DOCUSATE SODIUM/SENNA 50/8.6MG TAB PO SCH ×2 (07:55→20:11)
[2019-05-25] MEDS ORDERED: HEPARIN SOD 5,000 UNIT/0.5 ML VIAL SQ SCH (09:00)
--- NOTE | 2019-05-25 10:50 | Electrocardiogram Report ---
Test Reason : Blood Pressure : / mmHG Vent. Rate : 100 BPM Atrial Rate : 100 BPM P-R Int : 180 ms QRS Dur : 086 ms QT Int : 368 ms P-R-T Axes : 055 -14 074 degrees QTc Int : 474 ms Sinus rhythm with frequent Premature ventricular complexes Nonspecific T wave abnormality Prolonged QT Abnormal ECG When compared with ECG of 10-FEB-2019 09:10, No significant change was found Confirmed by Ziggy Doss ([id number]) on 05/25/2019 10:49:27 AM Referred By: REFERRED SELF Confirmed By:Ziggy Doss
[2019-05-25] MEDS ORDERED: SODIUM CHLORIDE 0.45 % 1,000 ML IV ONE (13:27)
--- NOTE | 2019-05-25 16:35 | Urology Consultation ---
Date of Consultation May 25, 2019 Assessment & Plan (1) Hydronephrosis due to obstruction of ureter: bilateral hydroureteronephrosis due to cystocele will need an ultrasound tomorrow to see if the hydro resolves with baker will likely get pessary back in once her vaginal pressure ulcers heal, Dr Taylor can be called to estimate the timing of this. she should consider colpocleisis surgery to deal with the prolapse I suggest removing 5mL from the baker balloon as I think pt is high risk to pull it out and a smaller balloon will be less traumatic. Present on Admission?: Yes History of Present Illness Reason for Consultation: I am asked by Dr Hollis to evaluate and treat patient for hydronephrosis. Requesting Physician: Dr hollis Attending Physician: Camden Caraballo MD History of Present Illness I am asked by Dr Hollis to evaluate and treat patient for hydronephrosis. I saw her in office over 3 yrs ago for pelvic pain. SHe was wearing a gellhorn pessary at the time and it was causing her pain. she also seemed to have some general genital pain possible from spinal stenosis. She has continued to be managed with gellhorn pessary for her severe prolapse. She has eelcted not to have a surgical solution to her prolapses due to age. She developed rather severe pressure ulcers from he pessary and it was removed last week by her Claim Service Representative Dr Taylor to give it a change to heal. She has developed hyd ronephrosis from her severe cystocele as well as some incomplete bladder emptying and pyuria. She is awake and in no distress now but seems a bit confused. Allergies Allergy/AdvReac Type Severity Reaction Status Date / Time No Known Allergies Allergy Verified 05/24/19 15:41 Home Medications Home Medications Medication Instructions Recorded Confirmed Type aspirin 81 mg PO DAILY 02/11/19 05/24/19 History atorvastatin [Lipitor] 20 mg PO DAILY 02/11/19 05/24/19 History tolterodine [Detrol] 2 mg PO BID 02/11/19 05/24/19 History tramadol [Ultram] 50 mg PO Q8H PRN 02/11/19 05/24/19 History sennosides [Senokot] 8.6 mg PO QAM #30 tab 02/25/19 05/24/19 Rx estradiol 2 gm PV .use 2gms vaginally 05/19/19 05/24/19 Rx nightly for 6 weeks #42.5 gm nystatin 100,000 unit/gram topical 1 appln TOP BID #30 gm 05/19/19 05/24/19 Rx cream Patient History Medical History Ambulatory dysfunction Fall Hx of renal calculi Prolapsed uterus (Chronic) UTI (urinary tract infection) (Resolved) Family History Other Family history non-contributory Social History Preferred Language: [place] Leonean Communication Ability: Effective Transfer Driver Required: No Beliefs That Will Affect Care: None marital status: Current Living Situation: Alone current occupational status: retired Feels Safe at Home: Yes Safety Concerns: Feels Safe At This Time Smoking Status: Never smoker Hx Alcohol Use: No Hx Substance Use: No Review of Systems Review of Systems: PMH- htn psh- hysterectomy for benign reasons. no allergies soc- lives alone has a friend who checks on her weekly, no alcohol, retired Fam hx- not contributory due to advanced age ros- no fever no chest pain + frequent falls, appetite fine, no rash, bowels move regularly Physical Exam Constitutional: WD/WN, vitals as above + disheveled and + overweight Eyes: PERRL, conjunctivae normal, anicteric sclerae Respiratory: normal respiratory effort and able to speak in complete sentences Gastrointestinal (Abdomen): normal bowel sounds, soft, nontender, no hepatosplenomegaly Skin: no rashes, warm and dry Psychiatric: does not seem to understand why she is here or why she has a baker catheter. She picks at the baker securing device constantly. she is oriented to person and place. Genitourinary: 16 fr baker draining yellow cloudy urine in small amounts. Results & Data Vital Signs (Past 12 Hours) Vital Signs Temp Pulse Pulse Resp BP Pulse Ox 05/25/19 16:00 87 05/25/19 14:57 36.4 C L 84 18 90/62 L 94 05/25/19 12:00 37.3 C 82 18 147/84 H 93 05/25/19 08:00 74 05/25/19 07:37 37 C 79 16 134/84 96 05/25/19 05:06 36.9 C 77 16 118/74 94
--- NOTE | 2019-05-25 18:28 | Hospitalist Progress Note ---
Date of Service May 25, 2019 Assessment & Plan (1) Asymptomatic hypertensive urgency: Secondary to fall/discomfort --Asymptomatic Toprol tartrate 25 mg p.o. twice daily started Monitor closely Status post fall --Mechanical fall Imaging so far negative for acute fractures PT OT evaluation Complicated UTI --Follow-up urine culture Continue aztreonam 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 status post Sierra catheter insertion at the ER ARF secondary to above --Continue Sierra catheter Continue IV fluids --Monitor creatinine --Urology consulted AAA, stable measurement --Toprol started, continue aspirin and Lipitor Hyperglycemia rule out DM Hypokalemia possibly from poor p.o. intake --Resolved Ambulatory dysfunction, recurrent falls --Continue PT OT DVT prophylaxis. Heparin subcu Full code Admission and Anticipated Discharge Date Admission Date: May 24, 2019 Subjective Follow-up status post fall, hypertension, UTI, bladder prolapse Seen sitting up in bed, comfortable, not in distress, oriented x2 States she feels improved compared to yesterday Headache has resolved Denies chest pain, shortness of breath, dizziness Has mild suprapubic discomfort no fevers or chills No other pain in her body Denies any other symptom Review of Systems Review of Systems: All systems reviewed & are unremarkable except as noted in HPI & below Physical Exam Physical Exam: General- oriented x 3, not in distress, speaks in sentences with no effort or accessory muscle use Head- atraumatic Eyes- PERRL, EOMI, anicteric ENT- oropharynx clear Neck- supple, no JVD, no adenopathy, no thyromegaly; carotids +2/2, no bruits appreciated Lungs- clear to auscultation bilaterally, no rales/wheezes Heart- normal rate, regular rhythm; no murmur, no gallop, no rub appreciated Abdomen- normal bowel sounds, nondistended, soft, mild suprapubic tenderness, no masses or hepatosplenomegaly Extremities- no pretibial edema, no calf tenderness; peripheral pulses intact Neuro- alert, oriented x 3; CN 2-12 grossly intact; motor 5/5 bilaterally;sensation 100% on all extremities; no other gross focal neurologic deficits Skin- warm & dry Results & Data ([facility]) Vital Signs (Past 12 Hours) Vital Signs Temp Pulse Pulse Resp BP Pulse Ox 05/25/19 16:00 87 05/25/19 14:57 36.4 C L 84 18 90/62 L 94 05/25/19 12:00 37.3 C 82 18 147/84 H 93 05/25/19 08:00 74 05/25/19 07:37 37 C 79 16 134/84 96 Laboratory Results Laboratory Results - last 24 hr 05/24/19 05/24/19 05/24/19 21:44 21:44 21:44 WBC RBC Hgb Hct MCV MCH MCHC RDW Std Deviation RDW Coeff of Jessica Plt Count MPV Immature Gran % (Auto) Neut % (Auto) Lymph % (Auto) Petroleum % (Auto) Eos % (Auto) Baso % (Auto) Immature Gran # (Auto) Neut # (Auto) Lymph # (Auto) Petroleum # (Auto) Eos # (Auto) Baso # (Auto) Sodium Potassium Chloride Carbon Dioxide Anion Gap BUN Creatinine Est Cr Clr Drug Dosing Est GFR ( Amer) Est GFR (Non-Af Amer) BUN/Creatinine Ratio Glucose Estimat Average Glucose 120 Hemoglobin A1c 5.8 H Calcium Total Bilirubin 0.3 Direct Bilirubin < 0.1 AST 9 L ALT 9 L Alkaline Phosphatase 70 Total Creatine Kinase Cancelled 51 Total Protein 7.5 Albumin 3.4 Lipase 80 05/25/19 05/25/19 06:25 06:25 WBC 7.13 RBC 3.96 L Hgb 12.6 Hct 39.2 MCV 99.0 MCH 31.8 MCHC 32.1 RDW Std Deviation 51.2 H RDW Coeff of Jessica 14.2 Plt Count 244 MPV 9.2 Immature Gran % (Auto) 0.1 Neut % (Auto) 66.0 Lymph % (Auto) 16.8 Petroleum % (Auto) 11.1 Eos % (Auto) 5.3 Baso % (Auto) 0.7 Immature Gran # (Auto) 0.01 Neut # (Auto) 4.70 Lymph # (Auto) 1.20 Petroleum # (Auto) 0.79 H Eos # (Auto) 0.38 Baso # (Auto) 0.05 Sodium 143 Potassium 4.5 D Chloride 114 H Carbon Dioxide 25 Anion Gap 4.0 BUN 12 Creatinine 1.14 D Est Cr Clr Drug Dosing 37.0 Est GFR ( Amer) 50.8 Est GFR (Non-Af Amer) 43.8 BUN/Creatinine Ratio 10.6 Glucose 96 Estimat Average Glucose Hemoglobin A1c Calcium 8.8 Total Bilirubin Direct Bilirubin AST ALT Alkaline Phosphatase Total Creatine Kinase Total Protein Albumin Lipase
[2019-05-25] MEDS: SODIUM CHLORIDE 0.9% 1000ML 1,000 ML IV SCH (21:15)
[2019-05-26] MEDS: AZTREONAM 1,000 MG in DEXTROSE 5% 100 ML IV SCH ×3 (03:57→20:00)
[2019-05-26 07:05] LABS: Creatinine Clr Calc Pharmacy 36.4 ml/min; Est GFR (African American) 50.8; Est GFR (Non-African American) 43.8
[2019-05-26] MEDS: METOPROLOL TARTRATE 25 MG TAB PO SCH ×2 (08:10→20:00)
[2019-05-26] MEDS: TRAMADOL HCL 50 MG TABLET PO PRN ×2 (08:10→18:19)
[2019-05-26] MEDS: HEPARIN SOD 5,000 UNIT/0.5 ML VIAL SQ SCH ×2 (08:10→20:00)
[2019-05-26] MEDS: ASPIRIN 81 MG ECTAB PO SCH (08:11)
[2019-05-26] MEDS: DOCUSATE SODIUM/SENNA 50/8.6MG TAB PO SCH ×2 (08:11→20:00)
[2019-05-26] MEDS: SODIUM CHLORIDE 0.9% 1000ML 1,000 ML IV SCH (12:02)
--- NOTE | 2019-05-26 15:04 | Ultrasound Report ---
ULTRASOUND KIDNEYS AND BLADDER CLINICAL HISTORY: Hydronephrosis.. COMPARISON STUDY: Abdominal CT dated 05/24/2019 TECHNIQUE: Real-time, grayscale, and color flow sonography of the kidneys and bladder is performed. I mages are reviewed in the transverse and longitudinal planes. FINDINGS: Kidneys: The kidneys demonstrate cortical atrophy and are normal in echotexture. The right kidney jr sures 10.2 x 4.9 x 4.8 cm and the left kidney measures 11.0 x 5.5 x 6.3 cm. There is mild to moderate right and moderate left hydronephrosis. No shadowing renal calculi are identified. There is no sonog raphic evidence of contour deforming renal mass lesion. Trace perinephric fluid is seen on the right. Bladder: The bladder is decompressed around a Sierra catheter and could not be assessed. IMPRESSION: 1. The kidneys demonstrate cortical atrophy. 2. There is mild to moderate right and moderate left hydronephrosis. 3. The bladder was decompressed and could not be evaluated. ACT 112: Negative or not required by law. Electronically signed by: Dillon Perez M.D. 05/26/2019 3:02 PM
--- NOTE | 2019-05-26 17:10 | Urology Progress Note ---
Date of Service May 26, 2019 Assessment & Plan (1) Hydronephrosis due to obstruction of ureter: bilateral hydroureteronephrosis due to cystocele ultrasound today shows no improvement with baker, but creatinine improved. will likely get pessary back in once her vaginal pressure ulcers heal, Dr Taylor can be called to estimate the timing of this. she should consider colpocleisis surgery to deal with the prolapse she has not pulled on her baker which is encouraging. ER let her give a voided urine at intake which is predictably contaminated so no urine culture data will be available this admission. Subjective patient with no baker complaints but her genital sores are still painful. At first she says she was never given a cream for the vaginal erosions but when I explained some more about her visit with Dr Taylor last week she remembered she has a cream at her bedside and says she was using it. Her ultrasound shows the baker has not decompressed her upper tracts as her hydroureter is unchanged. Her creatinine did improve last 2 days. her urine output seems normal. Review of Systems Review of Systems: All systems reviewed & are unremarkable except as noted in HPI & below Results & Data Vital Signs (Past 12 Hours) Vital Signs Temp Pulse Pulse Pulse Resp BP Pulse Ox 05/26/19 15:41 103 H 05/26/19 15:20 36.7 C 77 18 129/69 94 05/26/19 07:36 94 H 05/26/19 07:21 37 C 93 H 16 154/85 H 94
[2019-05-26] MEDS ORDERED: LIDOCAINE 2% JELLY 5 ML TUBE ONE (18:24)
--- NOTE | 2019-05-26 19:00 | OB/GYN Consultation ---
Date of Consultation May 26, 2019 Assessment & Plan (1) Cystocele with prolapse: I was able to reduce the cystocele, this was very painful. Upon reduction, patient was bearing down from pain and the cystocele immediately prolapsed again. I recommend keeping the baker in place, to continue drainage of the bladder. I applied lidocaine jelly to the prolapsed bladder, in an effort to reduce pain at the location of the ulceration. This seemed to provide quite a bit of relief of her pain. I ordered daily estradiol to improve healing of this ulceration. She needs to either have the pessary replaced as soon as the ulceration fully heals, or be referred to urogynecologist for colpocleiesis surgery. It appears, from prior office notes, that she has declined surgical management in the past. I would predict that the ulcerations should heal within the next 1-2 weeks with the use of the estradiol cream. Would recommend she be seen in the office for replacement of the pessary upon discharge. History of Present Illness Reason for Consultation: prolapse Requesting Physician: Dr Caraballo Attending Physician: Camden Caraballo MD History of Present Illness 84yo who was admitted after a fall in her garden. Gynecology consulted tonight for painful cystocele. She has a longtime history of this cystocele treated with Gelhorn pessary, has been treated with pessary for at least the past [address] Taylor in office 05/19/19, was found to have vaginal ulcerations, and was directed to leave the pessary out for 6-8 weeks and apply estradiol cream to allow ulcerations to heal prior to reinsertion of the pessary. When she arrived in ER, per ER physician's notes, the cystocele was noted and reduced by on-call [employer]AF[employer]T INST[employer]ER and baker catheter was placed to ensure bladder drainage. It stayed in situ until today. She ambulated in the halls today, and now the cystocele has prolapsed again. It is very painful, I believe likely where the ulceration is coming in contact with the bedsheets. She has declined surgical management in the past. Urology is on consult, mo nitoring hydronephrosis, with the hopes of improvement during catheterization. Allergies Allergy/AdvReac Type Severity Reaction Status Date / Time No Known Allergies Allergy Verified 05/24/19 15:41 Home Medications Home Medications Medication Instructions Recorded Confirmed Type aspirin 81 mg PO DAILY 02/11/19 05/24/19 History atorvastatin [Lipitor] 20 mg PO DAILY 02/11/19 05/24/19 History tolterodine [Detrol] 2 mg PO BID 02/11/19 05/24/19 History tramadol [Ultram] 50 mg PO Q8H PRN 02/11/19 05/24/19 History sennosides [Senokot] 8.6 mg PO QAM #30 tab 02/25/19 05/24/19 Rx estradiol 2 gm PV .use 2gms vaginally 05/19/19 05/24/19 Rx nightly for 6 weeks #42.5 gm nystatin 100,000 unit/gram topical 1 appln TOP BID #30 gm 05/19/19 05/24/19 Rx cream Patient History Medical History Ambulatory dysfunction Fall Hx of renal calculi Prolapsed uterus (Chronic) UTI (urinary tract infection) (Resolved) Family History Other Family history non-contributory Social History Preferred Language: Macedonian Communication Ability: Effective Help Desk Specialist Required: No Beliefs That Will Affect Care: None marital status: / Current Living Situation: Alone current occupational status: retired Feels Safe at Home: Yes Safety Concerns: Feels Safe At This Time Smoking Status: Never smoker Hx Alcohol Use: No Hx Substance Use: No Physical Exam Physical Exam: Gen: AAOx3 NAD, awake, talkative and friendly Genital: baker catheter in place and draining clear yellow urine. There is a grade 4/4 cystocele protruding through the introitus. This has a healing ulceration, otherwise mucosa is pink and moist. No bleeding. Results & Data Vital Signs (Past 12 Hours) Vital Signs Temp Pulse Pulse Pulse Resp BP Pulse Ox 05/26/19 15:41 103 H 05/26/19 15:20 36.7 C 77 18 129/69 94 05/26/19 07:36 94 H 05/26/19 07:21 37 C 93 H 16 154/85 H 94 PG Care Time/CCT Total # of Minutes Spent Total Time Spent with Patient: Total time spent is greater than 50% in coordination of care (as documented) at patient's floor/unit and/or counseling patient: Coding Level of Care Code 19215 Initial Inpt Care Lvl 1 Diagnoses Cystocele with prolapse N81.4
--- NOTE | 2019-05-26 19:32 | Hospitalist Progress Note ---
Date of Service May 26, 2019 Assessment & Plan (1) Asymptomatic hypertensive urgency: Secondary to fall/discomfort --Asymptomatic Toprol tartrate 25 mg p.o. 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 intake --Resolved Ambulatory dysfunction, recurrent falls --Continue PT OT DVT prophylaxis. Heparin subcu Full code Disposition PT/OT eval: may need SNF Admission and Anticipated Discharge Date Admission Date: May 24, 2019 Subjective ff up for s/p fall,HTN, cystocele with hydronephrosis seen resting in bed, comfortable oriented x 2 states she feels somewhat better than yesterday denies headache, dizziness, chest pain, dyspnea, palpitations no abdominal pain, nausea denies bladder, introital pain denies other symptoms Review of Systems Review of Systems: All systems reviewed & are unremarkable except as noted in HPI & below Physical Exam Physical Exam: General- oriented x 2, not in distress, speaks in sentences with no effort or accessory muscle use Eyes- anicteric Neck- no JVD Lungs- clear BS BL no rales/wheezing Heart- normal rate, regular rhythm; no murmurs Abdomen- normal bowel sounds, nondistended, soft, nontender Extremities- no pretibial edema, no calf tenderness Neuro- alert, oriented x 3; no gross focal neurologic deficits Skin- warm & dry Results & Data ([facility]) Vital Signs (Past 12 Hours) Vital Signs Temp Pulse Pulse Resp BP Pulse Ox 05/26/19 15:41 103 H 05/26/19 15:20 36.7 C 77 18 129/69 94 05/26/19 07:36 94 H Laboratory Results Laboratory Results - last 24 hr 05/26/19 05:54 Creatinine 1.14 Est Cr Clr Drug Dosing 36.4 Est GFR ( Amer) 50.8 Est GFR (Non-Af Amer) 43.8
[2019-05-26] MEDS: PREMARIN VAG CRM 14 APPLN/30 GM TUBE PV SCH (19:57)
[2019-05-26] MEDS ORDERED: SODIUM CHLORIDE 0.9% 1000ML 1,000 ML IV ONE (23:26)
[2019-05-27] MEDS: AZTREONAM 1,000 MG in DEXTROSE 5% 100 ML IV SCH ×2 (03:48→11:53)
[2019-05-27 06:21] LABS: Hemoglobin 12.5 g/dL (12.0-16.0); Mean Corpuscular Hemoglobin 32.1 pg (25-34); Mean Corpuscular Hgb Conc 32.1 g/dL (32-36); Mean Platelet Volume 9.3 fL (7.4-10.4); Platelet Count 242 K/uL (130-400); RDW Coefficient of Variation 14.1 % (11.5-14.5); RDW Standard Deviation 51.1 fL (36.4-46.3)
[2019-05-27 06:54] LABS: Creatinine Clr Calc Pharmacy 34.9 ml/min; Est GFR (African American) 48.2; Est GFR (Non-African American) 41.6
--- NOTE | 2019-05-27 07:21 | Gynecologic Progress Note ---
Date of Service May 27, 2019 Assessment & Plan Admission and Anticipated Discharge Date Admission Date: May 24, 2019 Subjective Patient is sleeping comfortably in bed, I awoke her upon my arrival to room. She has not had any pain with prolapse since last night's attempt to reduce and use of lidocaine gel. We discussed that I would recommend that her ulcerations be allowed to heal, and then would recommend replacement of the pessary to treat the prolapse. I would expect the ulcerations to be healing within the next week or so. Continue using the estradiol cream daily to aid in this healing process, ok to apply vaseline to prolapsed area to help prevent further ulcerations. She is agreeable to this plan. I would recommend she follow up in our office next week to get pessary replaced. Depending on the timing of her hospital stay, if she is still inpatient when the ulcerations have healed, could potentially replace the pessary while inpatient. Recommend continue baker catheter to ensure bladder drainage while prolapse is occurring. Patient is sleeping comfortably in bed Results & Data ([facility]) Vital Signs (Past 12 Hours) Vital Signs Temp Pulse Resp BP Pulse Ox 05/26/19 23:30 37.0 C 62 18 115/72 93
[2019-05-27] MEDS: DOCUSATE SODIUM/SENNA 50/8.6MG TAB PO SCH ×2 (07:39→21:27)
[2019-05-27] MEDS: ENOXAPARIN INJ 30 MG/0.3 ML SYR SQ SCH (07:39)
[2019-05-27] MEDS: PREMARIN VAG CRM 14 APPLN/30 GM TUBE PV SCH (07:39)
[2019-05-27] MEDS: METOPROLOL TARTRATE 25 MG TAB PO SCH ×2 (07:39→21:27)
[2019-05-27] MEDS: ASPIRIN 81 MG ECTAB PO SCH (07:39)
[2019-05-27] MEDS: TRAMADOL HCL 50 MG TABLET PO PRN ×2 (09:09→21:23)
[2019-05-27] MEDS: LIDOCAINE 2% JELLY 5 ML TUBE EXT PRN ×3 (09:09→21:23)
--- NOTE | 2019-05-27 09:31 | Hospitalist Progress Note ---
Date of Service May 27, 2019 Assessment & Plan (1) Asymptomatic hypertensive urgency: Hypertension, Hypertensive urgency Secondary to fall/discomfort -as per admission and physical on 05/24/2019 "Patient fell outside her yard this morning after slipping on the mud. Had trouble getting up. No chest pain, S OB, LOC. Dysuria symptoms the last few days without fever without chills. Patient complaining of some upper achy abdominal discomfort SBP 190s upon arrival at the ER. At the ER, patient noted to have a mass protruding from her vaginal introitus thought to be uterine prolapse/cystocele. Baker catheter placed to decompress bladder yielding cloudy/milky urine. 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 she was asked whether physical rehabilitation or custodial facility placement was discussed during hospital stay and she said there were brief discussions Cystocele with prolapse: -on 05/26/2019: OBGYN was able to reduce the cystocele, this was very painful. Upon reduction, patient was bearing down from pain and the cystocele immediately prolapsed again. recommend keeping the baker in place, to continue drainage of the bladder, lidocaine jelly to the prolapsed bladder, in an effort to reduce pain at the location of the ulceration, daily estradiol to improve healing of this ulceration. -05/27/2019: OBGYN recommend that "her ulcerations be allowed to heal, and then would recommend replacement of the pessary to treat the prolapse. I would expect the ulcerations to be healing within the next week or so. Continue using the estradiol cream daily to aid in this healing process, ok to apply vaseline to prolapsed area to help prevent further ulcerations. She is agreeable to this plan. 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 Complicated Urinary tract infection is suspected -empirically given ceftriaxone in the ED because of cloudy urine -admission urine culture:Three types or organisms present, all moderate counts probable skin nikole. No further identifications or sensitivities to follow. -currently on aztreonam, continue antibiotics for now and repeat urine analysis abdominal aortic aneurysm (AAA) , stable measurement -Toprol started on this admission -continue aspirin and Lipitor Pre Diabetes mellitus -Hba1c 5.8 -give diabetic diet Hypokalemia possibly from poor p.o. intake --Resolved DVT prophylaxis. Heparin subcu Full code Admission and Anticipated Discharge Date Admission Date: May 24, 2019 discharge date undetermined Subjective Patient lays down on the bed with baker. her insight of her health is poor. she had to be explained that she currently has a baker otherwise, patient cooperative and answers to questions appropriately. 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 she was asked whether physical rehabilitation or custodial facility placement was discussed during hospital stay and she said there were brief discussions breathing on room air. no shortness of breath. no chest pain. no abdomen pain. nurse to apply lidocaine around vaginal area for comfort Review of Systems Review of Systems: All systems reviewed & are unremarkable except as noted in HPI & below Physical Exam Constitutional: comfortable Eyes: PERRL, conjunctivae normal, anicteric sclerae EOM intact bilaterally ENMT: external ear and nose normal, oropharynx normal Neck: normal visual inspection Respiratory: normal respiratory effort, lungs clear to auscultation Cardiovascular: Rate/Rhythm: regular rate and regular rhythm Gastrointestinal (Abdomen): normal bowel sounds, soft, nontender, no hepatosplenomegaly Neurologic: PERRL, EOMI, accommodation nl, no face palsy, no dysarthria CN's II-XI intact bilaterally Psychiatric: Orientation: alert and cooperative Genitourinary: + bladder abnormality (has baker) Results & Data ([facility]) Vital Signs (Past 12 Hours) Vital Signs Temp Pulse Resp BP Pulse Ox 05/27/19 07:21 37.0 C 84 18 127/82 92 05/26/19 23:30 37.0 C 62 18 115/72 93
[2019-05-27 10:17] LABS: Appearance Urine Slightly Cloudy (Clear); Bilirubin Urine Negative (Negative); Blood Urine 3+ (Negative); Color Urine Yellow; Glucose Urine UA Negative (Negative); Ketones Urine Negative (Negative); Leukocyte Esterase Urine 3+ (Negative); Nitrite Urine Negative (Negative); Protein Urine Trace (Negative); Urobilinogen Urine Negative (Negative)
[2019-05-27 10:38] LABS: Epithelial Cell Urine >30 /lpf (0-5); RBC Urine >30 /hpf (0-4); WBC Urine >30 /hpf (0-5)
[2019-05-27 10:39] LABS: Bacteria Urine Negative (Negative)
[2019-05-27 10:40] LABS: Hyaline Casts Urine 0-5 /lpf (0-5)
[2019-05-28 07:20] LABS: Creatinine Clr Calc Pharmacy 38.1 ml/min; Est GFR (African American) 53.6; Est GFR (Non-African American) 46.3
[2019-05-28] MEDS: METOPROLOL TARTRATE 25 MG TAB PO SCH ×2 (07:58→20:08)
[2019-05-28] MEDS: ENOXAPARIN INJ 30 MG/0.3 ML SYR SQ SCH (07:58)
[2019-05-28] MEDS: ASPIRIN 81 MG ECTAB PO SCH (07:58)
[2019-05-28] MEDS: PREMARIN VAG CRM 14 APPLN/30 GM TUBE PV SCH (07:58)
[2019-05-28] MEDS: DOCUSATE SODIUM/SENNA 50/8.6MG TAB PO SCH ×2 (08:08→20:08)
--- NOTE | 2019-05-28 08:16 | Gynecologic Progress Note ---
Date of Service May 28, 2019 Assessment & Plan (1) Cystocele with prolapse: asked pt and nurse to find out if someone can bring her gellhorn pessary in from home. one option may be to replace if ulcerated area looks well healed by time of her discharge. if either pessary not available or ulcer still too significant, we will have to place in office after rehab course. please call us if pt about to obtain gellhorn and perhaps we can reeval area prior to discharge. if not, let us know upon discharge so we can set up outpt visit, or call in interim with any needs. Admission and Anticipated Discharge Date Admission Date: May 24, 2019 Subjective pt on bedside commode when i arrived to room, nurse present, spoke to her through the curtain. she denied new complaints. asked about her estimated length of stay. she is not sure but nurse tells me will be going to rehab after stay here as she lives at home alone. Results & Data ([facility]) Vital Signs (Past 12 Hours) Vital Signs Temp Pulse Resp BP BP Pulse Ox 05/28/19 07:27 97.9 F 79 16 149/71 H 92 05/27/19 23:39 98.4 F 79 18 139/87 92 PG Care Time/CCT Total # of Minutes Spent Total Time Spent with Patient: Total time spent is greater than 50% in coordination of care (as documented) at patient's floor/unit and/or counseling patient: Coding Level of Care Code 21202 Subseq Hosp Care Lvl 1 Diagnoses Cystocele with prolapse N81.4
--- NOTE | 2019-05-28 10:16 | Hospitalist Progress Note ---
Date of Service May 28, 2019 Assessment & Plan (1) Asymptomatic hypertensive urgency: Hypertension, Hypertensive urgency Secondary to fall/discomfort -as per admission and physical on 05/24/2019 "Patient fell outside her yard this morning after slipping on the mud. Had trouble getting up. No chest pain, S OB, LOC. Dysuria symptoms the last few days without fever without chills. Patient complaining of some upper achy abdominal discomfort SBP 190s upon arrival at the ER. At the ER, patient noted to have a mass protruding from her vaginal introitus thought to be uterine prolapse/cystocele. Baker catheter placed to decompress bladder yielding cloudy/milky urine. Patient received IV Ceftriaxone at the ER for UTI." -blood pressure now controlled -on metoprolol tartrate Status post fall Ambulatory dysfunction, recurrent falls -Mechanical fall at home -Imaging so far negative for acute fractures -PT/OT evaluations -05/27/2019: patient recognizes that she lives alone at home and she has a home care physical therapist. she was asked whether physical rehabilitation or alf facility placement was discussed during hospital stay and she said there were brief discussions -05/28/2019: patient appears more agreeable for placement and the possibilities as per case manger may be [facility]. Patient does not not have acute pain today. She continues to have the baker, COLBY mentioned to nurse whether patient's home care physical therapist can bring patient's pessary to hospital. Cystocele with prolapse: -on 05/26/2019: OBGYN was able to reduce the cystocele, this was very painful. Upon reduction, patient was bearing down from pain and the cystocele immediately prolapsed again. recommend keeping the baker in place, to continue drainage of the bladder, lidocaine jelly to the prolapsed bladder, in an effort to reduce pain at the location of the ulceration, daily estradiol to improve healing of this ulceration. -05/27/2019: OBGYN recommend that "her ulcerations be allowed to heal, and then would recommend replacement of the pessary to treat the prolapse. I would expect the ulcerations to be healing within the next week or so. Continue using the estradiol cream daily to aid in this healing process, ok to apply vaseline to prolapsed area to help prevent further ulcerations. She is agreeable to this plan. 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 Complicated Urinary tract infection is suspected -empirically given ceftriaxone in the ED because of cloudy urine and then on aztreonam up until 05/27/2019 -admission urine culture:Three types or organisms present, all moderate counts probable skin nikole. No further identifications or sensitivities to follow. -repeat urine studies sent on 05/27/2019. no bacteria on urine analysis. will give ceftriaxone for now on 05/28/2019 and await the urine cultures abdominal aortic aneurysm (AAA) , stable measurement -Toprol started on this admission -continue aspirin and Lipitor Pre Diabetes mellitus -Hba1c 5.8 -give diabetic diet Hypokalemia possibly from poor p.o. intake --Resolved DVT prophylaxis. Heparin subcu Full code Admission and Anticipated Discharge Date Admission Date: May 24, 2019 Subjective patient appears more agreeable for placement and the possibilities as per case manger may be [facility]. Patient does not not have acute pain today. She continues to have the baker, OBGYN mentioned to nurse whether patient's home care physical therapist can bring patient's pessary to hospital. on room air. no shortness of breath. no abdomen pain. no nausea. no vomiting. no headache. no dizziness. Review of Systems Review of Systems: All systems reviewed & are unremarkable except as noted in HPI & below Physical Exam Constitutional: comfortable Eyes: PERRL, conjunctivae normal, anicteric sclerae EOM intact bilaterally ENMT: external ear and nose normal, oropharynx normal Neck: normal visual inspection Respiratory: normal respiratory effort, lungs clear to auscultation Cardiovascular: Rate/Rhythm: regular rate and regular rhythm Gastrointestinal (Abdomen): normal bowel sounds, soft, nontender, no hepatosplenomegaly Musculoskeletal: Head/Neck/Chest: normocephalic and head atraumatic Neurologic: PERRL, EOMI, accommodation nl, no face palsy, no dysarthria CN's II-XI intact bilaterally Psychiatric: Orientation: alert and cooperative Genitourinary: + bladder abnormality (has baker) Results & Data ([facility]) Vital Signs (Past 12 Hours) Vital Signs Temp Pulse Resp BP BP Pulse Ox 05/28/19 07:27 36.6 C 79 16 149/71 H 92 05/27/19 23:39 36.9 C 79 18 139/87 92
[2019-05-28] MEDS: cefTRIAXone SODIUM 1,000 MG in DEXTROSE 5% 50 ML IV SCH ×2 (10:55→11:38)
[2019-05-28] MEDS: LIDOCAINE 2% JELLY 5 ML TUBE EXT PRN (19:14)
[2019-05-28] MEDS: TRAMADOL HCL 50 MG TABLET PO PRN (20:08)
[2019-05-29] MEDS: TRAMADOL HCL 50 MG TABLET PO PRN ×2 (04:49→11:15)
--- NOTE | 2019-05-29 07:55 | Hospitalist Progress Note ---
Date of Service May 29, 2019 Assessment & Plan (1) Asymptomatic hypertensive urgency: Hypertension, Hypertensive urgency Secondary to fall/discomfort -as per admission and physical on 05/24/2019 "Patient fell outside her yard this morning after slipping on the mud. Had trouble getting up. No chest pain, S OB, LOC. Dysuria symptoms the last few days without fever without chills. Patient complaining of some upper achy abdominal discomfort SBP 190s upon arrival at the ER. At the ER, patient noted to have a mass protruding from her vaginal introitus thought to be uterine prolapse/cystocele. Baker catheter placed to decompress bladder yielding cloudy/milky urine. Patient received IV Ceftriaxone at the ER for UTI." -blood pressure now controlled -on metoprolol tartrate Status post fall Ambulatory dysfunction, recurrent falls -Mechanical fall at home -Imaging so far negative for acute fractures -PT/OT evaluations -05/27/2019: patient recognizes that she lives alone at home and she has a home lighting adviser. she was asked whether physical rehabilitation or care home facility placement was discussed during hospital stay and she said there were brief discussions -05/28/2019: patient appears more agreeable for placement and the possibilities as per case manger may be [facility] Patient does not not have acute pain today. She continues to have the COLBY baker mentioned to nurse whether patient's home lighting adviser can bring patient's pessary to hospital. -05/29/2019: if patient has accepting bed to [facility] today then she may be discharged from hospitalist service with outpatient follow up to [facility] OBGYN clinic and [facility] urology clinic and to be discharged with baker Cystocele with prolapse: -on 05/26/2019: OBGYN was able to reduce the cystocele, this was very painful. Upon reduction, patient was bearing down from pain and the cystocele immediately prolapsed again. recommend keeping the baker in place, to continue drainage of the bladder, lidocaine jelly to the prolapsed bladder, in an effort to reduce pain at the location of the ulceration, daily estradiol to improve healing of this ulceration. -05/27/2019: OBGYN recommend that "her ulcerations be allowed to heal, and then would recommend replacement of the pessary to treat the prolapse. I would expect the ulcerations to be healing within the next week or so. Continue using the estradiol cream daily to aid in this healing process, ok to apply vaseline to prolapsed area to help prevent further ulcerations. She is agreeable to this plan. 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 acute kidney injury resolved Complicated Urinary tract infection is suspected -empirically given ceftriaxone in the ED because of cloudy urine and then on aztreonam up until 05/27/2019 -admission urine culture:Three types or organisms present, all moderate counts probable skin nikole. No further identifications or sensitivities to follow. -repeat urine studies sent on 05/27/2019. no bacteria on urine analysis. was give ceftriaxone on 05/28/2019 and but the repeat urine cultures with cee only. no further urinary antibiotics at this time abdominal aortic aneurysm (AAA) , stable measurement -Toprol started on this admission -continue aspirin and Lipitor Pre Diabetes mellitus -Hba1c 5.8 -diabetic diet Hypokalemia possibly from poor p.o. intake --Resolved DVT prophylaxis. Heparin subcutaneous while inpatient Full code Admission and Anticipated Discharge Date Admission Date: May 24, 2019 Subjective if patient has accepting bed to [facility] today then she may be discharged from hospitalist service with outpatient follow up to [facility] OBGYN clinic and [facility] urology clinic and to be discharged with baker patient was discussed about this plan and she is agreeable. she is not in acute distress. breathing on room air. no vomiting. no dizziness. no headache Review of Systems Review of Systems: All systems reviewed & are unremarkable except as noted in HPI & below Physical Exam Constitutional: comfortable Eyes: PERRL, conjunctivae normal, anicteric sclerae EOM intact bilaterally ENMT: external ear and nose normal, oropharynx normal Neck: normal visual inspection Respiratory: normal respiratory effort, lungs clear to auscultation Cardiovascular: Rate/Rhythm: regular rate and regular rhythm Gastrointestinal (Abdomen): normal bowel sounds, soft, nontender, no hepatosplenomegaly Musculoskeletal: Head/Neck/Chest: normocephalic and head atraumatic Neurologic: PERRL, EOMI, accommodation nl, no face palsy, no dysarthria CN's II-XI intact bilaterally Psychiatric: Orientation: alert and cooperative Genitourinary: + bladder abnormality (has baker) Results & Data ([facility]) Vital Signs (Past 12 Hours) Vital Signs Temp Pulse Resp BP Pulse Ox 05/29/19 07:43 37.0 C 75 16 147/79 H 92 05/29/19 00:00 36.9 C 63 18 150/89 H 92 05/28/19 20:06 88 139/83
[2019-05-29] MEDS: ASPIRIN 81 MG ECTAB PO SCH (08:24)
[2019-05-29] MEDS: METOPROLOL TARTRATE 25 MG TAB PO SCH (08:24)
[2019-05-29] MEDS: PREMARIN VAG CRM 14 APPLN/30 GM TUBE PV SCH (08:25)
[2019-05-29] MEDS: ENOXAPARIN INJ 30 MG/0.3 ML SYR SQ SCH (08:25)
[2019-05-29] MEDS: DOCUSATE SODIUM/SENNA 50/8.6MG TAB PO SCH (11:14)
--- NOTE | 2019-05-29 11:19 | Discharge Summary ---
Date of Service May 29, 2019 Admission HPI Per Admitting Provider History obtained from patient and records. 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 Recent confinement January 2019 for traumatic rhabdomyolysis secondary to fall at home and diverticulitis. Patient fell outside her yard this morning after slipping on the mud. Had trouble getting up. No chest pain, S OB, LOC. Dysuria symptoms the last few days without fever without chills. Patient complaining of some upper achy abdominal discomfort SBP 190s upon arrival at the ER. At the ER, patient noted to have a mass protruding from her vaginal introitus thought to be uterine prolapse/cystocele. Baker catheter placed to decompress bladder yielding cloudy/milky urine. Patient received IV Ceftriaxone at the ER for UTI. MEDICAL HISTORY: As above. SURGERIES: Ankle surgery, hysterectomy. FAMILY HISTORY: Hypertension. PERSONAL AND SOCIAL HISTORY: Nonsmoker, no chronic intake of alcoholic beverages. 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 Admission Exam Per Admitting Provider GENERAL: Slightly uncomfortable, slightly anxious, looks younger than stated age, no respiratory distress SKIN: Normal color, warm HEENT: [place] palpebral conjunctivae, no ptosis, dry buccal mucosa NECK : Supple, no tenderness CHEST : CTA, no tenderness HEART : RRR, no obvious murmurs ABDOMEN: Some distention, minimal epigastric tenderness EXTREMITIES : Chronic bilateral LE swelling, no LE tenderness, no other conspicuous deformities noted NEUROLOGIC : Coherent, no facial asymmetry, no other gross focality Principal Diagnosis Hypertension, Hypertensive urgency Secondary to fall/discomfort Cystocele with prolapse Hydronephrosis due to obstruction of ureter bilateral hydroureteronephrosis due to cystocele 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 Acute kidney injury (resolved) Complicated Urinary tract infection is suspected Discharge Exam Constitutional comfortable Eyes PERRL, conjunctivae normal, anicteric sclerae EOM intact bilaterally ENMT external ear and nose normal, oropharynx normal Neck normal visual inspection Respiratory normal respiratory effort, lungs clear to auscultation Cardiovascular Rate/Rhythm: regular rate and regular rhythm Gastrointestinal (Abdomen) normal bowel sounds, soft, nontender, no hepatosplenomegaly Musculoskeletal Head/Neck/Chest: normocephalic and head atraumatic Neurologic PERRL, EOMI, accommodation nl, no face palsy, no dysarthria CN's II-XI intact bilaterally Psychiatric Orientation: alert and cooperative Genitourinary + bladder abnormality (has baker) Discharge Data Allergies Allergy/AdvReac Type Severity Reaction Status Date / Time No Known Allergies Allergy Verified 05/24/19 15:41 Consultations 05/24/19 18:25 ED Decision to Admit Stat 05/24/19 21:32 Consult Case Management - Discharge Planning Routine 05/24/19 22:36 Consult Urology Routine Ordered Studies 05/24/19 16:07 CT cervical spine wo con Stat CT head/brain wo con Stat 05/24/19 20:14 CT abd pelvis wo con Urgent 05/26/19 12:25 US renal/blad retro comp Routine Hospital Course (1) Asymptomatic hypertensive urgency: Hypertension, Hypertensive urgency Secondary to fall/discomfort -as per admission and physical on 05/24/2019 "Patient fell outside her yard this morning after slipping on the mud. Had trouble getting up. No chest pain, S OB, LOC. Dysuria symptoms the last few days without fever without chills. Patient complaining of some upper achy abdominal discomfort SBP 190s upon arrival at the ER. At the ER, patient noted to have a mass protruding from her vaginal introitus thought to be uterine prolapse/cystocele. Baker catheter placed to decompress bladder yielding cloudy/milky urine. Patient received IV Ceftriaxone at the ER for UTI." -blood pressure now controlled -on metoprolol tartrate Status post fall Ambulatory dysfunction, recurrent falls -Mechanical fall at home -Imaging so far negative for acute fractures -PT/OT evaluations -05/27/2019: patient recognizes that she lives alone at home and she has a homeland security program specialist. she was asked whether physical rehabilitation or [facility] facility placement was discussed during hospital stay and she said there were brief discussions -05/28/2019: patient appears more agreeable for placement and the possibilities as per case santosh may be [facility]. Patient does not not have acute pain today. She continues to have the COLBY bkaer mentioned to nurse whether patient's homeland security program specialist can bring patient's pessary to hospital. -05/29/2019: discharge from hospitalist service with outpatient follow up to [facility] OBGYN clinic and [facility] urology clinic and to be discharged with baker. there are no scheduled appointments at this time. nursing facility should call again for [facility] on [address], [place] [address] to confirm appointment time nursing facility should call again for [facility] on [address], [place] [address] to confirm appointment time Cystocele with prolapse: -on 05/26/2019: OBGYN was able to reduce the cystocele, this was very painful. Upon reduction, patient was bearing down from pain and the cystocele immediately prolapsed again. recommend keeping the baker in place, to continue drainage of the bladder, lidocaine jelly to the prolapsed bladder, in an effort to reduce pain at the location of the ulceration, daily estradiol to improve healing of this ulceration. -05/27/2019: OBGYN recommend that "her ulcerations be allowed to heal, and then would recommend replacement of the pessary to treat the prolapse. I would expect the ulcerations to be healing within the next week or so. Continue using the estradiol cream daily to aid in this healing process, ok to apply vaseline to prolapsed area to help prevent further ulcerations. She is agreeable to this plan. 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 acute kidney injury resolved Complicated Urinary tract infection is suspected -empirically given ceftriaxone in the ED because of cloudy urine and then on aztreonam up until 05/27/2019 -admission urine culture:Three types or organisms present, all moderate counts probable skin nikole. No further identifications or sensitivities to follow. -repeat urine studies sent on 05/27/2019. no bacteria on urine analysis. was give ceftriaxone on 05/28/2019 and but the repeat urine cultures with cee only. no further urinary antibiotics at this time abdominal aortic aneurysm (AAA) , stable measurement -Toprol started on this admission -continue aspirin and Lipitor Pre Diabetes mellitus -Hba1c 5.8 -diabetic diet Hypokalemia possibly from poor p.o. intake --Resolved DVT prophylaxis. 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 Acute kidney injury (resolved) Complicated Urinary tract infection is suspected Condition on Discharge: Good Activity: Per Instructions section Non-emergency contact: Primary Care Provider, Instructional Writer and Urologist Call non-emergency contact if: you have any medication questions Follow-up/Referrals: Ria Jaimes MD, FACOG [Primary Care Provider] - Dietitian Info: HbA1c is 5.8, Pre-diabetes Diet: Carb Consistent or DM2 and Heart Healthy Addtl Attending Provider Instructions: discharge from hospitalist service with outpatient follow up to [facility] OBGYN clinic and [facility] urology clinic and to be discharged with baker there are no scheduled appointments at this time. nursing facility should call again for [facility] on [address], [place] [address] to confirm appointment time nursing facility should call again for [facility] on [address], [place] [address] to confirm appointment time Pending Studies at Discharge: No Stand-Alone Forms: My [facility] Skilled Items Patient informed of condition?: Yes DNR: No Discharge Level of Care: Skilled Communicable Disease: No Discharge Prognosis: Stable Lines: None Urinary Catheter: Yes Medications and DC Order Prescriptions: New metoprolol tartrate 25 mg Tablet 25 mg PO BID 30 Days Qty: 60 RF: 0 acetaminophen 325 mg tablet 325 mg PO Q6H PRN (Reason: fever or pain) 5 Days Qty: 20 RF: 0 tramadol 50 mg Tablet 50 mg PO Q6H PRN (Reason: moderate to severe pain) 4 Days Qty: 16 RF: 0 lidocaine HCl 2 % Jelly 3 ml EXT Q4H PRN (Reason: vaginal area pain) 5 Days Qty: 30 RF: 0 Continued estradiol 0.01 % (0.1 mg/gram) cream 2 gm PV .use 2gms vaginally nightly for 6 weeks Qty: 42.5 RF: 4 nystatin 100,000 unit/gram cream 1 appln TOP BID Qty: 30 RF: 3 atorvastatin [Lipitor] 20 mg Tablet 20 mg PO DAILY RF: 0 tolterodine [Detrol] 2 mg Tablet 2 mg PO BID RF: 0 aspirin 81 mg Tablet,Chewable 81 mg PO DAILY RF: 0 sennosides [Senokot] 8.6 mg Tablet 8.6 mg PO QAM Qty: 30 RF: 0 Discontinued tramadol [Ultram] 50 mg Tablet 50 mg PO Q8H PRN (Reason: Pain) RF: 0 Discharge Orders: Discharge Order (Routine); Ordered 05/29/19 Ordered By: Damien Daigle Admission Data Admit Date/Time: 05/24/19 20:19 Attending Provider: Damien Daigle Admit Provider: Juan Escamilla Primary Care Provider: Ria Jaimes Other Providers: Juan Escamilla ; Lali Law ; Tien [place] Bagley
== END 2019-05-29 13:22 | DRG 683 ==
LOC: ED 15:07 → SUATTDRO 20:19 → 2N 20:19 → 4W 05-27 00:03

== ENCOUNTER 2020-01-27 12:06 | Inpatient (IN) ==
--- NOTE | 2020-01-27 13:16 | Emergency Department Note ---
History of Present Illness General Chief complaint: Illness Stated complaint: illness Time Seen by Provider: 01/27/20 12:19 Source: EMS and other ([facility] records) Mode of arrival: EMS Limitations: altered mental status History of Present Illness Provider complaint: Altered mental status Onset (ago): unknown Maximum Pain Intensity: 0 This is an 84-year-old female brought in from a [facility] via EMS after concern for altered mental status today. Patient was recently being treated for urinary tract infection. Patient unable to provide any history. Patient does have a prior history of UTIs and acute kidney injury. Patient is not anticoagulated, no reported falls. Pt seen during a time of high acuity and national emergency pandemic while wearing PPE. Home Medications Home Medications Medication Instructions Recorded Confirmed Type aspirin 81 mg PO QAM 02/11/19 01/27/20 History atorvastatin [Lipitor] 20 mg PO PM 02/11/19 01/27/20 History sennosides [Senokot] 8.6 mg PO QAM #30 tab 02/25/19 01/27/20 Rx acetaminophen 325 mg capsule 325 mg PO QID PRN 06/04/19 01/27/20 History bisacodyl 10 mg rectal suppository 10 mg VA DAILY PRN 06/04/19 01/27/20 History docusate sodium 100 mg capsule 100 mg PO QAM 06/04/19 01/27/20 History ostomy supplies #1 ea 06/04/19 12/11/19 History polyethylene glycol 3350 17 17 gm PO QAM 06/04/19 01/27/20 History gram/dose oral powder divalproex 250 mg tablet,delayed 250 mg PO BID 12/11/19 01/27/20 History release dexamethasone 6 mg PO DAILY@1600 01/27/20 01/27/20 History dexamethasone sodium phos (PF) 6 mg IV Q6H 01/27/20 01/27/20 History estradiol [Estrace] 5 gm PV WK 01/27/20 01/27/20 History magnesium hydroxide 30 ml PO DIRECTED PRN 01/27/20 01/27/20 History megestrol 400 mg PO QAM 01/27/20 01/27/20 History oxybutynin chloride 10 mg PO QAM 01/27/20 01/27/20 History Allergies Allergy/AdvReac Type Severity Reaction Status Date / Time No Known Allergies Allergy Verified 01/27/20 14:01 Past Med/Surg History Medical History (Updated 01/28/20 @ 20:53 by Socorro Ibarra DO) Ambulatory dysfunction Bipolar disorder Fall HLD (hyperlipidemia) HTN (hypertension) Hx of renal calculi OAB (overactive bladder) Osteoporosis Prolapsed uterus UTI (urinary tract infection) Surgical History (Updated 01/27/20 @ 16:54 by Stephanie Durán PA-C) History of cholecystectomy History of tonsillectomy and adenoidectomy Family History (Updated 01/27/20 @ 16:57 by Stephanie Durán PA-C) Other Family history unobtainable due to patient's condition Social History (Updated 01/27/20 @ 16:57 by Stephanie Durán PA-C) Smoking Status: Unknown if ever smoked Preferred Language: French Communication Ability: Effective Station Operator Required: No Beliefs That Will Affect Care: None marital status: / Current Living Situation: Custodial current occupational status: retired Other Information That Helps Us Care for You: No Feels Safe at Home: Yes Assistive Devices: None Review of Systems Unobtainable due to cognitive status Physical Exam Vital Signs Vital Signs - 24 hr 01/27/20 12:26 01/27/20 13:30 01/27/20 13:45 Temperature 36.7 C Temperature Source Oral Pulse Rate 93 H 96 H 96 H Pulse Rate from SpO2 Sensor 95 H 96 H Pulse Rhythm Regular Pulse Strength Normal Respiratory Rate 20 18 20 Respiratory Effort / Characteristics Non-Labored Non-Labored Respiratory Depth Normal Respiratory Pattern Regular Blood Pressure 126/85 133/88 130/85 Blood Pressure Mean 98 101 88 Blood Pressure Position Lying Pulse Oximetry 92 94 94 Oxygen Delivery Method Room Air Room Air Sepsis Recent Fever Within 48 Hours No Sepsis New/Unexplained Change in Mental Status N/A Sepsis Action Taken by Nursing No Action Required 01/27/20 13:46 Temperature Temperature Source Pulse Rate 95 H Pulse Rate from SpO2 Sensor 95 H Pulse Rhythm Pulse Strength Respiratory Rate 19 Respiratory Effort / Characteristics Respiratory Depth Respiratory Pattern Blood Pressure Blood Pressure Mean Blood Pressure Position Pulse Oximetry 94 Oxygen Delivery Method Sepsis Recent Fever Within 48 Hours Sepsis New/Unexplained Change in Mental Status Sepsis Action Taken by Nursing GENERAL: Will open eyes to voice, otherwise chronically ill-appearing, softly moaning EYE EXAM: normal conjunctiva, PERRL and EOM's grossly intact OROPHARYNX: no exudate, no erythema, lips, buccal mucosa, and tongue normal and mucous membranes are moist NECK: supple, no nuchal rigidity, no adenopathy, non-tender LUNGS: Clear to auscultation. Normal chest wall mechanics, no w/r/r HEART: no murmurs, S1 normal and S2 normal ABDOMEN: abdomen soft, non-tender, normo-active bowel sounds, no masses, no rebound or guarding. BACK: Back is symmetrical on inspection and there is no deformity, no midline tenderness, no CVA tenderness. SKIN: no rashes and no bruising UPPER EXTREMITIES: upper extremities are grossly normal. FROM, nml pulses b/l. LOWER EXTREMITIES: No pitting edema. FROM, nml pulses b/l. NEURO EXAM: Patient would not cooperate for neuro testing, she spontaneously moves arms, and will move legs to painful stimuli Course Course 1310: Discussed with son, Neeraj. Pt did test positive for COVID 10 days ago. Patient does have a history of memory loss, however is typically conversational. Patient's son and his states she has had a lot of "female problems". They were aware she was being treated for urinary tract infection. They state they were told that she was agitated last night and trying to pull out her IV. She does have a history of bipolar disorder and is frequently paranoid. Patient does not have a living will or advanced directive 1400: On additional review of [facility] paperwork, patient has been getting IV injections of Rocephin for her UTI. The previously started nitrofurantoin was stopped. Patient is on aspirin, no other anticoagulation. There is no urine culture and no reports of an outpatient chest x-ray as family has stated. 1525: Updated patient's family on results and plan for additional inpatient evaluation. 1535: [facility]. Administered Medications Heparin Sodium (Porcine) (Heparin Sod 5,000 Unit/0.5 Ml Vial) 5,000 units SQ Q12 [facility] Stop: 02/26/20 20:59 Last Admin: 01/28/20 08:08 Dose: 5,000 units Documented by: [id number] Cosigned by: [id number] Admin: 01/27/20 21:11 Dose: 5,000 units Documented by: [id number] Cosigned by: [id number] Valproic Acid 250 mg/ Dextrose 52.5 mls @ 55 mls/hr IV Q12H [facility] Stop: 02/26/20 20:59 Last Admin: 01/28/20 19:16 Dose: 55 mls/hr Documented by: [id number] Infusion: 01/28/20 09:22 Dose: 0 mls/hr Documented by: [id number] Admin: 01/28/20 08:07 Dose: 55 mls/hr Documented by: [id number] Infusion: 01/27/20 22:10 Dose: 0 mls/hr Documented by: [id number] Admin: 01/27/20 21:11 Dose: 55 mls/hr Documented by: [id number] Ceftriaxone Sodium 1,000 mg/ (Dextrose) 50 mls @ 100 mls/hr IV DAILY@1999 [facility]; Protocol Stop: 01/29/20 20:29 Last Admin: 01/28/20 19:16 Dose: 100 mls/hr Documented by: [id number] Infusion: 01/27/20 21:42 Dose: 0 mls/hr Documented by: [id number] Admin: 01/27/20 21:11 Dose: 100 mls/hr Documented by: [id number] Dextrose (D5w) 1,000 mls @ 75 mls/hr IV .[id number] [facility] Stop: 02/27/20 08:29 Last Admin: 01/28/20 19:14 Dose: 75 mls/hr Documented by: [id number] Infusion: 01/28/20 18:26 Dose: 100 mls/hr Documented by: [id number] Admin: 01/28/20 08:26 Dose: 100 mls/hr Documented by: [id number] Discontinued Medications Dextrose (D5w) 1,000 mls @ 75 mls/hr IV .[id number] [facility] Stop: 02/26/20 15:44 Last Infusion: 01/28/20 04:35 Dose: 0 mls/hr Documented by: [id number] Infusion: 01/27/20 21:12 Dose: 75 mls/hr Documented by: [id number] Admin: 01/27/20 18:32 Dose: 85 mls/hr Documented by: [id number] Potassium Chloride/Dextrose/Sod Cl (D5nss + 20meq Kcl) 20 meq in 1,000 mls @ 40 mls/hr IV .Q24H [facility] Stop: 01/29/20 04:12 Last Infusion: 01/28/20 09:02 Dose: 0 mls/hr Documented by: [id number] Admin: 01/28/20 04:33 Dose: 40 mls/hr Documented by: [id number] Critical Care Time Critical Care Time: Yes Total Critical Care Time: 49 Critical care of 49 min performed to assess and manage high likelihood of life- threatening hypernatremia, involving labs and imaging performed with assessment to evaluate hypernatremia diagnosis with frequent reassessment. This time includes bedside time, treatment discussions with patient/family/consultants, documentation time and excludes procedure time. Medical Decision Making Differential Diagnosis Differential diagnoses includes but is not limited to toxic, metabolic, infectious, traumatic, cardiac, neurologic, hematologic, psychiatric and inflammatory etiologies. Medical Records Attestation: I reviewed the patient's medical records. Home Medications Current Medication List: was personally reviewed by me Laboratory Data Attestation: I reviewed the patient's lab results. Result diagrams: 01/28/20 03:29 01/28/20 18:07 Lab Results 01/27/20 01/27/20 01/27/20 Range/Units 13:09 13:09 13:09 WBC 7.48 (4.8-10.8) K/uL RBC 4.81 (4.2-5.4) M/uL Hgb 14.8 (12.0-16.0) g/dL Hct 48.2 H (37-47) % MCV 100.2 H (80-100) fL MCH 30.8 (25-34) pg MCHC 30.7 L (32-36) g/dL RDW Std Deviation 56.7 H (36.4-46.3) fL RDW Coeff of Jessica 15.3 H (11.5-14.5) % Plt Count 141 (130-400) K/uL MPV 11.6 H (7.4-10.4) fL Immature Gran % (Auto) 0.1 % Neut % (Auto) 89.4 % Lymph % (Auto) 7.8 % [place]rentiss % (Auto) 2.7 % Eos % (Auto) 0.0 % Baso % (Auto) 0.0 % Neut # (Auto) 6.69 H (1.4-6.5) K/uL Lymph # (Auto) 0.58 L (1.2-3.4) K/uL Prentiss # (Auto) 0.20 (0.11-0.59) K/uL Eos # (Auto) 0.00 (0-0.5) K/uL Baso # (Auto) 0.00 (0-0.2) K/uL Immature Gran # (Auto) 0.01 (0.00-0.02) K/uL PT 13.5 H (9.0-12.0) Seconds INR 1.3 H (0.9-1.1) APTT 27.2 (21.0-31.0) Seconds PTT Ratio 1.0 Sodium (136-145) mmol/L Potassium (3.5-5.1) mmol/L Chloride (98-107) mmol/L Carbon Dioxide (21-32) mmol/L Anion Gap (3-11) BUN (7-18) mg/dl Creatinine (0.6-1.2) mg/dl Est Cr Clr Drug Dosing ml/min Est GFR ( Amer) Est GFR (Non-Af Amer) BUN/Creatinine Ratio (10-20) Glucose (70-99) mg/dl Lactate (0.4-2.0) mmol/L Calcium (8.5-10.1) mg/dl Magnesium (1.8-2.4) mg/dl Total Bilirubin (0.2-1) mg/dl AST (15-37) U/L ALT (12-78) U/L Alkaline Phosphatase (45-117) U/L Troponin I (0-0.045) ng/ml Total Protein (6.4-8.2) gm/dl Albumin (3.4-5.0) gm/dl Globulin (2.5-4.0) gm/dl Albumin/Globulin Ratio (0.9-2) Procalcitonin < 0.05 (0-0.5) ng/ml Specimen Hemolysis 01/27/20 01/27/20 Range/Units 13:09 13:09 WBC (4.8-10.8) K/uL RBC (4.2-5.4) M/uL Hgb (12.0-16.0) g/dL Hct (37-47) % MCV (80-100) fL MCH (25-34) pg MCHC (32-36) g/dL RDW Std Deviation (36.4-46.3) fL RDW Coeff of Jessica (11.5-14.5) % Plt Count (130-400) K/uL MPV (7.4-10.4) fL Immature Gran % (Auto) % Neut % (Auto) % Lymph % (Auto) % [place] % (Auto) % Eos % (Auto) % Baso % (Auto) % Neut # (Auto) (1.4-6.5) K/uL Lymph # (Auto) (1.2-3.4) K/uL [place]iss # (Auto) (0.11-0.59) K/uL Eos # (Auto) (0-0.5) K/uL Baso # (Auto) (0-0.2) K/uL Immature Gran # (Auto) (0.00-0.02) K/uL PT (9.0-12.0) Seconds INR (0.9-1.1) APTT (21.0-31.0) Seconds PTT Ratio Sodium 160 H* (136-145) mmol/L Potassium 4.2 (3.5-5.1) mmol/L Chloride 133 H (98-107) mmol/L Carbon Dioxide 22 (21-32) mmol/L Anion Gap 5.0 (3-11) BUN 62 H (7-18) mg/dl Creatinine 1.28 H (0.6-1.2) mg/dl Est Cr Clr Drug Dosing 28.9 ml/min Est GFR ( Amer) 44.1 Est GFR (Non-Af Amer) 38.1 BUN/Creatinine Ratio 48.7 H (10-20) Glucose 134 H (70-99) mg/dl Lactate 1.2 (0.4-2.0) mmol/L Calcium 8.8 (8.5-10.1) mg/dl Magnesium 3.2 H (1.8-2.4) mg/dl Total Bilirubin 0.3 (0.2-1) mg/dl AST 9 L (15-37) U/L ALT 7 L (12-78) U/L Alkaline Phosphatase 53 (45-117) U/L Troponin I < 0.015 (0-0.045) ng/ml Total Protein 7.4 (6.4-8.2) gm/dl Albumin 2.8 L (3.4-5.0) gm/dl Globulin 4.6 H (2.5-4.0) gm/dl Albumin/Globulin Ratio 0.6 L (0.9-2) Procalcitonin (0-0.5) ng/ml Specimen Hemolysis Imaging Data Radiologist's Impression: XR chest 1V portable HISTORY: SEPSIS COMPARISON: Chest 05/24/2019. FINDINGS: No focal lung consolidations to suggest pneumonia. No evidence for pulmonary edema. No pleural effusions. No pneumothorax. The heart is normal in size. Redemonstration of the tortuous and mildly dilated distal descending thoracic aorta. This is slightly progressed compared to the prior studies. IMPRESSION: 1. No acute process within the chest. 2. Slight progression of the tortuous and mildly dilated distal descending thoracic aorta. ACT 112: Negative or not required by law. Electronically signed by: Mariusz Brambila M.D. 01/27/2020 1:[address] CT DOSE: 729.78 mGycm HISTORY: Altered mental status. TECHNIQUE: Multiaxial CT images of the head were performed without the use of intravenous contrast. Automated exposure control was utilized for this study. A dose lowering technique was utilized adhering to the principles of ALARA. Comparison: Head CT 05/24/2019. Findings: The paranasal sinuses and mastoid air cells are clear. The calvarium and skull base are intact. There is no mass, hematoma, midline shift, acute infarct. White matter hypodensity is nonspecific but suggestive of microvascular ischemic change. The ventricles and sulci demonstrate mild age-related involutional changes. 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 Impression: No significant change compared to the prior study. No acute intracranial abnormality. ACT 112: Negative or not required by law. Electronically signed by: Mariusz Brambila M.D. 01/27/2020 3:07 PM ECG Data Attestation: I personally reviewed and interpreted this ECG as follows: Indication: + altered mental status Rate (beats per minute): 93 Rhythm: + normal sinus ECG Intervals/blocks: + Normal QRS and + Normal QT ECG [place]: + Left axis deviation ECG ST segments: + Nonspecific ST abnormalities MDM Narrative Pt here from [facility], unable to provide additional history, but staff reported AMS. Pt with recent UTI. VS stable. Pt recently diagnosed with COVID but no respiratory symptoms. CT head reassuring, labs revealed hypernatremia. Pt started on D5W to begin to slowly correct free water deficit which was calculated at 4.2 L. Case discussed with hospitalist for additional mgmt inpatient. No evidence of worsening infection or pyelonephritis. Pt didn't initially appear significantly dehydrated and had stable VS in the ER. I called to updated family twice regarding patients condition and also discuss code status. An order was placed for continuous cardiac monitoring. The monitor shows a rate of 76_ with _normal sinus__ rhythm. Impression & Plan Metabolic encephalopathy, Hypernatremia, COVID-19, UTI (urinary tract infection), Thrombocytopenia Discharge Plan Visit Data Chief Complaint: Illness Stated Complaint: illness ED Provider: Socorro Ibarra Discharge Problem: Metabolic encephalopathy, Hypernatremia, COVID-19, UTI (urinary tract infection), Thrombocytopenia Patient Disposition: Admitted As Inpatient Discharge Instructions Interventions: ED Discharge Assessment Last Done: 01/27/20 18:32 Discharge Problem: UTI (urinary tract infection) Qualifiers: Urinary tract infection type: acute cystitis Hematuria presence: with hematuria Qualified Code(s): N30.01 - Acute cystitis with hematuria
--- NOTE | 2020-01-27 13:45 | XRay Report ---
XR chest 1V portable HISTORY: SEPSIS COMPARISON: Chest 05/24/2019. FINDINGS: No focal lung consolidations to suggest pneumonia. No evidence for pulmonary edema. No pleu ral effusions. No pneumothorax. The heart is normal in size. Redemonstration of the tortuous and mild ly dilated distal descending thoracic aorta. This is slightly progressed compared to the prior studie s. IMPRESSION: 1. No acute process within the chest. 2. Slight progression of the tortuous and mildly dilated distal descending thoracic aorta. ACT 112: Negative or not required by law. Electronically signed by: Mariusz Brambila M.D. 01/27/2020 1:44 PM
[2020-01-27 14:01] LABS: Hematocrit (blood only) 48.2 % (37-47); Hemoglobin 14.8 g/dL (12.0-16.0); Immature Granulocytes # (auto) 0.01 K/uL (0.00-0.02); Immature Granulocytes % (auto) 0.1 %; Lymphocytes # (auto) 0.58 K/uL (1.2-3.4); Lymphocytes % (auto) 7.8 %; Mean Corpuscular Hemoglobin 30.8 pg (25-34); Mean Corpuscular Hgb Conc 30.7 g/dL (32-36); Mean Corpuscular Volume 100.2 fL (80-100); Mean Platelet Volume 11.6 fL (7.4-10.4); Monocytes % (auto) 2.7 %; Neutrophils # (auto) 6.69 K/uL (1.4-6.5); Neutrophils % (auto) 89.4 %; Platelet Count 141 K/uL (130-400); RDW Coefficient of Variation 15.3 % (11.5-14.5); RDW Standard Deviation 56.7 fL (36.4-46.3); Red Blood Count 4.81 M/uL (4.2-5.4); White Blood Count 7.48 K/uL (4.8-10.8)
[2020-01-27 14:09] LABS: INR 1.3 (0.9-1.1); Partial Thromboplastin Time 27.2 Seconds (21.0-31.0); Prothrombin Time 13.5 Seconds (9.0-12.0)
[2020-01-27 14:53] LABS: Alanine Aminotransferase 7 U/L (12-78); Albumin Globulin Ratio 0.6 (0.9-2); Albumin Level 2.8 gm/dl (3.4-5.0); Alkaline Phosphatase 53 U/L (45-117); Aspartate Aminotransferase 9 U/L (15-37); BUN Creatinine Ratio 48.7 (10-20); Bilirubin,Total 0.3 mg/dl (0.2-1); Blood Urea Nitrogen 62 mg/dl (7-18); Calcium 8.8 mg/dl (8.5-10.1); Carbon Dioxide 22 mmol/L (21-32); Chloride 133 mmol/L (98-107); Creatinine Clr Calc Pharmacy 28.9 ml/min; Est GFR (African American) 44.1; Est GFR (Non-African American) 38.1; Globulin 4.6 gm/dl (2.5-4.0); Glucose 134 mg/dl (70-99); Magnesium 3.2 mg/dl (1.8-2.4); Potassium 4.2 mmol/L (3.5-5.1); Sodium 160 mmol/L (136-145); Total Protein 7.4 gm/dl (6.4-8.2); Troponin I < 0.015 ng/ml (0-0.045)
--- NOTE | 2020-01-27 15:08 | CT Scan Report ---
HEAD CT NONCONTRAST CT DOSE: 729.78 mGycm HISTORY: Altered mental status. TECHNIQUE: Multiaxial CT images of the head were performed without the use of intravenous contrast. A utomated exposure control was utilized for this study. A dose lowering technique was utilized adheri ng to the principles of ALARA. Comparison: Head CT 05/24/2019. Findings: The paranasal sinuses and mastoid air cells are clear. The calvarium and skull base are int act. There is no mass, hematoma, midline shift, acute infarct. White matter hypodensity is nonspecifi c but suggestive of microvascular ischemic change. The ventricles and sulci demonstrate mild age-rela bella involutional changes. 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 Impression: No significant change compared to the prior study. No acute intracranial abnormality. ACT 112: Negative or not required by law. Electronically signed by: Mariusz Brambila M.D. 01/27/2020 3:07 PM
[2020-01-27] MEDS ORDERED: DEXTROSE 5% 1,000 ML IV SCH (15:45)
--- NOTE | 2020-01-27 16:40 | History & Physical Report ---
Date of Service January 27, 2020 Assessment & Plan (1) Metabolic encephalopathy: (2) Chronic hypernatremia: (3) Acute on chronic renal insufficiency: This is an 84-year-old female with significant past medical history of bipolar disorder, HTN, HLD, CKD stage III, osteoporosis, history of recurrent UTIs, OAB who presents to ED secondary to altered mental status x1 week. Pt presents with chronic hyponatremia, 01/21 146, 01/24 151 and today 160. Likely in setting of poor po intake in setting of covid 19/uti diagnosis. Free water deficit 3.7L. admit to PCU start D5 85cc/hr BMP q4h starting at 2100, no more than 10meq correction in 24hr consult nephrology baseline cr 1.1, pt bun/cr 62 and 1.28, pre renal neuro checks keep NPO until mental status improves (4) COVID-19: dx 01/13 at [facility] and has been on isolation no respiratory sx and CXR negative per [facility] was given 6mg oral dexamethasone on 01/25 as well as 6mg IV 01/26 - she is currently absent of resp sx Covid-19 screen re -ordered, is positive airborne precautions (5) UTI (urinary tract infection): IV rocephin, had first dose 01/25 UA grew > 100k e. coli and proteus afebrile, wbc wnl (6) Bipolar disorder: on depakote 250mg bid, will convert to IV while NPO (7) HLD (hyperlipidemia): on statin as outpt currently on hold given mental status (8) DVT prophylaxis: SQ heparin Disposition: admit to PCU Follow up: PCP @ [facility] upon discharge, case management consulted Please see Dr. Santana addendum for further history and physical exam findings. History of Present Illness Chief Complaint: Altered mental status x 1 week. Primary Care Provider: [facility] This is an 84-year-old female with significant past medical history of bipolar disorder, HTN, HLD, CKD stage III, osteoporosis, history of recurrent UTIs, OAB who presents to ED secondary to altered mental status x1 week. Patient currently resides at her side. Of significance history unobtainable from patient secondary to mental status. History obtained from ED provider and SNF. Of significance patient tested positive for Covid on 10/22. She is currently on isolation. She has not been experiencing respiratory symptoms. She has had a notable decline in mental status. She was diagnosed with UTI and initially started on oral Macrobid. This was discontinued and she was placed on IV Rocephin and has completed 1 dose, started yesterday. Urine culture grew greater than 100,000 Proteus mirabilis and E. coli. She was also given 6 mg oral dexamethasone as well as 6 mg IV dexamethasone due to her diagnosis of Covid. Nursing facility noticed worsening decline of mental status and therefore she was referred to ED. According to family patient does have memory deficits at baseline typically is alert and oriented and able to hold conversation. This is currently not her baseline. Also of significance patient has had an increase in sodium levels. On 01/21 she was 146,, 01/24 151 and today 160. It does appear that she received IV normal saline by nursing facility. In ED patient made hemodynamically stable. Lab abnormalities notable for sodium 160, BUN 62, creatinine 1.28, glucose 134, mag 3.2, albumin 2.8. Chest x-ray without acute abnormality. H&H stable at 14.8 and 40.2. She was afebrile, WBC WNL and procalcitonin WNL. She was started on 85 mL of D5 water in ED. Allergies Allergy/AdvReac Type Severity Reaction Status Date / Time No Known Allergies Allergy Verified 01/27/20 14:01 Home Medications Home Medications Medication Instructions Recorded Confirmed Type aspirin 81 mg PO QAM 02/11/19 01/27/20 History atorvastatin [Lipitor] 20 mg PO PM 02/11/19 01/27/20 History sennosides [Senokot] 8.6 mg PO QAM #30 tab 02/25/19 01/27/20 Rx acetaminophen 325 mg capsule 325 mg PO QID PRN 06/04/19 01/27/20 History bisacodyl 10 mg rectal suppository 10 mg SC DAILY PRN 06/04/19 01/27/20 History docusate sodium 100 mg capsule 100 mg PO QAM 06/04/19 01/27/20 History ostomy supplies #1 ea 06/04/19 12/11/19 History polyethylene glycol 3350 17 17 gm PO QAM 06/04/19 01/27/20 History gram/dose oral powder divalproex 250 mg tablet,delayed 250 mg PO BID 12/11/19 01/27/20 History release dexamethasone 6 mg PO DAILY@1600 01/27/20 01/27/20 History dexamethasone sodium phos (PF) 6 mg IV Q6H 01/27/20 01/27/20 History estradiol [Estrace] 5 gm PV WK 01/27/20 01/27/20 History magnesium hydroxide 30 ml PO DIRECTED PRN 01/27/20 01/27/20 History megestrol 400 mg PO QAM 01/27/20 01/27/20 History oxybutynin chloride 10 mg PO QAM 01/27/20 01/27/20 History Past Med/Surg History Medical History (Updated 01/28/20 @ 08:20 by Yola Schneider, ) Ambulatory dysfunction Bipolar disorder Fall HLD (hyperlipidemia) HTN (hypertension) Hx of renal calculi OAB (overactive bladder) Osteoporosis Prolapsed uterus UTI (urinary tract infection) Surgical History (Updated 01/27/20 @ 16:54 by Stephanie Durán PA-C) History of cholecystectomy History of tonsillectomy and adenoidectomy Family History (Updated 01/27/20 @ 16:57 by Stephanie Durán PA-C) Other Family history unobtainable due to patient's condition Social History (Updated 01/27/20 @ 16:57 by Stephanie Durán PA-C) Smoking Status: Unknown if ever smoked Preferred Language: Mauritanian Communication Ability: Effective 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 Santana attending addendum Results & Data Results & Data ([facility]) Vital Signs (Past 12 Hours) Vital Signs Temp Pulse Resp BP Pulse Ox 01/27/20 13:46 95 H 19 94 01/27/20 13:45 96 H 20 130/85 94 01/27/20 13:30 96 H 18 133/88 94 01/27/20 12:26 36.7 C 93 H 20 126/85 92 Laboratory Results Short CBC 01/27/20 01/27/20 Range/Units 13:09 13:09 WBC 7.48 (4.8-10.8) K/uL Hgb 14.8 (12.0-16.0) g/dL Hct 48.2 H (37-47) % Plt Count 141 (130-400) K/uL Sodium 160 H* (136-145) mmol/L BMP 01/27/20 13:09 Sodium 160 H* Potassium 4.2 Chloride 133 H Carbon Dioxide 22 BUN 62 H Creatinine 1.28 H Glucose 134 H Calcium 8.8 Cardiac Enzymes 01/27/20 Range/Units 13:09 Troponin I < 0.015 (0-0.045) ng/ml Liver Function 01/27/20 Range/Units 13:09 Total Bilirubin 0.3 (0.2-1) mg/dl AST 9 L (15-37) U/L ALT 7 L (12-78) U/L Alkaline Phosphatase 53 (45-117) U/L Albumin 2.8 L (3.4-5.0) gm/dl COVID 19 Positive 01/14/[address]: Impression: No significant change compared to the prior study. No acute intracranial abnormality. CXR: IMPRESSION: Impression: No significant change compared to the prior study. No acute intracranial abnormality. 1. No acute process within the chest. 2. Slight progression of the tortuous and mildly dilated distal descending thoracic aorta. ECG Rate (beats per minute): 93 Rhythm: sinus with SA Findings: + nonspecific-ST abn Code Status & VTE Plan Code Status Full Code VTE Prophylaxis Plan VTE Prophylaxis will be ordered: Yes Supervising Physician Co-Signing Physician Notes Pt was seen and examined. Agreed with Stephanie ALARCON assessment and plan . 84-year-old female with significant past medical history of bipolar disorder, HTN, HLD, CKD stage III, osteoporosis, history of recurrent UTIs, OAB who pr esents to ED secondary to altered mental status. History obtained from the ED chart due to patient mental status. Pt was tested positive for COVID 19 on 01/13. She was diagnosed with UTI and initially started on oral Macrobid. Her mental status has been worsening. In the ER COVID 19 continue to be positive and Na on admission 160. exam: General- Drowsy and sleepy, but eyes open with painful stimuli Head- atraumatic Eyes- eyes closed, but open with tactile stimuli ENT- oropharynx clear Neck- supple, no JVD Lungs- poor air entry Heart- regular rhythm Abdomen- normal bowel sounds, soft, nontender Extremities- no calf tenderness Neuro- sleepy, moves extremities with painful stimuli, did not answer or speak Skin- warm & dry A/P Altered Mental Status Possible related to acute illness COVID/Hypernatremia/UTI CT head showed no acute intracranial abnormality Continue Neuro check If symptoms worsening, consider a MRI of the brain if able to obtain Keep NPO for now Hypernatremia Na on admission 160 Continue IVF Nephrology consult Continue Monitor BMP UTI UA grew > 100k e. coli and proteus Continue Rocephin IV COVID 19 Tested positive for COVID 19 on 01/13 Remdesivir and convalescent plasma not indicated since dx on 01/13 Received Dexamethasone 6 mg on 01/25 ad 01/26 Saturated well on RA, will hold on for additional dexamethasone Will continue isolation Continue monitor closely Please refer to Stephanie ALARCON documentation for other problems MD Max
--- NOTE | 2020-01-27 17:00 | Electrocardiogram Report ---
Test Reason : Blood Pressure : / mmHG Vent. Rate : 093 BPM Atrial Rate : 093 BPM P-R Int : 154 ms QRS Dur : 074 ms QT Int : 344 ms P-R-T Axes : 049 -26 124 degrees QTc Int : 427 ms Poor data quality, interpretation may be adversely affected Normal sinus rhythm with sinus arrhythmia possible Inferior infarct , age undetermined Abnormal ECG When compared with ECG of 07-JUL-2019 10:13, Inferior infarct is now Present T wave inversion now evident in Lateral leads Confirmed by Ian Anders ([id number]) on 01/27/2020 4:59:56 PM Referred By: REFERRED SELF Confirmed By:Henok Anders
[2020-01-27] MEDS ORDERED: MAGNESIUM HYDROXIDE SUSP 30 ML UDC PO PRN (19:52)
[2020-01-27] MEDS ORDERED: ONDANSETRON INJ 2 MG/ML 2 ML VIAL IV PRN (19:52)
[2020-01-27] MEDS ORDERED: ACETAMINOPHEN 325 MG TAB PO PRN (19:52)
[2020-01-27] MEDS ORDERED: ALUMINUM/MAGNESIUM SUSP 30 ML UDC PO PRN (19:52)
[2020-01-27] MEDS ORDERED: POLYETHYLENE (MIRALAX) 17 GM PACK PO PRN (19:52)
[2020-01-27 20:19] LABS: Appearance Urine Turbid (Clear); Bacteria Urine Automated Negative (Negative); Bilirubin Urine Negative (Negative); Blood Urine 3+ (Negative); Color Urine Yellow; Epithelial Cell Urine Auto >30 /lpf (0-5); Glucose Urine UA Negative (Negative); Ketones Urine Negative (Negative); Leukocyte Esterase Urine 2+ (Negative); Nitrite Urine Negative (Negative); Protein Urine 1+ (Negative); RBC Urine Automated >30 /hpf (0-4); Specific Gravity Urine 1.025 (1.000-1.030); Urobilinogen Urine Negative (Negative); WBC Urine Automated >30 /hpf (0-5)
[2020-01-27] MEDS ORDERED: dexAMETHasone 6 MG in SYRINGE 0 ML IV SCH (21:00)
[2020-01-27] MEDS: cefTRIAXone SODIUM 1,000 MG in DEXTROSE 5% 50 ML IV SCH (21:11)
[2020-01-27] MEDS: HEPARIN SOD 5,000 UNIT/0.5 ML VIAL SQ SCH (21:11)
[2020-01-27] MEDS: VALPROATE SOD 250 MG in DEXTROSE 5% 50 ML IV SCH (21:11)
[2020-01-27 21:34] LABS: BUN Creatinine Ratio 46.1 (10-20); Calcium 8.8 mg/dl (8.5-10.1); Creatinine Clr Calc Pharmacy 22.6 ml/min; Est GFR (African American) 36.1; Est GFR (Non-African American) 31.2; Potassium 3.6 mmol/L (3.5-5.1)
[2020-01-28 03:45] LABS: Hematocrit (blood only) 49.4 % (37-47); Mean Corpuscular Hemoglobin 30.4 pg (25-34); Mean Corpuscular Hgb Conc 30.4 g/dL (32-36); Mean Corpuscular Volume 100.2 fL (80-100); Mean Platelet Volume 10.9 fL (7.4-10.4); Platelet Count 126 K/uL (130-400); RDW Coefficient of Variation 15.2 % (11.5-14.5); RDW Standard Deviation 56.4 fL (36.4-46.3); Red Blood Count 4.93 M/uL (4.2-5.4); White Blood Count 8.73 K/uL (4.8-10.8)
[2020-01-28 04:08] LABS: Albumin Globulin Ratio 0.6 (0.9-2); Albumin Level 2.7 gm/dl (3.4-5.0); BUN Creatinine Ratio 42.2 (10-20); Bilirubin,Total 0.3 mg/dl (0.2-1); Calcium 8.8 mg/dl (8.5-10.1); Creatinine Clr Calc Pharmacy 23.2 ml/min; Est GFR (African American) 37.3; Est GFR (Non-African American) 32.2; Globulin 4.5 gm/dl (2.5-4.0); Magnesium 3.1 mg/dl (1.8-2.4); Potassium 3.5 mmol/L (3.5-5.1); Total Protein 7.2 gm/dl (6.4-8.2)
[2020-01-28] MEDS ORDERED: D5NSS + 20MEQ KCL 20 MEQ/1,000 ML BAG IV ONE (04:13)
[2020-01-28] MEDS: VALPROATE SOD 250 MG in DEXTROSE 5% 50 ML IV SCH ×2 (08:07→19:16)
[2020-01-28] MEDS: HEPARIN SOD 5,000 UNIT/0.5 ML VIAL SQ SCH ×2 (08:08→21:00)
--- NOTE | 2020-01-28 08:22 | Hospitalist Progress Note ---
Date of Service January 28, 2020 Assessment & Plan (1) Hypernatremia: Technically chronic as this has been elevated >48 hours now. She is coming down with free water. Would avoid NSS as this is free water deficit leading to dehydration as opposed to hypovolemia. Trending BMP q12. Nephro following. (2) UTI (urinary tract infection): Ecoli and Proteus on recent culture 01/21. Started on Macrobid and switched to Rocephin on admission. Cont this for now. Repeat UCx reveals pinpoint growth. (3) COVID-19: She was diagnosed on 01/13 at [facility] and has been on isolation. I am uncertain of her course of treatment she might of received there but she currently has no respiratory symptoms and is oxygenating well on room air. She did receive a dose or two of dexamethasone prior to arrival which was not continued. Chest x-ray on arrival reveals no acute process within the chest and blood cultures are negative. She remains afebrile and on airborne isolation pending two negative nasal swab screenings. (4) Acute metabolic encephalopathy: Many contributing etiologies including older age, physical deconditioning, high sodium, generalized weakness, bipolar disorder, chronic kidney disease, dementia, history of recurrent UTI with current possible infection on antibiotic therapy, recent COVID-19 infection with persistent viral presents on nasal swab. (5) Acute on chronic renal insufficiency: Secondary to severe dehydration--improving with free water replacement. (6) Bipolar disorder: on depakote 250mg bid, will convert to IV while NPO (7) HLD (hyperlipidemia): on statin as outpt PO medciations currently on hold given mental status (8) Malnutrition: Agent Contract Clerk consulted, appreciate recommendations. (9) DVT prophylaxis: SQ heparin Disposition: cont PCU monitoring, nutrition consult for malnutrition. Patient clearly has dementia. Will speak with the family about goals of care once we reverse underlying metabolic and infectious abnormalities and get her mentating closer to her baseline. Follow up: PCP @ [facility] upon discharge, case management consulted DO Yen Martinez Hospitalist Admission and Anticipated Discharge Date Admission Date: January 27, 2020 Subjective pt is obtunded but able to open her eyes now also able to follow instruction to open her mouth cannot follow any other instructions such as hand housekeeping lead, etc. Very weak, unable to give a history Review of Systems Review of Systems: Unobtainable due to cognitive status Physical Exam Physical Exam: CONSTITUTIONAL: thin, frail, elderly, vitals as above, generally obtunded and ill-appearing. Sunken cheek bones, temporal wasting. EYES: PERRL, normal conjunctivae, no scleral icterus, some general crusting around her eyes. ENT: external ear and nose normal, mucous membranes are very dry. RESPIRATORY: clear to auscultation bilaterally, no crackles, rales or wheezes, normal respiratory effort (RR by my count is 16) CARDIOVASCULAR: regular rate and rhythm, S1 and 2 heard without murmurs, gallops or rubs, no JVD, no peripheral edema GASTROINTESTINAL: soft, nondistended, no guarding MUSCULOSKELETAL: head is normocephalic and atraumatic, +generalized weakness. SKIN: warm and dry, skin in very thin and fragile. NEUROLOGIC: patellar DTRs 2+ bilat. PERRL, no facial palsy, obtunded with occasional opening of eyes to verbal stimulus. Cannot follow commands or speak. Cannot exhibit nonverbal communication at this time. Results & Data Results & Data ([facility]) Vital Signs (Past 12 Hours) Vital Signs Temp Pulse Resp BP Pulse Ox 01/28/20 06:20 75 12 126/93 95 01/28/20 04:53 36.4 C L 01/28/20 04:45 81 14 132/76 95 01/28/20 03:50 58 L 15 114/78 91 01/28/20 03:20 84 17 145/97 H 94 01/28/20 02:50 85 16 137/94 94 01/28/20 02:20 83 13 143/95 H 94 01/28/20 01:50 79 15 149/98 H 94 01/28/20 01:20 83 13 146/97 H 95 01/28/20 01:18 36.5 C 01/28/20 01:08 86 18 152/101 H 95 01/28/20 00:20 73 16 107/68 95 01/27/20 23:59 75 01/27/20 23:50 75 11 L 94/68 L 93 01/27/20 23:20 76 18 106/64 92 01/27/20 22:50 76 14 120/80 94 01/27/20 22:20 93 H 14 132/95 93 01/27/20 22:02 94 H 18 142/99 H 93 01/27/20 22:00 95 H 14 124/110 H 93 01/27/20 21:50 95 H 16 155/109 H 92 01/27/20 21:20 97 H 17 121/98 95 01/27/20 20:50 93 H 16 113/76 93 Laboratory Results Short CBC 01/27/20 01/28/20 Range/Units 13:09 03:29 WBC 7.48 8.73 (4.8-10.8) K/uL Hgb 14.8 15.0 (12.0-16.0) g/dL Hct 48.2 H 49.4 H (37-47) % Plt Count 141 126 L (130-400) K/uL BMP 01/27/20 01/27/20 01/28/20 13:09 21:08 00:58 Sodium 160 H* 159 H* Cancelled Potassium 4.2 3.6 Cancelled Chloride 133 H 131 H Cancelled Carbon Dioxide 22 25 Cancelled BUN 62 H 70 H Cancelled Creatinine 1.28 H 1.51 H Cancelled Glucose 134 H 157 H Cancelled Calcium 8.8 8.8 Cancelled 01/28/20 03:29 Sodium 158 H* Potassium 3.5 Chloride 129 H Carbon Dioxide 25 BUN 62 H Creatinine 1.47 H Glucose 165 H Calcium 8.8 Cardiac Enzymes 01/27/20 Range/Units 13:09 Troponin I < 0.015 (0-0.045) ng/ml Liver Function 01/27/20 01/28/20 Range/Units 13:09 03:29 Total Bilirubin 0.3 0.3 (0.2-1) mg/dl AST 9 L 7 L (15-37) U/L ALT 7 L 7 L (12-78) U/L Alkaline Phosphatase 53 55 (45-117) U/L Albumin 2.8 L 2.7 L (3.4-5.0) gm/dl Urine 01/27/20 Range/Units 19:40 Urine Color Yellow Urine Appearance Turbid A (Clear) Urine pH 5.0 (4.5-7.5) Ur Specific [place] 1.025 (1.000-1.030) Urine Protein 1+ H (Negative) Urine Glucose (UA) Negative (Negative) Medications Administered Current Inpatient Medications Acetaminophen (Acetaminophen 325 Mg Tab) 650 mg PO Q4H PRN PRN Reason: Pain or Fever Stop: 02/26/20 19:51 Al Hydrox/Mg Hydrox/Simethicone (Aluminum/Magnesium Susp 30 Ml Udc) 15 ml PO Q4H PRN PRN Reason: Dyspepsia Stop: 02/26/20 19:51 Heparin Sodium (Porcine) (Heparin Sod 5,000 Unit/0.5 Ml Vial) 5,000 units SQ Q12 DAY[place] Stop: 02/26/20 20:59 Last Admin: 01/28/20 08:08 Dose: 5,000 units Documented by: Valproic Acid 250 mg/ Dextrose 52.5 mls @ 55 mls/hr IV Q12H [place] Stop: 02/26/20 20:59 Last Admin: 01/28/20 08:07 Dose: 55 mls/hr Documented by: Ceftriaxone Sodium 1,000 mg/ (Dextrose) 50 mls @ 100 mls/hr IV DAILY@2000 DAYRON; Protocol Stop: 01/29/20 20:29 Last Infusion: 01/27/20 21:42 Dose: Infused Documented by: Dextrose ([email or web address]) 1,000 mls @ 100 mls/hr IV .Q10H [place] Stop: 02/27/20 08:29 Magnesium Hydroxide (Magnesium Hydroxide Susp 30 Ml Udc) 30 ml PO Q12H PRN PRN Reason: Constipation Stop: 02/26/20 19:51 Ondansetron HCl (Ondansetron Inj 2 Mg/Ml 2 Ml Vial) 4 mg IV Q6H PRN PRN Reason: Nausea Stop: 02/26/20 19:51 Polyethylene Glycol (Polyethylene (Miralax) 17 Gm Pack) 17 gm PO DAILY PRN PRN Reason: Constipation Stop: 02/26/20 19:51 (1) UTI (urinary tract infection) Hematuria presence: without hematuria Urinary tract infection type: site unspecified Qualified Code(s): N39.0 - Urinary tract infection, site not specified
[2020-01-28] MEDS: DEXTROSE 5% 1,000 ML IV SCH ×2 (08:26→19:14)
[2020-01-28 09:30] LABS: BUN Creatinine Ratio 47.3 (10-20); Calcium 8.9 mg/dl (8.5-10.1); Creatinine Clr Calc Pharmacy 25.8 ml/min; Est GFR (African American) 42.5; Est GFR (Non-African American) 36.7; Potassium 3.7 mmol/L (3.5-5.1)
[2020-01-28 13:02] LABS: BUN Creatinine Ratio 45.1 (10-20); Calcium 8.6 mg/dl (8.5-10.1); Creatinine Clr Calc Pharmacy 27.3 ml/min; Est GFR (African American) 45.4; Est GFR (Non-African American) 39.2; Potassium 3.6 mmol/L (3.5-5.1)
--- NOTE | 2020-01-28 16:25 | Consultation Report ---
DATE OF CONSULTATION: 01/28/2020 REASON FOR CONSULT: Hypernatremia. HISTORY OF PRESENT ILLNESS: The patient is an 84-year-old female who is a resident of [facility] who was admitted yesterday because of high sodium weakness, poor appetite and increasing confusion. The patient has history of bipolar disorder, hypertension, hyperlipidemia, chronic kidney disease, dementia and history of recurrent UTI. Since admission, the patient has been admitted to ICU and has been getting D5 water. She is completely nonverbal at this time. She is positive for COVID-19 and has been on isolation there. ALLERGIES: None. HOME MEDICATIONS: List was reviewed in detail. PAST MEDICAL HISTORY: Ambulatory dysfunction, bipolar disorder, fall, hyperlipidemia, hypertension, history of renal stone, overactive bladder, osteoporosis, prolapsed uterus, recurrent UTI, dementia. PAST SURGICAL HISTORY: History of cholecystectomy, tonsillectomy, adenoidectomy. FAMILY HISTORY: Unobtainable due to patient's condition, which is completely nonverbal. SOCIAL HISTORY: Resident of retirement, retired . No alcohol. No smoking. REVIEW OF SYSTEMS: Unobtainable due to nonverbal status. PHYSICAL EXAMINATION: GENERAL: Elderly white female who is completely nonverbal. She is awake with eyes barely open, but not following command even on painful stimulus. She has very minimal response. HEENT: Mucous membrane is dry. NECK: Supple. No jugular venous distention. CHEST: Bilateral decreased breath sounds. CARDIOVASCULAR: S1, S2 regular. ABDOMEN: Soft, nontender. EXTREMITIES: Shows no edema. VITAL SIGNS: Blood pressure 138/93, pulse 73, respiratory rate 19, temperature 36.8, 99% on room air. LABORATORY TESTS: Hemoglobin is 15, platelet count 126, BUN 56, creatinine 1.25. Sodium 156, chloride 128, potassium 3.6, albumin 2.7. ASSESSMENT AND PLAN: An 84-year-old female now admitted with hypernatremia. She is a long-term resident of retirement and there is mention of dementia, although I do not know how severe her dementia is at baseline. She is also positive for COVID-19 infection. I have been consulted for hypernatremia. Hypernatremia: By definition, this is free water deficit. She is getting D5 water and with that serum sodium is trending down nicely and appropriately. At this point, we can switch over the BMP to every 12 hours. No further workup is needed. The severity of dementia needs to be revisited. Typically hypernatremia of this magnitude is a feature of much more severe dementia. Further level of care to be addressed by the primary team. NICOLE
[2020-01-28 18:32] LABS: BUN Creatinine Ratio 45.8 (10-20); Calcium 8.3 mg/dl (8.5-10.1); Creatinine Clr Calc Pharmacy 30.7 ml/min; Est GFR (African American) 52.4; Est GFR (Non-African American) 45.2; Potassium 3.4 mmol/L (3.5-5.1)
[2020-01-28] MEDS: cefTRIAXone SODIUM 1,000 MG in DEXTROSE 5% 50 ML IV SCH (19:16)
[2020-01-29 05:56] LABS: BUN Creatinine Ratio 44.3 (10-20); Calcium 8.3 mg/dl (8.5-10.1); Creatinine Clr Calc Pharmacy 33.1 ml/min; Est GFR (African American) 57.4; Est GFR (Non-African American) 49.5; Potassium 3.6 mmol/L (3.5-5.1)
[2020-01-29] MEDS: VALPROATE SOD 250 MG in DEXTROSE 5% 50 ML IV SCH ×2 (09:27→20:28)
[2020-01-29] MEDS: DEXTROSE 5% 1,000 ML IV SCH ×2 (09:27→23:47)
[2020-01-29] MEDS: HEPARIN SOD 5,000 UNIT/0.5 ML VIAL SQ SCH ×2 (09:30→20:29)
--- NOTE | 2020-01-29 12:26 | Hospitalist Progress Note ---
Date of Service January 29, 2020 Assessment & Plan (1) Hypernatremia: Continues to trend down with free water infusing. No significant improvement in mental status. Cont D5W infusion now. Consider swallow study if she is more awake in am. Poor prognosis. Known dementia per son. (2) UTI (urinary tract infection): Ecoli and Proteus on recent culture 01/21. Started on Macrobid and switched to Rocephin on admission. Cont this for now. Repeat UCx reveals pinpoint growth. (3) COVID-19: She was diagnosed on 01/13 at [facility] and has been on isolation. She remains free of respiratory symptoms and is oxygenating well on room air. She did receive a dose or two of dexamethasone prior to arrival which was not continued. Chest x-ray on arrival reveals no acute process within the chest and blood cultures are negative. She remains afebrile and on airborne isolation pending two negative nasal swab screenings. Repeat screening requested today was positive again. (4) Acute metabolic encephalopathy: Persists and this is expected. Many contributing etiologies including older age, physical deconditioning, high sodium, generalized weakness, bipolar disorder, chronic kidney disease, dementia, history of recurrent UTI with current possible infection on antibiotic therapy, recent COVID-19 infection with persistent viral presents on nasal swab. (5) Acute on chronic renal insufficiency: Secondary to severe dehydration--resolved with free water replacement. (6) Severe protein-calorie malnutrition: Wt loss 40 lbs over 6 months, temporal wasting on exam, thin, frail. Appreciate nutrition recs to start thiamine which was initiated. Discussed the possibility of enteral tube feed placement in am with son, but with the caveat that prognosis very poor and this comes with risks. He will discuss with brother and get back with me in am. (7) Bipolar disorder: on depakote 250mg bid, will convert to IV while NPO. Per patient's she has really declined in the last 6 months from a mental standpoint. (8) HLD (hyperlipidemia): on statin as outpt PO medications currently on hold given mental status (9) DVT prophylaxis: Change heparin to Lovenox to decrease staff exposure per guidelines. Disposition: cont PCU monitoring, spoke with the son in [place] by phone for 1 hour. Discussed code status options and transition to comfort care options given her physical and mental decline over the past 6 months. We discussed a feeding tube, however, we also discussed that her prognosis is very poor given her 40lb weight loss and physical signs of malnutrition over the last 6 months. We discussed the risks of enteral feeding tube placement and the risks of intravenous feedings. He understands her prognosis is very poor. He will speak with his brother who is located in [facility] and they will make further care plan decisions tomorrow. Yola Schneider DO [facility]ist Admission and Anticipated Discharge Date Admission Date: January 27, 2020 Subjective started to open her eyes more spontaneously and lift her hands to her face on her own However, she is still unable to follow instructions and is nonverbal. Review of Systems Review of Systems: Unobtainable due to cognitive status Physical Exam Physical Exam: CONSTITUTIONAL: thin, frail, elderly, vitals as above, generally obtunded and ill-appearing. Sunken cheek bones, temporal wasting. EYES: PERRL, normal conjunctivae, no scleral icterus. ENT: external ear and nose normal, mucous membranes are very dry, but this is improving. RESPIRATORY: clear to auscultation bilaterally, no crackles, rales or wheezes, normal respiratory effort CARDIOVASCULAR: regular rate and rhythm, S1 and 2 heard without murmurs, gallops or rubs, no JVD, no peripheral edema GASTROINTESTINAL: soft, nondistended, no guarding MUSCULOSKELETAL: head is normocephalic and atraumatic, +generalized weakness. SKIN: warm and dry, skin in very thin and fragile. NEUROLOGIC: patellar DTRs 2+ bilat. PERRL, no facial palsy, obtunded with occasional opening of eyes to verbal stimulus. Cannot follow commands or speak. Cannot exhibit nonverbal communication at this time. Results & Data Results & Data ([facility]) Vital Signs (Past 12 Hours) Vital Signs Temp Pulse Resp BP Pulse Ox 01/29/20 12:00 67 18 96 01/29/20 11:52 36.5 C 67 17 106/72 95 01/29/20 10:52 67 19 129/84 95 01/29/20 09:51 69 14 117/80 96 01/29/20 09:21 80 15 116/68 97 01/29/20 08:51 85 14 114/86 95 01/29/20 08:21 36.4 C L 84 14 125/81 97 01/29/20 07:51 70 14 102/61 98 01/29/20 07:21 79 14 115/86 96 01/29/20 05:51 78 14 113/82 96 01/29/20 04:51 54 L 15 119/72 98 01/29/20 04:00 36.7 C 01/29/20 03:51 60 17 91/65 L 96 01/29/20 02:51 62 15 98/68 L 96 01/29/20 01:51 56 L 16 120/74 96 01/29/20 00:51 75 17 115/76 96 Laboratory Results BMP 01/28/20 01/28/20 01/29/20 11:51 18:07 05:01 Sodium 156 H* 153 H 150 H Potassium 3.6 3.4 L 3.6 Chloride 128 H 126 H 122 H Carbon Dioxide 23 19 L 22 BUN 56 H 51 H 46 H Creatinine 1.25 H 1.11 1.03 Glucose 144 H 132 H 116 H Calcium 8.6 8.3 L 8.3 L Medications Administered Current Inpatient Medications Acetaminophen (Acetaminophen 325 Mg Tab) 650 mg PO Q4H PRN PRN Reason: Pain or Fever Stop: 02/26/20 19:51 Al Hydrox/Mg Hydrox/Simethicone (Aluminum/Magnesium Susp 30 Ml Udc) 15 ml PO Q4H PRN PRN Reason: Dyspepsia Stop: 02/26/20 19:51 Heparin Sodium (Porcine) (Heparin Sod 5,000 Unit/0.5 Ml Vial) 5,000 units SQ Q12 [facility] Stop: 02/26/20 20:59 Last Admin: 01/29/20 09:30 Dose: 5,000 units Documented by: Valproic Acid 250 mg/ Dextrose 52.5 mls @ 55 mls/hr IV Q12H [facility] Stop: 02/26/20 20:59 Last Infusion: 01/29/20 10:30 Dose: Infused Documented by: Ceftriaxone Sodium 1,000 mg/ (Dextrose) 50 mls @ 100 mls/hr IV DAILY@1999 [facility]; Protocol Stop: 01/29/20 20:29 Last Infusion: 01/28/20 19:46 Dose: Infused Documented by: Dextrose (D5w) 1,000 mls @ 75 mls/hr IV .[id number] [facility] Stop: 02/27/20 08:29 Last Infusion: 01/29/20 10:30 Dose: 75 mls/hr Documented by: Magnesium Hydroxide (Magnesium Hydroxide Susp 30 Ml Udc) 30 ml PO Q12H PRN PRN Reason: Constipation Stop: 02/26/20 19:51 Ondansetron HCl (Ondansetron Inj 2 Mg/Ml 2 Ml Vial) 4 mg IV Q6H PRN PRN Reason: Nausea Stop: 02/26/20 19:51 Polyethylene Glycol (Polyethylene (Miralax) 17 Gm Pack) 17 gm PO DAILY PRN PRN Reason: Constipation Stop: 02/26/20 19:51 (1) UTI (urinary tract infection) Hematuria presence: with hematuria Urinary tract infection type: acute cystitis Qualified Code(s): N30.01 - Acute cystitis with hematuria
[2020-01-29] MEDS: cefTRIAXone SODIUM 1,000 MG in DEXTROSE 5% 50 ML IV SCH (20:28)
[2020-01-29] MEDS ORDERED: THIAMINE HCL 100 MG in SYRINGE 9 ML IV STA (20:45)
[2020-01-30 05:23] LABS: BUN Creatinine Ratio 37.9 (10-20); Calcium 8.1 mg/dl (8.5-10.1); Creatinine Clr Calc Pharmacy 39.6 ml/min; Est GFR (African American) 71.4; Est GFR (Non-African American) 61.6; Phosphorus 2.6 mg/dl (2.5-4.9)
[2020-01-30 05:41] LABS: Hematocrit (blood only) 42.1 % (37-47); Hemoglobin 13.2 g/dL (12.0-16.0); Mean Corpuscular Hemoglobin 30.4 pg (25-34); RDW Coefficient of Variation 14.5 % (11.5-14.5); RDW Standard Deviation 52.1 fL (36.4-46.3); Red Blood Count 4.34 M/uL (4.2-5.4); White Blood Count 8.83 K/uL (4.8-10.8)
[2020-01-30 06:06] LABS: Potassium 3.5 mmol/L (3.5-5.1)
[2020-01-30 06:07] LABS: Magnesium 2.4 mg/dl (1.8-2.4)
[2020-01-30 06:08] LABS: Mean Corpuscular Hgb Conc 31.4 g/dL (32-36); Mean Platelet Volume 11.7 fL (7.4-10.4); Platelet Count 94 K/uL (130-400); Platelet Estimate Decreased (Normal)
[2020-01-30] MEDS: VALPROATE SOD 250 MG in DEXTROSE 5% 50 ML IV SCH ×2 (08:53→20:53)
[2020-01-30] MEDS: THIAMINE HCL 100 MG in SYRINGE 9 ML IV SCH (08:53)
[2020-01-30] MEDS: HEPARIN SOD 5,000 UNIT/0.5 ML VIAL SQ SCH (09:18)
--- NOTE | 2020-01-30 13:14 | Hospitalist Progress Note ---
Date of Service January 30, 2020 Assessment & Plan (1) Hypernatremia: resolved to 143. She cannot swallow on her own so will need artificial hydration intermittently at this time. (2) UTI (urinary tract infection): Ecoli and Proteus on recent culture 01/21. Started on Macrobid and switched to Rocephin on admission. Cont this for now (Day 4). Repeat UCx reveals pinpoint growth. (3) COVID-19: She was diagnosed on 01/13 at [facility] and has been on isolation. She remains free of respiratory symptoms and is oxygenating well on room air. She did receive a dose or two of dexamethasone prior to arrival which was not continued. Chest x-ray on arrival reveals no acute process within the chest and blood cultures are negative. She remains afebrile and on airborne isolation pending two negative nasal swab screenings. (4) Acute metabolic encephalopathy: Persists and this is expected. Many contributing etiologies including older age, physical deconditioning, high sodium, generalized weakness, bipolar disorder, chronic kidney disease, dementia, history of recurrent UTI with current possible infection on antibiotic therapy, recent COVID-19 infection with persistent viral presents on nasal swab. (5) Acute on chronic renal insufficiency: Secondary to severe dehydration--resolved with free water replacement. (6) Severe protein-calorie malnutrition: Wt loss 40 lbs over 6 months, temporal wasting on exam, thin, frail. Cont thiamine. Would recommend palliative care measures and I have discussed this with her son per conversation above (spoke by phone today). For now continue to watch her progress. (7) Bipolar disorder: on depakote 250mg bid, will convert to IV while NPO. Per patient's she has really declined in the last 6 months from a mental standpoint. (8) HLD (hyperlipidemia): on statin as outpt PO medications currently on hold given mental status (9) DVT prophylaxis: Lovenox DNR/DNI Dispo- uncertain at this time. Very poor prognosis. Will likely be transitioned to comfort measures soon. Awaiting family decision on this. [facility] and [facility]tic[facility]ated Discharge Date Admission Date: January 27, 2020 Subjective obtunded, eyes are open but she cannot see me, follow instructions or intereact with me in any way Discussed this with her son by phone today and they decided on transitioning her to DNR status. Will continue to monitor her for now without aggressive therapies to see if any further improvement occurs, however, they understand her prognosis is poor and that any attempt to provide artificial feeding such as placement of an NG tube will delay the inevitable continued weight loss and poor QOL in quarantine with significant physical deconditioning that she has been experiencing for the last few months. We also discussed goals of care including transitioning her to more of a palliative care status, and he will continue speaking with his brother about this overnight while we watch her progress. Review of Systems Review of Systems: Unobtainable due to cognitive status Physical Exam Physical Exam: CONSTITUTIONAL: thin, frail, elderly, vitals as above, generally obtunded and ill-appearing. Sunken cheek bones, temporal wasting. EYES: normal conjunctivae, no scleral icterus. ENT: external ear and nose normal, mucous membranes are very dry, but this is improving. RESPIRATORY: clear to auscultation bilaterally, no crackles, rales or wheezes, normal respiratory effort CARDIOVASCULAR: regular rate and rhythm, S1 and 2 heard without murmurs, gallops or rubs, no JVD, no peripheral edema GASTROINTESTINAL: soft, nondistended, no guarding MUSCULOSKELETAL: head is normocephalic and atraumatic, +generalized weakness. SKIN: warm and dry, skin in very thin and fragile. NEUROLOGIC: patellar DTRs 2+ bilat. no facial palsy, obtunded with occasional opening of eyes to verbal stimulus. Cannot follow commands or speak. Cannot exhibit nonverbal communication at this time. Results & Data [facility] Laboratory Results Short CBC 01/30/20 01/30/20 Range/Units 04:21 05:23 WBC Cancelled 8.83 Hgb Cancelled 13.2 Hct Cancelled 42.1 Plt Count Cancelled 94 L BMP 01/30/20 01/30/20 04:21 05:31 Sodium 143 Potassium 3.5 Chloride 116 H Carbon Dioxide 22 BUN 32 H Creatinine 0.86 Glucose 106 H Calcium 8.1 L Medications Administered Current Inpatient Medications Acetaminophen (Acetaminophen 325 Mg Tab) 650 mg PO Q4H PRN PRN Reason: Pain or Fever Stop: 02/26/20 19:51 Al Hydrox/Mg Hydrox/Simethicone (Aluminum/Magnesium Susp 30 Ml Udc) 15 ml PO Q4H PRN PRN Reason: Dyspepsia Stop: 02/26/20 19:51 Enoxaparin Sodium (Enoxaparin Inj 30 Mg/0.3 Ml Syr) 30 mg SQ HS [facility] Stop: 02/29/20 20:59 Valproic Acid 250 mg/ Dextrose 52.5 mls @ 55 mls/hr IV Q12H [facility] Stop: 02/26/20 20:59 Last Infusion: 01/30/20 09:55 Dose: Infused Documented by: Thiamine HCl 100 mg/ Syringe 10 mls @ 2 mls/min IV QAM [facility] Stop: 02/29/20 08:59 Last Admin: 01/30/20 08:53 Dose: 2 mls/min Documented by: Magnesium Hydroxide (Magnesium Hydroxide Susp 30 Ml Udc) 30 ml PO Q12H PRN PRN Reason: Constipation Stop: 02/26/20 19:51 Ondansetron HCl (Ondansetron Inj 2 Mg/Ml 2 Ml Vial) 4 mg IV Q6H PRN PRN Reason: Nausea Stop: 02/26/20 19:51 Polyethylene Glycol (Polyethylene (Miralax) 17 Gm Pack) 17 gm PO DAILY PRN PRN Reason: Constipation Stop: 02/26/20 19:51 (1) UTI (urinary tract infection) Hematuria presence: with hematuria Urinary tract infection type: acute cystitis Qualified Code(s): N30.01 - Acute cystitis with hematuria
[2020-01-30] MEDS: ENOXAPARIN INJ 30 MG/0.3 ML SYR SQ SCH (20:54)
[2020-01-31] MEDS: VALPROATE SOD 250 MG in DEXTROSE 5% 50 ML IV SCH ×2 (09:33→21:13)
[2020-01-31] MEDS: THIAMINE HCL 100 MG in SYRINGE 9 ML IV SCH (09:33)
--- NOTE | 2020-01-31 12:51 | Hospitalist Progress Note ---
Date of Service January 31, 2020 Assessment & Plan (1) Hypernatremia: resolved. Starting to wake up more and tolerate PO. Cont to hydrate orally but may need some more IVF. Will recheck Na in am. (2) UTI (urinary tract infection): Ecoli and Proteus on recent culture 01/21. Started on Macrobid and switched to Rocephin on admission. She received a short course of this and appears clinically improved. (3) COVID-19: She was diagnosed on 01/13 at [facility] and has been on isolation, which has likely contributed to her severe dehydration as she has dementia and needs to be reminded to hydrate and eat, etc. She remains free of respiratory symptoms and is oxygenating well on room air. She did receive a dose or two of dexamethasone prior to arrival which was not continued. Chest x-ray on arrival reveals no acute process within the chest and blood cultures are negative. She remains afebrile and on airborne isolation pending two negative nasal swab screenings. (4) Acute metabolic encephalopathy: Persists and this is expected but she is improving as now following some instructions and able to tolerate some PO. Many contributing etiologies in cluding older age, physical deconditioning, high sodium, generalized weakness, bipolar disorder, chronic kidney disease, dementia, history of recurrent UTI with current possible infection on antibiotic therapy, recent COVID-19 infection with persistent viral presents on nasal swab. (5) Severe protein-calorie malnutrition: Wt loss 40 lbs over 6 months, temporal wasting on exam, thin, frail. Cont thiamine. Would recommend palliative care measures and I have discussed this with her son per conversation above (spoke by phone today). For now continue to watch her progress. (6) Bipolar disorder: on depakote 250mg bid, will convert to IV while NPO. Per patient's she has really declined in the last 6 months from a mental standpoint. (7) HLD (hyperlipidemia): on statin as outpt PO medications currently on hold given mental status (8) DVT prophylaxis: Lovenox DNR/DNI Dispo- uncertain at this time. Very poor prognosis. Will continue to watch her progress to establish a new baseline for her now that she is eating more today. She will need to be in a SNF level care for a while at this point. Isolation will be a risk for her to decompensate again. Yolalucas Schneider DO [facility]ist Admission and Anticipated Discharge Date Admission Date: January 27, 2020 Subjective Pt is more alert while I'm with her today but she is still nonverbal and is not responding much She is somewhat following instructions, however, but remains slow in her response and is very weak still Nursing tried some full liquids with her and she was able to start to do well with this so will continue this now as she hasn'teaten in over a week. Will have Speech Path work with her formally on Saturday (tmrw) Review of Systems Review of Systems: Unobtainable due to cognitive status Physical Exam Physical Exam: CONSTITUTIONAL: thin, frail, elderly, vitals as above, generally weak and nonverbal. More alert today in general. EYES: normal conjunctivae, no scleral icterus. ENT: external ear and nose normal, MMM RESPIRATORY: clear to auscultation bilaterally, no crackles, rales or wheezes, normal respiratory effort CARDIOVASCULAR: regular rate and rhythm, S1 and 2 heard without murmurs, gallops or rubs, no JVD, no peripheral edema GASTROINTESTINAL: soft, nondistended, no guarding MUSCULOSKELETAL: head is normocephalic and atraumatic, +generalized weakness. SKIN: warm and dry, skin in very thin and fragile. Temporal wasting, sunken cheek bones. NEUROLOGIC: patellar DTRs 2+ bilat. no facial palsy, slow to respond but able to follow some commands today and able to tolerate some ice cream. Results & Data Results & Data ([facility]) Vital Signs (Past 12 Hours) Vital Signs Temp Pulse Pulse Resp BP Pulse Ox 01/31/20 09:44 36.5 C 82 18 121/85 96 01/31/20 00:59 36.8 C 81 81 12 129/84 94 Medications Administered Current Inpatient Medications Acetaminophen (Acetaminophen 325 Mg Tab) 650 mg PO Q4H PRN PRN Reason: Pain or Fever Stop: 02/26/20 19:51 Al Hydrox/Mg Hydrox/Simethicone (Aluminum/Magnesium Susp 30 Ml Udc) 15 ml PO Q4H PRN PRN Reason: Dyspepsia Stop: 02/26/20 19:51 Enoxaparin Sodium (Enoxaparin Inj 30 Mg/0.3 Ml Syr) 30 mg SQ HS [facility] Stop: 02/29/20 20:59 Last Admin: 01/30/20 20:54 Dose: 30 mg Documented by: Valproic Acid 250 mg/ Dextrose 52.5 mls @ 55 mls/hr IV Q12H [facility] Stop: 02/26/20 20:59 Last Admin: 01/31/20 09:33 Dose: 55 mls/hr Documented by: Thiamine HCl 100 mg/ Syringe 10 mls @ 2 mls/min IV QAM [facility] Stop: 02/29/20 08:59 Last Admin: 01/31/20 09:33 Dose: 2 mls/min Documented by: Magnesium Hydroxide (Magnesium Hydroxide Susp 30 Ml Udc) 30 ml PO Q12H PRN PRN Reason: Constipation Stop: 02/26/20 19:51 Ondansetron HCl (Ondansetron Inj 2 Mg/Ml 2 Ml Vial) 4 mg IV Q6H PRN PRN Reason: Nausea Stop: 02/26/20 19:51 Polyethylene Glycol (Polyethylene (Miralax) 17 Gm Pack) 17 gm PO DAILY PRN PRN Reason: Constipation Stop: 02/26/20 19:51 (1) UTI (urinary tract infection) Hematuria presence: with hematuria Urinary tract infection type: acute cystitis Qualified Code(s): N30.01 - Acute cystitis with hematuria
[2020-01-31] MEDS: ENOXAPARIN INJ 30 MG/0.3 ML SYR SQ SCH (21:13)
[2020-02-01 06:12] VITALS: BP 125/81; TEMP 98.2; O2SAT 95
[2020-02-01 06:46] LABS: BUN Creatinine Ratio 33.3 (10-20); Calcium 8.2 mg/dl (8.5-10.1); Creatinine Clr Calc Pharmacy 49.2 ml/min; Est GFR (African American) 91.6; Potassium 3.5 mmol/L (3.5-5.1)
[2020-02-01] MEDS ORDERED: DEXTROSE 5% 1,000 ML IV SCH (08:30)
[2020-02-01] MEDS: VALPROATE SOD 250 MG in DEXTROSE 5% 50 ML IV SCH (08:40)
[2020-02-01] MEDS: THIAMINE HCL 100 MG in SYRINGE 9 ML IV SCH (08:41)
--- NOTE | 2020-02-01 10:56 | Palliative Care Consultation ---
Date of Consultation February 01, 2020 Assessment & Plan (1) Palliative care encounter: This is an 84 year old female who presented to the [facility] from [facility] at [facility] with altered mental status and significant weight loss, of 40 pounds over the past few months. The patient has severe dementia at baseline and is non-verbal. Additional PMH includes: severe protein caloric malnutrition, severe dementia, CKD III, HLD, bipolar disorder, hypernatremia and recurrent UTI. On admisssion she was found to be COVID +, her Na+ level was 160's, now has resolved to 147; however, her overall condition is poor at best. Palliative Care was consulted to discuss goals of care. Assessment of this patient deferred due to provider limitations related to COVID. Discussed care with the patients hospitalist Dr Schneider and her nurse Andres. The patient has been deteriorating, with some engaged moments over the weekend but with an overall poor prognosis. She is on IV fluids and was able to take a few bites of food over the weekend. Per discussion with nursing she is starting at the ceiling today, moaning in discomfort and tears welling in her eyes. Lengthy discussion held over the phone with the patients son, Neeraj and his Polina. Neeraj does hold legal POA. He mentioned that he last saw his mother in October and noted that she was declining cognitively then. He understands that her baseline quality is poor and she would not want to live with aggressive measures taken. Understanding that her Na+ level has returned to a normal hemodynamic state, her overall condition remains poor with altered mental status and severe protein malnourished state. We discussed comfort measures and Neeraj agreed to transition to comfort focus that would fulfill his mothers wishes. We will stop all blood draws, vital signs and medications that do not focus on comfort only. Will order Morphine IV, Robinul and Ativan for comfort. Offered Neeraj an ipad encounter with his mother but he declined and does not feel that is necessary for him. I set life expectancy to be hours to days. PPS: 10%. Should the patient stabilize over the next few days despite comfort intervention, we can readdress the possibility of her returning to [facility]. Currently, she would not qualify for GIP as her comfort needs are adequately controlled. Palliative Care will follow through this process. (2) COVID-19: (3) Chronic hypernatremia: (4) Severe protein-calorie malnutrition: (5) Bipolar disorder: History of Present Illness Reason for Consultation: Goals of care Requesting Physician: Dr. Schneider Attending Physician: Yola Schneider, History of Present Illness This is an 84 year old female who presented to the [facility] from [facility] at [facility] with altered mental status and significant weight loss, of 40 pounds over the past few months. The patient has severe dementia at baseline and is non-verbal. Additional PMH includes: severe protein caloric malnutrition, severe dementia, CKD III, HLD, bipolar disorder, hypernatremia and recurrent UTI. On admisssion she was found to be COVID +, her Na+ level was 160's, now has resolved to 147; however, her overall condition is poor at best. Palliative Care was consulted to discuss goals of care. Please see A/P for furth er details. Thank you for involving us with this unfortunate individual. Allergies Allergy/AdvReac Type Severity Reaction Status Date / Time No Known Allergies Allergy Verified 01/27/20 14:01 Home Medications Home Medications Medication Instructions Recorded Confirmed Type aspirin 81 mg PO QAM 02/11/19 01/27/20 History atorvastatin [Lipitor] 20 mg PO PM 02/11/19 01/27/20 History sennosides [Senokot] 8.6 mg PO QAM #30 tab 02/25/19 01/27/20 Rx acetaminophen 325 mg capsule 325 mg PO QID PRN 06/04/19 01/27/20 History bisacodyl 10 mg rectal suppository 10 mg WI DAILY PRN 06/04/19 01/27/20 History docusate sodium 100 mg capsule 100 mg PO QAM 06/04/19 01/27/20 History ostomy supplies #1 ea 06/04/19 12/11/19 History polyethylene glycol 3350 17 17 gm PO QAM 06/04/19 01/27/20 History gram/dose oral powder divalproex 250 mg tablet,delayed 250 mg PO BID 12/11/19 01/27/20 History release dexamethasone 6 mg PO DAILY@1600 01/27/20 01/27/20 History dexamethasone sodium phos (PF) 6 mg IV Q6H 01/27/20 01/27/20 History estradiol [Estrace] 5 gm PV WK 01/27/20 01/27/20 History magnesium hydroxide 30 ml PO DIRECTED PRN 01/27/20 01/27/20 History megestrol 400 mg PO QAM 01/27/20 01/27/20 History oxybutynin chloride 10 mg PO QAM 01/27/20 01/27/20 History Patient History Medical History (Updated 02/01/20 @ 10:55 by CARY Vasquez) Ambulatory dysfunction Bipolar disorder Fall HLD (hyperlipidemia) HTN (hypertension) Hx of renal calculi OAB (overactive bladder) Osteoporosis Palliative care encounter Prolapsed uterus UTI (urinary tract infection) Surgical History (Updated 01/27/20 @ 16:54 by Stephanie Durán PA-C) History of cholecystectomy History of tonsillectomy and adenoidectomy Family History (Updated 01/27/20 @ 16:57 by Stephanie Durán PA-C) Other Family history unobtainable due to patient's condition Social History (Updated 01/27/20 @ 16:57 by Stephanie Durán PA-C) Smoking Status: Unknown if ever smoked Preferred Language: Swedish Communication Ability: Effective 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 Discussed with hospitalist Results & Data ([facility]) Vital Signs (Past 12 Hours) Vital Signs Temp Pulse Resp BP Pulse Ox 02/01/20 06:08 36.8 C 80 12 125/81 95 02/01/20 00:04 36.6 C 83 14 136/70 97 PG Care Time/CCT Total # of Minutes Spent Total Time Spent with Patient: Total time spent is greater than 50% in coordination of care (as documented) at patient's floor/unit and/or counseling patient: 100 Coding Level of Care Code 96607 Inpt Consult Level 4 Diagnoses Palliative care encounter Z51.5 COVID-19 U07.1 Chronic hypernatremia E87.0 Severe protein-calorie malnutrition E43 Bipolar disorder F31.9 Time Spent (min) 100 Time Spent Midlevel Total time spent 100 minutes with > 50% of that time spent assessing the patient, discussing goals of care and collaborating with the IDT.
[2020-02-01] MEDS ORDERED: ONDANSETRON INJ 2 MG/ML 2 ML VIAL IV PRN (12:18)
[2020-02-01] MEDS ORDERED: ONDANSETRON 4 MG OD TAB SL PRN (12:18)
[2020-02-01] MEDS ORDERED: LORazepam 0.5 MG TAB PO PRN (12:18)
[2020-02-01] MEDS ORDERED: LORazepam 0.5 MG/1 ML VIAL IV PRN (12:18)
[2020-02-01] MEDS ORDERED: MoRPHine SULFATE 2 MG/ML CARP IV PRN (12:20)
[2020-02-01] MEDS ORDERED: GLYCOPYRROLATE 0.2 MG/ML VIAL IV PRN (12:20)
[2020-02-01] MEDS ORDERED: ATROPINE SULFATE 1% OP SOLN 2 ML BTL SL PRN (12:30)
--- NOTE | 2020-02-01 18:05 | Hospitalist Progress Note ---
Date of Service February 01, 2020 Assessment & Plan (1) Hypernatremia: this will persist as she is unable to keep up with her hydration and nutrition needs, and we are no longer artificially hydrating her. Cont comfort care measures. (2) UTI (urinary tract infection): Ecoli and Proteus on recent culture 01/21. Started on Macrobid and switched to Rocephin on admission. She received a short course of this and appears clinically improved. (3) COVID-19: She was diagnosed on 01/13 at [facility] and has been on isolation, which has likely contributed to her severe dehydration as she has dementia and needs to be reminded to hydrate and eat, etc. She remains free of respiratory symptoms and is oxygenating well on room air. She did receive a dose or two of dexamethasone prior to arrival which was not continued. Chest x-ray on arrival reveals no acute process within the chest and blood cultures are negative. She remains off treatment and asymptomatic. (4) Acute metabolic encephalopathy: Persists and this is expected but she is improving as now following some instructions and able to tolerate some PO. Many contributing etiologies including older age, physical deconditioning, high sodium, generalized weakness, bipolar disorder, chronic kidney disease, dementia, history of recurrent UTI with current possible infection on antibiotic therapy, recent COVID-19 infection with persistent viral presents on nasal swab. (5) Severe protein-calorie malnutrition: Wt loss 40 lbs over 6 months, temporal wasting on exam, thin, frail. Agree with comfort care measures. (6) Bipolar disorder: palliate as needed (7) DVT prophylaxis: None-Comfort care measures status DNR/DNI Dispo- will look to transition her to Hospice at SNF locally if is not imminent in the next couple of days. Appreciate case management and palliative care provider assistance with this. Yola Schneider DO [facility] Hospitalist Admission and Anticipated Discharge Date Admission Date: January 27, 2020 Subjective ROS unavailable Pt obtunded not following instructions extremely weak and nonverbal Palliative discussion with the family and patient was made comfort care measures appears very comfortable at this time. Review of Systems Review of Systems: Unobtainable due to cognitive status Physical Exam Physical Exam: CONSTITUTIONAL: thin, frail, elderly, vitals as above, generally weak and nonverbal. Declined clinically. EYES: normal conjunctivae, no scleral icterus. ENT: external ear and nose normal, MMM RESPIRATORY: clear to auscultation bilaterally, no crackles, rales or wheezes, normal respiratory effort CARDIOVASCULAR: regular rate and rhythm, S1 and 2 heard without murmurs, gallops or rubs, no JVD, no peripheral edema GASTROINTESTINAL: soft, nondistended, no guarding MUSCULOSKELETAL: head is normocephalic and atraumatic, +generalized weakness. SKIN: warm and dry, skin in very thin and fragile. Swelling in extremities noted. Temporal wasting, sunken cheek bones. NEUROLOGIC: slow to respond but able to follow some commands today and able to tolerate some ice cream. Results & Data Results & Data ([facility]) Vital Signs (Past 12 Hours) Vital Signs Temp Pulse Resp BP Pulse Ox 02/01/20 06:08 36.8 C 80 12 125/81 95 Laboratory Results [facility] 02/01/20 05:36 Sodium 147 H Potassium 3.5 Chloride 117 H Carbon Dioxide 24 BUN 23 H Creatinine 0.70 Glucose 86 Calcium 8.2 L Medications Administered Current Inpatient Medications Glycopyrrolate (Glycopyrrolate 0.2 Mg/Ml Vial) 0.2 mg IV Q3H PRN PRN Reason: secretions Stop: 03/02/20 12:19 Lorazepam (Ativan) 0.5 mg in 1 mls @ 1 mls/min IV Q4H PRN PRN Reason: Anxiety/Agitation Stop: 03/02/20 12:17 Morphine Sulfate (Morphine Sulfate 2 Mg/Ml Carp) 2 mg IV Q2H PRN PRN Reason: Pain/air hunger Stop: 02/15/20 12:19 Ondansetron HCl (Ondansetron Inj 2 Mg/Ml 2 Ml Vial) 4 mg IV Q4H PRN PRN Reason: Nausea And Vomiting Stop: 03/02/20 12:17 (1) UTI (urinary tract infection) Hematuria presence: with hematuria Urinary tract infection type: acute cystitis Qualified Code(s): N30.01 - Acute cystitis with hematuria
--- NOTE | 2020-02-02 09:27 | Hospitalist Progress Note ---
Date of Service February 02, 2020 Assessment & Plan (1) Hypernatremia: (2) UTI (urinary tract infection): Ecoli and Proteus on recent culture 01/21. Started on Macrobid and switched to Rocephin on admission. She received a short course of this and appears clinically improved. (3) COVID-19: She was diagnosed on 01/13 at [facility] and has been on isolation, which has likely contributed to her severe dehydration as she has dementia and needs t o be reminded to hydrate and eat, etc. She remains free of respiratory symptoms and is oxygenating well on room air. She did receive a dose or two of dexamethasone prior to arrival which was not continued. Chest x-ray on arrival reveals no acute process within the chest and blood cultures are negative. She remains off treatment and asymptomatic. (4) Acute metabolic encephalopathy: Persists and this is expected but she is improving as now following some instructions and able to tolerate some PO. Many contributing etiologies including older age, physical deconditioning, high sodium, generalized weakness, bipolar disorder, chronic kidney disease, dementia, history of recurrent UTI with current possible infection on antibiotic therapy, recent COVID-19 infection with persistent viral presents on nasal swab. (5) Severe protein-calorie malnutrition: Wt loss 40 lbs over 6 months, temporal wasting on exam, thin, frail. Agree with comfort care measures. (6) Bipolar disorder: palliate as needed (7) DVT prophylaxis: None-Comfort care measures status DNR/DNI Dispo- will look to transition her to Hospice at SNF locally if is not imminent in the next couple of days. Appreciate case management and palliative care provider assistance with this. Yola Schneider DO [facility] Hospitalist Admission and Anticipated Discharge Date Admission Date: January 27, 2020 Subjective obtunded, unable to interact with me or follow instructions she appears comfortable and has a normal respiratory rate with no facial grimacing. Review of Systems Review of Systems: All systems reviewed & are unremarkable except as noted in Subjective Physical Exam Physical Exam: CONSTITUTIONAL: thin, frail, elderly, vitals as above, generally weak and nonverbal. Declined clinically. EYES: normal conjunctivae, no scleral icterus. ENT: external ear and nose normal, MMM RESPIRATORY: clear to auscultation bilaterally, no crackles, rales or wheezes, normal respiratory effort CARDIOVASCULAR: regular rate and rhythm, S1 and 2 heard without murmurs, gallops or rubs, no JVD, no peripheral edema GASTROINTESTINAL: soft, nondistended, no guarding MUSCULOSKELETAL: head is normocephalic and atraumatic, +generalized weakness. SKIN: warm and dry, skin in very thin and fragile. Swelling in extremities noted. Temporal wasting, sunken cheek bones. Results & Data Results & Data ([facility]) Medications Administered Current Inpatient Medications Glycopyrrolate (Glycopyrrolate 0.2 Mg/Ml Vial) 0.2 mg IV Q3H PRN PRN Reason: secretions Stop: 03/02/20 12:19 Lorazepam (Ativan) 0.5 mg in 1 mls @ 1 mls/min IV Q4H PRN PRN Reason: Anxiety/Agitation Stop: 03/02/20 12:17 Last Admin: 02/02/20 08:55 Dose: 1 mls/min Documented by: Morphine Sulfate (Morphine Sulfate 2 Mg/Ml Carp) 2 mg IV Q2H PRN PRN Reason: Pain/air hunger Stop: 02/15/20 12:19 Ondansetron HCl (Ondansetron Inj 2 Mg/Ml 2 Ml Vial) 4 mg IV Q4H PRN PRN Reason: Nausea And Vomiting Stop: 03/02/20 12:17 (1) UTI (urinary tract infection) Hematuria presence: with hematuria Urinary tract infection type: acute cystit is Qualified Code(s): N30.01 - Acute cystitis with hematuria
--- NOTE | 2020-02-02 16:24 | Palliative Care Progress Note ---
Date of Service February 02, 2020 Assessment & Plan (1) Palliative care encounter: Nursing staff concerned about being able to maintain access. Will switch to sublingual medications to ensure that comfort medications can be administered. (2) COVID-19: (3) Severe protein-calorie malnutrition: (4) Acute metabolic encephalopathy: Admission and Anticipated Discharge Date Admission Date: January 27, 2020 Subjective More lethargic today. Moans briefly with care but settles quickly. Per RN some mottling noted with care. Review of Systems Review of Systems: Other unable due to cognitive status and covid 19 Physical Exam Physical Exam: Patient not seen due to covid 19. Care reviewed with RN PG Care Time/CCT Total # of Minutes Spent Total Time Spent with Patient: Total time spent is greater than 50% in coordination of care (as documented) at patient's floor/unit and/or counseling patient:25 min spent discussing symptom management and plan of care Coding Level of Care Code 72613 Subseq Hosp Care Lvl 2 Diagnoses Palliative care encounter Z51.5 COVID-19 U07.1 Severe protein-calorie malnutrition E43 Acute metabolic encephalopathy G93.41 Time Spent (min) 25 Comment [id number]
[2020-02-02] MEDS ORDERED: MoRPHine SULFATE 5 MG/0.25 ML UDP PO PRN (16:25)
[2020-02-02] MEDS ORDERED: HYOSCYAMINE SULFATE 0.125 MG TAB SL PRN (16:25)
[2020-02-02] MEDS ORDERED: LORazepam 0.5 MG TAB SL PRN (16:25)
--- NOTE | 2020-02-03 13:27 | Hospitalist Progress Note ---
Date of Service February 03, 2020 Assessment & Plan (1) Hypernatremia: -as per admission History and physical 01/27/2020: "This is an 84-year-old female with significant past medical history of bipolar disorder, HTN, HLD, CKD stage III, osteoporosis, history of recurrent UTIs, OAB who presents to ED secondary to altered mental status x1 week. Patient currently resides at her side. Of significance history unobtainable from patient secondary to mental status. History obtained from ED provider and SNF. Of significance patient tested positive for Covid on 01/13. She is currently on isolation. She has not been experiencing respiratory symptoms. She has had a notable decline in mental status. She was diagnosed with UTI and initially started on oral Macrobid. This was discontinued and she was placed on IV Rocephin and has completed 1 dose, started yesterday. Urine culture grew greater than 100,000 Proteus mirabilis and E. coli. She was also given 6 mg oral dexamethasone as well as 6 mg IV dexamethasone due to her diagnosis of Covid. Nursing facility noticed worsening decline of mental status and therefore she was referred to ED. According to family patient does have memory deficits at baseline typically is alert and oriented and able to hold conversation. This is currently not her baseline. Also of significance patient has had an increase in sodium levels. On 01/21 she was 146,, 01/24 151 and today 160. It does appear that she received IV normal saline by nursing facility." -During this hospital stay patient was transitioned to comfort care by previous hospitalist Dr. Schneider who worked with palliative care team -02/03/2020: As per coordination with ed case manager and patient's family (son), patient to be discharged to [facility] on comfort care. As per nurse, patient was able to eat some food with assistance. Patient on exam is lethargic. She opens her eyes but not answer. Patient's overall prognosis is poor. Hospitalist answered all questions from her son John by telephone and he is in agreement that patient may go to [facility] on comfort care (2) COVID-19: -She was diagnosed on 01/13 at [facility] and has been on isolation, which has likely contributed to her severe dehydration as she has dementia and needs to be reminded to hydrate and eat, etc. She remains free of respiratory symptoms and is oxygenating well on room air. -She did receive a dose or two of dexamethasone prior to arrival which was not continued -Chest x-ray on arrival reveals no acute process within the chest and blood cultures are negative. She remains off treatment and asymptomatic in regards to respiratory status (3) Acute metabolic encephalopathy: Persists and this is expected but she is improving as now following some instructions and able to tolerate some PO. Many contributing etiologies including older age, physical deconditioning, high sodium, generalized weakness, bipolar disorder, chronic kidney disease, dementia, history of recurrent UTI with current possible infection on antibiotic therapy, recent COVID-19 infection with persistent viral presents on nasal swab. (4) UTI (urinary tract infection): -Ecoli and Proteus on recent culture 01/21 -she was started on Macrobid and switched to Rocephin on admission -currently on comfort care (5) Severe protein-calorie malnutrition: -Wt loss 40 lbs over 6 months, temporal wasting on exam, thin, frail -on comfort care measures (6) Bipolar disorder: (7) DVT prophylaxis: None-Comfort care measures status DNR/DNI Admission and Anticipated Discharge Date Admission Date: January 27, 2020 Subjective 02/03/2020: As per coordination with ed case manager and patient's family (son), patient to be discharged to [facility] on comfort care. As per nurse, patient was able to eat some food with assistance. Patient on exam is lethargic. She opens her eyes but not answer. Patient's overall prognosis is poor. Hospitalist answered all questions from her son John by telephone and he is in agreement that patient may go to [facility] on comfort care Review of Systems Review of Systems: All systems reviewed & are unremarkable except as noted in Subjective Physical Exam Constitutional: + lethargic Eyes: PERRL, conjunctivae normal, anicteric sclerae EOM intact bilaterally ENMT: external ear and nose normal, oropharynx normal Neck: normal visual inspection Respiratory: normal respiratory effort Cardiovascular: Rate/Rhythm: regular rate Gastrointestinal (Abdomen): normal bowel sounds, soft, nontender, no hepatosplenomegaly Musculoskeletal: Head/Neck/Chest: normocephalic Neurologic: awake Psychiatric: Eye Contact: + poor eye contact (1) UTI (urinary tract infection) Hematuria presence: with hematuria Urinary tract infection type: acute cystitis Qualified Code(s): N30.01 - Acute cystitis with hematuria
[2020-02-03 13:41] VITALS: PULSE 67
--- NOTE | 2020-02-03 14:26 | Discharge Summary ---
Date of Service February 03, 2020 Admission HPI Per Admitting Provider This is an 84-year-old female with significant past medical history of bipolar disorder, HTN, HLD, CKD stage III, osteoporosis, history of recurrent UTIs, OAB who presents to ED secondary to altered mental status x1 week. Patient currently resides at her side. Of significance history unobtainable from patient secondary to mental status. History obtained from ED provider and SNF. Of significance patient tested positive for Covid on 01/13. She is currently on isolation. She has not been experiencing respiratory symptoms. She has had a notable decline in mental status. She was diagnosed with UTI and initially started on oral Macrobid. This was discontinued and she was placed on IV Rocephin and has completed 1 dose, started yesterday. Urine culture grew greater than 100,000 Proteus mirabilis and E. coli. She was also given 6 mg oral dexamethasone as well as 6 mg IV dexamethasone due to her diagnosis of Covid. Nursing facility noticed worsening decline of mental status and therefore she was referred to ED. According to family patient does have memory deficits at baseline typically is alert and oriented and able to hold conversation. This is currently not her baseline. Also of significance patient has had an increase in sodium levels. On 01/21 she was 146,, 01/24 151 and today 160. It does appear that she received IV normal saline by nursing facility. In ED patient made hemodynamically stable. Lab abnormalities notable for sodium 160, BUN 62, creatinine 1.28, glucose 134, mag 3.2, albumin 2.8. Chest x-ray without acute abnormality. H&H stable at 14.8 and 40.2. She was afebrile, WBC WNL and procalcitonin WNL. She was started on 85 mL of D5 water in ED. Principal Diagnosis Acute metabolic encephalopathy Hypernatremia Urinary Tract Infection COVID-19 Severe protein-calorie malnutrition Discharge Exam Constitutional + lethargic Eyes PERRL, conjunctivae normal, anicteric sclerae EOM intact bilaterally ENMT external ear and nose normal, oropharynx normal Neck normal visual inspection Respiratory normal respiratory effort Cardiovascular Rate/Rhythm: regular rate Gastrointestinal (Abdomen) normal bowel sounds, soft, nontender, no hepatosplenomegaly Musculoskeletal Head/Neck/Chest: normocephalic Neurologic awake Psychiatric Eye Contact: + poor eye contact Discharge Data Allergies Allergy/AdvReac Type Severity Reaction Status Date / Time No Known Allergies Allergy Verified 01/27/20 14:01 Consultations 01/27/20 15:49 ED Decision to Admit Stat 01/27/20 15:57 Consult Nephrology Routine 01/27/20 19:52 Consult Case Management - Discharge Planning Routine 02/01/20 08:21 Consult Palliative Care Routine 02/01/20 12:18 Consult Case Management - Discharge Planning Routine Consult Palliative Care Routine Ordered Studies 01/27/20 14:27 CT head/brain wo con Stat Hospital Course (1) Hypernatremia: -as per admission History and physical 01/27/2020: "This is an 84-year-old female with significant past medical history of bipolar disorder, HTN, HLD, CKD stage III, osteoporosis, history of recurrent UTIs, OAB who presents to ED secondary to altered mental status x1 week. Patient currently resides at her side. Of significance history unobtainable from patient secondary to mental status. History obtained from ED provider and SNF. Of significance patient tested positive for Covid on 01/13. She is currently on isolation. She has not been experiencing respiratory symptoms. She has had a notable decline in mental status. She was diagnosed with UTI and initially started on oral Macrobid. This was discontinued and she was placed on IV Rocephin and has completed 1 dose, started yesterday. Urine culture grew greater than 100,000 Proteus mirabilis and E. coli. She was also given 6 mg oral dexamethasone as well as 6 mg IV dexamethasone due to her diagnosis of Covid. Nursing facility noticed worsening decline of mental status and therefore she was referred to ED. According to family patient does have memory deficits at baseline typically is alert and oriented and able to hold conversation. This is currently not her baseline. Also of significance patient has had an increase in sodium levels. On 01/21 she was 146,, 01/24 151 and today 160. It does appear that she received IV normal saline by nursing facility." -During this hospital stay patient was transitioned to comfort care by previous hospitalist Dr. Schneider who worked with palliative care team -02/03/2020: As per coordination with case making machine operator and patient's family (son), patient to be discharged to [facility] on comfort care. As per nurse, patient was able to eat some food with assistance. Patient on exam is lethargic. She opens her eyes but not answer. Patient's overall prognosis is poor. Hospitalist answered all questions from her son John by telephone and he is in agreement that patient may go to [facility] on comfort care (2) COVID-19: -She was diagnosed on 01/13 at [facility] and has been on isolation, which has likely contributed to her severe dehydration as she has dementia and needs to be reminded to hydrate and eat, etc. She remains free of respiratory symptoms and is oxygenating well on room air. -She did receive a dose or two of dexamethasone prior to arrival which was not continued -Chest x-ray on arrival reveals no acute process within the chest and blood cultures are negative. She remains off treatment and asymptomatic in regards to respiratory status (3) Acute metabolic encephalopathy: Persists and this is expected but she is improving as now following some instructions and able to tolerate some PO. Many contributing etiologies including older age, physical deconditioning, high sodium, generalized weakness, bipolar disorder, chronic kidney disease, dementia, history of recurrent UTI with current possible infection on antibiotic therapy, recent COVID-19 infection with persistent viral presents on nasal swab. (4) UTI (urinary tract infection): -Ecoli and Proteus on recent culture 01/21 -she was started on Macrobid and switched to Rocephin on admission -currently on comfort care (5) Severe protein-calorie malnutrition: -Wt loss 40 lbs over 6 months, temporal wasting on exam, thin, frail -on comfort care measures (6) Bipolar disorder: palliate as needed (7) DVT prophylaxis: None-Comfort care measures status DNR/DNI Total Time Total Time Spent Total Time Spent (In Minutes): 40 minutes Total Time Includes: Examination of the Patient, Discharge Planning, Medication Reconciliation and Communication With Other Providers Discharge Plan Discharge Items Patient Disposition: Transfer Correction Fac Reason For Visit: Hypernatremia, Ole, Uti, recent Covid+ Discharge Diagnosis: Acute metabolic encephalopathy Hypernatremia Urinary Tract Infection COVID-19 Severe protein-calorie malnutrition Condition on Discharge: Serious Activity: Per Instructions section Non-emergency contact: Primary Care Provider Call non-emergency contact if: you have any medication questions Follow-up/Referrals: [facility] [Primary Care Provider] - Diet: Full liquid Addtl Attending Provider Instructions: -as per admission History and physical 01/27/2020: "This is an 84-year-old female with significant past medical history of bipolar disorder, HTN, HLD, CKD stage III, osteoporosis, history of recurrent UTIs, OAB who presents to ED secondary t o altered mental status x1 week. Patient currently resides at her side. Of significance history unobtainable from patient secondary to mental status. History obtained from ED provider and SNF. Of significance patient tested positive for Covid on 01/13. She is currently on isolation. She has not been experiencing respiratory symptoms. She has had a notable decline in mental status. She was diagnosed with UTI and initially started on oral Macrobid. This was discontinued and she was placed on IV Rocephin and has completed 1 dose, started yesterday. Urine culture grew greater than 100,000 Proteus mirabilis and E. coli. She was also given 6 mg oral dexamethasone as well as 6 mg IV dexamethasone due to her diagnosis of Covid. Nursing facility noticed worsening decline of mental status and therefore she was referred to ED. According to family patient does have memory deficits at baseline typically is alert and oriented and able to hold conversation. This is currently not her bas linda. Also of significance patient has had an increase in sodium levels. On 01/21 she was 146,, 01/24 151 and today 160. It does appear that she received IV normal saline by nursing facility." -During this hospital stay patient was transitioned to comfort care by previous hospitalist Dr. Schneider who worked with palliative care team -02/03/2020: As per coordination with case making machine operator and patient's family (son), patient to be discharged to [facility] on comfort care. As per nurse, patient was able to eat some food with assistance. Patient on exam is lethargic. She opens her eyes but not answer. Patient's overall prognosis is poor. Hospitalist answered all questions from her son John by telephone and he is in agreement that patient may go to [facility] on comfort care Pending Studies at Discharge: No Stand-Alone Forms: My [employer] Sk[employer] Items Patient informed of condition?: Yes DNR: Yes Discharge Level of Care: Other Communicable Disease: Yes Discharge Prognosis: Stable Lines: None Urinary Catheter: Yes Medications and DC Order Prescriptions: New hyoscyamine sulfate 0.125 mg/5 mL elixir 0.125 mg PO Q4H PRN (Reason: tracheal secretions) 10 Days Qty: 300 RF: 0 glycopyrrolate 1 mg tablet 0.2 mg PO Q6H PRN (Reason: secretions) 10 Days Qty: 40 RF: 0 morphine concentrate 100 mg/5 mL (20 mg/mL) Solution 5 mg PO Q4H PRN (Reason: severe pain or severe shortness of breath) 10 Days Qty: 15 RF: 0 Continued acetaminophen 325 mg capsule 325 mg PO QID PRN (Reason: pain/fever) RF: 0 (DME) Skin Prep Wipes Misc See Rx Instructions .ROUTE .MEDSUPPLY Qty: 1 RF: 0 Discontinued divalproex [Depakote] 250 mg tablet,delayed release (DR/EC) 250 mg PO BID RF: 0 docusate sodium [Colace] 100 mg capsule 100 mg PO QAM RF: 0 bisacodyl [Dulcolax (bisacodyl)] 10 mg suppository 10 mg OR DAILY PRN (Reason: Constipation) RF: 0 polyethylene glycol 3350 [Miralax] 17 gram/dose powder 17 gm PO QAM RF: 0 megestrol 400 mg/10 mL (40 mg/mL) Suspension 400 mg PO QAM RF: 0 oxybutynin chloride 10 mg tablet extended release 24hr 10 mg PO QAM RF: 0 magnesium hydroxide 400 mg/5 mL Suspension 30 ml PO DIRECTED PRN (Reason: Constipation) RF: 0 dexamethasone 4 mg Tablet 6 mg PO DAILY@1600 RF: 0 dexamethasone sodium phos (PF) 10 mg/mL Syringe 6 mg IV Q6H RF: 0 estradiol [Estrace] 0.01 % (0.1 mg/gram) cream 5 gm PV WK RF: 0 atorvastatin [Lipitor] 20 mg Tablet 20 mg PO PM RF: 0 aspirin 81 mg Tablet,Chewable 81 mg PO QAM RF: 0 sennosides [Senokot] 8.6 mg Tablet 8.6 mg PO QAM Qty: 30 RF: 0 Discharge Orders: Discharge Order (Routine); Ordered 02/03/20 Ordered By: Damien Daigle Admission Data Admit Date/Time: 01/27/20 15:57 Attending Provider: Damien Daigle Admit Provider: Deborah Santana Primary Care Provider: [facility] Other Providers: Deborah Santana ; Ricardo Anglin ; Socorro Sears ; Kindra Jimenez Other Interventions: Discharge Summary Assessment (RN) Last Done: 02/03/20 13:39
== END 2020-02-03 14:33 | DRG 689 ==
LOC: ED 12:06 → SUATTDRO 15:57 → 1E 15:57 → 3E 01-30 13:10
DX: Z87.440 Personal history of urinary (tract) infections; Z66 Do not resuscitate; E87.0 Hyperosmolality and hypernatremia; M81.0 Age-related osteoporosis without current pathological fracture; E86.0 Dehydration; B96.20 Unspecified Escherichia coli [E. coli] as the cause of diseases classified elsewhere; Z51.5 Encounter for palliative care; D69.6 Thrombocytopenia, unspecified; E78.5 Hyperlipidemia, unspecified; G93.41 Metabolic encephalopathy; N30.01 Acute cystitis with hematuria; N18.30 Chronic kidney disease, stage 3 unspecified; I12.9 Hypertensive chronic kidney disease with stage 1 through stage 4 chronic kidney disease, or unspecified chronic kidney disease; E43 Unspecified severe protein-calorie malnutrition; N17.9 Acute kidney failure, unspecified; F31.9 Bipolar disorder, unspecified; U07.1 COVID-19; Z79.82 Long term (current) use of aspirin